=== PATIENT | female | born 1960 | race Caucasian/White ===

== ENCOUNTER 2016-06-09 12:02 | Inpatient (IN) | payer OTHER, MEDICARE ==
[~2016-06-09] VITALS: Ht 177.8 cm; Wt 97.1 kg
[2016-06-09] MEDS: IV NORMAL SALINE 1000ML BAG 1,000 ML IV SCH ×2 (00:21→13:30)
[~2016-06-09 12:02] MED LIST: ALBU1.25 IH; ALPR1TAB6 PO; DOCU-27 PO; Doxycycline Hyclate PO; ESOM40CA PO; ESTR1TAB15 PO; ESTR1TAB5 PO; ESZO1TAB6 PO; FENT1PAT21 TD; FENT1PAT91 TD; FLUT1DIS; FLUT1DIS5 IH; HYDR-963 PO; IPRA14.7; METF500T4 PO; METO5TAB55; MORP15TA; MORP30TA PO; NICO1PAT25 TP; NICO1PAT5; NYST1000 PO; OXYC10TA PO; POLY17PO5 PO; PRED-220 PO; PRED1TAB3 PO; SENN1TAB21 PO; TRAZ100T12 PO; breo; prednisone; progesterone
[2016-06-09] MEDS ORDERED: IPRATRPIUM/ALBUTEROL 0.5/2.5MG 3 ML NEBU. ONE (12:19)
--- NOTE | 2016-06-09 12:25 | PHYS DOC ---
Past Medical History Past Medical History: Anxiety, Asthma, Bronchitis, COPD, Pneumonia, Additional Disease Additional Past Medical Histor: xsmoker, chronic pain Past Surgical History: Other Additional Past Surgical Histo: pain pump x3 weeks ago, hernia rx, back sx x15 Alcohol Use: None Drug Use: None Adult General Chief Complaint Chief Complaint: SHORTNESS OF BREATH HPI HPI Patient is a 56 year old female who presents with complaint of shortness of breath for the past 4 days. Patient states that she has history of COPD and has had progressively worsening symptoms during that time. Patient has had productive cough of yellow sputum. Patient has been using DuoNeb treatments at home with minimal relief in symptoms. Patient denies any new pain associated with her symptoms at this time. Patient has history of chronic pain for which she receives fentanyl patches for treatment. Patient denies any known fevers. Patient has had worsening dyspnea on exertion. Patient states that she has had to use oxygen at all times over the last 2 days which is abnormal for her baseline. Patient denies any nausea, vomiting, or diarrhea. Review of Systems Review of Systems Constitutional: Lightheadedness, Denies fever or chills [] Eyes: Denies change in visual acuity, redness, or eye pain [] HENT: Denies nasal congestion or sore throat [] Respiratory: Productive cough, shortness of breath [] Cardiovascular: Denies chest pain or edema [] GI: Denies abdominal pain, nausea, vomiting, bloody stools or diarrhea [] : Denies dysuria or hematuria [] Musculoskeletal: Denies back pain or joint pain [] Integument: Denies rash or skin lesions [] Neurologic: Denies headache, focal weakness or sensory changes [] Current Medications Current Medications Current Medications Medications (Trade) Dose Ordered Sig/Jesus Start Time Stop Time Status Last Admin Dose Admin Albuterol/ Ipratropium (Duoneb) 3 ml STK-MED ONCE 06/09/16 12:19 06/09/16 12:20 DC Methylprednisolone Sodium Succinate (Solu-Medrol 125mg Vial) 125 mg 1X ONCE 06/09/16 12:30 06/09/16 12:31 DC 06/09/16 13:17 125 MG Ondansetron HCl 4 mg 4 mg PRN Q8HRS PRN 06/09/16 13:00 06/09/16 15:06 DC Sodium Chloride (Iv Sodium Chloride 0.9% 1000ml Bag) 1,000 ml @ 100 mls/hr Q10H 06/09/16 13:30 06/10/16 13:29 Allergies Allergies Allergies Coded Allergies Type Severity Reaction Last Updated Verified chlorhexidine Allergy Severe SEVERE BURNING TO SKIN 10/08/14 Yes Sulfa (Sulfonamide Antibiotics) Allergy Intermediate 10/08/14 Yes cephalexin Allergy Intermediate 10/08/14 Yes Physical Exam Physical Exam Constitutional: Alert, afebrile, appears in moderate respiratory distress. [] HENT: Normocephalic, atraumatic, bilateral external ears normal, oropharynx moist, no oral exudates, nose normal. [] Eyes: PERRLA, EOMI, conjunctiva normal, no discharge. [] Neck: Normal range of motion, no tenderness, supple, no stridor. [] Cardiovascular: Tachycardia, regular rhythm, no murmur [] Lungs & Thorax: Moderate to severe restriction of air movement bilaterally, expiratory wheezes bilaterally, prolonged expiratory phase, no rales [] Abdomen: Bowel sounds normal, soft, no tenderness, no masses, no pulsatile masses. [] Skin: Warm, dry, no erythema, no rash. [] Back: No tenderness, no CVA tenderness. [] Extremities: No tenderness, no cyanosis, no clubbing, ROM intact, no edema. [] Neurologic: Alert and oriented X 3, normal motor function, normal sensory function, no focal deficits noted. [] Current Patient Data Vital Signs Vital Signs Date Time Temp Pulse Resp B/P Pulse Ox O2 Delivery O2 Flow Rate FiO2 06/09/16 12:37 Nasal Cannula 6.0 06/09/16 12:12 96.7 111 26 146/78 94 96.7 Lab Values Laboratory Tests Test 06/09/16 12:20 06/09/16 12:44 06/09/16 12:45 O2 Saturation 92% (92-99) Arterial Blood pH 7.32 (7.35-7.45) L Arterial Blood pCO2 at Patient Temp 54mmHg (35-46) H Arterial Blood pO2 at Patient Temp 64mmHg (75-108) L Arterial Blood HCO3 27mmol/L (21-28) Arterial Blood Base Excess 0mmol/L (-3-3) FiO2 6 lpm nc Influenza Type A Antigen Negative (NEGATIVE) Influenza Type B Antigen Negative (NEGATIVE) White Blood Count 9.1x10^3/uL (4.0-11.0) Red Blood Count 5.33x10^6/uL (3.50-5.40) Hemoglobin 14.8g/dL (12.0-15.5) Hematocrit 46.3% (36.0-47.0) Mean Corpuscular Volume 87fL (79-100) Mean Corpuscular Hemoglobin 28pg (25-35) Mean Corpuscular Hemoglobin Concent 32g/dL (31-37) Red Cell Distribution Width 14.9% (11.5-14.5) H Platelet Count 165x10^3/uL (140-400) Neutrophils (%) (Auto) 88% (31-73) H Lymphocytes (%) (Auto) 8% (24-48) L Monocytes (%) (Auto) 4% (0-9) Eosinophils (%) (Auto) 0% (0-3) Basophils (%) (Auto) 0% (0-3) Neutrophils # (Auto) 8.0x10^3uL (1.8-7.7) H Lymphocytes # (Auto) 0.8x10^3/uL (1.0-4.8) L Monocytes # (Auto) 0.3x10^3/uL (0.0-1.1) Eosinophils # (Auto) 0.0x10^3/uL (0.0-0.7) Basophils # (Auto) 0.0x10^3/uL (0.0-0.2) Segmented Neutrophils % 72% (35-66) H Band Neutrophils % 12% (0-9) H Lymphocytes % 11% (24-48) L Monocytes % 5% (0-10) Toxic Granulation Slight Toxic Vacuolation Slight Platelet Estimate Adequate (ADEQUATE) Sodium Level 142mmol/L (136-145) Potassium Level 4.1mmol/L (3.5-5.1) Chloride Level 103mmol/L (98-107) Carbon Dioxide Level 29mmol/L (21-32) Anion Gap 10 (6-14) Blood Urea Nitrogen 14mg/dL (7-20) Creatinine 0.8mg/dL (0.6-1.0) Estimated GFR (Cockcroft-Gault) 74.2 BUN/Creatinine Ratio 18 (6-20) Glucose Level 279mg/dL (70-99) H Calcium Level 9.0mg/dL (8.5-10.1) Total Bilirubin 0.2mg/dL (0.2-1.0) Aspartate Amino Transferase (AST) 30U/L (15-37) Alanine Aminotransferase (ALT) 19U/L (14-59) Alkaline Phosphatase 113U/L (46-116) Creatine Kinase 204U/L (26-192) H Creatine Kinase MB (Mass) 2.9ng/mL (0.0-3.6) Creatine Kinase MB Relative Index 1.4% (0-4) Troponin I Quantitative < 0.017ng/mL (0.000-0.055) YT-Srl-C-Type Natriuretic Peptide 331pg/mL (0-124) H Total Protein 6.8g/dL (6.4-8.2) Albumin 3.4g/dL (3.4-5.0) Albumin/Globulin Ratio 1.0 (1.0-1.7) Laboratory Tests 06/09/16 12:45 Laboratory Tests 06/09/16 12:45 EKG EKG Interpreted by me: Heart rate 103, sinus tachycardia, normal intervals, normal axis, no acute ST/T-wave abnormalities present [] Radiology/Procedures Radiology/Procedures [facility] [address] [place], [place] [id number] IMAGING REPORT Signed PATIENT: MATEO SOUTH ACCOUNT: [id number] : 1960 LOCATION: ER AGE: 56 SEX: F EXAM STATUS: PRE ER ORD. PHYSICIAN: PABLO ESPOSITO MD REASON: shortness of breath PROCEDURE: PORTABLE CHEST 1V AP portable chest radiograph 06/09/2016 Clinical History: Shortness of breath. An AP portable erect digital radiograph of the chest was obtained. Comparison study is dated 01/03/2015. The right arm PICC has been removed. The cardiac silhouette is normal in size. The thoracic aorta is minimally tortuous. No acute pulmonary infiltrate is seen. No pleural effusion or pneumothorax is noted. Mild degenerative changes are seen involving the thoracic spine and both shoulders. Impression: No acute abnormality is seen. DICTATED and SIGNED BY: LEONARDO PERALES MD DATE: 06/09/16 1244 CC: JUANITA PARK MD; PABLO ESPOSITO MD ~ [] Course & Med Decision Making Course & Med Decision Making Pertinent Labs and Imaging studies reviewed. (See chart for details) The patient was treated with DuoNeb treatments in the emergency department. Patient's ABG showed an elevated PCO2 with decreased pH below 7.32 as well as a decreased PO2 consistent with a diagnosis of acute on chronic hypoxic and hypercapnic respiratory failure. Patient does not show evidence of pneumonia. The patient will require continued treatment in hospital for control of her current condition. I spoke with Dr. Watson who accepted care patient in hospital. A consult was placed to Dr. Ramirez of pulmonology to follow patient in hospital. Patient will continue on breathing treatments and IV Solu-Medrol. Dragon Disclaimer Dragon Disclaimer This electronic medical record was generated, in whole or in part, using a voice recognition dictation system. Departure Departure Impression: Primary Impression: Acute on chronic respiratory failure Additional Impression: Type 2 diabetes mellitus Disposition: 09 ADMITTED INPATIENT Admitting Physician: Regla Watson Condition: STABLE Referrals: JUANITA PARK MD (PCP) Problem Qualifiers Primary Impression: Acute on chronic respiratory failure Respiratory failure complication: hypoxia and hypercapnia Qualified Code: J96.21 - Acute and chronic respiratory failure with hypoxia Additional Impression: Type 2 diabetes mellitus Diabetes mellitus complication status: with hyperglycemia Diabetes mellitus fci insulin use: unspecified intermediate frame tender insulin use status Qualified Code : E11.65 - Type 2 diabetes mellitus with hyperglycemia PABLO ESPOSITO MD Jun 09, 2016 12:25
[2016-06-09] MEDS ORDERED: IV NORMAL SALINE 1000ML BAG 1,000 ML IV SCH (12:30)
[2016-06-09] MEDS ORDERED: methylPREDNISolone SOD SUCC PF 125 MG/2 ML VIAL. IV ONE (12:30)
[2016-06-09] MEDS ORDERED: IPRATRPIUM/ALBUTEROL 0.5/2.5MG 3 ML NEBU. NEB ONE (12:30)
[2016-06-09 12:31] LABS: HCO3 ABG 27 mmol/L (21-28); PCO2 ABG 54 mmHg (35-46); PH ABG 7.32 (7.35-7.45); PO2 ABG 64 mmHg (75-108); SAT O2 ABG 92 % (92-99)
--- NOTE | 2016-06-09 12:49 | RAD ---
AP portable chest radiograph 06/09/2016 Clinical History: Shortness of breath. An AP portable erect digital radiograph of the chest was obtained. Comparison study is dated 01/03/2015. The right arm PICC has been removed. The cardiac silhouette is normal in size. The thoracic aorta is minimally tortuous. No acute pulmonary infiltrate is seen. No pleural effusion or pneumothorax is noted. Mild degenerative changes are seen involving the thoracic spine and both shoulders. Impression: No acute abnormality is seen.
[2016-06-09] MEDS ORDERED: ONDANSETRON PF 4 MG/2 ML VIAL. IV PRN ×2 (13:00→15:03)
[2016-06-09 13:04] LABS: BASO % 0 % (0-3); EOS % 0 % (0-3); HEMATOCRIT 46.3 % (36.0-47.0); HEMOGLOBIN 14.8 g/dL (12.0-15.5); LYMPH # 0.8 x10^3/uL (1.0-4.8); LYMPH % 8 % (24-48); MEAN CORPUSCULAR HEMOGLOBIN 28 pg (25-35); MEAN CORPUSCULAR HGB CONC 32 g/dL (31-37); MEAN CORPUSCULAR VOLUME 87 fL (79-100); MONO % 4 % (0-9); NEUT % 88 % (31-73); PLATELET COUNT 165 x10^3/uL (140-400); RED BLOOD COUNT 5.33 x10^6/uL (3.50-5.40); RED CELL DISTRIBUTION WIDTH 14.9 % (11.5-14.5); WHITE BLOOD COUNT 9.1 x10^3/uL (4.0-11.0)
[2016-06-09 13:22] LABS: CREATININE 0.8 mg/dL (0.6-1.0); GFR 74.2; POTASSIUM 4.1 mmol/L (3.5-5.1)
[2016-06-09 13:23] LABS: OBC FLU VALID
[2016-06-09] MEDS ORDERED: BREO ELLIPTA 11 EACH IH (13:23)
[2016-06-09 13:28] LABS: ALBUMIN 3.4 g/dL (3.4-5.0); TOTAL BILIRUBIN 0.2 mg/dL (0.2-1.0); TOTAL PROTEIN 6.8 g/dL (6.4-8.2)
[2016-06-09 13:34] LABS: CKMB INDEX 1.4 % (0-4); CKMB MASS 2.9 ng/mL (0.0-3.6)
[2016-06-09 13:52] LABS: PLT ESTIMATE ADEQUATE (ADEQUATE); TOXIC GRANULATION SLIGHT; TOXIC VACUOLATION SLIGHT
--- NOTE | 2016-06-09 14:07 | EKG ---
[facility] [address] [place] [address] Test Date: 2016-06-09 Test Time: 12:14:19 Pat Name: MATEO SOUTH Department: Room: Gender: F Housing Case Manager: : 1960 Requested By: PABLO ESPOSITO Order Number: [id number] Reading MD: Measurements Intervals [place] Rate: 103 P: 62 NC: 112 QRS: 49 QRSD: 94 T: 62 QT: 338 QTc: 445 Interpretive Statements SINUS TACHYCARDIA OTHERWISE NORMAL ECG RI6.01 Unconfirmed report No previous ECG available for comparison
--- NOTE | 2016-06-09 14:38 | ACF ---
Admission Forms Criteria RESPIRATORY FAILURE [facility] Clinical Indications for Admission to Inpatient Care (Place 'X' for any and all applicable criteria): Hospital admission is needed for appropriate care of the patient because of acute respiratory failure or insufficiency as indicated by ANY ONE of the following(1)(2)(3)(4)(5)(6)(7)(8): [ ]I. Mechanical ventilation needed (acute invasive or noninvasive) [X]II. Severe ventilation deficit as indicated by ANY ONE of the following (9) [ ]a) Respiratory acidosis (pH less than 7.32 and partial pressure of carbon dioxide greater than 40 mm Hg (5.3 kPa)) [X]b) Partial pressure of carbon dioxide greater than 44 mm Hg (5.9 kPa ) (new) [ ]c) Airflow measurements less than 25% of predicted (eg, peak expiratory flow rate less than 100 L/minute) [ ]d) Forced vital capacity less than 15 mL/kg of ideal body weight, or 50% decrease in vital capacity from baseline [ ]III. Noncardiac pulmonary edema not resolving with rapid emergency treatment (8) [ ]IV. Severe respiratory distress as indicated by ANY ONE of the following: [ ]a) Severe tachypnea (respiratory rate greater than 30, greater than 45 for 6-month-old, greater than 60 for ) [ ]b) Severe hypoxemia (partial pressure of oxygen less than 50 mm Hg ( 6.7 kPa) on greater than 50% oxygen or partial pressure of oxygen to FIO2 ratio less than 200) [ ]c) Mental status deterioration from respiratory disease [ ]V. Airway obstruction or inadequate protection [A](10)(11) The original [employer] content created by [employer] has been revised. The portions of the content which have been revised are identified through the use of italic text or in bold, and [employer] has neither reviewed nor approved the modified material. All other unmodified content is copyright [employer]. Please see references footnoted in the original [employer] edition 2016 Admission Criteria Met?: Yes COSME WELLINGTON Jun 09, 2016 14:38
[2016-06-09] MEDS ORDERED: FENTANYL 100 MCG/HR TD SCH (15:00)
--- NOTE | 2016-06-09 15:10 | PDOC1 ---
History and Physical Date of Admission Date of Admission DATE: 06/09/16 TIME: 15:06 Identification/Chief Complaint Chief Complaint SOA Source Source: Caregiver, Chart review, Patient History of Present Illness History of Present Illness 56 y.o female, heavy smoker also unfortunately narcotic dependence, chronic pain (Has had 31 spine sxs total including spine stimulator), on Fentanyl patch 200 q48 hrs for many yrs amongst her PO pain meds, SOA today, CHronic cough,HEavy smoker, COPD on inhalers. ABG pH 7.32, Co3 50s, O250s, better with 2 LNC at 92-93%. Flu neg, CXR neg,. Admitted for Severe COPD exacerb. Past Medical History Cardiovascular: HTN Pulmonary: Asthma, Bronchitis GI: Other Heme/Onc: Cancer Psych: Depression Musculoskeletal: low back pain, Other Rheumatologic: Fibromyalgia Endocrine: Diabetes Past Surgical History Past Surgical History: Other Family History Family History: No Significant Social History Smoke: 1 pack per day ALCOHOL: occassional Drugs: None Current Medications Current Medications Current Medications Sodium Chloride (Iv Sodium Chloride 0.9% 1000ml Bag) 1,000 ml @ 100 mls/hr Q10H IV Last administered on 06/09/16 13:17; Start 06/09/16 at 12:30; Stop at 22:29 Albuterol/ Ipratropium (Duoneb) 6 ml 1X ONCE NEB Last administered on 12:33; Start 06/09/16 at 12:30; Stop 06/09/16 at 12:31; Status DC Methylprednisolone Sodium Succinate (Solu-Medrol 125mg Vial) 125 mg 1X ONCE IV Last administered on 06/09/16 13:17; Start 06/09/16 at 12:30; Stop 06/09/16 at 12:31; Status DC Albuterol/ Ipratropium (Duoneb) 3 ml STK-MED ONCE .ROUTE ; Start 06/09/16 at 12: 19; Stop 06/09/16 at 12:20; Status DC Ondansetron HCl 4 mg 4 mg PRN Q8HRS PRN IV NAUSEA/VOMITING; Start 06/09/16 at 13 :00; Stop 06/09/16 at 15:06; Status DC Sodium Chloride (Iv Sodium Chloride 0.9% 1000ml Bag) 1,000 ml @ 100 mls/hr Q10H IV ; Start 06/09/16 at 13:30; Stop 06/10/16 at 13:29 Albuterol/ Ipratropium (Duoneb) 3 ml RTQID NEB ; Start 06/09/16 at 16:00; Stop at 15:59 Methylprednisolone Sodium Succinate (Solu-Medrol 40mg Vial) 60 mg Q6HRS IV ; Start 06/09/16 at 18:00 Ondansetron HCl (Zofran) 4 mg PRN Q6HRS PRN IV NAUSEA/VOMITING; Start 06/09/16 at 15:03; Status UNV Acetaminophen (Tylenol) 500 mg PRN Q6HRS PRN PO MILD PAIN / TEMP; Start at 15:15; Status UNV Nicotine (Nicoderm Cq 21mg) 1 patch DAILY TD ; Start 06/09/16 at 15:15; Status UNV Nicotine Polacrilex (Nicorette Gum) 1 each PRN Q1HR PRN BC SMOKING CESSATION; Start 06/09/16 at 15:15; Status UNV Fentanyl (Duragesic 100mcg/Hr Patch) 2 patch Q3DAYS TD ; Start 06/12/16 at 09:00 ; Status UNV Active Scripts Active NICODERM CQ 14mg (Nicotine) 1 Each Patch.td24 1 Patch TP DAILY Reported Breo Ellipta 100-25 Mcg Inh (Fluticasone/Vilanterol) 1 Each Aer.pow.ba 1 Puff IH Oxycodone Hcl 10 Mg Tablet 2 Tab PO PRN Q4HRS PRN Oxycodone Hcl 10 Mg Tablet 1 Tab PO PRN Q4HRS PRN Nystatin 100,000 Unit/1 Ml Oral.susp 5 Ml PO QID PRN Morphine Sulfate 30 Mg Tablet 1 Tab PO Q12HR Jensen 10-325 Tablet (Acetaminophen/Hydrocodone Bitart) 1 Each Tablet 1-2 Tab PO Q4-6HRS PRN FENTANYL 100mcg/hr (Fentanyl) 1 Each Patch.td72 1 Patch TD QODAY Combivent Inhaler (Ipratropium/Albuterol Sulfate) 14.7 Gm Aer.w.adap 1-2 PRN DAILY PRN Nexium Capsule (Esomeprazole Magnesium) 40 Mg Capsule.dr 1 Tab PO DAILY Lunesta (Eszopiclone) 1 Mg Tablet 3 Mg PO HS Alprazolam 1 Mg Tablet 1 Mg PO PRN QID PRN Allergies Allergies: Coded Allergies: chlorhexidine (Verified Allergy, Severe, SEVERE BURNING TO SKIN, 10/08/14) CHLOROAPREP Sulfa (Sulfonamide Antibiotics) (Verified Allergy, Intermediate, 10/08/14) cephalexin (Verified Allergy, Intermediate, 10/08/14) ROS General: No: Appetite, Chills, Fatigue, Malaise, Night Sweats, Other PSYCHOLOGICAL ROS: No: Anxiety, Behavioral Disorder, Concentration difficultie , Decreased libido, Depression, Disorientation, Hallucinations, Hostility, Irritablity, Memory difficulties, Mood Swings, Obsessive thoughts, Other, Physical abuse, Sexual abuse, Sleep disturbances, Suicidal ideation HEENT: No: Epistaxis, Heacaches, Hearing change, Nasal congestion, Nasal discharge, Oral lesions, Other, Sinus pain, Sneezing, Snoring, Sore Throat, Tinnitus, Vertigo, Visual Changes, Vocal changes ALLERGY AND IMMUNOLOGY: No: Hives, Insect Bite Sensitivity, Itchy/Watery Eyes, Nasal Congestion, Other, Post Nasal Drip, Seasonal Allergies Hematological and Lymphatic: No: Bleeding Problems, Blood Clots, Blood Transfusions, Brusing, Night Sweats, Other, Pallor, Swollen Lymph Nodes ENDOCRINE: No: Breast Changes, Galactorrhea, Hair Pattern Changes, Hot Flashes , Malaise/lethargy, Mood Swings, Other, Palpitations, Polydipsia/polyuria, Skin Changes, Temperature Intolerance, Unexpected Weight Changes Breast: No New/Changing Breast Lumps, No Nipple changes, No Nipple discharge, No Other Respiratory: YES: Cough, SOB with excertion, Shortness of breath Cardiovascular: No Chest Pain, No Edema, No Lt Headedness, No Orthopnea, No Other, No Palpitations, No Paroxysmal Noc. Dyspnea Gastrointestinal: No Abdominal Pain, No Constipation, No Diarrhea, No Hematochezia, No Melena, No Nausea, No Other, No Vomiting Genitourinary: No , No , No , No , No , No , No , No Discharge, No Dysuria, No Flank Pain, No Frequency, No Hematuria, No Incontinence, No Other, No Pain, No Retention, No Urgency Musculoskeletal: No Gait Disturbance, No Joint Pain, No Joint Stiffness, No Joint Swelling, No Muscle Pain, No Muscular Weakness, No Other, No Pain In:, No Swelling In: Neurological: No Behavorial Changes, No Bowel/Bladder ControlChng, No Confusion , No Dizziness, No Gait Disturbance, No Headaches, No Impaired Coord/balance, No Memory Loss, No Numbness/Tingling, No Other, No Seizures, No Speech Problems , No Tremors, No Visual Changes, No Weakness Skin: No Acne, No Dry Skin, No Eczema, No Hair Changes, No Lumps, No Mole Changes, No Mottling, No Nail Changes, No Other, No Pruritus, No Rash, No Skin Lesion Changes Physical Exam General: Alert, Oriented X3, Cooperative, No acute distress HEENT: Atraumatic, PERRLA Lungs: Normal air movement, Other (wheezy, tight) Heart: S1S2, RRR, no thrills, no rubs Cardiovascular: S1, S2 Breasts: Normal Abdomen: Normal bowel sounds, Soft, No tenderness, No hepatosplenomegaly, No masses Rectal Exam: not examined, mass PELVIC: Nml ext genitalia Extremities: No clubbing, No cyanosis, No edema, Normal pulses, No tenderness/ swelling Skin: No rashes, No breakdown, No significant lesion Neuro: Normal gait, Normal speech, Strength at 5/5 X4 ext, Normal tone, Sensation intact, Cranial nerves 3-12 NL, Reflexes 2+ Psych/Mental Status: Mental status NL, Mood NL Vitals Vitals Vital Signs Date Time Temp Pulse Resp B/P Pulse Ox O2 Delivery O2 Flow Rate FiO2 06/09/16 12:37 Nasal Cannula 6.0 06/09/16 12:12 96.7 111 26 146/78 94 96.7 Labs Labs Laboratory Tests Test 06/09/16 12:20 06/09/16 12:44 06/09/16 12:45 O2 Saturation 92% (92-99) Arterial Blood pH 7.32 (7.35-7.45) Arterial Blood pCO2 at Patient Temp 54mmHg (35-46) Arterial Blood pO2 at Patient Temp 64mmHg (75-108) Arterial Blood HCO3 27mmol/L (21-28) Arterial Blood Base Excess 0mmol/L (-3-3) FiO2 6 lpm nc Influenza Type A Antigen Negative (NEGATIVE) Influenza Type B Antigen Negative (NEGATIVE) White Blood Count 9.1x10^3/uL (4.0-11.0) Red Blood Count 5.33x10^6/uL (3.50-5.40) Hemoglobin 14.8g/dL (12.0-15.5) Hematocrit 46.3% (36.0-47.0) Mean Corpuscular Volume 87fL (79-100) Mean Corpuscular Hemoglobin 28pg (25-35) Mean Corpuscular Hemoglobin Concent 32g/dL (31-37) Red Cell Distribution Width 14.9% (11.5-14.5) Platelet Count 165x10^3/uL (140-400) Neutrophils (%) (Auto) 88% (31-73) Lymphocytes (%) (Auto) 8% (24-48) Monocytes (%) (Auto) 4% (0-9) Eosinophils (%) (Auto) 0% (0-3) Basophils (%) (Auto) 0% (0-3) Neutrophils # (Auto) 8.0x10^3uL (1.8-7.7) Lymphocytes # (Auto) 0.8x10^3/uL (1.0-4.8) Monocytes # (Auto) 0.3x10^3/uL (0.0-1.1) Eosinophils # (Auto) 0.0x10^3/uL (0.0-0.7) Basophils # (Auto) 0.0x10^3/uL (0.0-0.2) Segmented Neutrophils % 72% (35-66) Band Neutrophils % 12% (0-9) Lymphocytes % 11% (24-48) Monocytes % 5% (0-10) Toxic Granulation Slight Toxic Vacuolation Slight Platelet Estimate Adequate (ADEQUATE) Sodium Level 142mmol/L (136-145) Potassium Level 4.1mmol/L (3.5-5.1) Chloride Level 103mmol/L (98-107) Carbon Dioxide Level 29mmol/L (21-32) Anion Gap 10 (6-14) Blood Urea Nitrogen 14mg/dL (7-20) Creatinine 0.8mg/dL (0.6-1.0) Estimated GFR (Cockcroft-Gault) 74.2 BUN/Creatinine Ratio 18 (6-20) Glucose Level 279mg/dL (70-99) Calcium Level 9.0mg/dL (8.5-10.1) Total Bilirubin 0.2mg/dL (0.2-1.0) Aspartate Amino Transf (AST/SGOT) 30U/L (15-37) Alanine Aminotransferase (ALT/SGPT) 19U/L (14-59) Alkaline Phosphatase 113U/L (46-116) Creatine Kinase 204U/L (26-192) Creatine Kinase MB (Mass) 2.9ng/mL (0.0-3.6) Creatine Kinase MB Relative Index 1.4% (0-4) Troponin I Quantitative < 0.017ng/mL (0.000-0.055) IH-Oef-U-Type Natriuretic Peptide 331pg/mL (0-124) Total Protein 6.8g/dL (6.4-8.2) Albumin 3.4g/dL (3.4-5.0) Albumin/Globulin Ratio 1.0 (1.0-1.7) Laboratory Tests Test 06/09/16 12:20 06/09/16 12:44 06/09/16 12:45 O2 Saturation 92% (92-99) Arterial Blood pH 7.32 (7.35-7.45) Arterial Blood pCO2 at Patient Temp 54mmHg (35-46) Arterial Blood pO2 at Patient Temp 64mmHg (75-108) Arterial Blood HCO3 27mmol/L (21-28) Arterial Blood Base Excess 0mmol/L (-3-3) FiO2 6 lpm nc Influenza Type A Antigen Negative (NEGATIVE) Influenza Type B Antigen Negative (NEGATIVE) White Blood Count 9.1x10^3/uL (4.0-11.0) Red Blood Count 5.33x10^6/uL (3.50-5.40) Hemoglobin 14.8g/dL (12.0-15.5) Hematocrit 46.3% (36.0-47.0) Mean Corpuscular Volume 87fL (79-100) Mean Corpuscular Hemoglobin 28pg (25-35) Mean Corpuscular Hemoglobin Concent 32g/dL (31-37) Red Cell Distribution Width 14.9% (11.5-14.5) Platelet Count 165x10^3/uL (140-400) Neutrophils (%) (Auto) 88% (31-73) Lymphocytes (%) (Auto) 8% (24-48) Monocytes (%) (Auto) 4% (0-9) Eosinophils (%) (Auto) 0% (0-3) Basophils (%) (Auto) 0% (0-3) Neutrophils # (Auto) 8.0x10^3uL (1.8-7.7) Lymphocytes # (Auto) 0.8x10^3/uL (1.0-4.8) Monocytes # (Auto) 0.3x10^3/uL (0.0-1.1) Eosinophils # (Auto) 0.0x10^3/uL (0.0-0.7) Basophils # (Auto) 0.0x10^3/uL (0.0-0.2) Segmented Neutrophils % 72% (35-66) Band Neutrophils % 12% (0-9) Lymphocytes % 11% (24-48) Monocytes % 5% (0-10) Toxic Granulation Slight Toxic Vacuolation Slight Platelet Estimate Adequate (ADEQUATE) Sodium Level 142mmol/L (136-145) Potassium Level 4.1mmol/L (3.5-5.1) Chloride Level 103mmol/L (98-107) Carbon Dioxide Level 29mmol/L (21-32) Anion Gap 10 (6-14) Blood Urea Nitrogen 14mg/dL (7-20) Creatinine 0.8mg/dL (0.6-1.0) Estimated GFR (Cockcroft-Gault) 74.2 BUN/Creatinine Ratio 18 (6-20) Glucose Level 279mg/dL (70-99) Calcium Level 9.0mg/dL (8.5-10.1) Total Bilirubin 0.2mg/dL (0.2-1.0) Aspartate Amino Transf (AST/SGOT) 30U/L (15-37) Alanine Aminotransferase (ALT/SGPT) 19U/L (14-59) Alkaline Phosphatase 113U/L (46-116) Creatine Kinase 204U/L (26-192) Creatine Kinase MB (Mass) 2.9ng/mL (0.0-3.6) Creatine Kinase MB Relative Index 1.4% (0-4) Troponin I Quantitative < 0.017ng/mL (0.000-0.055) SL-Fgs-L-Type Natriuretic Peptide 331pg/mL (0-124) Total Protein 6.8g/dL (6.4-8.2) Albumin 3.4g/dL (3.4-5.0) Albumin/Globulin Ratio 1.0 (1.0-1.7) VTE Prophylaxis Ordered VTE Prophylaxis Devices: Yes VTE Pharmacological Prophylaxi: Yes Assessment/Plan Assessment/Plan 1. Severe COPD exacerbation 2,. Acute hypoxic hypercapneic respi failure 3. Acute bronchitis 3. SMoker 4. CHronic pain 5. SIRS POA< no sepsis 6. MIld PCM PLAN: Jamalbs, cough med, solu Pulmo consult NIcotine patch COnt home meds including fentanyl patch seen at ER JONNATHAN MAHER MD Jun 09, 2016 15:10
[2016-06-09] MEDS ORDERED: NICOTINE POLACRILEX 2MG GUM PACKAGE of 12. BC PRN (15:15)
[2016-06-09] MEDS ORDERED: ACETAMINOPHEN 500 MG TABLET PO PRN (15:15)
[2016-06-09] MEDS ORDERED: ZOLPIDEM 5 MG TABLET. PO PRN (15:30)
[2016-06-09] MEDS ORDERED: OXYCODONE IR 5 MG TABLET. PO PRN (15:30)
[2016-06-09 15:40] VITALS: BP 140/68
[2016-06-09] MEDS: IPRATRPIUM/ALBUTEROL 0.5/2.5MG 3 ML NEBU. NEB SCH ×2 (16:43→20:06)
[2016-06-09] MEDS ORDERED: SENN8.6T99 PO (16:53)
[2016-06-09] MEDS ORDERED: DOCU-27 PO (16:54)
[2016-06-09] MEDS ORDERED: POLY255P PO (16:55)
[2016-06-09] MEDS ORDERED: ONDA4TAB7 PO (16:59)
[2016-06-09] MEDS ORDERED: OXYC5CAP3 PO (17:04)
[2016-06-09] MEDS ORDERED: TRAZ100T12 PO (17:04)
[2016-06-09] MEDS ORDERED: FURO-69 PO (17:06)
[2016-06-09] MEDS ORDERED: POTA10CA PO (17:07)
[2016-06-09] MEDS ORDERED: METF500T4 PO (17:07)
[2016-06-09] MEDS: HYDROCODONE/APAP 10/325 TABLET. PO PRN (18:02)
[2016-06-09] MEDS: methylPREDNISolone SOD SUCC PF 40 MG/ML VIAL. IV SCH (18:03)
[2016-06-09] MEDS: NICOTINE 21MG PATCH. TD SCH (18:03)
[2016-06-09] MEDS: PANTOPRAZOLE 40 MG TABLET. PO SCH (18:04)
[2016-06-09] MEDS: BENZONATATE 100 MG CAPSULE. PO SCH ×2 (18:04→20:58)
[2016-06-09 19:00] VITALS: BP 124/68
[2016-06-09] MEDS: MORPHINE ER 30 MG TABLET.ER PO SCH (20:58)
[2016-06-09 23:00] VITALS: BP 140/79
[2016-06-10] MEDS: methylPREDNISolone SOD SUCC PF 40 MG/ML VIAL. IV SCH ×5 (00:22→21:17)
[2016-06-10] MEDS: HYDROCODONE/APAP 10/325 TABLET. PO PRN ×2 (02:18→13:02)
[2016-06-10] MEDS ORDERED: ALBUTEROL SULFATE 2.5 MG/3 ML NEBU. NEB ONE (04:00)
[2016-06-10 06:37] LABS: BASO % 0 % (0-3); EOS % 0 % (0-3); HEMATOCRIT 45.4 % (36.0-47.0); HEMOGLOBIN 14.6 g/dL (12.0-15.5); LYMPH # 0.8 x10^3/uL (1.0-4.8); LYMPH % 10 % (24-48); MEAN CORPUSCULAR HEMOGLOBIN 28 pg (25-35); MEAN CORPUSCULAR HGB CONC 32 g/dL (31-37); MEAN CORPUSCULAR VOLUME 86 fL (79-100); MONO % 4 % (0-9); NEUT % 87 % (31-73); PLATELET COUNT 170 x10^3/uL (140-400); RED BLOOD COUNT 5.25 x10^6/uL (3.50-5.40); RED CELL DISTRIBUTION WIDTH 14.7 % (11.5-14.5); WHITE BLOOD COUNT 7.8 x10^3/uL (4.0-11.0)
[2016-06-10 06:44] LABS: CALCIUM 8.9 mg/dL (8.5-10.1); CREATININE 0.9 mg/dL (0.6-1.0); GFR 64.8; POTASSIUM 4.7 mmol/L (3.5-5.1)
[2016-06-10 07:00] VITALS: BP 175/79
[2016-06-10] MEDS: PANTOPRAZOLE 40 MG TABLET. PO SCH ×2 (07:30→08:40)
[2016-06-10] MEDS: IPRATRPIUM/ALBUTEROL 0.5/2.5MG 3 ML NEBU. NEB SCH ×5 (07:32→19:39)
[2016-06-10] MEDS: BENZONATATE 100 MG CAPSULE. PO SCH ×3 (08:40→21:16)
[2016-06-10] MEDS: MORPHINE ER 30 MG TABLET.ER PO SCH ×2 (08:40→21:17)
[2016-06-10] MEDS: NICOTINE 21MG PATCH. TD SCH (08:40)
[2016-06-10] MEDS ORDERED: DEXTROSE 50% 25 GM / 50ML DISP.SYRIN. IV PRN (10:45)
[2016-06-10] MEDS ORDERED: ALBUTEROL SULFATE 2.5 MG/3 ML NEBU. NEB PRN (10:45)
[2016-06-10 11:00] VITALS: BP 166/73
--- NOTE | 2016-06-10 11:48 | PDOC ---
Provider Note Provider Note DICTATED KELVIN HUNT MD Jun 10, 2016 11:48
[2016-06-10] MEDS: INSULIN ASPART 300 UNITS/3 ML INSULN.PEN SQ SCH ×2 (12:00→17:26)
[2016-06-10] MEDS ORDERED: ALBUTEROL SULFATE PRN (12:30)
[2016-06-10] MEDS ORDERED: IPRATROPIUM PRN (12:30)
--- NOTE | 2016-06-10 12:35 | CONS ---
DATE OF CONSULTATION: ATTENDING PHYSICIAN: Dr. Watson. REASON FOR CONSULTATION: Acute exacerbation of COPD, abnormal ABGs and respiratory failure. HISTORY OF PRESENT ILLNESS: The patient is a 56-year-old female who has a history of severe COPD, which has been oxygen dependent. She also has a history of heavy narcotic dependence. She had 31 spinal surgeries and has been on fentanyl patch 200 mics every 48 hours along with oral narcotics. She was brought into the hospital with complaint of shortness of breath and wheezing. She also has been coughing up thick green sputum. She said her had a viral infection and then she developed the symptoms after she was exposed to him. Her chest x-ray did not reveal definite consolidation. She had abnormal ABGs with a pH of 7.32, pCO2 of 54 and a pO2 of 64 while on 6 liters. She states she used to be on oxygen in the past, but insurance denied it and then she bought her own oxygen. She said she has not used it except in the last 5 days when she is using up to 5 liters. She also stated that she used 31 nebulizer treatments in the last 2 days. Consultation requested for further evaluation and management. PAST MEDICAL HISTORY: Significant for history of severe oxygen dependent COPD, history of chronic narcotic dependence, history of hypertension, history of depression, low back pain, history of multiple spinal surgeries and history of chronic narcotic dependence. PAST SURGICAL HISTORY: Multiple, at least 31 spinal surgeries. ALLERGIES: SULFA, CEPHALEXIN AND CHLORHEXIDINE. REVIEW OF SYSTEMS: Twelve-point systems were obtained, pertinent positives discussed in my history of present illness, otherwise noncontributory. All systems that were negative were reviewed as well. CURRENT MEDICATIONS: Reviewed including DuoNebs. She is also on albuterol p.r.n. q. 12 hours nebulizer and along with IV steroids. Oral narcotics and narcotic patches. SOCIAL HISTORY: She no longer smokes cigarettes. PHYSICAL EXAMINATION: VITAL SIGNS: Blood pressure is ____. She is fully awake, in no obvious respiratory distress. Pulse ox ____ on 4 liters. HEENT: Sclerae nonicteric. NECK: Supple. LUNGS: With faint bilateral expiratory wheezes. CARDIOVASCULAR: Regular rate. ABDOMEN: Soft, nontender. EXTREMITIES: With trace pitting edema. LABORATORY DATA: Reviewed. ABGs as discussed in my history of present illness. Influenza screen is negative. BUN 16, creatinine 0.9. White cell count 7.8, hemoglobin 14.6 and platelets are 170. IMPRESSION: 1. Acute on chronic hypercapnic and hypoxic respiratory failure secondary to acute exacerbation of chronic obstructive pulmonary disease. 2. Acute purulent bronchitis. 3. Abnormal arterial blood gases secondary to acute exacerbation of chronic obstructive pulmonary disease and hypoventilation from the effect of heavy doses of narcotics. 4. Chronic narcotic dependence secondary to 31 spinal surgeries. RECOMMENDATIONS: 1. Continue with present Duo Nebs and p.r.n. albuterol nebulizer. The patient states at home she takes Breo inhaler and p.r.n. rescue inhaler and she prefers to use them if available in the hospital.(not available) 2. Continue IV steroids. 3. Obtain sputum for C and S. 4. Cautious use of narcotics. 5. We will follow ABGs as clinically needed. she is fully awake 6. Add empiric antibiotic. 7. Discussed with RN. We will follow along with you. KELVIN HUNT MD DR: MILVIA/karly JOB#: [id number] / [id number] ELE
[2016-06-10] MEDS: DOXYCYCLINE HYCLATE 100 MG TABLET PO SCH ×2 (13:01→21:16)
[2016-06-10] MEDS: IV NORMAL SALINE 1000ML BAG 1,000 ML IV SCH (13:01)
[2016-06-10] MEDS: GUAIFENESIN ER 600 MG TABLET.ER PO SCH ×2 (13:01→21:16)
[2016-06-10] MEDS: GABAPENTIN 400 MG CAPSULE. PO SCH ×2 (13:02→21:16)
[2016-06-10] MEDS ORDERED: FENTANYL 100 MCG/HR TD SCH (14:00)
--- NOTE | 2016-06-10 14:14 | PDOC ---
PROGRESS NOTES Chief Complaint Chief Complaint Assessment/Plan 1. Severe COPD exacerbation 2,. Acute hypoxic hypercapneic AND HYPoxic respi failure 3. Acute bronchitis 3. SMoker 4. CHronic pain 5. SIRS POA< no sepsis 6. MIld PCM PLAN: Duonebs, cough med, solu Pulmo consulted NIcotine patch COnt home meds including fentanyl patch SSI History of Present Illness History of Present Illness still cough, sob, on NC 5L Vitals Vitals Vital Signs Date Time Temp Pulse Resp B/P Pulse Ox O2 Delivery O2 Flow Rate FiO2 06/10/16 13:02 Room Air 06/10/16 11:47 95 5.0 06/10/16 11:00 97.9 91 20 166/73 97.9 Physical Exam General: Alert, Oriented X3, Cooperative, No acute distress Heart: Regular rate Lungs: Other (BL SEVERE WHEEZING) Abdomen: Normal bowel sounds, Soft, No tenderness, No hepatosplenomegaly, No masses Extremities: No clubbing, No cyanosis, No edema, Normal pulses, No tenderness/ swelling Skin: No rashes, No breakdown, No significant lesion Labs LABS Laboratory Tests Test 06/09/16 16:27 06/09/16 16:29 06/10/16 06:20 Glucose (Fingerstick) 354mg/dL (70-99) 296mg/dL (70-99) White Blood Count 7.8x10^3/uL (4.0-11.0) Red Blood Count 5.25x10^6/uL (3.50-5.40) Hemoglobin 14.6g/dL (12.0-15.5) Hematocrit 45.4% (36.0-47.0) Mean Corpuscular Volume 86fL (79-100) Mean Corpuscular Hemoglobin 28pg (25-35) Mean Corpuscular Hemoglobin Concent 32g/dL (31-37) Red Cell Distribution Width 14.7% (11.5-14.5) Platelet Count 170x10^3/uL (140-400) Neutrophils (%) (Auto) 87% (31-73) Lymphocytes (%) (Auto) 10% (24-48) Monocytes (%) (Auto) 4% (0-9) Eosinophils (%) (Auto) 0% (0-3) Basophils (%) (Auto) 0% (0-3) Neutrophils # (Auto) 6.8x10^3uL (1.8-7.7) Lymphocytes # (Auto) 0.8x10^3/uL (1.0-4.8) Monocytes # (Auto) 0.3x10^3/uL (0.0-1.1) Eosinophils # (Auto) 0.0x10^3/uL (0.0-0.7) Basophils # (Auto) 0.0x10^3/uL (0.0-0.2) Sodium Level 140mmol/L (136-145) Potassium Level 4.7mmol/L (3.5-5.1) Chloride Level 104mmol/L (98-107) Carbon Dioxide Level 33mmol/L (21-32) Anion Gap 3 (6-14) Blood Urea Nitrogen 16mg/dL (7-20) Creatinine 0.9mg/dL (0.6-1.0) Estimated GFR (Cockcroft-Gault) 64.8 Glucose Level 190mg/dL (70-99) Calcium Level 8.9mg/dL (8.5-10.1) Review of Systems Review of Systems no fever, chills, sob or chest pain Assessment and Plan Assessmemt and Plan Problems Medical Problems: (1) Acute on chronic respiratory failure Status: Acute (2) Type 2 diabetes mellitus Status: Acute Problems: Comment Review of Relevant I have reviewed the following items nila (where applicable) has been applied. Labs Laboratory Tests Test 06/09/16 12:20 06/09/16 12:44 06/09/16 12:45 06/09/16 16:27 O2 Saturation 92% (92-99) Arterial Blood pH 7.32 (7.35-7.45) Arterial Blood pCO2 at Patient Temp 54mmHg (35-46) Arterial Blood pO2 at Patient Temp 64mmHg (75-108) Arterial Blood HCO3 27mmol/L (21-28) Arterial Blood Base Excess 0mmol/L (-3-3) FiO2 6 lpm nc Influenza Type A Antigen Negative (NEGATIVE) Influenza Type B Antigen Negative (NEGATIVE) White Blood Count 9.1x10^3/uL (4.0-11.0) Red Blood Count 5.33x10^6/uL (3.50-5.40) Hemoglobin 14.8g/dL (12.0-15.5) Hematocrit 46.3% (36.0-47.0) Mean Corpuscular Volume 87fL (79-100) Mean Corpuscular Hemoglobin 28pg (25-35) Mean Corpuscular Hemoglobin Concent 32g/dL (31-37) Red Cell Distribution Width 14.9% (11.5-14.5) Platelet Count 165x10^3/uL (140-400) Neutrophils (%) (Auto) 88% (31-73) Lymphocytes (%) (Auto) 8% (24-48) Monocytes (%) (Auto) 4% (0-9) Eosinophils (%) (Auto) 0% (0-3) Basophils (%) (Auto) 0% (0-3) Neutrophils # (Auto) 8.0x10^3uL (1.8-7.7) Lymphocytes # (Auto) 0.8x10^3/uL (1.0-4.8) Monocytes # (Auto) 0.3x10^3/uL (0.0-1.1) Eosinophils # (Auto) 0.0x10^3/uL (0.0-0.7) Basophils # (Auto) 0.0x10^3/uL (0.0-0.2) Segmented Neutrophils % 72% (35-66) Band Neutrophils % 12% (0-9) Lymphocytes % 11% (24-48) Monocytes % 5% (0-10) Toxic Granulation Slight Toxic Vacuolation Slight Platelet Estimate Adequate (ADEQUATE) Sodium Level 142mmol/L (136-145) Potassium Level 4.1mmol/L (3.5-5.1) Chloride Level 103mmol/L (98-107) Carbon Dioxide Level 29mmol/L (21-32) Anion Gap 10 (6-14) Blood Urea Nitrogen 14mg/dL (7-20) Creatinine 0.8mg/dL (0.6-1.0) Estimated GFR (Cockcroft-Gault) 74.2 BUN/Creatinine Ratio 18 (6-20) Glucose Level 279mg/dL (70-99) Calcium Level 9.0mg/dL (8.5-10.1) Total Bilirubin 0.2mg/dL (0.2-1.0) Aspartate Amino Transf (AST/SGOT) 30U/L (15-37) Alanine Aminotransferase (ALT/SGPT) 19U/L (14-59) Alkaline Phosphatase 113U/L (46-116) Creatine Kinase 204U/L (26-192) Creatine Kinase MB (Mass) 2.9ng/mL (0.0-3.6) Creatine Kinase MB Relative Index 1.4% (0-4) Troponin I Quantitative < 0.017ng/mL (0.000-0.055) JN-Nyq-P-Type Natriuretic Peptide 331pg/mL (0-124) Total Protein 6.8g/dL (6.4-8.2) Albumin 3.4g/dL (3.4-5.0) Albumin/Globulin Ratio 1.0 (1.0-1.7) Glucose (Fingerstick) 354mg/dL (70-99) Test 06/09/16 16:29 06/10/16 06:20 Glucose (Fingerstick) 296mg/dL (70-99) White Blood Count 7.8x10^3/uL (4.0-11.0) Red Blood Count 5.25x10^6/uL (3.50-5.40) Hemoglobin 14.6g/dL (12.0-15.5) Hematocrit 45.4% (36.0-47.0) Mean Corpuscular Volume 86fL (79-100) Mean Corpuscular Hemoglobin 28pg (25-35) Mean Corpuscular Hemoglobin Concent 32g/dL (31-37) Red Cell Distribution Width 14.7% (11.5-14.5) Platelet Count 170x10^3/uL (140-400) Neutrophils (%) (Auto) 87% (31-73) Lymphocytes (%) (Auto) 10% (24-48) Monocytes (%) (Auto) 4% (0-9) Eosinophils (%) (Auto) 0% (0-3) Basophils (%) (Auto) 0% (0-3) Neutrophils # (Auto) 6.8x10^3uL (1.8-7.7) Lymphocytes # (Auto) 0.8x10^3/uL (1.0-4.8) Monocytes # (Auto) 0.3x10^3/uL (0.0-1.1) Eosinophils # (Auto) 0.0x10^3/uL (0.0-0.7) Basophils # (Auto) 0.0x10^3/uL (0.0-0.2) Sodium Level 140mmol/L (136-145) Potassium Level 4.7mmol/L (3.5-5.1) Chloride Level 104mmol/L (98-107) Carbon Dioxide Level 33mmol/L (21-32) Anion Gap 3 (6-14) Blood Urea Nitrogen 16mg/dL (7-20) Creatinine 0.9mg/dL (0.6-1.0) Estimated GFR (Cockcroft-Gault) 64.8 Glucose Level 190mg/dL (70-99) Calcium Level 8.9mg/dL (8.5-10.1) Laboratory Tests Test 06/09/16 16:27 06/09/16 16:29 06/10/16 06:20 Glucose (Fingerstick) 354mg/dL (70-99) 296mg/dL (70-99) White Blood Count 7.8x10^3/uL (4.0-11.0) Red Blood Count 5.25x10^6/uL (3.50-5.40) Hemoglobin 14.6g/dL (12.0-15.5) Hematocrit 45.4% (36.0-47.0) Mean Corpuscular Volume 86fL (79-100) Mean Corpuscular Hemoglobin 28pg (25-35) Mean Corpuscular Hemoglobin Concent 32g/dL (31-37) Red Cell Distribution Width 14.7% (11.5-14.5) Platelet Count 170x10^3/uL (140-400) Neutrophils (%) (Auto) 87% (31-73) Lymphocytes (%) (Auto) 10% (24-48) Monocytes (%) (Auto) 4% (0-9) Eosinophils (%) (Auto) 0% (0-3) Basophils (%) (Auto) 0% (0-3) Neutrophils # (Auto) 6.8x10^3uL (1.8-7.7) Lymphocytes # (Auto) 0.8x10^3/uL (1.0-4.8) Monocytes # (Auto) 0.3x10^3/uL (0.0-1.1) Eosinophils # (Auto) 0.0x10^3/uL (0.0-0.7) Basophils # (Auto) 0.0x10^3/uL (0.0-0.2) Sodium Level 140mmol/L (136-145) Potassium Level 4.7mmol/L (3.5-5.1) Chloride Level 104mmol/L (98-107) Carbon Dioxide Level 33mmol/L (21-32) Anion Gap 3 (6-14) Blood Urea Nitrogen 16mg/dL (7-20) Creatinine 0.9mg/dL (0.6-1.0) Estimated GFR (Cockcroft-Gault) 64.8 Glucose Level 190mg/dL (70-99) Calcium Level 8.9mg/dL (8.5-10.1) Medications Current Medications Sodium Chloride (Iv Sodium Chloride 0.9% 1000ml Bag) 1,000 ml @ 100 mls/hr Q10H IV Last administered on 06/09/16 13:17; Start 06/09/16 at 12:30; Stop at 22:29; Status DC Albuterol/ Ipratropium (Duoneb) 6 ml 1X ONCE NEB Last administered on 12:33; Start 06/09/16 at 12:30; Stop 06/09/16 at 12:31; Status DC Methylprednisolone Sodium Succinate (Solu-Medrol 125mg Vial) 125 mg 1X ONCE IV Last administered on 06/09/16 13:17; Start 06/09/16 at 12:30; Stop 06/09/16 at 12:31; Status DC Albuterol/ Ipratropium (Duoneb) 3 ml STK-MED ONCE .ROUTE ; Start 06/09/16 at 12: 19; Stop 06/09/16 at 12:20; Status DC Ondansetron HCl 4 mg 4 mg PRN Q8HRS PRN IV NAUSEA/VOMITING; Start 06/09/16 at 13 :00; Stop 06/09/16 at 15:06; Status DC Sodium Chloride (Iv Sodium Chloride 0.9% 1000ml Bag) 1,000 ml @ 100 mls/hr Q10H IV Last administered on 06/10/16 13:01; Start 06/09/16 at 13:30; Stop at 13:29; Status DC Albuterol/ Ipratropium (Duoneb) 3 ml RTQID NEB Last administered on 06/10/16 11 :44; Start 06/09/16 at 16:00; Stop 06/10/16 at 15:59 Methylprednisolone Sodium Succinate (Solu-Medrol 40mg Vial) 60 mg Q6HRS IV Last administered on 06/10/16 13:01; Start 06/09/16 at 18:00 Ondansetron HCl (Zofran) 4 mg PRN Q6HRS PRN IV NAUSEA/VOMITING; Start 06/09/16 at 15:03 Acetaminophen (Tylenol) 500 mg PRN Q6HRS PRN PO MILD PAIN / TEMP; Start at 15:15 Nicotine (Nicoderm Cq 21mg) 1 patch DAILY TD Last administered on 06/10/16 08: 40; Start 06/09/16 at 15:15 Nicotine Polacrilex (Nicorette Gum) 1 each PRN Q1HR PRN BC SMOKING CESSATION; Start 06/09/16 at 15:15 Fentanyl (Duragesic 100mcg/Hr Patch) 2 patch Q3DAYS TD ; Start 06/09/16 at 15:00 ; Stop 06/10/16 at 13:33; Status DC Alprazolam (Xanax) 1 mg PRN QID PRN PO ANXIETY / AGITATION; Start 06/09/16 at 15 :15 Acetaminophen/ Hydrocodone Bitart (Lortab 10/325) 1 tab PRN QID PRN PO PAIN Last administered on 06/10/16 02:18; Start 06/09/16 at 15:15 Nystatin 5 ml PRN QID PRN PO SEE COMMENTS; Start 06/09/16 at 15:15 Pantoprazole Sodium (Protonix) 40 mg DAILYAC PO Last administered on 06/09/16 18:04; Start 06/09/16 at 16:00 Zolpidem Tartrate (Ambien) 5 mg PRN QHS PRN PO INSOMNIA; Start 06/09/16 at 15:30 Morphine Sulfate (Ms Contin) 30 mg BID PO Last administered on 06/10/16 08:40; Start 06/09/16 at 21:00 Oxycodone HCl (Roxicodone) 10 mg PRN Q4HRS PRN PO PAIN; Start 06/09/16 at 15:30 Oxycodone HCl (Roxicodone) 20 mg PRN Q4HRS PRN PO PAIN Last administered on 06/10 03:51; Start 06/09/16 at 15:30; Stop 06/10/16 at 10:48; Status DC Benzonatate (Tessalon Perle) 100 mg [id number] PO Last administered on 06/10/16 08: 40; Start 06/09/16 at 16:00 Albuterol Sulfate (Ventolin Neb Soln) 2.5 mg 1X ONCE NEB Last administered on 06/10/16 03:53; Start 06/10/16 at 04:00; Stop 06/10/16 at 04:01; Status DC Insulin Aspart (Novolog) 0-9 UNITS TIDWMEALS SQ ; Start 06/10/16 at 12:00 Dextrose 12.5 gm PRN Q15MIN PRN IV SEE COMMENTS; Start 06/10/16 at 10:45 Albuterol/ Ipratropium (Duoneb) 3 ml RTQID NEB ; Start 06/10/16 at 12:00 Albuterol Sulfate (Ventolin Neb Soln) 2.5 mg PRN Q2HR PRN NEB SHORTNESS OF BREATH; Start 06/10/16 at 10:45 Guaifenesin (Mucinex) 600 mg BID PO Last administered on 06/10/16 13:01; Start 06/10/16 at 11:30 Doxycycline Hyclate (Vibra-Tab) 100 mg BID PO Last administered on 06/10/16 13: 01; Start 06/10/16 at 12:30 Trazodone HCl (Desyrel) 100 mg QHS PO ; Start 06/10/16 at 21:00 Non-Formulary Medication 1-2 puffs PRN DAILY PRN .ROUTE SHORTNESS OF BREATH; Start 06/10/16 at 12:30; Status UNV Acetaminophen/ Hydrocodone Bitart (Lortab 10/325) 2 tab PRN Q6HRS PRN PO PAIN Last administered on 06/10/16 13:02; Start 06/10/16 at 12:30 Gabapentin (Neurontin) 400 mg TID PO Last administered on 06/10/16t 13:02; Start 06/10/16 at 14:00 Fentanyl (Duragesic 100mcg/Hr Patch) 2 patch Q3DAYS TD ; Start 06/10/16 at 14:00 Active Scripts Active NICODERM CQ 14mg (Nicotine) 1 Each Patch.td24 1 Patch TP DAILY Reported Metformin Hcl 500 Mg Tablet 1 Tab PO BID Potassium Chloride 10 Meq Capsule.er 20 Meq PO DAILY Lasix (Furosemide) 20 Mg Tablet 20 Mg PO DAILY Oxycodone Hcl 5 Mg Capsule 5 Mg PO PRN Trazodone Hcl 100 Mg Tablet 1 Tab PO QHS Zofran (Ondansetron Hcl) 4 Mg Tablet 4 Mg PO BID PRN Polyethylene Glycol 3350 255 Gm Powder 17 Gm PO DAILY Colace (Docusate Sodium) 100 Mg Capsule 1 Cap PO BID Senokot (Sennosides) 8.6 Mg Tablet 1 Tab PO BID Breo Ellipta 100-25 Mcg Inh (Fluticasone/Vilanterol) 1 Each Aer.pow.ba 1 Puff IH Oxycodone Hcl 10 Mg Tablet 2 Tab PO PRN Q4HRS PRN Oxycodone Hcl 10 Mg Tablet 1 Tab PO PRN Q4HRS PRN Nystatin 100,000 Unit/1 Ml Oral.susp 5 Ml PO QID PRN Morphine Sulfate 30 Mg Tablet 1 Tab PO Q12HR Carey 10-325 Tablet (Acetaminophen/Hydrocodone Bitart) 1 Each Tablet 1-2 Tab PO Q4-6HRS PRN FENTANYL 100mcg/hr (Fentanyl) 1 Each Patch.td72 1 Patch TD QODAY Combivent Inhaler (Ipratropium/Albuterol Sulfate) 14.7 Gm Aer.w.adap 1-2 PRN DAILY PRN Nexium Capsule (Esomeprazole Magnesium) 40 Mg Capsule.dr 1 Tab PO DAILY Lunesta (Eszopiclone) 1 Mg Tablet 3 Mg PO HS Alprazolam 1 Mg Tablet 1 Mg PO PRN QID PRN Vitals/I & O Vital Sign - Last 24 Hours 06/09/16 06/09/16 06/09/16 06/09/16 15:00 15:40 15:56 16:45 Temp 97.7 97.7 Pulse 98 Resp 20 B/P 140/68 Pulse Ox 94 95 93 O2 Delivery Nasal Cannula Nasal Cannula Non-Rebreather Nasal Cannula O2 Flow Rate 6.0 6.0 6.0 5.0 06/09/16 06/09/16 06/09/16 06/09/16 18:02 19:00 19:02 20:06 Temp 98.2 98.2 Pulse 81 Resp 20 B/P 124/68 Pulse Ox 93 94 93 O2 Delivery Nasal Cannula Nasal Cannula Non-Rebreather O2 Flow Rate 5.0 6.0 5.0 5.0 06/09/16 06/09/16 06/09/16 06/10/16 20:08 20:58 23:00 02:18 Temp 98.0 98.0 Pulse 77 Resp 18 20 18 B/P 140/79 Pulse Ox 95 95 94 94 O2 Delivery Nasal Cannula Nasal Cannula O2 Flow Rate 5.0 5.0 6.0 6.0 06/10/16 06/10/16 06/10/16 06/10/16 03:51 03:55 07:00 07:34 Temp 97.7 97.7 Pulse 83 Resp 20 21 B/P 175/79 Pulse Ox 94 95 92 93 O2 Delivery Nasal Cannula Nasal Cannula Nasal Cannula O2 Flow Rate 6.0 5.0 4.0 5.0 06/10/16 06/10/16 06/10/16 06/10/16 08:00 08:40 11:00 11:47 Temp 97.9 97.9 Pulse 91 Resp 20 B/P 166/73 Pulse Ox 93 95 O2 Delivery Nasal Cannula Nasal Cannula Nasal Cannula Nasal Cannula O2 Flow Rate 5.0 4.0 5.0 06/10/16 06/10/16 12:40 13:02 O2 Delivery Room Air Room Air Intake and Output 06/09/16 06/09/16 06/10/16 15:00 23:00 07:00 Intake Total 360 ml 600 ml Balance 360 ml 600 ml CLAY WATSON MD Jun 10, 2016 14:14
[2016-06-10 15:00] VITALS: BP_SYST 190; BP_SYST 193; BP_DIAS 88; BP_DIAS 99
[2016-06-10] MEDS: OXYCODONE IR 5 MG TABLET. PO PRN ×2 (15:04→23:05)
[2016-06-10] MEDS ORDERED: hydrALAZINE 20 MG/ML VIAL. IVP PRN (15:30)
[2016-06-10] MEDS: LISINOPRIL 20 MG TABLET PO SCH (15:48)
[2016-06-10] MEDS: ALPRAZOLAM 1 MG TABLET PO PRN (16:32)
[2016-06-10 19:44] VITALS: BP 142/74
[2016-06-10] MEDS: traZODone 100 MG TABLET. PO SCH (21:16)
[2016-06-10 23:06] VITALS: BP 170/72
[2016-06-11] MEDS: ALPRAZOLAM 1 MG TABLET PO PRN ×3 (02:37→13:40)
[2016-06-11] MEDS: HYDROCODONE/APAP 10/325 TABLET. PO PRN (02:38)
[2016-06-11 03:20] VITALS: BP 147/78
[2016-06-11 05:17] LABS: BASO % 0 % (0-3); EOS % 0 % (0-3); HEMATOCRIT 43.7 % (36.0-47.0); HEMOGLOBIN 14.1 g/dL (12.0-15.5); LYMPH # 0.9 x10^3/uL (1.0-4.8); LYMPH % 11 % (24-48); MEAN CORPUSCULAR HEMOGLOBIN 27 pg (25-35); MEAN CORPUSCULAR HGB CONC 32 g/dL (31-37); MEAN CORPUSCULAR VOLUME 85 fL (79-100); MONO % 3 % (0-9); NEUT % 87 % (31-73); PLATELET COUNT 185 x10^3/uL (140-400); RED BLOOD COUNT 5.16 x10^6/uL (3.50-5.40); RED CELL DISTRIBUTION WIDTH 14.7 % (11.5-14.5); WHITE BLOOD COUNT 8.8 x10^3/uL (4.0-11.0)
[2016-06-11 05:40] LABS: CALCIUM 8.8 mg/dL (8.5-10.1); CREATININE 0.6 mg/dL (0.6-1.0); GFR 103.4; POTASSIUM 4.9 mmol/L (3.5-5.1)
[2016-06-11] MEDS: methylPREDNISolone SOD SUCC PF 40 MG/ML VIAL. IV SCH ×3 (06:09→21:58)
[2016-06-11] MEDS: OXYCODONE IR 5 MG TABLET. PO PRN ×2 (06:26→11:40)
[2016-06-11 07:00] VITALS: BP 130/69
[2016-06-11] MEDS: IPRATRPIUM/ALBUTEROL 0.5/2.5MG 3 ML NEBU. NEB SCH ×4 (07:59→20:36)
[2016-06-11] MEDS: PANTOPRAZOLE 40 MG TABLET. PO SCH (08:01)
[2016-06-11] MEDS: INSULIN ASPART 300 UNITS/3 ML INSULN.PEN SQ SCH ×3 (08:08→17:08)
[2016-06-11] MEDS: NICOTINE 21MG PATCH. TD SCH (08:58)
[2016-06-11] MEDS: DOXYCYCLINE HYCLATE 100 MG TABLET PO SCH ×2 (08:58→20:55)
[2016-06-11] MEDS: NYSTATIN 100,000 UNITS/ML 5 ML ORAL.SUSP. PO PRN (08:59)
[2016-06-11] MEDS: GABAPENTIN 400 MG CAPSULE. PO SCH ×3 (08:59→20:55)
[2016-06-11] MEDS: GUAIFENESIN ER 600 MG TABLET.ER PO SCH ×2 (08:59→20:55)
[2016-06-11] MEDS: LISINOPRIL 20 MG TABLET PO SCH (08:59)
--- NOTE | 2016-06-11 09:01 | PDOC ---
PULMONARY PROGRESS NOTES Subjective feels better, less cough Vitals Vital Signs Date Time Temp Pulse Resp B/P Pulse Ox O2 Delivery O2 Flow Rate FiO2 06/11/16 08:01 100 Nasal Cannula 5.0 06/11/16 03:20 97.7 78 16 147/78 97.7 General: Alert, No acute distress Lungs: Wheezing (bilateral) Cardiovascular: S1 Abdomen: Soft Neuro Exam: Alert Extremities: Other (trace edema) Labs Laboratory Tests Test 06/09/16 12:20 06/09/16 12:44 06/09/16 12:45 06/09/16 16:27 O2 Saturation 92% (92-99) Arterial Blood pH 7.32 (7.35-7.45) Arterial Blood pCO2 at Patient Temp 54mmHg (35-46) Arterial Blood pO2 at Patient Temp 64mmHg (75-108) Arterial Blood HCO3 27mmol/L (21-28) Arterial Blood Base Excess 0mmol/L (-3-3) FiO2 6 lpm nc Influenza Type A Antigen Negative (NEGATIVE) Influenza Type B Antigen Negative (NEGATIVE) White Blood Count 9.1x10^3/uL (4.0-11.0) Red Blood Count 5.33x10^6/uL (3.50-5.40) Hemoglobin 14.8g/dL (12.0-15.5) Hematocrit 46.3% (36.0-47.0) Mean Corpuscular Volume 87fL (79-100) Mean Corpuscular Hemoglobin 28pg (25-35) Mean Corpuscular Hemoglobin Concent 32g/dL (31-37) Red Cell Distribution Width 14.9% (11.5-14.5) Platelet Count 165x10^3/uL (140-400) Neutrophils (%) (Auto) 88% (31-73) Lymphocytes (%) (Auto) 8% (24-48) Monocytes (%) (Auto) 4% (0-9) Eosinophils (%) (Auto) 0% (0-3) Basophils (%) (Auto) 0% (0-3) Neutrophils # (Auto) 8.0x10^3uL (1.8-7.7) Lymphocytes # (Auto) 0.8x10^3/uL (1.0-4.8) Monocytes # (Auto) 0.3x10^3/uL (0.0-1.1) Eosinophils # (Auto) 0.0x10^3/uL (0.0-0.7) Basophils # (Auto) 0.0x10^3/uL (0.0-0.2) Segmented Neutrophils % 72% (35-66) Band Neutrophils % 12% (0-9) Lymphocytes % 11% (24-48) Monocytes % 5% (0-10) Toxic Granulation Slight Toxic Vacuolation Slight Platelet Estimate Adequate (ADEQUATE) Sodium Level 142mmol/L (136-145) Potassium Level 4.1mmol/L (3.5-5.1) Chloride Level 103mmol/L (98-107) Carbon Dioxide Level 29mmol/L (21-32) Anion Gap 10 (6-14) Blood Urea Nitrogen 14mg/dL (7-20) Creatinine 0.8mg/dL (0.6-1.0) Estimated GFR (Cockcroft-Gault) 74.2 BUN/Creatinine Ratio 18 (6-20) Glucose Level 279mg/dL (70-99) Calcium Level 9.0mg/dL (8.5-10.1) Total Bilirubin 0.2mg/dL (0.2-1.0) Aspartate Amino Transf (AST/SGOT) 30U/L (15-37) Alanine Aminotransferase (ALT/SGPT) 19U/L (14-59) Alkaline Phosphatase 113U/L (46-116) Creatine Kinase 204U/L (26-192) Creatine Kinase MB (Mass) 2.9ng/mL (0.0-3.6) Creatine Kinase MB Relative Index 1.4% (0-4) Troponin I Quantitative < 0.017ng/mL (0.000-0.055) QM-Kji-J-Type Natriuretic Peptide 331pg/mL (0-124) Total Protein 6.8g/dL (6.4-8.2) Albumin 3.4g/dL (3.4-5.0) Albumin/Globulin Ratio 1.0 (1.0-1.7) Glucose (Fingerstick) 354mg/dL (70-99) Test 06/09/16 16:29 06/10/16 06:20 06/10/16 16:57 06/10/16 20:54 Glucose (Fingerstick) 296mg/dL (70-99) 193mg/dL (70-99) 194mg/dL (70-99) White Blood Count 7.8x10^3/uL (4.0-11.0) Red Blood Count 5.25x10^6/uL (3.50-5.40) Hemoglobin 14.6g/dL (12.0-15.5) Hematocrit 45.4% (36.0-47.0) Mean Corpuscular Volume 86fL (79-100) Mean Corpuscular Hemoglobin 28pg (25-35) Mean Corpuscular Hemoglobin Concent 32g/dL (31-37) Red Cell Distribution Width 14.7% (11.5-14.5) Platelet Count 170x10^3/uL (140-400) Neutrophils (%) (Auto) 87% (31-73) Lymphocytes (%) (Auto) 10% (24-48) Monocytes (%) (Auto) 4% (0-9) Eosinophils (%) (Auto) 0% (0-3) Basophils (%) (Auto) 0% (0-3) Neutrophils # (Auto) 6.8x10^3uL (1.8-7.7) Lymphocytes # (Auto) 0.8x10^3/uL (1.0-4.8) Monocytes # (Auto) 0.3x10^3/uL (0.0-1.1) Eosinophils # (Auto) 0.0x10^3/uL (0.0-0.7) Basophils # (Auto) 0.0x10^3/uL (0.0-0.2) Sodium Level 140mmol/L (136-145) Potassium Level 4.7mmol/L (3.5-5.1) Chloride Level 104mmol/L (98-107) Carbon Dioxide Level 33mmol/L (21-32) Anion Gap 3 (6-14) Blood Urea Nitrogen 16mg/dL (7-20) Creatinine 0.9mg/dL (0.6-1.0) Estimated GFR (Cockcroft-Gault) 64.8 Glucose Level 190mg/dL (70-99) Calcium Level 8.9mg/dL (8.5-10.1) Test 06/11/16 04:07 06/11/16 07:17 White Blood Count 8.8x10^3/uL (4.0-11.0) Red Blood Count 5.16x10^6/uL (3.50-5.40) Hemoglobin 14.1g/dL (12.0-15.5) Hematocrit 43.7% (36.0-47.0) Mean Corpuscular Volume 85fL (79-100) Mean Corpuscular Hemoglobin 27pg (25-35) Mean Corpuscular Hemoglobin Concent 32g/dL (31-37) Red Cell Distribution Width 14.7% (11.5-14.5) Platelet Count 185x10^3/uL (140-400) Neutrophils (%) (Auto) 87% (31-73) Lymphocytes (%) (Auto) 11% (24-48) Monocytes (%) (Auto) 3% (0-9) Eosinophils (%) (Auto) 0% (0-3) Basophils (%) (Auto) 0% (0-3) Neutrophils # (Auto) 7.7x10^3uL (1.8-7.7) Lymphocytes # (Auto) 0.9x10^3/uL (1.0-4.8) Monocytes # (Auto) 0.2x10^3/uL (0.0-1.1) Eosinophils # (Auto) 0.0x10^3/uL (0.0-0.7) Basophils # (Auto) 0.0x10^3/uL (0.0-0.2) Sodium Level 142mmol/L (136-145) Potassium Level 4.9mmol/L (3.5-5.1) Chloride Level 103mmol/L (98-107) Carbon Dioxide Level 36mmol/L (21-32) Anion Gap 3 (6-14) Blood Urea Nitrogen 19mg/dL (7-20) Creatinine 0.6mg/dL (0.6-1.0) Estimated GFR (Cockcroft-Gault) 103.4 Glucose Level 159mg/dL (70-99) Calcium Level 8.8mg/dL (8.5-10.1) Glucose (Fingerstick) 200mg/dL (70-99) Laboratory Tests Test 06/10/16 16:57 06/10/16 20:54 06/11/16 04:07 06/11/16 07:17 Glucose (Fingerstick) 193mg/dL (70-99) 194mg/dL (70-99) 200mg/dL (70-99) White Blood Count 8.8x10^3/uL (4.0-11.0) Red Blood Count 5.16x10^6/uL (3.50-5.40) Hemoglobin 14.1g/dL (12.0-15.5) Hematocrit 43.7% (36.0-47.0) Mean Corpuscular Volume 85fL (79-100) Mean Corpuscular Hemoglobin 27pg (25-35) Mean Corpuscular Hemoglobin Concent 32g/dL (31-37) Red Cell Distribution Width 14.7% (11.5-14.5) Platelet Count 185x10^3/uL (140-400) Neutrophils (%) (Auto) 87% (31-73) Lymphocytes (%) (Auto) 11% (24-48) Monocytes (%) (Auto) 3% (0-9) Eosinophils (%) (Auto) 0% (0-3) Basophils (%) (Auto) 0% (0-3) Neutrophils # (Auto) 7.7x10^3uL (1.8-7.7) Lymphocytes # (Auto) 0.9x10^3/uL (1.0-4.8) Monocytes # (Auto) 0.2x10^3/uL (0.0-1.1) Eosinophils # (Auto) 0.0x10^3/uL (0.0-0.7) Basophils # (Auto) 0.0x10^3/uL (0.0-0.2) Sodium Level 142mmol/L (136-145) Potassium Level 4.9mmol/L (3.5-5.1) Chloride Level 103mmol/L (98-107) Carbon Dioxide Level 36mmol/L (21-32) Anion Gap 3 (6-14) Blood Urea Nitrogen 19mg/dL (7-20) Creatinine 0.6mg/dL (0.6-1.0) Estimated GFR (Cockcroft-Gault) 103.4 Glucose Level 159mg/dL (70-99) Calcium Level 8.8mg/dL (8.5-10.1) Medications Active Scripts Medications Dose Route/Sig Days Date Category Metformin Hcl 500 Mg Tablet 1 Tab PO BID 06/09/16 Reported Potassium Chloride 10 Meq Capsule.er 20 Meq PO DAILY 06/09/16 Reported Lasix (Furosemide) 20 Mg Tablet 20 Mg PO DAILY 06/09/16 Reported Oxycodone Hcl 5 Mg Capsule 5 Mg PO PRN 06/09/16 Reported Trazodone Hcl 100 Mg Tablet 1 Tab PO QHS 06/09/16 Reported Zofran (Ondansetron Hcl) 4 Mg Tablet 4 Mg PO BID PRN 06/09/16 Reported Polyethylene Glycol 3350 255 Gm Powder 17 Gm PO DAILY 06/09/16 Reported Colace (Docusate Sodium) 100 Mg Capsule 1 Cap PO BID 06/09/16 Reported Senokot (Sennosides) 8.6 Mg Tablet 1 Tab PO BID 06/09/16 Reported Breo Ellipta 100-25 Mcg Inh (Fluticasone/Vilanterol) 1 Each Aer.pow.ba 1 Puff IH 06/09/16 Reported NICODERM CQ 14mg (Nicotine) 1 Each Patch.td24 1 Patch TP DAILY 02/24/15 Rx Oxycodone Hcl 10 Mg Tablet 2 Tab PO PRN Q4HRS PRN 01/03/15 Reported Oxycodone Hcl 10 Mg Tablet 1 Tab PO PRN Q4HRS PRN 01/03/15 Reported Nystatin 100,000 Unit/1 Ml Oral.susp 5 Ml PO QID PRN 10/08/14 Reported Morphine Sulfate 30 Mg Tablet 1 Tab PO Q12HR 10/08/14 Reported [place] 10-325 Tablet (Acetaminophen/Hydrocodone Bitart) 1 Each Tablet 1-2 Tab PO Q4-6HRS PRN 10/08/14 Reported FENTANYL 100mcg/hr (Fentanyl) 1 Each Patch.td72 1 Patch TD QODAY 07/20/14 Reported Combivent Inhaler (Ipratropium/Albuterol Sulfate) 14.7 Gm Aer.w.adap 1-2 PRN DAILY PRN 03/06/13 Reported Nexium Capsule (Esomeprazole Magnesium) 40 Mg Capsule.dr 1 Tab PO DAILY 03/06/13 Reported Lunesta (Eszopiclone) 1 Mg Tablet 3 Mg PO HS 03/06/13 Reported Alprazolam 1 Mg Tablet 1 Mg PO PRN QID PRN 03/05/13 Reported Impression . 1. Acute on chronic hypercapnic and hypoxic respiratory failure secondary to acute exacerbation of chronic obstructive pulmonary disease. 2. Acute purulent bronchitis. 3. Abnormal arterial blood gases secondary to acute exacerbation of chronic obstructive pulmonary disease and hypoventilation from the effect of heavy doses of narcotics. clinically compensated 4. Chronic narcotic dependence secondary to 31 spinal surgeries. Plan . 1. Continue with present Duo Nebs and p.r.n. albuterol nebulizer. The patient states at home she takes Breo inhaler and p.r.n. rescue inhaler and she prefers to use them if available in the hospital.(not available) 2. Continue IV steroids. 3. Obtain sputum for C and S. 4. Cautious use of narcotics. 5. We will follow ABGs as clinically needed. she is fully awake 6. empiric antibiotic. KELVIN HUNT MD Jun 11, 2016 09:01
[2016-06-11] MEDS: MORPHINE ER 30 MG TABLET.ER PO SCH ×2 (09:03→20:56)
[2016-06-11] MEDS: BENZONATATE 100 MG CAPSULE. PO SCH ×3 (09:07→20:55)
[2016-06-11 11:00] VITALS: BP 154/72
--- NOTE | 2016-06-11 12:06 | PDOC ---
PROGRESS NOTES Chief Complaint Chief Complaint Assessment/Plan 1. Severe COPD exacerbation 2,. Acute hypoxic hypercapneic AND HYPoxic respi failure 3. Acute bronchitis 3. SMoker 4. CHronic pain 5. SIRS POA< no sepsis 6. MIld PCM 7. HTN PLAN: Duonebs, cough med, soluMEDROL decrease to tid Pulmo consulted NIcotine patch COnt home meds including fentanyl patch SSI History of Present Illness History of Present Illness still cough, sob, on NC 5L Vitals Vitals Vital Signs Date Time Temp Pulse Resp B/P Pulse Ox O2 Delivery O2 Flow Rate FiO2 06/11/16 11:40 18 Nasal Cannula 5.0 06/11/16 09:03 89 06/11/16 08:59 76 136/69 06/11/16 07:00 96.1 96.1 Physical Exam General: Alert, Oriented X3, Cooperative, No acute distress Heart: Regular rate Lungs: Wheezing (bilateral) Abdomen: Normal bowel sounds, Soft, No tenderness, No hepatosplenomegaly, No masses Extremities: No clubbing, No cyanosis, No edema, Normal pulses, No tenderness/ swelling Skin: No rashes, No breakdown, No significant lesion Labs LABS Laboratory Tests Test 06/10/16 16:57 06/10/16 20:54 06/11/16 04:07 06/11/16 07:17 Glucose (Fingerstick) 193mg/dL (70-99) 194mg/dL (70-99) 200mg/dL (70-99) White Blood Count 8.8x10^3/uL (4.0-11.0) Red Blood Count 5.16x10^6/uL (3.50-5.40) Hemoglobin 14.1g/dL (12.0-15.5) Hematocrit 43.7% (36.0-47.0) Mean Corpuscular Volume 85fL (79-100) Mean Corpuscular Hemoglobin 27pg (25-35) Mean Corpuscular Hemoglobin Concent 32g/dL (31-37) Red Cell Distribution Width 14.7% (11.5-14.5) Platelet Count 185x10^3/uL (140-400) Neutrophils (%) (Auto) 87% (31-73) Lymphocytes (%) (Auto) 11% (24-48) Monocytes (%) (Auto) 3% (0-9) Eosinophils (%) (Auto) 0% (0-3) Basophils (%) (Auto) 0% (0-3) Neutrophils # (Auto) 7.7x10^3uL (1.8-7.7) Lymphocytes # (Auto) 0.9x10^3/uL (1.0-4.8) Monocytes # (Auto) 0.2x10^3/uL (0.0-1.1) Eosinophils # (Auto) 0.0x10^3/uL (0.0-0.7) Basophils # (Auto) 0.0x10^3/uL (0.0-0.2) Sodium Level 142mmol/L (136-145) Potassium Level 4.9mmol/L (3.5-5.1) Chloride Level 103mmol/L (98-107) Carbon Dioxide Level 36mmol/L (21-32) Anion Gap 3 (6-14) Blood Urea Nitrogen 19mg/dL (7-20) Creatinine 0.6mg/dL (0.6-1.0) Estimated GFR (Cockcroft-Gault) 103.4 Glucose Level 159mg/dL (70-99) Calcium Level 8.8mg/dL (8.5-10.1) Test 06/11/16 11:50 Glucose (Fingerstick) 246mg/dL (70-99) Review of Systems Review of Systems no fever, chills, chest pain Assessment and Plan Assessmemt and Plan Problems Medical Problems: (1) Acute on chronic respiratory failure Status: Acute (2) Type 2 diabetes mellitus Status: Acute Problems: Comment Review of Relevant I have reviewed the following items nila (where applicable) has been applied. Labs Laboratory Tests Test 06/09/16 12:20 06/09/16 12:44 06/09/16 12:45 06/09/16 16:27 O2 Saturation 92% (92-99) Arterial Blood pH 7.32 (7.35-7.45) Arterial Blood pCO2 at Patient Temp 54mmHg (35-46) Arterial Blood pO2 at Patient Temp 64mmHg (75-108) Arterial Blood HCO3 27mmol/L (21-28) Arterial Blood Base Excess 0mmol/L (-3-3) FiO2 6 lpm nc Influenza Type A Antigen Negative (NEGATIVE) Influenza Type B Antigen Negative (NEGATIVE) White Blood Count 9.1x10^3/uL (4.0-11.0) Red Blood Count 5.33x10^6/uL (3.50-5.40) Hemoglobin 14.8g/dL (12.0-15.5) Hematocrit 46.3% (36.0-47.0) Mean Corpuscular Volume 87fL (79-100) Mean Corpuscular Hemoglobin 28pg (25-35) Mean Corpuscular Hemoglobin Concent 32g/dL (31-37) Red Cell Distribution Width 14.9% (11.5-14.5) Platelet Count 165x10^3/uL (140-400) Neutrophils (%) (Auto) 88% (31-73) Lymphocytes (%) (Auto) 8% (24-48) Monocytes (%) (Auto) 4% (0-9) Eosinophils (%) (Auto) 0% (0-3) Basophils (%) (Auto) 0% (0-3) Neutrophils # (Auto) 8.0x10^3uL (1.8-7.7) Lymphocytes # (Auto) 0.8x10^3/uL (1.0-4.8) Monocytes # (Auto) 0.3x10^3/uL (0.0-1.1) Eosinophils # (Auto) 0.0x10^3/uL (0.0-0.7) Basophils # (Auto) 0.0x10^3/uL (0.0-0.2) Segmented Neutrophils % 72% (35-66) Band Neutrophils % 12% (0-9) Lymphocytes % 11% (24-48) Monocytes % 5% (0-10) Toxic Granulation Slight Toxic Vacuolation Slight Platelet Estimate Adequate (ADEQUATE) Sodium Level 142mmol/L (136-145) Potassium Level 4.1mmol/L (3.5-5.1) Chloride Level 103mmol/L (98-107) Carbon Dioxide Level 29mmol/L (21-32) Anion Gap 10 (6-14) Blood Urea Nitrogen 14mg/dL (7-20) Creatinine 0.8mg/dL (0.6-1.0) Estimated GFR (Cockcroft-Gault) 74.2 BUN/Creatinine Ratio 18 (6-20) Glucose Level 279mg/dL (70-99) Calcium Level 9.0mg/dL (8.5-10.1) Total Bilirubin 0.2mg/dL (0.2-1.0) Aspartate Amino Transf (AST/SGOT) 30U/L (15-37) Alanine Aminotransferase (ALT/SGPT) 19U/L (14-59) Alkaline Phosphatase 113U/L (46-116) Creatine Kinase 204U/L (26-192) Creatine Kinase MB (Mass) 2.9ng/mL (0.0-3.6) Creatine Kinase MB Relative Index 1.4% (0-4) Troponin I Quantitative < 0.017ng/mL (0.000-0.055) QL-Dku-E-Type Natriuretic Peptide 331pg/mL (0-124) Total Protein 6.8g/dL (6.4-8.2) Albumin 3.4g/dL (3.4-5.0) Albumin/Globulin Ratio 1.0 (1.0-1.7) Glucose (Fingerstick) 354mg/dL (70-99) Test 06/09/16 16:29 06/10/16 06:20 06/10/16 16:57 06/10/16 20:54 Glucose (Fingerstick) 296mg/dL (70-99) 193mg/dL (70-99) 194mg/dL (70-99) White Blood Count 7.8x10^3/uL (4.0-11.0) Red Blood Count 5.25x10^6/uL (3.50-5.40) Hemoglobin 14.6g/dL (12.0-15.5) Hematocrit 45.4% (36.0-47.0) Mean Corpuscular Volume 86fL (79-100) Mean Corpuscular Hemoglobin 28pg (25-35) Mean Corpuscular Hemoglobin Concent 32g/dL (31-37) Red Cell Distribution Width 14.7% (11.5-14.5) Platelet Count 170x10^3/uL (140-400) Neutrophils (%) (Auto) 87% (31-73) Lymphocytes (%) (Auto) 10% (24-48) Monocytes (%) (Auto) 4% (0-9) Eosinophils (%) (Auto) 0% (0-3) Basophils (%) (Auto) 0% (0-3) Neutrophils # (Auto) 6.8x10^3uL (1.8-7.7) Lymphocytes # (Auto) 0.8x10^3/uL (1.0-4.8) Monocytes # (Auto) 0.3x10^3/uL (0.0-1.1) Eosinophils # (Auto) 0.0x10^3/uL (0.0-0.7) Basophils # (Auto) 0.0x10^3/uL (0.0-0.2) Sodium Level 140mmol/L (136-145) Potassium Level 4.7mmol/L (3.5-5.1) Chloride Level 104mmol/L (98-107) Carbon Dioxide Level 33mmol/L (21-32) Anion Gap 3 (6-14) Blood Urea Nitrogen 16mg/dL (7-20) Creatinine 0.9mg/dL (0.6-1.0) Estimated GFR (Cockcroft-Gault) 64.8 Glucose Level 190mg/dL (70-99) Calcium Level 8.9mg/dL (8.5-10.1) Test 06/11/16 04:07 06/11/16 07:17 06/11/16 11:50 White Blood Count 8.8x10^3/uL (4.0-11.0) Red Blood Count 5.16x10^6/uL (3.50-5.40) Hemoglobin 14.1g/dL (12.0-15.5) Hematocrit 43.7% (36.0-47.0) Mean Corpuscular Volume 85fL (79-100) Mean Corpuscular Hemoglobin 27pg (25-35) Mean Corpuscular Hemoglobin Concent 32g/dL (31-37) Red Cell Distribution Width 14.7% (11.5-14.5) Platelet Count 185x10^3/uL (140-400) Neutrophils (%) (Auto) 87% (31-73) Lymphocytes (%) (Auto) 11% (24-48) Monocytes (%) (Auto) 3% (0-9) Eosinophils (%) (Auto) 0% (0-3) Basophils (%) (Auto) 0% (0-3) Neutrophils # (Auto) 7.7x10^3uL (1.8-7.7) Lymphocytes # (Auto) 0.9x10^3/uL (1.0-4.8) Monocytes # (Auto) 0.2x10^3/uL (0.0-1.1) Eosinophils # (Auto) 0.0x10^3/uL (0.0-0.7) Basophils # (Auto) 0.0x10^3/uL (0.0-0.2) Sodium Level 142mmol/L (136-145) Potassium Level 4.9mmol/L (3.5-5.1) Chloride Level 103mmol/L (98-107) Carbon Dioxide Level 36mmol/L (21-32) Anion Gap 3 (6-14) Blood Urea Nitrogen 19mg/dL (7-20) Creatinine 0.6mg/dL (0.6-1.0) Estimated GFR (Cockcroft-Gault) 103.4 Glucose Level 159mg/dL (70-99) Calcium Level 8.8mg/dL (8.5-10.1) Glucose (Fingerstick) 200mg/dL (70-99) 246mg/dL (70-99) Laboratory Tests Test 06/10/16 16:57 06/10/16 20:54 06/11/16 04:07 06/11/16 07:17 Glucose (Fingerstick) 193mg/dL (70-99) 194mg/dL (70-99) 200mg/dL (70-99) White Blood Count 8.8x10^3/uL (4.0-11.0) Red Blood Count 5.16x10^6/uL (3.50-5.40) Hemoglobin 14.1g/dL (12.0-15.5) Hematocrit 43.7% (36.0-47.0) Mean Corpuscular Volume 85fL (79-100) Mean Corpuscular Hemoglobin 27pg (25-35) Mean Corpuscular Hemoglobin Concent 32g/dL (31-37) Red Cell Distribution Width 14.7% (11.5-14.5) Platelet Count 185x10^3/uL (140-400) Neutrophils (%) (Auto) 87% (31-73) Lymphocytes (%) (Auto) 11% (24-48) Monocytes (%) (Auto) 3% (0-9) Eosinophils (%) (Auto) 0% (0-3) Basophils (%) (Auto) 0% (0-3) Neutrophils # (Auto) 7.7x10^3uL (1.8-7.7) Lymphocytes # (Auto) 0.9x10^3/uL (1.0-4.8) Monocytes # (Auto) 0.2x10^3/uL (0.0-1.1) Eosinophils # (Auto) 0.0x10^3/uL (0.0-0.7) Basophils # (Auto) 0.0x10^3/uL (0.0-0.2) Sodium Level 142mmol/L (136-145) Potassium Level 4.9mmol/L (3.5-5.1) Chloride Level 103mmol/L (98-107) Carbon Dioxide Level 36mmol/L (21-32) Anion Gap 3 (6-14) Blood Urea Nitrogen 19mg/dL (7-20) Creatinine 0.6mg/dL (0.6-1.0) Estimated GFR (Cockcroft-Gault) 103.4 Glucose Level 159mg/dL (70-99) Calcium Level 8.8mg/dL (8.5-10.1) Test 06/11/16 11:50 Glucose (Fingerstick) 246mg/dL (70-99) Medications Current Medications Sodium Chloride (Iv Sodium Chloride 0.9% 1000ml Bag) 1,000 ml @ 100 mls/hr Q10H IV Last administered on 06/09/16 13:17; Start 06/09/16 at 12:30; Stop at 22:29; Status DC Albuterol/ Ipratropium (Duoneb) 6 ml 1X ONCE NEB Last administered on 12:33; Start 06/09/16 at 12:30; Stop 06/09/16 at 12:31; Status DC Methylprednisolone Sodium Succinate (Solu-Medrol 125mg Vial) 125 mg 1X ONCE IV Last administered on 06/09/16 13:17; Start 06/09/16 at 12:30; Stop 06/09/16 at 12:31; Status DC Albuterol/ Ipratropium (Duoneb) 3 ml STK-MED ONCE .ROUTE ; Start 06/09/16 at 12: 19; Stop 06/09/16 at 12:20; Status DC Ondansetron HCl 4 mg 4 mg PRN Q8HRS PRN IV NAUSEA/VOMITING; Start 06/09/16 at 13 :00; Stop 06/09/16 at 15:06; Status DC Sodium Chloride (Iv Sodium Chloride 0.9% 1000ml Bag) 1,000 ml @ 100 mls/hr Q10H IV Last administered on 06/10/16 13:01; Start 06/09/16 at 13:30; Stop at 13:29; Status DC Albuterol/ Ipratropium (Duoneb) 3 ml RTQID NEB Last administered on 06/10/16 11 :44; Start 06/09/16 at 16:00; Stop 06/10/16 at 15:59; Status DC Methylprednisolone Sodium Succinate (Solu-Medrol 40mg Vial) 60 mg Q6HRS IV Last administered on 06/11/16 06:09; Start 06/09/16 at 18:00; Stop 06/11/16 at 10: 09; Status DC Ondansetron HCl (Zofran) 4 mg PRN Q6HRS PRN IV NAUSEA/VOMITING; Start 06/09/16 at 15:03 Acetaminophen (Tylenol) 500 mg PRN Q6HRS PRN PO MILD PAIN / TEMP; Start at 15:15 Nicotine (Nicoderm Cq 21mg) 1 patch DAILY TD Last administered on 06/11/16 08: 58; Start 06/09/16 at 15:15 Nicotine Polacrilex (Nicorette Gum) 1 each PRN Q1HR PRN BC SMOKING CESSATION; Start 06/09/16 at 15:15 Fentanyl (Duragesic 100mcg/Hr Patch) 2 patch Q3DAYS TD ; Start 06/09/16 at 15:00 ; Stop 06/10/16 at 13:33; Status DC Alprazolam (Xanax) 1 mg PRN QID PRN PO ANXIETY / AGITATION Last administered on 06/11/16 08:59; Start 06/09/16 at 15:15 Acetaminophen/ Hydrocodone Bitart (Lortab 10/325) 1 tab PRN QID PRN PO PAIN Last administered on 06/10/16 02:18; Start 06/09/16 at 15:15 Nystatin 5 ml PRN QID PRN PO SEE COMMENTS Last administered on 06/11/16 08:59; Start 06/09/16 at 15:15 Pantoprazole Sodium (Protonix) 40 mg DAILYAC PO Last administered on 06/11/16 08:01; Start 06/09/16 at 16:00 Zolpidem Tartrate (Ambien) 5 mg PRN QHS PRN PO INSOMNIA; Start 06/09/16 at 15:30 Morphine Sulfate (Ms Contin) 30 mg BID PO Last administered on 06/11/16 09:03; Start 06/09/16 at 21:00 Oxycodone HCl (Roxicodone) 10 mg PRN Q4HRS PRN PO BREAKTHROUGH PAIN Last administered on 06/11/16 11:40; Start 06/09/16 at 15:30 Oxycodone HCl (Roxicodone) 20 mg PRN Q4HRS PRN PO PAIN Last administered on 06/10 03:51; Start 06/09/16 at 15:30; Stop 06/10/16 at 10:48; Status DC Benzonatate (Tessalon Perle) 100 mg [id number] PO Last administered on 06/11/16 09: 07; Start 06/09/16 at 16:00 Albuterol Sulfate (Ventolin Neb Soln) 2.5 mg 1X ONCE NEB Last administered on 06/10/16 03:53; Start 06/10/16 at 04:00; Stop 06/10/16 at 04:01; Status DC Insulin Aspart (Novolog) 0-9 UNITS TIDWMEALS SQ Last administered on 06/11/16 08:08; Start 06/10/16 at 12:00 Dextrose 12.5 gm PRN Q15MIN PRN IV SEE COMMENTS; Start 06/10/16 at 10:45 Albuterol/ Ipratropium (Duoneb) 3 ml RTQID NEB Last administered on 06/11/16 07 :59; Start 06/10/16 at 12:00 Albuterol Sulfate (Ventolin Neb Soln) 2.5 mg PRN Q2HR PRN NEB SHORTNESS OF BREATH; Start 06/10/16 at 10:45 Guaifenesin (Mucinex) 600 mg BID PO Last administered on 06/11/16 08:59; Start 06/10/16 at 11:30 Doxycycline Hyclate (Vibra-Tab) 100 mg BID PO Last administered on 06/11/16 08: 58; Start 06/10/16 at 12:30 Trazodone HCl (Desyrel) 100 mg QHS PO Last administered on 06/10/16 21:16; Start 06/10/16 at 21:00 Non-Formulary Medication 1-2 puffs PRN DAILY PRN .ROUTE SHORTNESS OF BREATH; Start 06/10/16 at 12:30; Status UNV Acetaminophen/ Hydrocodone Bitart (Lortab 10/325) 2 tab PRN Q6HRS PRN PO PAIN Last administered on 06/11/16 02:38; Start 06/10/16 at 12:30 Gabapentin (Neurontin) 400 mg TID PO Last administered on 06/11/16 08:59; Start 06/10/16 at 14:00 Fentanyl (Duragesic 100mcg/Hr Patch) 2 patch Q3DAYS TD Last administered on 06/10 14:34; Start 06/10/16 at 14:00 Hydralazine HCl (Apresoline) 10 mg PRN Q4HRS PRN IVP ELEVATED BP, SEE COMMENTS Last administered on 06/10/16 15:47; Start 06/10/16 at 15:30 Lisinopril (Prinivil) 20 mg DAILY PO Last administered on 06/11/16 08:59; Start 06/10/16 at 15:30 Methylprednisolone Sodium Succinate (Solu-Medrol 40mg Vial) 60 mg Q8HRS IV ; Start 06/11/16 at 14:00 Active Scripts Active NICODERM CQ 14mg (Nicotine) 1 Each Patch.td24 1 Patch TP DAILY Reported Metformin Hcl 500 Mg Tablet 1 Tab PO BID Potassium Chloride 10 Meq Capsule.er 20 Meq PO DAILY Lasix (Furosemide) 20 Mg Tablet 20 Mg PO DAILY Oxycodone Hcl 5 Mg Capsule 5 Mg PO PRN Trazodone Hcl 100 Mg Tablet 1 Tab PO QHS Zofran (Ondansetron Hcl) 4 Mg Tablet 4 Mg PO BID PRN Polyethylene Glycol 3350 255 Gm Powder 17 Gm PO DAILY Colace (Docusate Sodium) 100 Mg Capsule 1 Cap PO BID Senokot (Sennosides) 8.6 Mg Tablet 1 Tab PO BID Breo Ellipta 100-25 Mcg Inh (Fluticasone/Vilanterol) 1 Each Aer.pow.ba 1 Puff IH Oxycodone Hcl 10 Mg Tablet 2 Tab PO PRN Q4HRS PRN Oxycodone Hcl 10 Mg Tablet 1 Tab PO PRN Q4HRS PRN Nystatin 100,000 Unit/1 Ml Oral.susp 5 Ml PO QID PRN Morphine Sulfate 30 Mg Tablet 1 Tab PO Q12HR [place] 10-325 Tablet (Acetaminophen/Hydrocodone Bitart) 1 Each Tablet 1-2 Tab PO Q4-6HRS PRN FENTANYL 100mcg/hr (Fentanyl) 1 Each Patch.td72 1 Patch TD QODAY Combivent Inhaler (Ipratropium/Albuterol Sulfate) 14.7 Gm Aer.w.adap 1-2 PRN DAILY PRN Nexium Capsule (Esomeprazole Magnesium) 40 Mg Capsule.dr 1 Tab PO DAILY Lunesta (Eszopiclone) 1 Mg Tablet 3 Mg PO HS Alprazolam 1 Mg Tablet 1 Mg PO PRN QID PRN Vitals/I & O Vital Sign - Last 24 Hours 06/10/16 06/10/16 06/10/16 06/10/16 12:40 13:02 14:02 14:34 O2 Delivery Room Air Room Air Nasal Cannula Room Air 06/10/16 06/10/16 06/10/16 06/10/16 15:00 15:00 15:04 15:47 Temp 98.8 98.8 Pulse 89 89 Resp 22 B/P 190/99 193/88 190/99 Pulse Ox 94 O2 Delivery Nasal Cannula Nasal Cannula O2 Flow Rate 4.0 06/10/16 06/10/16 06/10/16 06/10/16 15:48 16:04 19:40 19:44 Temp 97.9 97.9 Pulse 89 87 Resp 18 B/P 190/99 142/74 Pulse Ox 94 91 96 O2 Delivery Nasal Cannula Nasal Cannula Nasal Cannula O2 Flow Rate 5.0 5.0 2.0 3/11/1906/10/16 06/10/16 06/10/16 20:00 21:17 23:05 23:06 Temp 97.7 97.7 Pulse 88 Resp 22 20 B/P 170/72 Pulse Ox 92 O2 Delivery Nasal Cannula Nasal Cannula Nasal Cannula Nasal Cannula O2 Flow Rate 5.0 5.0 5.0 6.0 06/11/16 06/11/16 06/11/16 06/11/16 02:38 03:20 06:26 07:00 Temp 97.7 96.1 97.7 96.1 Pulse 78 76 Resp 20 16 20 B/P 147/78 130/69 Pulse Ox 93 95 O2 Delivery Nasal Cannula Nasal Cannula Nasal Cannula Nasal Cannula O2 Flow Rate 5.0 6.0 5.0 5.0 06/11/16 06/11/16 06/11/16 06/11/16 08:01 08:59 09:03 11:40 Pulse 76 Resp 20 18 B/P 136/69 Pulse Ox 100 89 O2 Delivery Nasal Cannula Nasal Cannula Nasal Cannula O2 Flow Rate 5.0 5.0 5.0 Intake and Output 06/10/16 06/10/16 06/11/16 15:00 23:00 07:00 Intake Total 650 ml 1150 ml 620 ml Output Total 1050 ml Balance 650 ml 1150 ml -430 ml CLAY WATSON MD Jun 11, 2016 12:06
[2016-06-11 15:00] VITALS: BP 148/70
[2016-06-11 19:50] VITALS: BP 121/64
[2016-06-11] MEDS: traZODone 100 MG TABLET. PO SCH (20:55)
[2016-06-11] MEDS ORDERED: POLYETHYLENE GLYCOL 3350 238 GM POWDER PO PRN (21:30)
[2016-06-11] MEDS ORDERED: POLYETHYLENE GLYCOL 3350 17 GM PACKET. PO PRN (21:33)
[2016-06-11] MEDS ORDERED: SENNOSIDES 8.6 MG TABLET PO ONE (21:45)
[2016-06-11] MEDS: DOCUSATE SODIUM 100 MG CAPSULE PO PRN (21:58)
[2016-06-11 23:54] VITALS: BP 145/70
[2016-06-12 03:37] VITALS: BP 138/78
[2016-06-12 05:22] LABS: BASO % 0 % (0-3); EOS % 0 % (0-3); HEMATOCRIT 44.2 % (36.0-47.0); HEMOGLOBIN 14.5 g/dL (12.0-15.5); LYMPH # 0.9 x10^3/uL (1.0-4.8); LYMPH % 10 % (24-48); MEAN CORPUSCULAR HEMOGLOBIN 28 pg (25-35); MEAN CORPUSCULAR HGB CONC 33 g/dL (31-37); MEAN CORPUSCULAR VOLUME 84 fL (79-100); MONO % 2 % (0-9); NEUT % 88 % (31-73); PLATELET COUNT 222 x10^3/uL (140-400); RED BLOOD COUNT 5.24 x10^6/uL (3.50-5.40); RED CELL DISTRIBUTION WIDTH 14.9 % (11.5-14.5); WHITE BLOOD COUNT 9.4 x10^3/uL (4.0-11.0)
[2016-06-12 05:30] LABS: CALCIUM 8.8 mg/dL (8.5-10.1); CREATININE 0.8 mg/dL (0.6-1.0); GFR 74.2
[2016-06-12 05:34] LABS: POTASSIUM 5.3 mmol/L (3.5-5.1)
[2016-06-12] MEDS: methylPREDNISolone SOD SUCC PF 40 MG/ML VIAL. IV SCH (06:05)
[2016-06-12] MEDS: PANTOPRAZOLE 40 MG TABLET. PO SCH (06:06)
[2016-06-12 07:15] VITALS: BP 128/95
[2016-06-12] MEDS: IPRATRPIUM/ALBUTEROL 0.5/2.5MG 3 ML NEBU. NEB SCH ×2 (07:15→11:20)
[2016-06-12] MEDS: INSULIN ASPART 300 UNITS/3 ML INSULN.PEN SQ SCH ×2 (08:12→11:47)
[2016-06-12] MEDS: GABAPENTIN 400 MG CAPSULE. PO SCH (08:13)
[2016-06-12] MEDS: DOCUSATE SODIUM 100 MG CAPSULE PO PRN (08:13)
[2016-06-12] MEDS: NYSTATIN 100,000 UNITS/ML 5 ML ORAL.SUSP. PO PRN (08:13)
[2016-06-12] MEDS: BENZONATATE 100 MG CAPSULE. PO SCH (08:13)
[2016-06-12] MEDS: GUAIFENESIN ER 600 MG TABLET.ER PO SCH (08:13)
[2016-06-12] MEDS: DOXYCYCLINE HYCLATE 100 MG TABLET PO SCH (08:13)
[2016-06-12] MEDS: ALPRAZOLAM 1 MG TABLET PO PRN (08:14)
[2016-06-12] MEDS: NICOTINE 21MG PATCH. TD SCH (08:14)
[2016-06-12] MEDS: MORPHINE ER 30 MG TABLET.ER PO SCH (08:14)
[2016-06-12] MEDS: HYDROCODONE/APAP 10/325 TABLET. PO PRN (08:15)
[2016-06-12] MEDS ORDERED: SENNOSIDES 8.6 MG TABLET PO SCH (09:00)
--- NOTE | 2016-06-12 10:06 | PDOC ---
PULMONARY PROGRESS NOTES Subjective feels better, less cough wants to go home Vitals Vital Signs Date Time Temp Pulse Resp B/P Pulse Ox O2 Delivery O2 Flow Rate FiO2 06/12/16 09:35 68 128/95 06/12/16 09:15 18 06/12/16 08:15 2.0 06/12/16 07:16 91 Room Air 06/12/16 07:15 97.5 97.5 General: Alert, No acute distress Lungs: Wheezing (resolved) Cardiovascular: S1 Abdomen: Soft Neuro Exam: Alert Extremities: Other (trace edema) Labs Laboratory Tests Test 06/10/16 16:57 06/10/16 20:54 06/11/16 04:07 06/11/16 07:17 Glucose (Fingerstick) 193mg/dL (70-99) 194mg/dL (70-99) 200mg/dL (70-99) White Blood Count 8.8x10^3/uL (4.0-11.0) Red Blood Count 5.16x10^6/uL (3.50-5.40) Hemoglobin 14.1g/dL (12.0-15.5) Hematocrit 43.7% (36.0-47.0) Mean Corpuscular Volume 85fL (79-100) Mean Corpuscular Hemoglobin 27pg (25-35) Mean Corpuscular Hemoglobin Concent 32g/dL (31-37) Red Cell Distribution Width 14.7% (11.5-14.5) Platelet Count 185x10^3/uL (140-400) Neutrophils (%) (Auto) 87% (31-73) Lymphocytes (%) (Auto) 11% (24-48) Monocytes (%) (Auto) 3% (0-9) Eosinophils (%) (Auto) 0% (0-3) Basophils (%) (Auto) 0% (0-3) Neutrophils # (Auto) 7.7x10^3uL (1.8-7.7) Lymphocytes # (Auto) 0.9x10^3/uL (1.0-4.8) Monocytes # (Auto) 0.2x10^3/uL (0.0-1.1) Eosinophils # (Auto) 0.0x10^3/uL (0.0-0.7) Basophils # (Auto) 0.0x10^3/uL (0.0-0.2) Sodium Level 142mmol/L (136-145) Potassium Level 4.9mmol/L (3.5-5.1) Chloride Level 103mmol/L (98-107) Carbon Dioxide Level 36mmol/L (21-32) Anion Gap 3 (6-14) Blood Urea Nitrogen 19mg/dL (7-20) Creatinine 0.6mg/dL (0.6-1.0) Estimated GFR (Cockcroft-Gault) 103.4 Glucose Level 159mg/dL (70-99) Calcium Level 8.8mg/dL (8.5-10.1) Test 06/11/16 11:50 06/11/16 16:49 06/11/16 20:53 06/12/16 04:20 Glucose (Fingerstick) 246mg/dL (70-99) 314mg/dL (70-99) 218mg/dL (70-99) White Blood Count 9.4x10^3/uL (4.0-11.0) Red Blood Count 5.24x10^6/uL (3.50-5.40) Hemoglobin 14.5g/dL (12.0-15.5) Hematocrit 44.2% (36.0-47.0) Mean Corpuscular Volume 84fL (79-100) Mean Corpuscular Hemoglobin 28pg (25-35) Mean Corpuscular Hemoglobin Concent 33g/dL (31-37) Red Cell Distribution Width 14.9% (11.5-14.5) Platelet Count 222x10^3/uL (140-400) Neutrophils (%) (Auto) 88% (31-73) Lymphocytes (%) (Auto) 10% (24-48) Monocytes (%) (Auto) 2% (0-9) Eosinophils (%) (Auto) 0% (0-3) Basophils (%) (Auto) 0% (0-3) Neutrophils # (Auto) 8.2x10^3uL (1.8-7.7) Lymphocytes # (Auto) 0.9x10^3/uL (1.0-4.8) Monocytes # (Auto) 0.2x10^3/uL (0.0-1.1) Eosinophils # (Auto) 0.0x10^3/uL (0.0-0.7) Basophils # (Auto) 0.0x10^3/uL (0.0-0.2) Sodium Level 141mmol/L (136-145) Potassium Level 5.3mmol/L (3.5-5.1) Chloride Level 100mmol/L (98-107) Carbon Dioxide Level 38mmol/L (21-32) Anion Gap 3 (6-14) Blood Urea Nitrogen 23mg/dL (7-20) Creatinine 0.8mg/dL (0.6-1.0) Estimated GFR (Cockcroft-Gault) 74.2 Glucose Level 167mg/dL (70-99) Calcium Level 8.8mg/dL (8.5-10.1) Test 06/12/16 07:27 Glucose (Fingerstick) 154mg/dL (70-99) Laboratory Tests Test 06/11/16 11:50 06/11/16 16:49 06/11/16 20:53 06/12/16 04:20 Glucose (Fingerstick) 246mg/dL (70-99) 314mg/dL (70-99) 218mg/dL (70-99) White Blood Count 9.4x10^3/uL (4.0-11.0) Red Blood Count 5.24x10^6/uL (3.50-5.40) Hemoglobin 14.5g/dL (12.0-15.5) Hematocrit 44.2% (36.0-47.0) Mean Corpuscular Volume 84fL (79-100) Mean Corpuscular Hemoglobin 28pg (25-35) Mean Corpuscular Hemoglobin Concent 33g/dL (31-37) Red Cell Distribution Width 14.9% (11.5-14.5) Platelet Count 222x10^3/uL (140-400) Neutrophils (%) (Auto) 88% (31-73) Lymphocytes (%) (Auto) 10% (24-48) Monocytes (%) (Auto) 2% (0-9) Eosinophils (%) (Auto) 0% (0-3) Basophils (%) (Auto) 0% (0-3) Neutrophils # (Auto) 8.2x10^3uL (1.8-7.7) Lymphocytes # (Auto) 0.9x10^3/uL (1.0-4.8) Monocytes # (Auto) 0.2x10^3/uL (0.0-1.1) Eosinophils # (Auto) 0.0x10^3/uL (0.0-0.7) Basophils # (Auto) 0.0x10^3/uL (0.0-0.2) Sodium Level 141mmol/L (136-145) Potassium Level 5.3mmol/L (3.5-5.1) Chloride Level 100mmol/L (98-107) Carbon Dioxide Level 38mmol/L (21-32) Anion Gap 3 (6-14) Blood Urea Nitrogen 23mg/dL (7-20) Creatinine 0.8mg/dL (0.6-1.0) Estimated GFR (Cockcroft-Gault) 74.2 Glucose Level 167mg/dL (70-99) Calcium Level 8.8mg/dL (8.5-10.1) Test 06/12/16 07:27 Glucose (Fingerstick) 154mg/dL (70-99) Medications Active Scripts Medications Dose Route/Sig Days Date Category Metformin Hcl 500 Mg Tablet 1 Tab PO BID 06/09/16 Reported Potassium Chloride 10 Meq Capsule.er 20 Meq PO DAILY 06/09/16 Reported Lasix (Furosemide) 20 Mg Tablet 20 Mg PO DAILY 06/09/16 Reported Oxycodone Hcl 5 Mg Capsule 5 Mg PO PRN 06/09/16 Reported Trazodone Hcl 100 Mg Tablet 1 Tab PO QHS 06/09/16 Reported Zofran (Ondansetron Hcl) 4 Mg Tablet 4 Mg PO BID PRN 06/09/16 Reported Polyethylene Glycol 3350 255 Gm Powder 17 Gm PO DAILY 06/09/16 Reported Colace (Docusate Sodium) 100 Mg Capsule 1 Cap PO BID 06/09/16 Reported Senokot (Sennosides) 8.6 Mg Tablet 1 Tab PO BID 06/09/16 Reported Breo Ellipta 100-25 Mcg Inh (Fluticasone/Vilanterol) 1 Each Aer.pow.ba 1 Puff IH 06/09/16 Reported NICODERM CQ 14mg (Nicotine) 1 Each Patch.td24 1 Patch TP DAILY 11/22/15 Rx Oxycodone Hcl 10 Mg Tablet 2 Tab PO PRN Q4HRS PRN 01/03/15 Reported Oxycodone Hcl 10 Mg Tablet 1 Tab PO PRN Q4HRS PRN 01/03/15 Reported Nystatin 100,000 Unit/1 Ml Oral.susp 5 Ml PO QID PRN 10/08/14 Reported Morphine Sulfate 30 Mg Tablet 1 Tab PO Q12HR 10/08/14 Reported Rio 10-325 Tablet (Acetaminophen/Hydrocodone Bitart) 1 Each Tablet 1-2 Tab PO Q4-6HRS PRN 10/08/14 Reported FENTANYL 100mcg/hr (Fentanyl) 1 Each Patch.td72 1 Patch TD QODAY 07/20/14 Reported Combivent Inhaler (Ipratropium/Albuterol Sulfate) 14.7 Gm Aer.w.adap 1-2 PRN DAILY PRN 03/06/13 Reported Nexium Capsule (Esomeprazole Magnesium) 40 Mg Capsule.dr 1 Tab PO DAILY 03/06/13 Reported Lunesta (Eszopiclone) 1 Mg Tablet 3 Mg PO HS 03/06/13 Reported Alprazolam 1 Mg Tablet 1 Mg PO PRN QID PRN 03/05/13 Reported Impression . 1. Acute on chronic hypercapnic and hypoxic respiratory failure secondary to acute exacerbation of chronic obstructive pulmonary disease. 2. Acute purulent bronchitis. 3. Abnormal arterial blood gases secondary to acute exacerbation of chronic obstructive pulmonary disease and hypoventilation from the effect of heavy doses of narcotics. clinically compensated 4. Chronic narcotic dependence secondary to 31 spinal surgeries. Plan . 1. Continue with present Duo Nebs and p.r.n. albuterol nebulizer. 2. Continue IV steroids. change to PO taper 3. Obtain sputum for C and S. 4. Cautious use of narcotics. 5. ok with dc home today 6. empiric antibiotic. KELVIN HUNT MD Jun 12, 2016 10:06
[2016-06-12 10:25] VITALS: BP 125/62
[2016-06-12] MEDS ORDERED: GUAI600T38 PO (10:47)
[2016-06-12] MEDS ORDERED: PRED20TA PO (10:47)
[2016-06-12] MEDS ORDERED: AMLO5TAB2 PO (10:47)
[2016-06-12] MEDS ORDERED: AMLODIPINE BESYLATE 5 MG TABLET PO SCH (11:00)
[2016-06-12] MEDS ORDERED: PREDNISONE 20 MG TABLET PO SCH (11:00)
--- NOTE | 2016-06-12 13:42 | PDOC3 ---
Discharge Summary [facility] Date of Admission: Jun 09, 2016 Discharge Date: Jun 12, 2016 Admitting Diagnosis 1. Severe COPD exacerbation 2,. Acute hypoxic hypercapneic AND HYPoxic respi failure 3. Acute bronchitis 3. SMoker 4. CHronic pain 5. SIRS POA< no sepsis 6. MIld PCM 7. HTN Problems: Final Diagnosis Problems Medical Problems: (1) Acute on chronic respiratory failure Status: Acute (2) Type 2 diabetes mellitus Status: Acute CONSULTS pulm Brief Hospital Course Ms. Sotelo is a 56 old F, copd, smoker, comes for cough ,sob. Better with duoneb, doxy, steroid. dc home with tapering steroid, add amlodipine for HTN dc time 35min General: Alert, Oriented X3, Cooperative, No acute distress Heart: Regular rate Lungs: Wheezing (bilateral), mild Abdomen: Normal bowel sounds, Soft, No tenderness, No hepatosplenomegaly, No masses Extremities: No clubbing, No cyanosis, No edema, Normal pulses, No tenderness/ swelling Skin: No rashes, No breakdown, No significant lesion Patient History: Problems: Disposition home CONDITION AT DISCHARGE: Improved Diet regular Scheduled Amlodipine Besylate (Amlodipine Besylate) 5 MG PO DAILY Docusate Sodium (Colace) 1 CAP PO BID (Reported) Esomeprazole Magnesium (Nexium Capsule) 1 TAB PO DAILY (Reported) Eszopiclone (Lunesta) 3 MG PO HS (Reported) Fentanyl (FENTANYL 100mcg/hr) 1 PATCH TD QODAY (Reported) Furosemide (Lasix) 20 MG PO DAILY (Reported) Guaifenesin (Mucinex) 600 MG PO BID Metformin Hcl (Metformin Hcl) 1 TAB PO BID (Reported) Morphine Sulfate (Morphine Sulfate) 1 TAB PO Q12HR (Reported) Nicotine (NICODERM CQ 14mg) 1 PATCH TP DAILY Potassium Chloride (Potassium Chloride) 20 MEQ PO DAILY (Reported) Prednisone (Prednisone) 40 MG PO DAILY Sennosides (Senokot) 1 TAB PO BID (Reported) Trazodone Hcl (Trazodone Hcl) 1 TAB PO QHS (Reported) Scheduled PRN Alprazolam (Alprazolam) 1 MG PO PRN QID PRN PRN ANXIETY / AGITATION (Reported) Hydrocodone/Apap 10-325 ([place] 10-325 Tablet) 1-2 TAB PO Q4-6HRS PRN PRN PAIN ( Reported) Ipratropium/Albuterol Sulfate (Combivent Inhaler) 1-2 PRN DAILY PRN PRN SHORTNESS OF BREATH (Reported) Nystatin (Nystatin) 5 ML PO QID PRN PRN SEE COMMENTS (Reported) Ondansetron Hcl (Zofran) 4 MG PO BID PRN PRN NAUSEA/VOMITING (Reported) Oxycodone Hcl (Oxycodone Hcl) 1 TAB PO PRN Q4HRS PRN PRN PAIN (Reported) Oxycodone Hcl (Oxycodone Hcl) 2 TAB PO PRN Q4HRS PRN PRN PAIN (Reported) Oxycodone Hcl (Oxycodone Hcl) 5 MG PO PRN PAIN (Reported) Polyethylene Glycol 3350 (Polyethylene Glycol 3350) 17 GM PO DAILY PRN PRN cons (Reported) Miscellaneous Medications Fluticasone/Vilanterol (Breo Ellipta 100-25 Mcg Inh) 1 PUFF IH (Reported) Follow Up pcp in 2 weeks CLAY WATSON MD Jun 12, 2016 13:42
== END 2016-06-12 13:11 | disposition home or self-care (01) | DRG 189 ==
LOC: ER 12:02 → 5 NORTH 13:35
PROVIDERS: ADMIT Internal Medicine; ATTEND Internal Medicine
DX: J96.21 Acute and chronic respiratory failure with hypoxia (principal); J44.1 Chronic obstructive pulmonary disease with (acute) exacerbation; R65.10 Systemic inflammatory response syndrome (SIRS) of non-infectious origin without acute organ dysfunction; E44.1 Mild protein-calorie malnutrition; F11.20 Opioid dependence, uncomplicated; J44.0 Chronic obstructive pulmonary disease with (acute) lower respiratory infection; J96.22 Acute and chronic respiratory failure with hypercapnia; J20.9 Acute bronchitis, unspecified; E11.9 Type 2 diabetes mellitus without complications; F17.200 Nicotine dependence, unspecified, uncomplicated; G89.29 Other chronic pain; I10 Essential (primary) hypertension; F32.9 Major depressive disorder, single episode, unspecified; F41.9 Anxiety disorder, unspecified; M54.5 Low back pain; M79.7 Fibromyalgia; Z99.81 Dependence on supplemental oxygen; Z87.01 Personal history of pneumonia (recurrent); Z88.2 Allergy status to sulfonamides; Z88.1 Allergy status to other antibiotic agents; Z88.8 Allergy status to other drugs, medicaments and biological substances; Z68.30 Body mass index [BMI] 30.0-30.9, adult
CPT/HCPCS: 36415; 36600; 71010; 80048; 80053; 82553; 82805; 82947; 83880; 84484; 85007; 85027; 87804; 93005; 94250; 94640; 94760; 96374; J0360; J1815; J2920; J2930; J7030; J7512; J7620; 99285-25

== ENCOUNTER → 2016-09-16 | Outpatient (CLI) | payer OTHER, MEDICARE ==
[~2016-09-16] MED LIST changes: +AMLO5TAB2 PO; +BREO ELLIPTA 11 EACH IH; +DOCU-109 PO; -DOCU-27 PO; -ESZO1TAB6 PO; +ESZO1TAB8 PO; +FURO-69 PO; +GUAI600T47 PO; -NYST1000 PO; +NYST100054 PO; +ONDA4TAB7 PO; +OXYC5CAP PO; +POLY17PO29 PO; -POLY17PO5 PO; +POLY255P PO; +POTASSIUM CHLO10 MEQ PO; +PRED20TA PO; +SENN8.6T99 PO
--- NOTE | 2016-09-16 14:57 | KCIC ---
THYROID ULTRASOUND History: Generalized hyperhidrosis, hoarseness of voice Comparison: None. Findings: Multiple sonographic images of the thyroid gland are submitted. Right lobe measured 5 x 2 x 2 cm. Left lobe measured 5 x 2 x 2.1 cm. No discrete nodularity is identified of the thyroid gland. There is no hypervascularity. The isthmus measured 0.5 cm in thickness. Impression: 1. There is borderline thyromegaly, no discrete thyroid nodularity demonstrated. Electronically signed by: Pierre Hoang MD (09/16/2016 2:54 PM)
== END | disposition home or self-care (01) ==
LOC: KCIC US 14:10
PROVIDERS: ATTEND Nurse Practitioner Family
DX: R61 Generalized hyperhidrosis (principal); R49.0 Dysphonia
CPT/HCPCS: 76536

== ENCOUNTER → 2017-01-20 | Outpatient (CLI) | payer OTHER, MEDICARE ==
[~2017-01-20] MED LIST changes: +GADOBUTROL 10 MMOL/10 ML VIAL IV ONE; +HYDROmorphone 2 MG/ML VIAL IV PRN; +IV RINGERS,LACTATED 1000ML 1,000 ML IV SCH; +LIDOCAINE 1% PF 2 ML VIAL. ID PRN; +LIDOCAINE 2% PF Vial for OR 5 ML VIAL. ONE; +MIDAZOLAM HCL/PF 2 MG/2 ML VIAL. ONE; +MORPHINE SULFATE 2 MG/ML DISP.SYRIN. IV PRN; +ONDANSETRON PF 4 MG/2 ML VIAL. IV PRN; +PROCHLORPERAZINE 10 MG/2 ML VIAL. IV PRN; +PROPOFOL 60 ML IV ONE; +fentaNYL PF VIAL 100 MCG/2 ML VIAL IV PRN; +fentaNYL PF VIAL 100 MCG/2 ML VIAL ONE; +oxyCODONE ER 10 MG TAB.ER.12H PO PRN; +oxyCODONE IR 5 MG TABLET PO ONE
[2017-01-20 15:42] LABS: GFR 57.4
[2017-01-20] MEDS: fentaNYL PF VIAL 100 MCG/2 ML VIAL IV PRN ×2 (17:17→17:22)
[2017-01-20 17:21] VITALS: BP 121/82
--- NOTE | 2017-01-21 08:39 | RAD ---
MRI of the thoracic spine without and with contrast 01/20/2017 CLINICAL HISTORY: Chronic mid back pain with bilateral leg weakness. TECHNIQUE: Unenhanced T1-weighted, T2-weighted and inversion recovery sagittal and T1 and T2-weighted axial images of the thoracic spine were obtained. After the intravenous administration of 10 cc of Gadavist, enhanced T1-weighted sagittal and axial images of the lumbar spine were obtained. FINDINGS: Mild S-shaped curvature of the thoracolumbar spine is seen. Degenerative signal changes are seen involving all of the disks of the thoracic spine. Degenerative signal changes are seen within the marrow surrounding these discs. Schmorl's node formation is seen involving the superior endplates of the the T3, T4, T6 and T9 vertebral bodies. The thoracic spinal cord is normal in morphology, position, and signal characteristics. No area of abnormal contrast enhancement is noted. Degenerative changes are seen involving the thoracic disc spaces consisting of minimal generalized disc bulges and degenerative changes involving the facet joints. These findings result in mild central spinal canal stenosis at T9-10 without evidence of cord impingement. No neural foraminal stenosis is seen. IMPRESSION: Degenerative changes are seen involving the thoracic spine as outlined above. These findings result in mild central spinal canal stenosis at T9-10 without evidence of cord impingement. No neural foraminal stenosis is seen. Electronically signed by: Robb Johnson MD (01/21/2017 8:35 AM) [id number]
--- NOTE | 2017-01-21 08:52 | RAD ---
MRI of the lumbar spine without and with contrast 01/20/2017 CLINICAL HISTORY: Chronic low back pain with bilateral leg weakness. TECHNIQUE: Unenhanced T1-weighted and T2-weighted sagittal and axial and inversion sagittal images of the lumbar spine were obtained. After the intravenous administration of 10 cc of Gadavist, enhanced T1-weighted sagittal and axial images of the lumbar spine were obtained. FINDINGS: Comparison is made to a CT lumbar myelogram dated 02/22/2015. Magnetic susceptibility artifact emanates from the posterior soft tissues of the lower lumbar/sacral spine. Minimal S-shaped curvature of the thoracolumbar spine is seen. Degenerative signal changes are seen involving the L4-5 and L5-S1 discs. Loss of height of the L5-S1 disc is noted. Degenerative signal changes are seen within the marrow surrounding these discs. The conus medullaris is normal morphology, position, and signal characteristics. No area of abnormal contrast enhancement is seen. At the L1-2 and L2-3 disc spaces there are minimal generalized disc bulges. Degenerative changes are seen involving the facet joints bilaterally. These findings do not result in significant central spinal canal or neural foraminal stenosis. At the L3-4 disc space there is a mild generalized disc bulge. Degenerative changes are seen involving the facet joints bilaterally. There is mild to moderate ligamentum flavum hypertrophy bilaterally. These findings when combined result in very mild central spinal canal stenosis. No neural foraminal stenosis is seen. At the L4-5 disc space there is a mild generalized disc bulge. Degenerative changes are seen involving the facet joints bilaterally. There is mild to moderate ligamentum flavum hypertrophy bilaterally. These findings when combined result in mild central spinal canal stenosis. No neural foraminal stenosis is seen. At the L5-S1 disc space there is a mild generalized disc bulge. Superimposed on this disc bulge is a right paracentral focal disc protrusion. This measures 2 mm in AP diameter Degenerative changes are seen involving the facet joints bilaterally. There is mild ligamentum flavum hypertrophy bilaterally. These findings when combined do not result in significant central spinal canal or neural foraminal stenosis. IMPRESSION: The changes of degenerative disc disease are seen involving the lumbar spine. These findings result in very mild central spinal canal stenosis at L3-4 and mild central spinal canal stenosis at L4-5. No neural foraminal stenosis is seen. Electronically signed by: Robb Johnson MD (01/21/2017 8:49 AM) [id number]
== END | disposition home or self-care (01) ==
LOC: SURG 14:30
PROVIDERS: ATTEND Family Medicine
DX: M48.04 Spinal stenosis, thoracic region (principal); M48.061 Spinal stenosis, lumbar region without neurogenic claudication; M51.36 Other intervertebral disc degeneration, lumbar region; R53.1 Weakness
CPT/HCPCS: 36415; 72157; 72158; 82565; 82962; J2250; J2704; J3010; J2001

== ENCOUNTER 2017-05-05 08:46 | Day surgery (SDC) | payer OTHER, MEDICARE ==
[~2017-05-05 08:46] MED LIST changes: -ALBU1.25 IH; -ALPR1TAB6 PO; -AMLO5TAB2 PO; -BREO ELLIPTA 11 EACH IH; -DOCU-109 PO; -Doxycycline Hyclate PO; -ESOM40CA PO; -ESTR1TAB15 PO; -ESTR1TAB5 PO; -ESZO1TAB8 PO; -FENT1PAT21 TD; -FENT1PAT91 TD; -FLUT1DIS; -FLUT1DIS5 IH; -FURO-69 PO; -GADOBUTROL 10 MMOL/10 ML VIAL IV ONE; -GUAI600T47 PO; -HYDR-963 PO; +HYDROmorphone 2 MG/ML VIAL IV; -HYDROmorphone 2 MG/ML VIAL IV PRN; -IPRA14.7; +IV RINGERS,LACTATED 1000ML 1,000 ML IV; -IV RINGERS,LACTATED 1000ML 1,000 ML IV SCH; +LIDOCAINE 1% PF 2 ML VIAL. ID; -LIDOCAINE 1% PF 2 ML VIAL. ID PRN; -LIDOCAINE 2% PF Vial for OR 5 ML VIAL. ONE; -METF500T4 PO; -METO5TAB55; -MIDAZOLAM HCL/PF 2 MG/2 ML VIAL. ONE; -MORP15TA; -MORP30TA PO; +MORPHINE SULFATE 2 MG/ML DISP.SYRIN. IV; -MORPHINE SULFATE 2 MG/ML DISP.SYRIN. IV PRN; -NICO1PAT25 TP; -NICO1PAT5; -NYST100054 PO; -ONDA4TAB7 PO; +ONDANSETRON PF 4 MG/2 ML VIAL. IV; -ONDANSETRON PF 4 MG/2 ML VIAL. IV PRN; -OXYC10TA PO; -OXYC5CAP PO; -POLY17PO29 PO; -POLY255P PO; -POTASSIUM CHLO10 MEQ PO; -PRED-220 PO; -PRED1TAB3 PO; -PRED20TA PO; +PROCHLORPERAZINE 10 MG/2 ML VIAL. IV; -PROCHLORPERAZINE 10 MG/2 ML VIAL. IV PRN; -PROPOFOL 60 ML IV ONE; -SENN1TAB21 PO; -SENN8.6T99 PO; -TRAZ100T12 PO; -breo; +fentaNYL PF VIAL 100 MCG/2 ML VIAL IV; -fentaNYL PF VIAL 100 MCG/2 ML VIAL IV PRN; -fentaNYL PF VIAL 100 MCG/2 ML VIAL ONE; -oxyCODONE ER 10 MG TAB.ER.12H PO PRN; -oxyCODONE IR 5 MG TABLET PO ONE; -prednisone; -progesterone
[2017-05-05 09:59] LABS: BLOOD UREA NITROGEN 20 mg/dL (7-20)
[2017-05-05 09:59] LABS: CREATININE 1.1 mg/dL (0.6-1.0); GFR 51.2
[2017-05-05] MEDS ORDERED: IOHEXOL 300 MG/ML 100ML VIAL. IV (11:00)
[2017-05-05] MEDS ORDERED: IOHEXOL 240 MG/ML 50ML VIAL. PO (11:00)
[2017-05-05] MEDS ORDERED: CONTRAST GIVEN MC (11:00)
[2017-05-05] MEDS ORDERED: MIDAZOLAM HCL/PF 2 MG/2 ML VIAL. (11:25)
[2017-05-05] MEDS ORDERED: fentaNYL PF VIAL 250 MCG/5 ML VIAL (12:05)
== END 2017-05-05 13:23 | disposition home or self-care (01) ==
LOC: SURG 08:46
DX: K76.0 Fatty (change of) liver, not elsewhere classified (principal); J98.11 Atelectasis; N28.1 Cyst of kidney, acquired; I70.0 Atherosclerosis of aorta; K44.9 Diaphragmatic hernia without obstruction or gangrene; M51.34 Other intervertebral disc degeneration, thoracic region; M51.44 Schmorl's nodes, thoracic region; M19.90 Unspecified osteoarthritis, unspecified site; K21.9 Gastro-esophageal reflux disease without esophagitis; Z88.1 Allergy status to other antibiotic agents; Z88.2 Allergy status to sulfonamides; Z79.899 Other long term (current) drug therapy; Z90.49 Acquired absence of other specified parts of digestive tract; Z98.890 Other specified postprocedural states
CPT/HCPCS: 36415; 74177; 82565; 84520; J2250; J3010; Q9966; Q9967

== ENCOUNTER → 2017-05-14 | Outpatient (CLI) | payer OTHER | END | disposition home or self-care (01) | LOC: KCIC 11:09 | DX: L03.116 Cellulitis of left lower limb (principal); M79.89 Other specified soft tissue disorders | CPT/HCPCS: 73630 ==

== ENCOUNTER 2017-12-23 07:58 | Outpatient (CLI) | payer OTHER, MEDICARE ==
[2017-12-23] VITALS (9 sets, daily range): BP systolic 126–196; BP diastolic 65–96
[~2017-12-23] VITALS: Ht 175.3 cm; Wt 113.9 kg
[~2017-12-23 07:58] MED LIST changes: +ALBU1.25 IH; +ALPR1TAB6 PO; +AMLO5TAB7 PO; +BREO ELLIPTA 11 EACH IH; +DOCU-109 PO; +Doxycycline Hyclate PO; +ESOM40CA PO; +ESTR1TAB15 PO; +ESTR1TAB5 PO; +ESZO1TAB8 PO; +FENT1PAT21 TD; +FENT1PAT91 TD; +FLUT1DIS; +FLUT1DIS5 IH; +FURO-69 PO; +GUAI600T47 PO; +HYDR-963 PO; -HYDROmorphone 2 MG/ML VIAL IV; +IPRA14.7; -IV RINGERS,LACTATED 1000ML 1,000 ML IV; -LIDOCAINE 1% PF 2 ML VIAL. ID; +METF500T16 PO; +METO5TAB55; +MORP15TA; +MORP30TA PO; -MORPHINE SULFATE 2 MG/ML DISP.SYRIN. IV; +NICO1PAT25 TP; +NICO1PAT5; +NYST100054 PO; +ONDA4TAB7 PO; -ONDANSETRON PF 4 MG/2 ML VIAL. IV; +OXYC10TA PO; +OXYC5CAP PO; +POLY17PO29 PO; +POLY255P PO; +POTA10TA12 PO; +PRED-220 PO; +PRED1TAB3 PO; +PRED20TA PO; -PROCHLORPERAZINE 10 MG/2 ML VIAL. IV; +SENN1TAB21 PO; +SENN8.6T99 PO; +TRAZ-86 PO; +breo; -fentaNYL PF VIAL 100 MCG/2 ML VIAL IV; +prednisone; +progesterone
[2017-12-23 08:52] LABS: HEMATOCRIT 44.8 % (36.0-47.0); RED BLOOD COUNT 4.99 x10^6/uL (3.50-5.40); RED CELL DISTRIBUTION WIDTH 15.8 % (11.5-14.5); WHITE BLOOD COUNT 9.5 x10^3/uL (4.0-11.0)
[2017-12-23 08:53] LABS: CALCIUM 8.4 mg/dL (8.5-10.1); CREATININE 0.8 mg/dL (0.6-1.0); GFR 73.9; POTASSIUM 3.6 mmol/L (3.5-5.1)
[2017-12-23] MEDS ORDERED: ESTR1TAB15 PO (08:56)
[2017-12-23] MEDS ORDERED: NITR0.4T22 SL (08:56)
[2017-12-23] MEDS ORDERED: MEDR2.5T28 PO (08:56)
[2017-12-23] MEDS ORDERED: ATOR40TA59 PO (08:56)
[2017-12-23] MEDS ORDERED: CANA100T PO (08:56)
[2017-12-23] MEDS ORDERED: GABA600T2 PO (08:56)
[2017-12-23 09:02] LABS: PROTHROMBIN TIME PATIENT 12.1 SEC (11.7-14.0)
[2017-12-23] MEDS ORDERED: ASPI81TA59 PO (09:04)
[2017-12-23] MEDS ORDERED: AZIT500T PO (09:04)
[2017-12-23] MEDS ORDERED: LIDOCAINE 1% PF 2 ML VIAL. ONE (10:30)
[2017-12-23] MEDS ORDERED: IOHEXOL 300 MG/ML 100ML VIAL. ONE (10:31)
[2017-12-23] MEDS ORDERED: HEPARIN for IV BOLUS 10,000 UNIT/10 ML VIAL. ONE (11:25)
[2017-12-23] MEDS ORDERED: NITROGLYCERIN 200 MCG/2 ML SYRINGE FOR CATH/VASC LAB. ONE (11:25)
[2017-12-23] MEDS ORDERED: MIDAZOLAM HCL/PF 2 MG/2 ML VIAL. ONE (11:25)
[2017-12-23] MEDS ORDERED: fentaNYL PF VIAL 100 MCG/2 ML VIAL ONE (11:25)
[2017-12-23] MEDS ORDERED: VERAPAMIL 5 MG/2 ML VIAL. ONE (11:25)
[2017-12-23] MEDS ORDERED: VERAPAMIL 5 MG/2 ML VIAL. IART ONE (11:45)
[2017-12-23] MEDS ORDERED: NITROGLYCERIN 200 MCG/2 ML SYRINGE FOR CATH/VASC LAB. IART ONE (11:45)
[2017-12-23] MEDS ORDERED: HEPARIN for IV BOLUS 10,000 UNIT/10 ML VIAL. IART ONE (11:45)
[2017-12-23] MEDS ORDERED: IOHEXOL 300 MG/ML 100ML VIAL. IART ONE (11:45)
[2017-12-23] MEDS ORDERED: fentaNYL PF VIAL 100 MCG/2 ML VIAL IV ONE (11:45)
[2017-12-23] MEDS ORDERED: MIDAZOLAM HCL/PF 2 MG/2 ML VIAL. IV ONE (11:45)
[2017-12-23] MEDS ORDERED: LIDOCAINE 1% PF 2 ML VIAL. INJ ONE (11:45)
[2017-12-23] MEDS ORDERED: 0.9 % SODIUM CHLORIDE 10 ML DISP.SYRIN. IV PRN (12:30)
[2017-12-23] MEDS ORDERED: NITROGLYCERIN SUBLINGUAL 0.4 MG BOTTLE OF 25. SL PRN (12:30)
--- NOTE | 2017-12-23 13:24 | CARD ---
MR#: [id number] Date of Study: 12/23/2017 Ordering Physician: CHRIS CAMPBELL, Referring Physician: CHRIS CAMPBELL, Tech: RT Gianni (R) APPROVED REPORT Technologist: RT Gianni (R) Nurse: Bisi Engle R.N. Procedure(s) performed: MODERATE SEDATION 30 MINS LHC, Coronary angiography, Left ventriculography HISTORY : The patient is a 57 year-old female with a history of . INDICATION The indication(s) include : unstable angina , dyspnea. PROCEDURE NARRATIVE INFORMED CONSENT: After explaining the risks and benefits of the procedure and alternatives, informed consent was obtained. The patient was brought electively to the cardiac catheterization lab. A timeout was performed confi rming the patient's name, date of , procedure, and site of procedure. All necessary personnel w ere wearing the appropriate protective equipment and radiation monitor devices. (See nursing notes for medications administered). ACCESS: The right wrist was sterilely prepped and draped in the usual fashion. The right wrist was infiltrat ed with 1 mL of 2% lidocaine for subcutaneous anesthesia. A 6 [place] Terumo glide sheath was inserte d into the right radial artery without difficulty. CORONARY ANGIOGRAPHY: Right and left coronary angiography was performed using a 6Fr TIG 4.0 catheter. Left ventricular en d diastolic pressure was obtained with a TIG catheter and pullback was performed after left ventricul ography. All catheter exchanges and advancements were performed over a guidewire. CLOSURE: At case completion the right radial sheath was removed and a Terumo radial band was applied with 13 m l of air. COMPLICATIONS: The patient tolerated the procedure well and there were no immediate complications. FINDINGS: HEMODYNAMICS: LVEDP 30 mm Hg No gradient on LV to aortic pullback. AO: 128/78 LEFT VENTRICULOGRAM: EF 55% Anterobasal: Normal. Anterolateral: Normal Apical: Normal Diaphragmatic: Normal Posterobasal: Normal CORONARY ANGIOGRAPHY: LM is a large caliber vessel with normal angiographic appearance. LAD is a moderate caliber vessel with normal angiographic appearance. D1 is a moderate caliber vessel with normal angiographic appearance. LCx is a moderate to large caliber non-dominant vessel with normal angiographic appearance. OM1 is a moderate caliber vessel with normal angiographic appearance. RCA is a large caliber dominant vessel with normal angiographic appearance. RPDA is a moderate caliber vessel with normal angiographic appearance. Conclusion 1. Elevated left sided filling pressures. 2. Normal LV function. 3. Normal angiographic appearance of the coronary arteries. Recommendations Aggressive Medical Therapy Signed by : Chris Campbell, Electronically Approved : 12/23/2017 13:23:24
[2017-12-23] MEDS ORDERED: FURO40TA4 PO (13:31)
== END 2017-12-23 14:18 | disposition home or self-care (01) ==
LOC: CCL 07:58
PROVIDERS: ATTEND Internal Medicine Cardiovascular Disease
DX: I20.0 Unstable angina (principal); Z88.2 Allergy status to sulfonamides; Z88.1 Allergy status to other antibiotic agents; Z88.8 Allergy status to other drugs, medicaments and biological substances
CPT/HCPCS: 36415; 80048; 85027; 85610; 93458; 99152; 99153; C1769; C1892; J1644; J2250; J3010; J3490; Q9967

== ENCOUNTER → 2018-01-07 | Outpatient (CLI) | payer OTHER, MEDICARE ==
[2017-12-23 14:12] VITALS: BP 144/65
[~2018-01-07] MED LIST changes: +ASPI81TA59 PO; +ATOR40TA59 PO; +AZIT500T PO; +CANA100T PO; +FURO40TA4 PO; +GABA600T2 PO; +MEDR2.5T28 PO; +NITR0.4T22 SL
--- NOTE | 2018-01-07 13:31 | RAD ---
EXAM: Chest, 2 views. HISTORY: Shortness of air. COMPARISON: 01/03/2015 FINDINGS: Frontal and lateral views of the chest are obtained. There is stable mild interstitial prominence. There is right basilar atelectasis. There is no consolidation, pleural effusion or pneumothorax. The heart is normal in size. IMPRESSION: Stable mild interstitial prominence and new right basilar atelectasis. Electronically signed by: Marlen Lea MD (01/07/2018 1:26 PM) [place] [id number]
== END | disposition home or self-care (01) ==
LOC: LAB 11:20
PROVIDERS: ATTEND Internal Medicine Pulmonary Disease
DX: J98.11 Atelectasis (principal)
CPT/HCPCS: 71046

== ENCOUNTER → 2018-01-13 | Day surgery (SDC) | payer OTHER, MEDICARE ==
[~2018-01-13] MED LIST changes: +IV RINGERS,LACTATED 1000ML 1,000 ML IV SCH; +LIDOCAINE 2% PF 2ML VIAL. ONE; +PROPOFOL 20 ML IV ONE
[2018-01-13 12:50] VITALS: BP 130/70
== END | disposition home or self-care (01) ==
LOC: ENDOS 11:10
PROVIDERS: ATTEND Internal Medicine Gastroenterology
DX: K22.2 Esophageal obstruction (principal); K29.70 Gastritis, unspecified, without bleeding; Z91.040 Latex allergy status; Z88.2 Allergy status to sulfonamides; Z88.1 Allergy status to other antibiotic agents; Z88.5 Allergy status to narcotic agent; K21.9 Gastro-esophageal reflux disease without esophagitis; F41.9 Anxiety disorder, unspecified; J45.909 Unspecified asthma, uncomplicated; M19.90 Unspecified osteoarthritis, unspecified site; Z83.3 Family history of diabetes mellitus; Z80.0 Family history of malignant neoplasm of digestive organs; Z82.49 Family history of ischemic heart disease and other diseases of the circulatory system; E78.00 Pure hypercholesterolemia, unspecified; G35 Multiple sclerosis; F17.210 Nicotine dependence, cigarettes, uncomplicated; Z79.899 Other long term (current) drug therapy; Z79.84 Long term (current) use of oral hypoglycemic drugs; Z90.49 Acquired absence of other specified parts of digestive tract; Z98.890 Other specified postprocedural states
CPT/HCPCS: 43235; 43450; J2001; J2704

== ENCOUNTER 2018-11-14 10:04 | Outpatient (CLI) | payer MEDICARE, OTHER ==
[~2018-11-14 10:04] MED LIST changes: +AMLO5TAB10 PO; -AMLO5TAB7 PO; -GABA600T2 PO; +GABA600T7 PO; +HYDR-3135 PO; -HYDR-963 PO; +HYDROmorphone 2 MG/ML VIAL IV PRN; +LIDOCAINE 1% PF 2 ML VIAL. ID PRN; -LIDOCAINE 2% PF 2ML VIAL. ONE; +MORPHINE SULFATE 2 MG/ML VIAL. IV PRN; +ONDANSETRON PF 4 MG/2 ML VIAL. IV PRN; -POLY255P PO; +POLY255P11 PO; +PROCHLORPERAZINE 10 MG/2 ML VIAL. IV PRN; -PROPOFOL 20 ML IV ONE; -SENN1TAB21 PO; +SENN1TAB62 PO; +fentaNYL PF VIAL 100 MCG/2 ML VIAL IV PRN
[2018-11-14] MEDS ORDERED: fentaNYL PF VIAL 100 MCG/2 ML VIAL ONE (10:23)
[2018-11-14] MEDS ORDERED: MIDAZOLAM HCL/PF 2 MG/2 ML VIAL. ONE ×2 (10:23)
[2018-11-14] MEDS ORDERED: PROPOFOL 50 ML IV ONE (10:23)
[2018-11-14 11:35] VITALS: BP 105/66
--- NOTE | 2018-11-14 13:57 | RAD ---
MRI of the thoracic spine without contrast 11/14/2018 CLINICAL HISTORY: Worsening chronic mid back pain which radiates down both legs. TECHNIQUE: Unenhanced T1-weighted, T2-weighted and inversion recovery sagittal and T1-weighted and T2-weighted axial images of the thoracic spine were obtained. FINDINGS: Comparison study is dated 01/20/2017. Mild S-shaped curvature of the thoracolumbar spine is seen. Degenerative signal changes are seen involving all of the disks of the thoracic spine. Degenerative signal changes are seen within the marrow surrounding these discs. Schmorl's node formation is seen involving the superior endplates scattered throughout the thoracic spine. The thoracic spinal cord is normal morphology, position, and signal characteristics. A 1.4 cm well-defined rounded high signal intensity rounded lesion is seen within the subcutaneous fat within the inferior neck near the midline on theT2-weighted images which likely represents a sebaceous cyst. Degenerative changes are seen involving the thoracic disc spaces consisting of minimal generalized disc bulges and degenerative changes involving the facet joints. These findings result in mild central spinal canal stenosis at T9-10 without evidence of cord impingement. No neural foraminal stenosis is seen. Since the previous examination there has been no significant interval change. IMPRESSION: Degenerative changes are seen involving the thoracic spine as discussed above. These findings result in mild central spinal canal stenosis at T9-10 without evidence of cord impingement. No neural foraminal stenosis is seen. Electronically signed by: Robb Johnson MD (11/14/2018 1:55 PM) [id number]
--- NOTE | 2018-11-14 14:10 | RAD ---
MRI of the lumbar spine without contrast 11/14/2018 CLINICAL HISTORY: Worsening chronic low back pain which radiates down both legs. TECHNIQUE: Unenhanced T1-weighted and T2-weighted sagittal and axial and inversion recovery sagittal images of the lumbar spine were obtained. FINDINGS: Comparison study is dated 11/20/2016. Very mild S-shaped curvature of the thoracolumbar spine is seen. Degenerative signal changes are seen involving the L4-5 and L5-S1 discs. Degenerative signal changes are seen within the marrow surrounding these discs. The conus medullaris is normal morphology, position, and signal characteristics. A 9 mm rounded high signal intensity lesion is seen involving the midpole of the left kidney on the T2-weighted images. This likely represents a cyst. At the L1-2 and L2-3 disc spaces there are minimal generalized disc bulges. Degenerative changes are seen involving the facet joints bilaterally. These findings do not result in significant central spinal canal or neural foraminal stenosis. At the L3-4 disc space there is a mild generalized disc bulge. Degenerative changes are seen involving the facet joints bilaterally. There is mild to moderate ligamentum flavum hypertrophy bilaterally. These findings when combined result in very mild central spinal canal stenosis. No neural foraminal stenosis is seen. At the L4-5 disc space there is a mild generalized disc bulge. Degenerative changes are seen involving the facet joints bilaterally. There is mild to moderate ligamentum flavum hypertrophy bilaterally. These findings when combined result in mild central spinal canal stenosis. No neural foraminal stenosis is seen. At the L5-S1 disc space there is a mild generalized disc bulge. Superimposed on this disc bulge is a right paracentral focal disc protrusion. This measures 3 mm in AP diameter. It has increased slightly in size since the previous examination where it measured 2 mm in AP diameter. Degenerative changes are seen involving the facet joints bilaterally. These findings when combined do not result in significant central spinal canal or neural foraminal stenosis. IMPRESSION: The changes of degenerative disc disease are seen involving the lumbar spine. These findings result in very mild central spinal canal stenosis at L3-4 and mild central spinal canal stenosis at L4-5. No neural foraminal stenosis is seen. Electronically signed by: Robb Johnson MD (11/14/2018 2:07 PM) [id number]
== END 2018-11-14 12:01 | disposition home or self-care (01) ==
LOC: MRI 10:04
PROVIDERS: ATTEND Psychiatry & Neurology Neurology with Special Qualifications in Child Neurology
DX: M51.16 Intervertebral disc disorders with radiculopathy, lumbar region (principal); M47.814 Spondylosis without myelopathy or radiculopathy, thoracic region; M48.05 Spinal stenosis, thoracolumbar region; M47.26 Other spondylosis with radiculopathy, lumbar region; M47.818 Spondylosis without myelopathy or radiculopathy, sacral and sacrococcygeal region; M53.3 Sacrococcygeal disorders, not elsewhere classified; M89.38 Hypertrophy of bone, other site; G89.29 Other chronic pain
CPT/HCPCS: 72146; 72148; J2250; J2704; J3010

== ENCOUNTER 2018-12-29 13:11 | Emergency (ER) | payer OTHER, MEDICARE ==
[~2018-12-29] VITALS: Ht 175.3 cm; Wt 99.8 kg
[~2018-12-29 13:11] MED LIST changes: -HYDROmorphone 2 MG/ML VIAL IV PRN; -IV RINGERS,LACTATED 1000ML 1,000 ML IV SCH; -LIDOCAINE 1% PF 2 ML VIAL. ID PRN; -MORPHINE SULFATE 2 MG/ML VIAL. IV PRN; -ONDANSETRON PF 4 MG/2 ML VIAL. IV PRN; -PROCHLORPERAZINE 10 MG/2 ML VIAL. IV PRN; -fentaNYL PF VIAL 100 MCG/2 ML VIAL IV PRN
--- NOTE | 2018-12-29 15:59 | RAD ---
PORTABLE CHEST 1V Clinical indications: Fluid retention. COMPARISON: January 07, 2018. Findings: New linear atelectasis of the right midlung zone is seen. No lung consolidation or pleural effusion or pulmonary edema or lung mass or pneumothorax is seen. The heart size, pulmonary vasculature, mediastinum and both cecilia are unremarkable. . Impression: Linear atelectasis of the right midlung zone. Electronically signed by: Obie Bliss MD (12/29/2018 3:56 PM) [id number]
[2018-12-29 16:02] LABS: BILIRUBIN,URINE NEGATIVE (NEG); CLARITY,URINE CLEAR; COLOR,URINE YELLOW; NITRITE,URINE NEGATIVE (NEG); PROTEIN,URINE NEGATIVE (NEG-TRACE); UROBILINOGEN,URINE 0.2 mg/dL (0.2 mg/dL)
--- NOTE | 2018-12-29 16:02 | EKG ---
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
[2018-12-29 16:22] LABS: BASO % 0 % (0-3); EOS # 0.2 x10^3/uL (0.0-0.7); EOS % 2 % (0-3); HEMATOCRIT 45.8 % (36.0-47.0); HEMOGLOBIN 15.6 g/dL (12.0-15.5); LYMPH # 2.2 x10^3/uL (1.0-4.8); LYMPH % 27 % (24-48); MEAN CORPUSCULAR HEMOGLOBIN 29 pg (25-35); MEAN CORPUSCULAR HGB CONC 34 g/dL (31-37); MEAN CORPUSCULAR VOLUME 85 fL (79-100); MONO # 0.6 x10^3/uL (0.0-1.1); MONO % 7 % (0-9); NEUT # 5.3 x10^3/uL (1.8-7.7); NEUT % 64 % (31-73); PLATELET COUNT 284 x10^3/uL (140-400); RED BLOOD COUNT 5.41 x10^6/uL (3.50-5.40); RED CELL DISTRIBUTION WIDTH 15.7 % (11.5-14.5); WHITE BLOOD COUNT 8.3 x10^3/uL (4.0-11.0)
[2018-12-29 16:23] LABS: BACTERIA,URINE FEW /HPF (0-FEW); RBC,URINE RARE /HPF (0-2)
[2018-12-29 16:24] LABS: SQUAMOUS EPITHELIAL CELL,UR MANY /LPF
[2018-12-29] MEDS: fentaNYL PF VIAL 100 MCG/2 ML VIAL IV PRN ×3 (17:13→19:10)
[2018-12-29] MEDS ORDERED: ONDANSETRON PF 4 MG/2 ML VIAL. IV ONE (17:15)
[2018-12-29 17:29] LABS: ALBUMIN 3.1 g/dL (3.4-5.0); ALBUMIN/GLOBULIN RATIO 0.8 (1.0-1.7); CALCIUM 8.8 mg/dL (8.5-10.1); GFR 56.9; POTASSIUM 3.4 mmol/L (3.5-5.1); TOTAL BILIRUBIN 0.4 mg/dL (0.2-1.0)
[2018-12-29 17:34] LABS: CREATINE KINASE 66 U/L (26-192)
[2018-12-29] MEDS ORDERED: MORPHINE SULFATE 10 MG/ML VIAL. IM ONE (18:45)
--- NOTE | 2018-12-29 18:58 | PHYS DOC ---
Past Medical History Past Medical History: Anxiety, Asthma, Bronchitis, COPD, High Cholesterol, Pneumonia, Additional Disease Additional Past Medical Histor: smoker, chronic pain (BRANDY RATLIFF APRN) Past Surgical History: Other Additional Past Surgical Histo: pain pump x3 weeks ago, hernia rx, back sx x15 (BRANDY RATLIFF APRN) Alcohol Use: None Drug Use: None (BRANDY RATLIFF APRN) Adult General Chief Complaint Chief Complaint: URINARY RETENTION HPI HPI Patient is a 58 year old female with history of COPD, hypertension, pneumonia, anxiety, who presents to the ED today from home, patient states she was recently discharged from [facility]. She states her lower extremities is still swollen, she states they put on Lasix. She states she typically is not able to void fully unless she takes the Lasix. She is complaining of urinary retention but she states she voided in the ED waiting room. She states she was discharged from [facility] on Augmentin to cover her for pneumonia and UTI. She states she's had multiple UTI infections isn't likely. Denies any fever. Denies any chest pain. She states she has chronic shortness of breath from COPD. She states she is also experiencing chronic low back pain and he supposed to be on fentanyl patches but her PCP retired and she has an appointment with the pain clinic tomorrow for new fentanyl patches. (BRANDY RATLIFF APRN) Review of Systems Review of Systems Constitutional: Denies fever or chills [] Eyes: Denies change in visual acuity, redness, or eye pain [] HENT: Denies nasal congestion or sore throat [] Respiratory: Denies cough or shortness of breath [] Cardiovascular: No additional information not addressed in HPI [] GI: Denies abdominal pain, nausea, vomiting, bloody stools or diarrhea [] : Reports urinary retention. Denies dysuria or hematuria [] Musculoskeletal: Reports chronic low back pain Integument: Denies rash or skin lesions [] Neurologic: Denies headache, focal weakness or sensory changes [] Endocrine: Denies polyuria or polydipsia [] All other systems were reviewed and found to be within normal limits, except as documented in this note. (BARNDY RATLIFF APRN) Current Medications Current Medications Current Medications Medications (Trade) Dose Ordered Sig/Jesus Start Time Stop Time Status Last Admin Dose Admin Fentanyl Citrate (Fentanyl 2ml Vial) 50 mcg PRN Q15MIN PRN 12/29/18 15:30 12/29/18 19:19 DC 12/29/18 19:10 50 MCG Morphine Sulfate (Morphine Sulfate) 5 mg 1X ONCE 12/29/18 18:45 12/29/18 18:46 Cancel Ondansetron HCl (Zofran) 4 mg 1X ONCE 12/29/18 17:15 12/29/18 17:16 DC 12/29/18 17:13 4 MG (MADYSON ALMONTE MD) Allergies Allergies Allergies Coded Allergies Type Severity Reaction Last Updated Verified chlorhexidine Allergy Severe SEVERE BURNING TO SKIN 01/20/17 Yes Sulfa (Sulfonamide Antibiotics) Allergy Intermediate 01/20/17 Yes cephalexin Allergy Intermediate 01/20/17 Yes (MADYSON ALMONTE MD) Physical Exam Physical Exam Constitutional: Well developed, well nourished, no acute distress, non-toxic appearance. [] HENT: Normocephalic, atraumatic, bilateral external ears normal, oropharynx moist, no oral exudates, nose normal. [] Eyes: PERRLA, EOMI, conjunctiva normal, no discharge. [] Neck: Normal range of motion, no tenderness, supple, no stridor. [] Cardiovascular:Heart rate regular rhythm, no murmur [] Lungs & Thorax: Oxygen on. Bilateral breath sounds clear to auscultation [] Abdomen: Bowel sounds normal, soft, no tenderness, no masses, no pulsatile masses. [] Skin: Warm, dry, no erythema, no rash. [] Back: No tenderness, no CVA tenderness. [] Extremities: No tenderness, no cyanosis, no clubbing, ROM intact, +1 bilateral lower extremity edema Neurologic: Alert and oriented X 3, normal motor function, normal sensory function, no focal deficits noted. [] Psychologic: Affect normal, judgement normal, mood normal. [] (BRANDY RATLIFF APRN) Current Patient Data Vital Signs Vital Signs Date Time Temp Pulse Resp B/P (MAP) Pulse Ox O2 Delivery O2 Flow Rate FiO2 12/29/18 19:10 100 20 98 12/29/18 19:10 Room Air 12/29/18 17:56 3.0 12/29/18 14:49 98.1 135/94 (108) 98.1 (MADYSON ALMONTE MD) Lab Values Laboratory Tests Test 12/29/18 15:40 12/29/18 16:05 12/29/18 16:48 Urine Collection Type Unknown Urine Color Yellow Urine Clarity Clear Urine pH 5.0 Urine Specific Norman 1.015 Urine Protein Negative mg/dL (NEG-TRACE) Urine Glucose (UA) Negative mg/dL (NEG) Urine Ketones (Stick) Negative mg/dL (NEG) Urine Blood Negative (NEG) Urine Nitrite Negative (NEG) Urine Bilirubin Negative (NEG) Urine Urobilinogen Dipstick 0.2 mg/dL (0.2 mg/dL) Urine Leukocyte Esterase Small (NEG) Urine RBC Rare /HPF (0-2) Urine WBC 1-4 /HPF (0-4) Urine Squamous Epithelial Cells Many /LPF Urine Bacteria Few /HPF (0-FEW) Urine Mucus Slight /LPF White Blood Count 8.3 x10^3/uL (4.0-11.0) Red Blood Count 5.41 x10^6/uL (3.50-5.40) H Hemoglobin 15.6 g/dL (12.0-15.5) H Hematocrit 45.8 % (36.0-47.0) Mean Corpuscular Volume 85 fL (79-100) Mean Corpuscular Hemoglobin 29 pg (25-35) Mean Corpuscular Hemoglobin Concent 34 g/dL (31-37) Red Cell Distribution Width 15.7 % (11.5-14.5) H Platelet Count 284 x10^3/uL (140-400) Neutrophils (%) (Auto) 64 % (31-73) Lymphocytes (%) (Auto) 27 % (24-48) Monocytes (%) (Auto) 7 % (0-9) Eosinophils (%) (Auto) 2 % (0-3) Basophils (%) (Auto) 0 % (0-3) Neutrophils # (Auto) 5.3 x10^3/uL (1.8-7.7) Lymphocytes # (Auto) 2.2 x10^3/uL (1.0-4.8) Monocytes # (Auto) 0.6 x10^3/uL (0.0-1.1) Eosinophils # (Auto) 0.2 x10^3/uL (0.0-0.7) Basophils # (Auto) 0.0 x10^3/uL (0.0-0.2) Sodium Level 141 mmol/L (136-145) Potassium Level 3.4 mmol/L (3.5-5.1) L Chloride Level 104 mmol/L (98-107) Carbon Dioxide Level 26 mmol/L (21-32) Anion Gap 11 (6-14) Blood Urea Nitrogen 11 mg/dL (7-20) Creatinine 1.0 mg/dL (0.6-1.0) Estimated GFR (Cockcroft-Gault) 56.9 BUN/Creatinine Ratio 11 (6-20) Glucose Level 97 mg/dL (70-99) Calcium Level 8.8 mg/dL (8.5-10.1) Total Bilirubin 0.4 mg/dL (0.2-1.0) Aspartate Amino Transferase (AST) 37 U/L (15-37) Alanine Aminotransferase (ALT) 43 U/L (14-59) Alkaline Phosphatase 89 U/L (46-116) Creatine Kinase 66 U/L (26-192) Creatine Kinase MB (Mass) 1.7 ng/mL (0.0-3.6) Creatine Kinase MB Relative Index % (0-4) Troponin I Quantitative < 0.017 ng/mL (0.000-0.055) [id number]-[id number]-Type Natriuretic Peptide 94 pg/mL (0-124) Total Protein 7.0 g/dL (6.4-8.2) Albumin 3.1 g/dL (3.4-5.0) L Albumin/Globulin Ratio 0.8 (1.0-1.7) L Laboratory Tests 12/29/18 16:05 Laboratory Tests 12/29/18 16:48 (MADYSON ALMONTE MD) EKG EKG [address] Lerma sinus tachycardia HR 105 no STEMI (BRANDY RATLIFF APRN) Radiology/Procedures Radiology/Procedures []PROCEDURE: PORTABLE CHEST 1V PORTABLE CHEST 1V Clinical indications: Fluid retention. COMPARISON: January 07, 2018. Findings: New linear atelectasis of the right midlung zone is seen. No lung consolidation or pleural effusion or pulmonary edema or lung mass or pneumothorax is seen. The heart size, pulmonary vasculature, mediastinum and both cecilia are unremarkable. . Impression: Linear atelectasis of the right midlung zone. Electronically signed by: Ewa Bliss MD (12/29/2018 3:56 PM) [id number] DICTATED and SIGNED BY: EWA BLISS MD DATE: 12/29/18 1556 (BRANDY RATLIFF APRN) Course & Med Decision Making Course & Med Decision Making Pertinent Labs and Imaging studies reviewed. (See chart for details) This is a 58-year-old female patient who presents to the ED today with multiple complaints. Patient is complaining of chronic low back pain and stating she ran out of her fentanyl patches. She was recently discharged from [facility] couple days ago. She has an appointment with the pain clinic tomorrow at 3 PM. Instructed patient to follow-up for the pain patches. She is also complaining of urinary retention interestingly patient reports she voided adequate amount of urine in the waiting room bathroom. BVI on arrival to the ED was 68. Her lab work including chest x-ray and EKG were negative for any acute findings. I requested patient follow-up with her own doctor tomorrow for her pain patches. She was discharged to home. (BRANDY RATLIFF APRN) Course & Med Decision Making Staff Physician Addendum: I was working in the ER during the course of this patient's visit. I was available for consultation as needed, but I was not directly involved in the care of this patient. (MADYSON ALMONTE MD) Dragon Disclaimer Dragon Disclaimer This electronic medical record was generated, in whole or in part, using a voice recognition dictation system. (BRANDY RATLIFF APRN) Departure Departure Impression: Primary Impression: Chronic back pain Disposition: 01 HOME, SELF-CARE Condition: STABLE Referrals: ARNIE FERNANDEZ ND (PCP) Follow up with your doctor Patient Instructions: Back Pain, Adult Additional Instructions: Please follow-up with your own doctor for pain patches as soon as you can Problem Qualifiers Primary Impression: Chronic back pain Back pain location: low back pain Back pain laterality: bilateral Sciatica presence: without sciatica Qualified Codes: M54.5 - Low back pain; G89.29 - Other chronic pain BRANDY RATLIFF APRN Dec 29, 2018 18:58 MADYSON ALMONTE MD Dec 30, 2018 21:50
[2018-12-29 19:10] VITALS: BP 126/81
[2019-01-15] MEDS ORDERED: HYDR-3135 PO (08:16)
[2019-01-15] MEDS ORDERED: FENT1PAT21 TD (08:16)
== END 2018-12-29 19:12 | disposition home or self-care (01) ==
LOC: ER 13:11
DX: G89.29 Other chronic pain (principal); M54.5 Low back pain; R33.9 Retention of urine, unspecified; R06.02 Shortness of breath; F41.9 Anxiety disorder, unspecified; J44.9 Chronic obstructive pulmonary disease, unspecified; F17.200 Nicotine dependence, unspecified, uncomplicated; E78.00 Pure hypercholesterolemia, unspecified; Z88.2 Allergy status to sulfonamides; Z88.1 Allergy status to other antibiotic agents; Z88.8 Allergy status to other drugs, medicaments and biological substances
CPT/HCPCS: 36415; 71045; 80053; 81001; 82553; 83880; 84484; 85025; 87086; 93005; 96374; 96375; 96376; 99285; J2405; J3010

== ENCOUNTER 2018-12-30 17:54 | Inpatient (IN) | payer OTHER, MEDICARE ==
[~2018-12-30] VITALS: Ht 175.3 cm; Wt 98.4 kg
[2018-12-30] MEDS ORDERED: IV NORMAL SALINE 1000ML BAG 1,000 ML IV SCH (18:03)
[2018-12-30] MEDS ORDERED: ONDANSETRON PF 4 MG/2 ML VIAL. IVP ONE (18:15)
[2018-12-30] MEDS ORDERED: ASPIRIN CHEWABLE 81 MG TABLET. PO ONE (18:15)
[2018-12-30] MEDS ORDERED: fentaNYL PF VIAL 100 MCG/2 ML VIAL IV ONE (18:15)
[2018-12-30 18:38] LABS: BASO % 0 % (0-3); EOS # 0.1 x10^3/uL (0.0-0.7); EOS % 1 % (0-3); HEMATOCRIT 44.2 % (36.0-47.0); HEMOGLOBIN 14.9 g/dL (12.0-15.5); LYMPH % 25 % (24-48); MEAN CORPUSCULAR HEMOGLOBIN 28 pg (25-35); MEAN CORPUSCULAR HGB CONC 34 g/dL (31-37); MEAN CORPUSCULAR VOLUME 84 fL (79-100); MONO # 0.6 x10^3/uL (0.0-1.1); MONO % 8 % (0-9); NEUT # 5.3 x10^3/uL (1.8-7.7); NEUT % 66 % (31-73); PLATELET COUNT 285 x10^3/uL (140-400); RED BLOOD COUNT 5.29 x10^6/uL (3.50-5.40); RED CELL DISTRIBUTION WIDTH 15.4 % (11.5-14.5); WHITE BLOOD COUNT 8.1 x10^3/uL (4.0-11.0)
[2018-12-30] MEDS ORDERED: POLYETHYLENE GLYCOL 3350 17 GM PACKET. PO PRN (18:45)
[2018-12-30] MEDS ORDERED: NITROGLYCERIN SUBLINGUAL 0.4 MG BOTTLE OF 25. SL PRN (18:45)
[2018-12-30] MEDS ORDERED: HYDROcodone/APAP 10/325 1 TAB TABLET PO PRN (18:45)
[2018-12-30] MEDS ORDERED: ALPRAZolam 1 MG TABLET PO PRN (18:45)
--- NOTE | 2018-12-30 18:47 | PHYS DOC ---
Past Medical History Past Medical History: Anxiety, Asthma, Bronchitis, COPD, Diabetes-Type II, High Cholesterol, Pneumonia, Additional Disease, Other Additional Past Medical Histor: smoker, chronic pain Past Surgical History: Other Additional Past Surgical Histo: pain pump x3 weeks ago, hernia rx, back sx x15 Smoking: Cigarettes, Quit Less Than 1 Year Alcohol Use: None Drug Use: None Adult General Chief Complaint Chief Complaint: CHEST PAIN [facility] HPI Patient is a 58 year old female who presents via EMS with obtaining of chest pain. Patient states she has had 4 episodes of nonbloody vomiting and 2 episodes of diarrhea and left lower quadrant cramping pain with radiation to her back since this morning and episodes of chills and weakness. Patient states she did not eat anything and only took her medication with some water. Patient complaining of non-exertional left side chest pain that started 1 hour prior to arrival to ER as a constant pain with radiation to her back and radiated her pain 8/10 and states the pain getting worse with pushing on her chest associated with increasing shortness of breath and complaining of dizziness and palpit ation. Patient didn't take any pain medication at home and did not have any medication given by EMS without change of her pain at arrival to ER. Patient states she had the same pain last week when she was admitted to the hospital with diagnosis of pneumonia. Patient her cough is better and denies fever, urinary symptoms, sick contact. Review of Systems Review of Systems Constitutional: Denies fever or chills [] Eyes: Denies change in visual acuity, redness, or eye pain [] HENT: Denies nasal congestion or sore throat [] Respiratory: Denies cough, reports shortness of breath [] Cardiovascular: No additional information not addressed in HPI [] GI: Reports abdominal pain, nausea, vomiting, diarrhea [] : Denies dysuria or hematuria [] Musculoskeletal: Denies back pain or joint pain [] Integument: Denies rash or skin lesions [] Neurologic: Denies headache, focal weakness or sensory changes [] Endocrine: Denies polyuria or polydipsia [] All other systems were reviewed and found to be within normal limits, except as documented in this note. Current Medications Current Medications Current Medications Medications (Trade) Dose Ordered Sig/Jesus Start Time Stop Time Status Last Admin Dose Admin Acetaminophen/ Hydrocodone Bitart (Lortab 10/325) 1 tab PRN QID PRN 12/30/18 18:45 Alprazolam (Xanax) 1 mg PRN QID PRN 12/30/18 18:45 Aspirin (Children'S Aspirin) 324 mg 1X ONCE 12/30/18 18:15 12/30/18 18:16 DC 12/30/18 18:27 324 MG Fentanyl Citrate (Fentanyl 2ml Vial) 50 mcg 1X ONCE 12/30/18 18:15 12/30/18 18:16 DC 12/30/18 18:27 50 MCG Nitroglycerin (Nitrostat) 0.4 mg PRN Q5MIN PRN 12/30/18 18:45 Ondansetron HCl (Zofran) 4 mg 1X ONCE 12/30/18 18:15 12/30/18 18:16 DC 12/30/18 18:26 4 MG Polyethylene Glycol (miraLAX PACKET) 17 gm PRN DAILY PRN 12/30/18 18:45 Sodium Chloride 1,000 ml @ 1,000 mls/hr Q1H 12/30/18 18:03 12/30/18 19:06 DC 12/30/18 18:27 1,000 MLS/HR Allergies Allergies Allergies Coded Allergies Type Severity Reaction Last Updated Verified chlorhexidine Allergy Severe SEVERE BURNING TO SKIN 01/20/17 Yes Sulfa (Sulfonamide Antibiotics) Allergy Intermediate 01/20/17 Yes cephalexin Allergy Intermediate 01/20/17 Yes Physical Exam Physical Exam Constitutional: Well developed, well nourished, mild distress, non-toxic appear ance. [] HENT: Normocephalic, atraumatic. Eyes: PERRLA, EOMI, conjunctiva normal, no discharge. [] Neck: Normal range of motion, no tenderness, supple, no stridor. [] Cardiovascular:Heart rate regular rhythm, no murmur [] Lungs & Thorax: Bilateral breath sounds clear to auscultation, left chest wall reproducible pain[] Abdomen: Bowel sounds normal, soft, no tenderness, no masses, no pulsatile m asses. [] Skin: Warm, dry, no erythema, no rash. [] Back: No tenderness, no CVA tenderness. [] Extremities: No tenderness, no cyanosis, no clubbing, ROM intact, bilateral lower extremity 1+ edema. [] Neurologic: Alert and oriented X 3, no focal deficits noted. [] Psychologic: Affect normal, judgement normal, mood normal. [] Current Patient Data Vital Signs Vital Signs Date Time Temp Pulse Resp B/P (MAP) Pulse Ox O2 Delivery O2 Flow Rate FiO2 12/30/18 18:52 93 22 101/66 (78) 98 Nasal Cannula 3.0 12/30/18 17:54 98.3 98.3 Lab Values Laboratory Tests Test 12/30/18 18:25 White Blood Count 8.1 x10^3/uL (4.0-11.0) Red Blood Count 5.29 x10^6/uL (3.50-5.40) Hemoglobin 14.9 g/dL (12.0-15.5) Hematocrit 44.2 % (36.0-47.0) Mean Corpuscular Volume 84 fL (79-100) Mean Corpuscular Hemoglobin 28 pg (25-35) Mean Corpuscular Hemoglobin Concent 34 g/dL (31-37) Red Cell Distribution Width 15.4 % (11.5-14.5) H Platelet Count 285 x10^3/uL (140-400) Neutrophils (%) (Auto) 66 % (31-73) Lymphocytes (%) (Auto) 25 % (24-48) Monocytes (%) (Auto) 8 % (0-9) Eosinophils (%) (Auto) 1 % (0-3) Basophils (%) (Auto) 0 % (0-3) Neutrophils # (Auto) 5.3 x10^3/uL (1.8-7.7) Lymphocytes # (Auto) 2.0 x10^3/uL (1.0-4.8) Monocytes # (Auto) 0.6 x10^3/uL (0.0-1.1) Eosinophils # (Auto) 0.1 x10^3/uL (0.0-0.7) Basophils # (Auto) 0.0 x10^3/uL (0.0-0.2) Prothrombin Time 13.0 SEC (11.7-14.0) Prothrombin Time INR 1.0 (0.8-1.1) D-Dimer (Yasmine) 1.17 ug/mlFEU (0.00-0.50) H Sodium Level 142 mmol/L (136-145) Potassium Level 3.4 mmol/L (3.5-5.1) L Chloride Level 104 mmol/L (98-107) Carbon Dioxide Level 29 mmol/L (21-32) Anion Gap 9 (6-14) Blood Urea Nitrogen 15 mg/dL (7-20) Creatinine 1.2 mg/dL (0.6-1.0) H Estimated GFR (Cockcroft-Gault) 46.1 BUN/Creatinine Ratio 13 (6-20) Glucose Level 84 mg/dL (70-99) Lactic Acid Level 1.2 mmol/L (0.4-2.0) Calcium Level 8.9 mg/dL (8.5-10.1) Magnesium Level 1.3 mg/dL (1.8-2.4) L Total Bilirubin 0.4 mg/dL (0.2-1.0) Aspartate Amino Transferase (AST) 29 U/L (15-37) Alanine Aminotransferase (ALT) 39 U/L (14-59) Alkaline Phosphatase 88 U/L (46-116) Creatine Kinase 58 U/L (26-192) Troponin I Quantitative < 0.017 ng/mL (0.000-0.055) [id number]-[id number]-Type Natriuretic Peptide 99 pg/mL (0-124) Total Protein 6.3 g/dL (6.4-8.2) L Albumin 3.3 g/dL (3.4-5.0) L Albumin/Globulin Ratio 1.1 (1.0-1.7) Lipase 63 U/L (73-393) L Laboratory Tests 12/30/18 18:25 Laboratory Tests 12/30/18 18:25 EKG EKG EKG interpreted by me. EKG at 1802 showed sinus tachycardia at rate of 104, well-appearing QT intervals, no acute distress and T-wave elevation. Radiology/Procedures Radiology/Procedures [][facility] [address] [place], [place] [id number] IMAGING REPORT Signed PATIENT: MATEO SOUTH LACCOUNT: [id number] : 1960 LOCATION: ER AGE: 58 SEX: F EXAM STATUS: REG ER ORD. PHYSICIAN: DELANEY IRWIN MD REASON: chest pain PROCEDURE: PORTABLE CHEST 1V PROCEDURE: PORTABLE CHEST 1V CLINICAL INDICATION: Chest pain. COMPARISON: 12/29/2018 FINDINGS: No pneumothorax identified. Cardiac and mediastinal contours unremarkable. No pulmonary consolidation or acute airspace disease. No acute osseous abnormalities identified. IMPRESSION: No pulmonary consolidation or acute airspace disease. Electronically signed by: Reginaldo Morales DO (12/30/2018 7:07 PM) [facility] DICTATED and SIGNED BY: REGINALDO MORALES DO DATE: 12/30/181906 Course & Med Decision Making Course & Med Decision Making Pertinent Labs and Imaging studies reviewed. (See chart for details) Evaluation of patient in ER showed 58-year-old female patient with history of recent hospitalization for pneumonia and currently on Augmentin presented to ER with complaining of nausea and vomiting and diarrhea and chest pain. Patient was anxious in ER with unremarkable EKG and labs except for mild elevation of d- dimer with pending CT chest.Patient requiring admission for further evaluation and treatment. Discussed with Dr. Watson who is in agreement with admission. Discussed findings and plan with patient and family, who acknowledge understanding and agreement. Dragon Disclaimer Dragon Disclaimer This electronic medical record was generated, in whole or in part, using a voice recognition dictation system. Departure Departure Impression: Primary Impression: Acute chest pain Additional Impressions: Hypomagnesemia Hypokalemia Anxiety Elevated d-dimer Disposition: ADMITTED INPATIENT (at 1846) Admitting Physician: RICKEY (Dr. Watson accepted admission at 1845) Condition: IMPROVED Referrals: ARNIE FERNANDEZ ND (PCP) The HEART Score for CP Pts HEART Score for Chest Pain: HEART Score for Chest Pain Response (Comments) Value History Moderately Suspicious 1 ECG Nonspecific Repolarizatio 1 Age >45 - < 65 1 Risk Factors >3 Risk Factors or Hx CAD 2 Troponin < Normal Limit 0 Total 5 Risk Factors: Risk Factors: DM, Current or recent (<one month) smoker, HTN, HLP, family history of CAD, obesity. Risk Scores: Score 0 - 3: 2.5% MACE over next 6 weeks - Discharge Home Score 4 - 6: 20.3% MACE over next 6 weeks - Admit for Clinical Observation Score 7 - 10: 72.7% MACE over next 6 weeks - Early Invasive Strategies Problem Qualifiers DELANEY IRWIN MD Dec 30, 2018 18:46
[2018-12-30 18:50] LABS: CALCIUM 8.9 mg/dL (8.5-10.1); CREATININE 1.2 mg/dL (0.6-1.0); GFR 46.1; POTASSIUM 3.4 mmol/L (3.5-5.1)
[2018-12-30 18:58] LABS: D-DIMER 1.17 ug/mlFEU (0.00-0.50)
[2018-12-30] MEDS ORDERED: DEXTROSE 50% 25 GM / 50ML DISP.SYRIN. IV PRN (19:00)
[2018-12-30 19:05] LABS: ALBUMIN 3.3 g/dL (3.4-5.0); ALBUMIN/GLOBULIN RATIO 1.1 (1.0-1.7); MAGNESIUM 1.3 mg/dL (1.8-2.4); TOTAL BILIRUBIN 0.4 mg/dL (0.2-1.0); TOTAL PROTEIN 6.3 g/dL (6.4-8.2)
--- NOTE | 2018-12-30 19:09 | RAD ---
PROCEDURE: PORTABLE CHEST 1V CLINICAL INDICATION: Chest pain. COMPARISON: 12/29/2018 FINDINGS: No pneumothorax identified. Cardiac and mediastinal contours unremarkable. No pulmonary consolidation or acute airspace disease. No acute osseous abnormalities identified. IMPRESSION: No pulmonary consolidation or acute airspace disease. Electronically signed by: Reginaldo Morales DO (12/30/2018 7:07 PM) [facility]
[2018-12-30] MEDS ORDERED: ALBUTEROL SULFATE 2.5 MG/3 ML NEBU. NEB PRN (19:15)
[2018-12-30] MEDS ORDERED: diphenhydrAMINE HCL 25 MG CAPSULE PO PRN (19:15)
--- NOTE | 2018-12-30 19:16 | PDOC1 ---
History and Physical Date of Admission Date of Admission DATE: 12/30/18 TIME: 19:08 Identification/Chief Complaint Chief Complaint gut pain, cp, coughing Source Source: Caregiver, Chart review, Patient History of Present Illness History of Present Illness she seems to be hospital hopping She was just at [facility] dx with PNA, stayed days and had "a ton of tests" dcd on POI augmentin, and claims compliance, still coughing,claims CP but not known cad but does have risk factors, DM, HTN, dyslipidemia. She visited us ER and sent home either yesterday or 2 days ago, then she revisits us for the same sx so now admitted, I educated her that PNA takes time to clear up, coughing takes time, but naturally was told to be admitted and dc is hard CXR is pending, CBC ok, afebrile, SBP 100s, HR 80s at bedside, she wants to be admitted, unsure if we can say failed OP tx abx - 1 week maybe into CAP tx, On o2, ex smoker Non toxic appearing she is concerned if het gut pain is from her gall bladder, but she cat tell me what kind of tests she had done at [facility]. This might just meet OBS status admission Past Medical History Cardiovascular: HTN Pulmonary: Asthma, Bronchitis GI: Other Heme/Onc: Cancer Psych: Depression Musculoskeletal: low back pain, Other Rheumatologic: Fibromyalgia Endocrine: Diabetes Past Surgical History Past Surgical History: Other Family History Family History: No Significant Social History ALCOHOL: occassional Drugs: None Current Problem List Problem List Problems Medical Problems: (1) Acute chest pain Status: Acute Current Medications Current Medications Current Medications Aspirin (Children'S Aspirin) 324 mg 1X ONCE PO Last administered on 12/30/18at 18:27; Start 12/30/18 at 18:15; Stop 12/30/18 at 18:16; Status DC Sodium Chloride 1,000 ml @ 1,000 mls/hr Q1H IV Last administered on 12/30/18at 18:27; Start 12/30/18 at 18:03; Stop 12/30/18 at 19:06; Status DC Ondansetron HCl (Zofran) 4 mg 1X ONCE IVP Last administered on 12/30/18at 18:26; Start 12/30/18 at 18:15; Stop 12/30/18 at 18:16; Status DC Fentanyl Citrate (Fentanyl 2ml Vial) 50 mcg 1X ONCE IV Last administered on 12/30/18at 18:27; Start 12/30/18 at 18:15; Stop 12/30/18 at 18:16; Status DC Alprazolam (Xanax) 1 mg PRN QID PRN PO ANXIETY / AGITATION; Start 12/30/18 at 18:45 Aspirin (Children'S Aspirin) 81 mg DAILY PO ; Start 12/31/18 at 09:00 Docusate Sodium (Colace) 100 mg BID PO ; Start 12/30/18 at 21:00 Estradiol (Estrace) 1 mg DAILY PO ; Start 12/31/18 at 09:00 Fentanyl (Duragesic 100mcg/Hr Patch) 1 patch QODAY TD ; Start 01/01/19 at 09:00; Status UNV Furosemide (Lasix) 40 mg DAILY PO ; Start 12/31/18 at 09:00 Guaifenesin (Mucinex) 600 mg BID PO ; Start 12/30/18 at 21:00 Acetaminophen/ Hydrocodone Bitart (Lortab 10/325) 1 tab PRN QID PRN PO BREAKTHRU PAIN; Start 12/30/18 at 18:45 Medroxyprogesterone Acetate (Provera) 5 mg DAILY PO ; Start 12/31/18 at 09:00; Status UNV Metformin HCl (Glucophage) 500 mg BIDWMEALS PO ; Start 12/31/18 at 08:00 Nitroglycerin (Nitrostat) 0.4 mg PRN Q5MIN PRN SL CHEST PAIN; Start 12/30/18 at 18:45 Polyethylene Glycol (miraLAX PACKET) 17 gm PRN DAILY PRN PO CONSTIPATION; Start 12/30/18 at 18:45 Potassium Chloride (Klor-Con) 20 meq DAILY PO ; Start 12/31/18 at 09:00 Sennosides (Senna) 8.6 mg BID PO ; Start 12/30/18 at 21:00 Trazodone HCl (Desyrel) 100 mg QHS PO ; Start 12/30/18 at 21:00 Pantoprazole Sodium (Protonix) 40 mg DAILYAC PO ; Start 12/31/18 at 07:30 Zolpidem Tartrate (Ambien) 5 mg QHS PO ; Start 12/30/18 at 21:00 Gabapentin (Neurontin) 600 mg TID PO ; Start 12/30/18 at 21:00 Non-Formulary Medication (Ipratropium/ Albuterol Sulfate (Combivent Inhaler)) 2.5 mgsd PRN DAILY PRN INH SHORTNESS OF BREATH; Start 12/30/18 at 18:45; Status UNV Non-Formulary Medication (Ondansetron Hcl (Zofran)) 4 mg BID PRN PO NAUSEA/VOMITING; Start 12/30/18 at 18:45; Status UNV Insulin Human Lispro (HumaLOG) 0-9 UNITS TIDWMEALS SQ ; Start 12/31/18 at 08:00; Status UNV Dextrose (Dextrose 50%-Water Syringe) 12.5 gm PRN Q15MIN PRN IV SEE COMMENTS; Start 12/30/18 at 19:00 Morphine Sulfate (Morphine Sulfate) 2 mg PRN Q2HR PRN IV SEVERE PAIN; Start 12/30/18 at 19:00 Active Scripts Active Mucinex (Guaifenesin) 600 Mg Tablet.er 600 Mg PO BID Reported Furosemide 40 Mg Tablet 1 Tab PO DAILY Children's Aspirin (Aspirin) 81 Mg Tab.chew 81 Mg PO DAILY NITROGLYCERIN SubLingual (Nitroglycerin) 0.4 Mg Tab.subl 0.4 Mg SL PRN Q5MIN PRN Medroxyprogesterone Acetate 2.5 Mg Tablet 5 Mg PO DAILY Gabapentin 600 Mg Tablet 600 Mg PO TID Estradiol 1 Mg Tablet 1 Tab PO DAILY Metformin Hcl 500 Mg Tablet 1 Tab PO BID Potassium Chloride 10 Meq Capsule.er 20 Meq PO DAILY Trazodone Hcl 100 Mg Tablet 1 Tab PO QHS Zofran (Ondansetron Hcl) 4 Mg Tablet 4 Mg PO BID PRN Polyethylene Glycol 3350 255 Gm Powder 17 Gm PO DAILY PRN Colace (Docusate Sodium) 100 Mg Capsule 1 Cap PO BID Senokot (Sennosides) 8.6 Mg Tablet 1 Tab PO BID Breo Ellipta 100-25 Mcg Inh (Fluticasone/Vilanterol) 1 Each Aer.pow.ba 1 Puff I[facility] [place] 10-325 Tablet (Acetaminophen/Hydrocodone Bitart) 1 Each Tablet 1-2 Tab PO Q4-6HRS PRN FENTANYL 100mcg/hr (Fentanyl) 1 Each Patch.td72 1 Patch TD QODAY Combivent Inhaler (Ipratropium/Albuterol Sulfate) 14.7 Gm Aer.w.adap 1-2 PRN DAILY PRN Nexium Capsule (Esomeprazole Magnesium) 40 Mg Capsule.dr 1 Tab PO DAILY Lunesta (Eszopiclone) 1 Mg Tablet 3 Mg PO HS Alprazolam 1 Mg Tablet 1 Mg PO PRN QID PRN Allergies Allergies: Coded Allergies: chlorhexidine (Verified Allergy, Severe, SEVERE BURNING TO SKIN, 01/20/17) CHLOROAPREP Sulfa (Sulfonamide Antibiotics) (Verified Allergy, Intermediate, 01/20/17) cephalexin (Verified Allergy, Intermediate, 01/20/17) ROS Review of System lots of positive, cough, cp, gut pain, abd pain, but no emesis, fever or change in BM, feels tired, fatigued Physical Exam General: No acute distress HEENT: Atraumatic, PERRLA Lungs: Normal air movement, Other (dec BS, equal air entry, no crackls or wheezing) Cardiovascular: S1, S2 Breasts: Normal, Rt breast nml w/o mass, Lt breast nml w/o mass, Nipples normal Abdomen: Normal bowel sounds, Soft, No tenderness, No hepatosplenomegaly, No masses Rectal Exam: not examined PELVIC: Nml ext genitalia Extremities: No clubbing, No cyanosis, No edema, Normal pulses, No tenderness/swelling Skin: No rashes, No breakdown, No significant lesion Neuro: Normal gait, Normal speech, Strength at 5/5 X4 ext, Normal tone, Sensation intact, Cranial nerves 3-12 NL, Reflexes 2+ Psych/Mental Status: Mental status NL, Mood NL Vitals Vitals Vital Signs Date Time Temp Pulse Resp B/P (MAP) Pulse Ox O2 Delivery O2 Flow Rate FiO2 12/30/18 18:27 20 Nasal Cannula 3.0 12/30/18 17:54 98.3 105 89/58 (68) 97 98.3 Labs Labs Laboratory Tests Test 12/30/18 18:25 White Blood Count 8.1 x10^3/uL (4.0-11.0) Red Blood Count 5.29 x10^6/uL (3.50-5.40) Hemoglobin 14.9 g/dL (12.0-15.5) Hematocrit 44.2 % (36.0-47.0) Mean Corpuscular Volume 84 fL (79-100) Mean Corpuscular Hemoglobin 28 pg (25-35) Mean Corpuscular Hemoglobin Concent 34 g/dL (31-37) Red Cell Distribution Width 15.4 % (11.5-14.5) Platelet Count 285 x10^3/uL (140-400) Neutrophils (%) (Auto) 66 % (31-73) Lymphocytes (%) (Auto) 25 % (24-48) Monocytes (%) (Auto) 8 % (0-9) Eosinophils (%) (Auto) 1 % (0-3) Basophils (%) (Auto) 0 % (0-3) Neutrophils # (Auto) 5.3 x10^3/uL (1.8-7.7) Lymphocytes # (Auto) 2.0 x10^3/uL (1.0-4.8) Monocytes # (Auto) 0.6 x10^3/uL (0.0-1.1) Eosinophils # (Auto) 0.1 x10^3/uL (0.0-0.7) Basophils # (Auto) 0.0 x10^3/uL (0.0-0.2) Prothrombin Time 13.0 SEC (11.7-14.0) Prothromb Time International Ratio 1.0 (0.8-1.1) D-Dimer (Yasmine) 1.17 ug/mlFEU (0.00-0.50) Sodium Level 142 mmol/L (136-145) Potassium Level 3.4 mmol/L (3.5-5.1) Chloride Level 104 mmol/L (98-107) Carbon Dioxide Level 29 mmol/L (21-32) Anion Gap 9 (6-14) Blood Urea Nitrogen 15 mg/dL (7-20) Creatinine 1.2 mg/dL (0.6-1.0) Estimated GFR (Cockcroft-Gault) 46.1 BUN/Creatinine Ratio 13 (6-20) Glucose Level 84 mg/dL (70-99) Calcium Level 8.9 mg/dL (8.5-10.1) Laboratory Tests Test 12/30/18 18:25 White Blood Count 8.1 x10^3/uL (4.0-11.0) Red Blood Count 5.29 x10^6/uL (3.50-5.40) Hemoglobin 14.9 g/dL (12.0-15.5) Hematocrit 44.2 % (36.0-47.0) Mean Corpuscular Volume 84 fL (79-100) Mean Corpuscular Hemoglobin 28 pg (25-35) Mean Corpuscular Hemoglobin Concent 34 g/dL (31-37) Red Cell Distribution Width 15.4 % (11.5-14.5) Platelet Count 285 x10^3/uL (140-400) Neutrophils (%) (Auto) 66 % (31-73) Lymphocytes (%) (Auto) 25 % (24-48) Monocytes (%) (Auto) 8 % (0-9) Eosinophils (%) (Auto) 1 % (0-3) Basophils (%) (Auto) 0 % (0-3) Neutrophils # (Auto) 5.3 x10^3/uL (1.8-7.7) Lymphocytes # (Auto) 2.0 x10^3/uL (1.0-4.8) Monocytes # (Auto) 0.6 x10^3/uL (0.0-1.1) Eosinophils # (Auto) 0.1 x10^3/uL (0.0-0.7) Basophils # (Auto) 0.0 x10^3/uL (0.0-0.2) Prothrombin Time 13.0 SEC (11.7-14.0) Prothromb Time International Ratio 1.0 (0.8-1.1) D-Dimer (Yasmine) 1.17 ug/mlFEU (0.00-0.50) Sodium Level 142 mmol/L (136-145) Potassium Level 3.4 mmol/L (3.5-5.1) Chloride Level 104 mmol/L (98-107) Carbon Dioxide Level 29 mmol/L (21-32) Anion Gap 9 (6-14) Blood Urea Nitrogen 15 mg/dL (7-20) Creatinine 1.2 mg/dL (0.6-1.0) Estimated GFR (Cockcroft-Gault) 46.1 BUN/Creatinine Ratio 13 (6-20) Glucose Level 84 mg/dL (70-99) Calcium Level 8.9 mg/dL (8.5-10.1) VTE Prophylaxis Ordered VTE Prophylaxis Devices: Yes VTE Pharmacological Prophylaxi: Yes Assessment/Plan Assessment/Plan Cough, recent PNA, ex smoker - treated with augmentin - recently dcd [facility] 7 days ago [facility] revist to [facility] hopping Abd pain - get records from [facility] Obesity BMI 32.5 CP, pleuritic? DM 2 PLAn: CArds consulted OBS COugh med I reconciled home med\\med tele ordered ff up CXR, no read yet gET record from [facility] SSI Other supprotive meds FUll code SOFT ADMIT JONNATHAN MAHER MD Dec 30, 2018 19:16
[2018-12-30 19:29] LABS: BILIRUBIN,URINE SMALL (NEG); CLARITY,URINE CLOUDY; COLOR,URINE YELLOW; NITRITE,URINE NEGATIVE (NEG); PROTEIN,URINE NEGATIVE (NEG-TRACE); UROBILINOGEN,URINE 0.2 mg/dL (0.2 mg/dL)
[2018-12-30] MEDS ORDERED: POTASSIUM CHLORIDE 20 MEQ TABLET.ER. PO ONE (19:30)
[2018-12-30] MEDS ORDERED: fentaNYL PF VIAL 100 MCG/2 ML VIAL IV PRN (19:30)
[2018-12-30 19:35] LABS: BACTERIA,URINE FEW /HPF (0-FEW); RBC,URINE 0 /HPF (0-2); SQUAMOUS EPITHELIAL CELL,UR OCC /LPF
[2018-12-30 19:36] LABS: HYALINE CASTS, URINE OCCASIONAL /HPF
--- NOTE | 2018-12-30 20:00 | NUR ---
Admit from ED via gurney. [place]. A/O x 4. VSS. O2 3L NC in place. Patient uses home O2. at bedside. Orientated to POC and Unit. Patient verbalized understanding. Resting in bed with call light at hand.
[2018-12-30] MEDS: GABAPENTIN 300 MG CAPSULE. PO SCH (20:56)
[2018-12-30] MEDS: guaiFENesin/CODEINE 100mg/10mg 5 ML LIQUID PO SCH (20:56)
[2018-12-30] MEDS: traZODone 100 MG TABLET. PO SCH (20:56)
[2018-12-30] MEDS: ZOLPIDEM 5 MG TABLET. PO SCH (20:56)
[2018-12-30] MEDS: MORPHINE SULFATE 2 MG/ML VIAL. IV PRN ×2 (20:57→23:06)
[2018-12-30] MEDS: DOCUSATE SODIUM 100 MG CAPSULE. PO SCH (20:59)
[2018-12-30] MEDS: SENNOSIDES 8.6 MG TABLET PO SCH (20:59)
[2018-12-30 21:00] VITALS: BP 130/76
[2018-12-30] MEDS ORDERED: fentaNYL 100MCG/HR PATCH 1 PATCH PATCH TD SCH (21:00)
[2018-12-30] MEDS: ONDANSETRON ODT 4 MG TAB.RAPDIS. PO PRN (21:09)
[2018-12-30 23:00] VITALS: BP 112/53
[2018-12-31] MEDS: MORPHINE SULFATE 2 MG/ML VIAL. IV PRN ×9 (02:32→23:06)
[2018-12-31 02:37] VITALS: BP 120/61
[2018-12-31] MEDS ORDERED: MAGNESIUM SULFATE 2GM 50 ML IV ONE (03:00)
[2018-12-31 07:00] VITALS: BP 140/71
[2018-12-31] MEDS: INSULIN LISPRO 300 UNITS/3 ML VIAL. SQ SCH ×3 (08:00→17:00)
[2018-12-31] MEDS ORDERED: FLU VAX QS 2019-20 (36MOS+)/PF 0.5 ML SYRINGE. VAX IM ONE (09:00)
[2018-12-31] MEDS: DOCUSATE SODIUM 100 MG CAPSULE. PO SCH ×2 (09:00→20:57)
[2018-12-31] MEDS: SENNOSIDES 8.6 MG TABLET PO SCH ×2 (09:00→20:57)
[2018-12-31] MEDS: metFORMIN 500 MG TABLET PO SCH ×2 (09:09→17:34)
[2018-12-31] MEDS: GABAPENTIN 300 MG CAPSULE. PO SCH ×3 (09:10→20:57)
[2018-12-31] MEDS: PANTOPRAZOLE 40 MG TABLET.DR. PO SCH (09:11)
[2018-12-31] MEDS: ESTRADIOL 1 MG TABLET. PO SCH (09:11)
[2018-12-31] MEDS: ASPIRIN CHEWABLE 81 MG TABLET. PO SCH (09:12)
[2018-12-31] MEDS: FUROSEMIDE 40 MG TABLET. PO SCH (09:12)
[2018-12-31] MEDS: POTASSIUM CHLORIDE 20 MEQ TABLET.ER. PO SCH (09:13)
[2018-12-31] MEDS: guaiFENesin/CODEINE 100mg/10mg 5 ML LIQUID PO SCH ×4 (09:13→20:57)
--- NOTE | 2018-12-31 10:11 | EKG ---
[facility] [address] [place] [address] Test Date: 2018-12-30 Test Time: 18:02:04 Pat Name: MATEO SOUTH Department: Room: 207 1 Gender: F Life Skills Coordinator: : 1960 Requested By: DELANEY IRWIN Order Number: [id number] Reading MD: Weston Campbell MD Measurements Intervals [place] Rate: 104 P: 62 [place]: 124 QRS: 56 QRSD: 82 T: 64 QT: 336 QTc: 442 Interpretive Statements SINUS TACHYCARDIA NON-SPECIFIC ST/T CHANGES Electronically Signed On 01-10-2019 10:14:13 CDT by Weston Campbell MD
[2018-12-31 10:57] VITALS: BP 137/71
[2018-12-31] MEDS: ONDANSETRON ODT 4 MG TAB.RAPDIS. PO PRN ×2 (12:15→20:56)
--- NOTE | 2018-12-31 12:32 | PDOC ---
[employer]GR[employer] NOTE Chief Complaint Chief Complaint Acute chest pain History of Present Illness History of Present Illness Pt was seen and examined at bedside Pt reports chest pain Pt reports that she is unable to urinate Bladder scan was performed. 500 in AM, Post void residual Pt requested fentanyl patches for pain from prior back surgeries. The amount she requested seemed to change when asked how much she needed for relief Chart and labs reviewed Potassium is 3.4 Magnesium is 1.3 D/w RN Vitals/I&O Vitals/I&O: Vital Signs Date Time Temp Pulse Resp B/P (MAP) Pulse Ox O2 Delivery O2 Flow Rate FiO2 12/31/18 10:57 97.9 90 16 137/71 (93) 96 Nasal Cannula 2.0 97.9 I & O 12/30/18 12/30/18 12/31/18 15:00 23:00 07:00 Intake Total 240 ml Output Total 0 ml 0 ml Balance 0 ml 240 ml Physical Exam General: No acute distress Lungs: Wheezing Abdomen: Normal bowel sounds, Soft, No tenderness, No hepatosplenomegaly, No masses Extremities: No clubbing, No cyanosis, No edema, Normal pulses, No tend erness/swelling Skin: No rashes, No breakdown, No significant lesion Labs Labs: Laboratory Tests Test 12/30/18 18:25 12/30/18 19:20 12/30/18 20:50 12/30/18 22:35 White Blood Count 8.1 x10^3/uL (4.0-11.0) Red Blood Count 5.29 x10^6/uL (3.50-5.40) Hemoglobin 14.9 g/dL (12.0-15.5) Hematocrit 44.2 % (36.0-47.0) Mean Corpuscular Volume 84 fL (79-100) Mean Corpuscular Hemoglobin 28 pg (25-35) Mean Corpuscular Hemoglobin Concent 34 g/dL (31-37) Red Cell Distribution Width 15.4 % (11.5-14.5) Platelet Count 285 x10^3/uL (140-400) Neutrophils (%) (Auto) 66 % (31-73) Lymphocytes (%) (Auto) 25 % (24-48) Monocytes (%) (Auto) 8 % (0-9) Eosinophils (%) (Auto) 1 % (0-3) Basophils (%) (Auto) 0 % (0-3) Neutrophils # (Auto) 5.3 x10^3/uL (1.8-7.7) Lymphocytes # (Auto) 2.0 x10^3/uL (1.0-4.8) Monocytes # (Auto) 0.6 x10^3/uL (0.0-1.1) Eosinophils # (Auto) 0.1 x10^3/uL (0.0-0.7) Basophils # (Auto) 0.0 x10^3/uL (0.0-0.2) Prothrombin Time 13.0 SEC (11.7-14.0) Prothromb Time International Ratio 1.0 (0.8-1.1) D-Dimer (Yasmine) 1.17 ug/mlFEU (0.00-0.50) Sodium Level 142 mmol/L (136-145) Potassium Level 3.4 mmol/L (3.5-5.1) Chloride Level 104 mmol/L (98-107) Carbon Dioxide Level 29 mmol/L (21-32) Anion Gap 9 (6-14) Blood Urea Nitrogen 15 mg/dL (7-20) Creatinine 1.2 mg/dL (0.6-1.0) Estimated GFR (Cockcroft-Gault) 46.1 BUN/Creatinine Ratio 13 (6-20) Glucose Level 84 mg/dL (70-99) Lactic Acid Level 1.2 mmol/L (0.4-2.0) Calcium Level 8.9 mg/dL (8.5-10.1) Magnesium Level 1.3 mg/dL (1.8-2.4) Total Bilirubin 0.4 mg/dL (0.2-1.0) Aspartate Amino Transf (AST/SGOT) 29 U/L (15-37) Alanine Aminotransferase (ALT/SGPT) 39 U/L (14-59) Alkaline Phosphatase 88 U/L (46-116) Creatine Kinase 58 U/L (26-192) Troponin I Quantitative < 0.017 ng/mL (0.000-0.055) < 0.017 ng/mL (0.000-0.055) NN-Omm-B-Type Natriuretic Peptide 99 pg/mL (0-124) Total Protein 6.3 g/dL (6.4-8.2) Albumin 3.3 g/dL (3.4-5.0) Albumin/Globulin Ratio 1.1 (1.0-1.7) Lipase 63 U/L (73-393) Urine Color Yellow Urine Clarity Cloudy Urine pH 5.0 Urine Specific [place] 1.020 Urine Protein Negative mg/dL (NEG-TRACE) Urine Glucose (UA) Negative mg/dL (NEG) Urine Ketones (Stick) Trace mg/dL (NEG) Urine Blood Negative (NEG) Urine Nitrite Negative (NEG) Urine Bilirubin Small (NEG) Urine Urobilinogen Dipstick 0.2 mg/dL (0.2 mg/dL) Urine Leukocyte Esterase Small (NEG) Urine RBC 0 /HPF (0-2) Urine WBC 1-4 /HPF (0-4) Urine Squamous Epithelial Cells Occ /LPF Urine Bacteria Few /HPF (0-FEW) Urine Hyaline Casts Occasional /HPF Urine Mucus Mod /LPF Glucose (Fingerstick) 84 mg/dL (70-99) Test 12/31/18 03:30 12/31/18 08:11 12/31/18 11:28 Troponin I Quantitative < 0.017 ng/mL (0.000-0.055) Glucose (Fingerstick) 74 mg/dL (70-99) 105 mg/dL (70-99) Review of Systems Review of Systems: Pt denies fever Pt denies numbness and tingling Assessment and Plan Assessmemt and Plan Problems Medical Problems: (1) Acute chest pain Status: Acute (2) Anxiety Status: Acute (3) Elevated d-dimer Status: Acute (4) Hypokalemia Status: Acute (5) Hypomagnesemia Status: Acute Assessment Chest pain Back pain Urinary retention Hypokalemia Hypomagnesmia Plan Cardiac monitoring Consult cardiology and urology Labs Home meds DVT prophylaxis Full code Comment Review of Relevant I have reviewed the following items nila (where applicable) has been applied. Medications: Current Medications Medications (Trade) Dose Ordered Sig/Jesus Route PRN Reason Start Time Stop Time Status Last Admin Dose Admin Aspirin (Children'S Aspirin) 324 mg 1X ONCE PO 12/30/18 18:15 12/30/18 18:16 DC 12/30/18 18:27 Sodium Chloride 1,000 ml @ 1,000 mls/hr Q1H IV 12/30/18 18:03 12/30/18 19:06 DC 12/30/18 18:27 Ondansetron HCl (Zofran) 4 mg 1X ONCE IVP 12/30/18 18:15 12/30/18 18:16 DC 12/30/18 18:26 Fentanyl Citrate (Fentanyl 2ml Vial) 50 mcg 1X ONCE IV 12/30/18 18:15 12/30/18 18:16 DC 12/30/18 18:27 Aspirin (Children'S Aspirin) 81 mg DAILY PO 12/31/18 09:00 12/31/18 09:12 Estradiol (Estrace) 1 mg DAILY PO 12/31/18 09:00 12/31/18 09:11 Furosemide (Lasix) 40 mg DAILY PO 12/31/18 09:00 12/31/18 09:12 Guaifenesin (Mucinex) 600 mg BID PO 12/30/18 21:00 12/31/18 09:12 Medroxyprogesterone Acetate (Provera) 5 mg DAILY PO 12/31/18 09:00 12/31/18 09:11 Metformin HCl (Glucophage) 500 mg BIDWMEALS PO 12/31/18 08:00 12/31/18 09:09 Potassium Chloride (Klor-Con) 20 meq DAILY PO 12/31/18 09:00 12/31/18 09:13 Trazodone HCl (Desyrel) 100 mg QHS PO 12/30/18 21:00 12/30/18 20:56 Pantoprazole Sodium (Protonix) 40 mg DAILYAC PO 12/31/18 07:30 12/31/18 09:11 Zolpidem Tartrate (Ambien) 5 mg QHS PO 12/30/18 21:00 12/30/18 20:56 Gabapentin (Neurontin) 600 mg TID PO 12/30/18 21:00 12/31/18 09:10 Ondansetron HCl (Zofran Odt) 4 mg PRN BID PRN PO NAUSEA/VOMITING 12/30/18 19:15 12/31/18 12:15 Morphine Sulfate (Morphine Sulfate) 2 mg PRN Q2HR PRN IV SEVERE PAIN 12/30/18 19:00 12/31/18 12:15 Guaifenesin/ Codeine Phosphate (Robitussin Ac) 5 ml QID PO 12/30/18 21:00 12/31/18 12:15 Potassium Chloride (Klor-Con) 40 meq 1X ONCE PO 12/30/18 19:30 12/30/18 19:31 DC 12/30/18 19:24 Fentanyl (Duragesic 100mcg/Hr Patch) 1 patch Q3DAYS TD 12/30/18 21:00 12/30/18 20:58 Magnesium Sulfate 50 ml @ 25 mls/hr 1X ONCE IV 12/31/18 03:00 12/31/18 04:59 DC 12/31/18 04:36 ALBER PHIPPS III DO Dec 31, 2018 12:32
--- NOTE | 2018-12-31 12:58 | PDOC2 ---
CONSULT Date of Consult Date of Consult DATE: 12/31/18 TIME: 12:52 Reason for Consult Reason for Consult: chest pain Referring Physician Referring Physician: Dr. Watson Identification/Chief Complaint Chief Complaint chest pain Source Source: Chart review, Patient History of Present Illness Reason for Visit: The patient is a 58-year-old female who was admitted yesterday through the emergency room for episodes of chest discomfort. Patient reported increasing chest discomfort and was admitted for rule out. Her troponins have been normal 2. Her EKG shows no acute ischemic changes. She had a recent admission at [facility] for treatment for pneumonia. She also had a return visit to the ER at [facility] 2 days ago and was discharged after treatment for shortness of breath and discomfort. During her initial admission she patient had a cardiac workup including an echocardiogram on 12/26/18 that showed an ejection fraction of 60-65% with trace tricuspid regurgitation and no pericardial effusion. A Lexiscan also on 12/26/18 was normal. This morning the patient is resting recently, 3 in bed. She states her chest pain has resolved. Past Medical History Cardiovascular: HTN Pulmonary: Asthma, Bronchitis GI: Other Heme/Onc: Cancer Psych: Depression Musculoskeletal: low back pain, Other Rheumatologic: Fibromyalgia Endocrine: Diabetes Past Surgical History Past Surgical History: Hernia Repair, Other (back surgery) Family History Family History: No Significant Social History No ALCOHOL: occassional Drugs: None Current Problem List Problem List Problems Medical Problems: (1) Acute chest pain Status: Acute (2) Anxiety Status: Acute (3) Elevated d-dimer Status: Acute (4) Hypokalemia Status: Acute (5) Hypomagnesemia Status: Acute Current Medications Current Medications Current Medications Aspirin (Children'S Aspirin) 324 mg 1X ONCE PO Last administered on 12/30/18at 18:27; Start 12/30/18 at 18:15; Stop 12/30/18 at 18:16; Status DC Sodium Chloride 1,000 ml @ 1,000 mls/hr Q1H IV Last administered on 12/30/18at 18:27; Start 12/30/18 at 18:03; Stop 12/30/18 at 19:06; Status DC Ondansetron HCl (Zofran) 4 mg 1X ONCE IVP Last administered on 12/30/18at 18:26; Start 12/30/18 at 18:15; Stop 12/30/18 at 18:16; Status DC Fentanyl Citrate (Fentanyl 2ml Vial) 50 mcg 1X ONCE IV Last administered on 12/30/18at 18:27; Start 12/30/18 at 18:15; Stop 12/30/18 at 18:16; Status DC Alprazolam (Xanax) 1 mg PRN QID PRN PO ANXIETY / AGITATION; Start 12/30/18 at 18:45 Aspirin (Children'S Aspirin) 81 mg DAILY PO Last administered on 12/31/18at 09:12; Start 12/31/18 at 09:00 Docusate Sodium (Colace) 100 mg BID PO ; Start 12/30/18 at 21:00 Estradiol (Estrace) 1 mg DAILY PO Last administered on 12/31/18at 09:11; Start 12/31/18 at 09:00 Fentanyl (Duragesic 100mcg/Hr Patch) 1 patch Q3DAYS TD ; Start 01/01/19 at 09:0 0; Stop 12/30/18 at 20:30; Status DC Furosemide (Lasix) 40 mg DAILY PO Last administered on 12/31/18at 09:12; Start 12/31/18 at 09:00 Guaifenesin (Mucinex) 600 mg BID PO Last administered on 12/31/18at 09:12; Start 12/30/18 at 21:00 Acetaminophen/ Hydrocodone Bitart (Lortab 10/325) 1 tab PRN QID PRN PO BREAKTHRU PAIN; Start 12/30/18 at 18:45 Medroxyprogesterone Acetate (Provera) 5 mg DAILY PO Last administered on 12/31/18at 09:11; Start 12/31/18 at 09:00 Metformin HCl (Glucophage) 500 mg BIDWMEALS PO Last administered on 12/31/18at 09:09; Start 12/31/18 at 08:00 Nitroglycerin (Nitrostat) 0.4 mg PRN Q5MIN PRN SL CHEST PAIN; Start 12/30/18 at 18:45 Polyethylene Glycol (miraLAX PACKET) 17 gm PRN DAILY PRN PO CONSTIPATION; Start 12/30/18 at 18:45 Potassium Chloride (Klor-Con) 20 meq DAILY PO Last administered on 12/31/18at 09:13; Start 12/31/18 at 09:00 Sennosides (Senna) 8.6 mg BID PO ; Start 12/30/18 at 21:00 Trazodone HCl (Desyrel) 100 mg QHS PO Last administered on 12/30/18 20:56; Start 12/30/18 at 21:00 Pantoprazole Sodium (Protonix) 40 mg DAILYAC PO Last administered on 12/31/18 09:11; Start 12/31/18 at 07:30 Zolpidem Tartrate (Ambien) 5 mg QHS PO Last administered on 12/30/18 20:56; Start 12/30/18 at 21:00 Gabapentin (Neurontin) 600 mg TID PO Last administered on 12/31/18 09:10; Start 12/30/18 at 21:00 Albuterol Sulfate (Ventolin Neb Soln) 2.5 mg PRN Q6HRS PRN NEB SHORTNESS OF BREATH; Start 12/30/18 at 19:15 Ondansetron HCl (Zofran Odt) 4 mg PRN BID PRN PO NAUSEA/VOMITING Last administered on 12/31/18 12:15; Start 12/30/18 at 19:15 Insulin Human Lispro (HumaLOG) 0-9 UNITS TIDWMEALS SQ ; Start 12/31/18 at 08:00 Dextrose (Dextrose 50%-Water Syringe) 12.5 gm PRN Q15MIN PRN IV SEE COMMENTS; Start 12/30/18 at 19:00 Morphine Sulfate (Morphine Sulfate) 2 mg PRN Q2HR PRN IV SEVERE PAIN Last administered on 12/31/18at 12:15; Start 12/30/18 at 19:00 Guaifenesin/ Codeine Phosphate (Robitussin Ac) 5 ml QID PO Last administered on 12/31/18 12:15; Start 12/30/18 at 21:00 Diphenhydramine HCl (Benadryl) 25 mg PRN QHS PRN PO INSOMNIA; Start 12/30/18 at 19:15 Potassium Chloride (Klor-Con) 40 meq 1X ONCE PO Last administered on 12/30/18at 19:24; Start 12/30/18 at 19:30; Stop 12/30/18 at 19:31; Status DC Fentanyl Citrate (Fentanyl 2ml Vial) 25 mcg PRN Q2HR PRN IV PAIN; Start 12/30/18 at 19:30 Fentanyl (Duragesic 100mcg/Hr Patch) 1 patch Q3DAYS TD Last administered on 12/30/18at 20:58; Start 12/30/18 at 21:00 Influenza Virus Vaccine Quadrival (Afluria Quad 2019-20 (3yr Up) Syringe) 0.5 ml ONCE ONCE VAX IM ; Start 12/31/18 at 09:00; Stop 12/31/18 at 09:01; Status DC Magnesium Sulfate 50 ml @ 25 mls/hr 1X ONCE IV Last administered on 12/31/18at 04:36; Start 12/31/18 at 03:00; Stop 12/31/18 at 04:59; Status DC Active Scripts Active Mucinex (Guaifenesin) 600 Mg Tablet.er 600 Mg PO BID Reported Furosemide 40 Mg Tablet 1 Tab PO DAILY Children's Aspirin (Aspirin) 81 Mg Tab.chew 81 Mg PO DAILY NITROGLYCERIN SubLingual (Nitroglycerin) 0.4 Mg Tab.subl 0.4 Mg SL PRN Q5MIN PRN Medroxyprogesterone Acetate 2.5 Mg Tablet 5 Mg PO DAILY Gabapentin 600 Mg Tablet 600 Mg PO TID Estradiol 1 Mg Tablet 1 Tab PO DAILY Metformin Hcl 500 Mg Tablet 1 Tab PO BID Potassium Chloride 10 Meq Capsule.er 20 Meq PO DAILY Trazodone Hcl 100 Mg Tablet 1 Tab PO QHS Zofran (Ondansetron Hcl) 4 Mg Tablet 4 Mg PO BID PRN Polyethylene Glycol 3350 255 Gm Powder 17 Gm PO DAILY PRN Colace (Docusate Sodium) 100 Mg Capsule 1 Cap PO BID Senokot (Sennosides) 8.6 Mg Tablet 1 Tab PO BID Breo Ellipta 100-25 Mcg Inh (Fluticasone/Vilanterol) 1 Each Aer.pow.ba 1 Puff IH [place] 10-325 Tablet (Acetaminophen/Hydrocodone Bitart) 1 Each Tablet 1-2 Tab PO Q4-6HRS PRN FENTANYL 100mcg/hr (Fentanyl) 1 Each Patch.td72 1 Patch TD Q3DAYS Combivent Inhaler (Ipratropium/Albuterol Sulfate) 14.7 Gm Aer.w.adap 1-2 PRN DAILY PRN Nexium Capsule (Esomeprazole Magnesium) 40 Mg Capsule.dr 1 Tab PO DAILY Lunesta (Eszopiclone) 1 Mg Tablet 3 Mg PO HS Alprazolam 1 Mg Tablet 1 Mg PO PRN QID PRN Allergies Allergies: Coded Allergies: chlorhexidine (Verified Allergy, Severe, SEVERE BURNING TO SKIN, 01/20/17) CHLOROAPREP Sulfa (Sulfonamide Antibiotics) (Verified Allergy, Intermediate, 01/20/17) cephalexin (Verified Allergy, Intermediate, 01/20/17) ROS General: YES: Fatigue Cardiovascular: yes Chest Pain Physical Exam General: No acute distress HEENT: Atraumatic Lungs: Clear to auscultation Heart: Regular rate Abdomen: Normal bowel sounds Vitals VITALS Vital Signs Date Time Temp Pulse Resp B/P (MAP) Pulse Ox O2 Delivery O2 Flow Rate FiO2 12/31/18 10:57 97.9 90 16 137/71 (93) 96 Nasal Cannula 2.0 97.9 Labs Labs Laboratory Tests Test 12/30/18 18:25 12/30/18 19:20 12/30/18 20:50 12/30/18 22:35 White Blood Count 8.1 x10^3/uL (4.0-11.0) Red Blood Count 5.29 x10^6/uL (3.50-5.40) Hemoglobin 14.9 g/dL (12.0-15.5) Hematocrit 44.2 % (36.0-47.0) Mean Corpuscular Volume 84 fL (79-100) Mean Corpuscular Hemoglobin 28 pg (25-35) Mean Corpuscular Hemoglobin Concent 34 g/dL (31-37) Red Cell Distribution Width 15.4 % (11.5-14.5) Platelet Count 285 x10^3/uL (140-400) Neutrophils (%) (Auto) 66 % (31-73) Lymphocytes (%) (Auto) 25 % (24-48) Monocytes (%) (Auto) 8 % (0-9) Eosinophils (%) (Auto) 1 % (0-3) Basophils (%) (Auto) 0 % (0-3) Neutrophils # (Auto) 5.3 x10^3/uL (1.8-7.7) Lymphocytes # (Auto) 2.0 x10^3/uL (1.0-4.8) Monocytes # (Auto) 0.6 x10^3/uL (0.0-1.1) Eosinophils # (Auto) 0.1 x10^3/uL (0.0-0.7) Basophils # (Auto) 0.0 x10^3/uL (0.0-0.2) Prothrombin Time 13.0 SEC (11.7-14.0) Prothromb Time International Ratio 1.0 (0.8-1.1) D-Dimer (Yasmine) 1.17 ug/mlFEU (0.00-0.50) Sodium Level 142 mmol/L (136-145) Potassium Level 3.4 mmol/L (3.5-5.1) Chloride Level 104 mmol/L (98-107) Carbon Dioxide Level 29 mmol/L (21-32) Anion Gap 9 (6-14) Blood Urea Nitrogen 15 mg/dL (7-20) Creatinine 1.2 mg/dL (0.6-1.0) Estimated GFR (Cockcroft-Gault) 46.1 BUN/Creatinine Ratio 13 (6-20) Glucose Level 84 mg/dL (70-99) Lactic Acid Level 1.2 mmol/L (0.4-2.0) Calcium Level 8.9 mg/dL (8.5-10.1) Magnesium Level 1.3 mg/dL (1.8-2.4) Total Bilirubin 0.4 mg/dL (0.2-1.0) Aspartate Amino Transf (AST/SGOT) 29 U/L (15-37) Alanine Aminotransferase (ALT/SGPT) 39 U/L (14-59) Alkaline Phosphatase 88 U/L (46-116) Creatine Kinase 58 U/L (26-192) Troponin I Quantitative < 0.017 ng/mL (0.000-0.055) < 0.017 ng/mL (0.000-0.055) KZ-Qmw-Q-Type Natriuretic Peptide 99 pg/mL (0-124) Total Protein 6.3 g/dL (6.4-8.2) Albumin 3.3 g/dL (3.4-5.0) Albumin/Globulin Ratio 1.1 (1.0-1.7) Lipase 63 U/L (73-393) Urine Color Yellow Urine Clarity Cloudy Urine pH 5.0 Urine Specific [place] 1.020 Urine Protein Negative mg/dL (NEG-TRACE) Urine Glucose (UA) Negative mg/dL (NEG) Urine Ketones (Stick) Trace mg/dL (NEG) Urine Blood Negative (NEG) Urine Nitrite Negative (NEG) Urine Bilirubin Small (NEG) Urine Urobilinogen Dipstick 0.2 mg/dL (0.2 mg/dL) Urine Leukocyte Esterase Small (NEG) Urine RBC 0 /HPF (0-2) Urine WBC 1-4 /HPF (0-4) Urine Squamous Epithelial Cells Occ /LPF Urine Bacteria Few /HPF (0-FEW) Urine Hyaline Casts Occasional /HPF Urine Mucus Mod /LPF Glucose (Fingerstick) 84 mg/dL (70-99) Test 12/31/18 03:30 12/31/18 08:11 12/31/18 11:28 Troponin I Quantitative < 0.017 ng/mL (0.000-0.055) Glucose (Fingerstick) 74 mg/dL (70-99) 105 mg/dL (70-99) Laboratory Tests Test 12/30/18 18:25 12/30/18 19:20 12/30/18 20:50 12/30/18 22:35 White Blood Count 8.1 x10^3/uL (4.0-11.0) Red Blood Count 5.29 x10^6/uL (3.50-5.40) Hemoglobin 14.9 g/dL (12.0-15.5) Hematocrit 44.2 % (36.0-47.0) Mean Corpuscular Volume 84 fL (79-100) Mean Corpuscular Hemoglobin 28 pg (25-35) Mean Corpuscular Hemoglobin Concent 34 g/dL (31-37) Red Cell Distribution Width 15.4 % (11.5-14.5) Platelet Count 285 x10^3/uL (140-400) Neutrophils (%) (Auto) 66 % (31-73) Lymphocytes (%) (Auto) 25 % (24-48) Monocytes (%) (Auto) 8 % (0-9) Eosinophils (%) (Auto) 1 % (0-3) Basophils (%) (Auto) 0 % (0-3) Neutrophils # (Auto) 5.3 x10^3/uL (1.8-7.7) Lymphocytes # (Auto) 2.0 x10^3/uL (1.0-4.8) Monocytes # (Auto) 0.6 x10^3/uL (0.0-1.1) Eosinophils # (Auto) 0.1 x10^3/uL (0.0-0.7) Basophils # (Auto) 0.0 x10^3/uL (0.0-0.2) Prothrombin Time 13.0 SEC (11.7-14.0) Prothromb Time International Ratio 1.0 (0.8-1.1) D-Dimer (Yasmine) 1.17 ug/mlFEU (0.00-0.50) Sodium Level 142 mmol/L (136-145) Potassium Level 3.4 mmol/L (3.5-5.1) Chloride Level 104 mmol/L (98-107) Carbon Dioxide Level 29 mmol/L (21-32) Anion Gap 9 (6-14) Blood Urea Nitrogen 15 mg/dL (7-20) Creatinine 1.2 mg/dL (0.6-1.0) Estimated GFR (Cockcroft-Gault) 46.1 BUN/Creatinine Ratio 13 (6-20) Glucose Level 84 mg/dL (70-99) Lactic Acid Level 1.2 mmol/L (0.4-2.0) Calcium Level 8.9 mg/dL (8.5-10.1) Magnesium Level 1.3 mg/dL (1.8-2.4) Total Bilirubin 0.4 mg/dL (0.2-1.0) Aspartate Amino Transf (AST/SGOT) 29 U/L (15-37) Alanine Aminotransferase (ALT/SGPT) 39 U/L (14-59) Alkaline Phosphatase 88 U/L (46-116) Creatine Kinase 58 U/L (26-192) Troponin I Quantitative < 0.017 ng/mL (0.000-0.055) < 0.017 ng/mL (0.000-0.055) RM-Idd-G-Type Natriuretic Peptide 99 pg/mL (0-124) Total Protein 6.3 g/dL (6.4-8.2) Albumin 3.3 g/dL (3.4-5.0) Albumin/Globulin Ratio 1.1 (1.0-1.7) Lipase 63 U/L (73-393) Urine Color Yellow Urine Clarity Cloudy Urine pH 5.0 Urine Specific [place] 1.020 Urine Protein Negative mg/dL (NEG-TRACE) Urine Glucose (UA) Negative mg/dL (NEG) Urine Ketones (Stick) Trace mg/dL (NEG) Urine Blood Negative (NEG) Urine Nitrite Negative (NEG) Urine Bilirubin Small (NEG) Urine Urobilinogen Dipstick 0.2 mg/dL (0.2 mg/dL) Urine Leukocyte Esterase Small (NEG) Urine RBC 0 /HPF (0-2) Urine WBC 1-4 /HPF (0-4) Urine Squamous Epithelial Cells Occ /LPF Urine Bacteria Few /HPF (0-FEW) Urine Hyaline Casts Occasional /HPF Urine Mucus Mod /LPF Glucose (Fingerstick) 84 mg/dL (70-99) Test 12/31/18 03:30 12/31/18 08:11 12/31/18 11:28 Troponin I Quantitative < 0.017 ng/mL (0.000-0.055) Glucose (Fingerstick) 74 mg/dL (70-99) 105 mg/dL (70-99) Images Images Chest x-ray. No acute changes. Assessment/Plan Assessment/Plan 1. Chest pain. Pain has largely resolved. Troponins have been normal. EKG shows no acute ischemia. Previous with recent workup at [facility] including an echo on 12/26/18 that showed normal ejection fraction with no pericardial effusion. Lexiscan testing on 12/26/18 was normal. We will continue medical treat ment. Chest pain appears to be noncardiac related. No further inpatient cardiac workup is required. Patient may follow-up with her outpatient physician. 2. COPD. Continuing present medications. 3. Chronic pain syndrome. Thank you for allowing us to participate in the care of your patient. BILL BURRELL MD Dec 31, 2018 12:58
[2018-12-31 15:00] VITALS: BP 126/82
[2018-12-31 19:30] VITALS: BP 125/60
[2018-12-31] MEDS: ZOLPIDEM 5 MG TABLET. PO SCH (20:56)
[2018-12-31] MEDS: traZODone 100 MG TABLET. PO SCH (20:56)
[2018-12-31 23:04] VITALS: BP 126/56
[2019-01-01] MEDS: MORPHINE SULFATE 2 MG/ML VIAL. IV PRN ×3 (01:07→04:50)
[2019-01-01 03:04] VITALS: BP 112/66
[2019-01-01 04:24] LABS: BASO % 1 % (0-3); EOS # 0.1 x10^3/uL (0.0-0.7); EOS % 2 % (0-3); HEMATOCRIT 42.7 % (36.0-47.0); LYMPH # 1.1 x10^3/uL (1.0-4.8); LYMPH % 20 % (24-48); MEAN CORPUSCULAR HEMOGLOBIN 28 pg (25-35); MEAN CORPUSCULAR HGB CONC 33 g/dL (31-37); MEAN CORPUSCULAR VOLUME 85 fL (79-100); MONO # 0.5 x10^3/uL (0.0-1.1); MONO % 9 % (0-9); NEUT # 3.8 x10^3/uL (1.8-7.7); NEUT % 68 % (31-73); PLATELET COUNT 224 x10^3/uL (140-400); RED BLOOD COUNT 5.02 x10^6/uL (3.50-5.40); RED CELL DISTRIBUTION WIDTH 15.4 % (11.5-14.5); WHITE BLOOD COUNT 5.5 x10^3/uL (4.0-11.0)
--- NOTE | 2019-01-01 04:39 | NUR ---
Patient insist on paging doctor for increase in pain meds. Patient has Fentanyl 100mcg patch in place. Patient is getting Morphine 2mg IVP every 2 hours. Patient has Hydrocodone po ordered but refuses this stating she can not take po pain meds. Patient has Fentanyl 25mcg IVP also ordered but refuses this stating IV Fentanyl 'does nothing for her". Patient is requesting an additional 100mcg Fentanyl patch and/or an increase in dose of Morphine IVP. Paged Dr Dawson at [phone]. Waiting for call back.
[2019-01-01 04:50] LABS: ALBUMIN 2.7 g/dL (3.4-5.0); ALBUMIN/GLOBULIN RATIO 0.8 (1.0-1.7); CALCIUM 8.5 mg/dL (8.5-10.1); CREATININE 0.9 mg/dL (0.6-1.0); GFR 64.3; POTASSIUM 4.2 mmol/L (3.5-5.1); TOTAL BILIRUBIN 0.4 mg/dL (0.2-1.0); TOTAL PROTEIN 6.1 g/dL (6.4-8.2)
--- NOTE | 2019-01-01 05:15 | NUR ---
Dr Dawson returned call. Orders to change Morphine 2mg IVP q2hrs prn to Morphine 4mg IVP q4hrs prn pain.
[2019-01-01] MEDS: MORPHINE SULFATE 4 MG/ML VIAL. IV PRN ×2 (06:34→11:01)
[2019-01-01 07:00] VITALS: BP 126/66
[2019-01-01] MEDS: INSULIN LISPRO 300 UNITS/3 ML VIAL. SQ SCH ×2 (08:00→11:40)
[2019-01-01] MEDS: PANTOPRAZOLE 40 MG TABLET.DR. PO SCH (08:29)
[2019-01-01] MEDS: ASPIRIN CHEWABLE 81 MG TABLET. PO SCH (08:29)
[2019-01-01] MEDS: ONDANSETRON ODT 4 MG TAB.RAPDIS. PO PRN (08:29)
[2019-01-01] MEDS: ESTRADIOL 1 MG TABLET. PO SCH (08:29)
[2019-01-01] MEDS: GABAPENTIN 300 MG CAPSULE. PO SCH ×2 (08:30→13:32)
[2019-01-01] MEDS: POTASSIUM CHLORIDE 20 MEQ TABLET.ER. PO SCH (08:30)
[2019-01-01] MEDS: FUROSEMIDE 40 MG TABLET. PO SCH (08:30)
[2019-01-01] MEDS: metFORMIN 500 MG TABLET PO SCH (08:30)
[2019-01-01] MEDS: guaiFENesin/CODEINE 100mg/10mg 5 ML LIQUID PO SCH ×2 (08:30→13:31)
[2019-01-01] MEDS: DOCUSATE SODIUM 100 MG CAPSULE. PO SCH (08:31)
[2019-01-01] MEDS: SENNOSIDES 8.6 MG TABLET PO SCH (08:31)
[2019-01-01] MEDS ORDERED: fentaNYL 100MCG/HR PATCH 1 PATCH PATCH TD SCH (09:00)
--- NOTE | 2019-01-01 09:29 | PDOC2 ---
UROLOGY CONSULT Date of Consult Date of Consult DATE: 01/01/19 TIME: 09:23 Reason for Consult Reason for Consult: incomplete bladder emptying Identification/Chief Complaint Chief Complaint chest pain Source Source: Chart review, Patient History of Present Illness Reason for Visit: 58 yo female admitted for chest pain. Cardiac workup unremarkable. She reports frequent urination, dysuria. UA unremarkable but PVR approx 500 ml. She reports that this urinary bother has been ongoing for about a month. She reports PVR approx 400 ml during recent hospitalization at [facility]. No hematuria or vaginal bulge. Has had 20+ back surgeries. She is diabetic. Past Medical History Cardiovascular: HTN Pulmonary: Asthma, Bronchitis GI: Other Heme/Onc: Cancer Psych: Depression Musculoskeletal: low back pain, Other Rheumatologic: Fibromyalgia Endocrine: Diabetes Past Surgical History Past Surgical History: Hernia Repair, Other (back surgery) Family History Family History: No Significant Social History No ALCOHOL: occassional Drugs: None Current Medications Current Medications Current Medications Fentanyl (Duragesic 100mcg/Hr Patch) 1 patch Q3DAYS TD ; Start 01/01/19 at 09:00; Stop 12/30/18 at 20:30; Status DC Morphine Sulfate (Morphine Sulfate) 4 mg PRN Q4HRS PRN IV SEVERE PAIN 7-10 Last administered on 01/01/19at 06:34; Start 01/01/19 at 05:30 Allergies Allergies: Coded Allergies: chlorhexidine (Verified Allergy, Severe, SEVERE BURNING TO SKIN, 01/20/17) CHLOROAPREP Sulfa (Sulfonamide Antibiotics) (Verified Allergy, Intermediate, 01/20/17) cephalexin (Verified Allergy, Intermediate, 01/20/17) ROS Review Of Systems: Except as noted in HPI: CONSTITUTIONAL: No fever or chills EYES: No recent changes SKIN: No rash or itching CARDIOVASCULAR: No chest pain, syncope, palpitations, or edema RESPIRATORY: No SOB or cough GASTROINTESTINAL: No nausea, vomiting or abdominal pain NEUROLOGICAL: No headaches or weakness ENDOCRINE: No cold or heat intolerance GENITOURINARY: No urgency or frequency of urination MUSCULOSKELETAL: No back pain or joint pain LYMPHATICS: No enlarged lymph nodes PSYCHIATRIC: No anxiety or depression Physical Exam Physical Exam: General: Pleasant, no acute distress, well groomed Eyes: conjunctiva anicteric, eyes full range of motion ENT: moist oral mucosa, normal dentition Neck: Trachea midline, no masses Respiratory: unlabored breathing, not using accessory muscles, no crackles or wheezes Cardiovascular: Regular rate and rhythm, no peripheral edema Abdomen: nontender, nondistended, no hepatosplenomegaly, no masses Skin: no rashes or skin lesions on visualized skin Psych: normal mood, affect. Alert and oriented x 3. : no prolapse. normal urethra. No discharge or vaginal tenderness. No incontinence with cough. Vitals VITALS Vital Signs Date Time Temp Pulse Resp B/P (MAP) Pulse Ox O2 Delivery O2 Flow Rate FiO2 01/01/19 07:00 98.3 84 18 126/66 (86) Room Air 98.3 01/01/19 06:34 97 2.0 Labs Labs Laboratory Tests Test 12/30/18 18:25 12/30/18 19:20 12/30/18 20:50 12/30/18 22:35 White Blood Count 8.1 x10^3/uL (4.0-11.0) Red Blood Count 5.29 x10^6/uL (3.50-5.40) Hemoglobin 14.9 g/dL (12.0-15.5) Hematocrit 44.2 % (36.0-47.0) Mean Corpuscular Volume 84 fL (79-100) Mean Corpuscular Hemoglobin 28 pg (25-35) Mean Corpuscular Hemoglobin Concent 34 g/dL (31-37) Red Cell Distribution Width 15.4 % (11.5-14.5) Platelet Count 285 x10^3/uL (140-400) Neutrophils (%) (Auto) 66 % (31-73) Lymphocytes (%) (Auto) 25 % (24-48) Monocytes (%) (Auto) 8 % (0-9) Eosinophils (%) (Auto) 1 % (0-3) Basophils (%) (Auto) 0 % (0-3) Neutrophils # (Auto) 5.3 x10^3/uL (1.8-7.7) Lymphocytes # (Auto) 2.0 x10^3/uL (1.0-4.8) Monocytes # (Auto) 0.6 x10^3/uL (0.0-1.1) Eosinophils # (Auto) 0.1 x10^3/uL (0.0-0.7) Basophils # (Auto) 0.0 x10^3/uL (0.0-0.2) Prothrombin Time 13.0 SEC (11.7-14.0) Prothromb Time International Ratio 1.0 (0.8-1.1) D-Dimer (Yasmine) 1.17 ug/mlFEU (0.00-0.50) Sodium Level 142 mmol/L (136-145) Potassium Level 3.4 mmol/L (3.5-5.1) Chloride Level 104 mmol/L (98-107) Carbon Dioxide Level 29 mmol/L (21-32) Anion Gap 9 (6-14) Blood Urea Nitrogen 15 mg/dL (7-20) Creatinine 1.2 mg/dL (0.6-1.0) Estimated GFR (Cockcroft-Gault) 46.1 BUN/Creatinine Ratio 13 (6-20) Glucose Level 84 mg/dL (70-99) Lactic Acid Level 1.2 mmol/L (0.4-2.0) Calcium Level 8.9 mg/dL (8.5-10.1) Magnesium Level 1.3 mg/dL (1.8-2.4) Total Bilirubin 0.4 mg/dL (0.2-1.0) Aspartate Amino Transf (AST/SGOT) 29 U/L (15-37) Alanine Aminotransferase (ALT/SGPT) 39 U/L (14-59) Alkaline Phosphatase 88 U/L (46-116) Creatine Kinase 58 U/L (26-192) Troponin I Quantitative < 0.017 ng/mL (0.000-0.055) < 0.017 ng/mL (0.000-0.055) QP-Mwr-H-Type Natriuretic Peptide 99 pg/mL (0-124) Total Protein 6.3 g/dL (6.4-8.2) Albumin 3.3 g/dL (3.4-5.0) Albumin/Globulin Ratio 1.1 (1.0-1.7) Lipase 63 U/L (73-393) Urine Color Yellow Urine Clarity Cloudy Urine pH 5.0 Urine Specific [place] 1.020 Urine Protein Negative mg/dL (NEG-TRACE) Urine Glucose (UA) Negative mg/dL (NEG) Urine Ketones (Stick) Trace mg/dL (NEG) Urine Blood Negative (NEG) Urine Nitrite Negative (NEG) Urine Bilirubin Small (NEG) Urine Urobilinogen Dipstick 0.2 mg/dL (0.2 mg/dL) Urine Leukocyte Esterase Small (NEG) Urine RBC 0 /HPF (0-2) Urine WBC 1-4 /HPF (0-4) Urine Squamous Epithelial Cells Occ /LPF Urine Bacteria Few /HPF (0-FEW) Urine Hyaline Casts Occasional /HPF Urine Mucus Mod /LPF Glucose (Fingerstick) 84 mg/dL (70-99) Test 12/31/18 03:30 12/31/18 08:11 12/31/18 11:28 12/31/18 16:58 Troponin I Quantitative < 0.017 ng/mL (0.000-0.055) Glucose (Fingerstick) 74 mg/dL (70-99) 105 mg/dL (70-99) 132 mg/dL (70-99) Test 01/01/19 03:00 01/01/19 07:41 White Blood Count 5.5 x10^3/uL (4.0-11.0) Red Blood Count 5.02 x10^6/uL (3.50-5.40) Hemoglobin 14.0 g/dL (12.0-15.5) Hematocrit 42.7 % (36.0-47.0) Mean Corpuscular Volume 85 fL (79-100) Mean Corpuscular Hemoglobin 28 pg (25-35) Mean Corpuscular Hemoglobin Concent 33 g/dL (31-37) Red Cell Distribution Width 15.4 % (11.5-14.5) Platelet Count 224 x10^3/uL (140-400) Neutrophils (%) (Auto) 68 % (31-73) Lymphocytes (%) (Auto) 20 % (24-48) Monocytes (%) (Auto) 9 % (0-9) Eosinophils (%) (Auto) 2 % (0-3) Basophils (%) (Auto) 1 % (0-3) Neutrophils # (Auto) 3.8 x10^3/uL (1.8-7.7) Lymphocytes # (Auto) 1.1 x10^3/uL (1.0-4.8) Monocytes # (Auto) 0.5 x10^3/uL (0.0-1.1) Eosinophils # (Auto) 0.1 x10^3/uL (0.0-0.7) Basophils # (Auto) 0.0 x10^3/uL (0.0-0.2) Sodium Level 142 mmol/L (136-145) Potassium Level 4.2 mmol/L (3.5-5.1) Chloride Level 107 mmol/L (98-107) Carbon Dioxide Level 27 mmol/L (21-32) Anion Gap 8 (6-14) Blood Urea Nitrogen 14 mg/dL (7-20) Creatinine 0.9 mg/dL (0.6-1.0) Estimated GFR (Cockcroft-Gault) 64.3 BUN/Creatinine Ratio 16 (6-20) Glucose Level 121 mg/dL (70-99) Calcium Level 8.5 mg/dL (8.5-10.1) Total Bilirubin 0.4 mg/dL (0.2-1.0) Aspartate Amino Transf (AST/SGOT) 32 U/L (15-37) Alanine Aminotransferase (ALT/SGPT) 29 U/L (14-59) Alkaline Phosphatase 74 U/L (46-116) Total Protein 6.1 g/dL (6.4-8.2) Albumin 2.7 g/dL (3.4-5.0) Albumin/Globulin Ratio 0.8 (1.0-1.7) Glucose (Fingerstick) 100 mg/dL (70-99) Laboratory Tests Test 12/31/18 11:28 12/31/18 16:58 01/01/19 03:00 01/01/19 07:41 Glucose (Fingerstick) 105 mg/dL (70-99) 132 mg/dL (70-99) 100 mg/dL (70-99) White Blood Count 5.5 x10^3/uL (4.0-11.0) Red Blood Count 5.02 x10^6/uL (3.50-5.40) Hemoglobin 14.0 g/dL (12.0-15.5) Hematocrit 42.7 % (36.0-47.0) Mean Corpuscular Volume 85 fL (79-100) Mean Corpuscular Hemoglobin 28 pg (25-35) Mean Corpuscular Hemoglobin Concent 33 g/dL (31-37) Red Cell Distribution Width 15.4 % (11.5-14.5) Platelet Count 224 x10^3/uL (140-400) Neutrophils (%) (Auto) 68 % (31-73) Lymphocytes (%) (Auto) 20 % (24-48) Monocytes (%) (Auto) 9 % (0-9) Eosinophils (%) (Auto) 2 % (0-3) Basophils (%) (Auto) 1 % (0-3) Neutrophils # (Auto) 3.8 x10^3/uL (1.8-7.7) Lymphocytes # (Auto) 1.1 x10^3/uL (1.0-4.8) Monocytes # (Auto) 0.5 x10^3/uL (0.0-1.1) Eosinophils # (Auto) 0.1 x10^3/uL (0.0-0.7) Basophils # (Auto) 0.0 x10^3/uL (0.0-0.2) Sodium Level 142 mmol/L (136-145) Potassium Level 4.2 mmol/L (3.5-5.1) Chloride Level 107 mmol/L (98-107) Carbon Dioxide Level 27 mmol/L (21-32) Anion Gap 8 (6-14) Blood Urea Nitrogen 14 mg/dL (7-20) Creatinine 0.9 mg/dL (0.6-1.0) Estimated GFR (Cockcroft-Gault) 64.3 BUN/Creatinine Ratio 16 (6-20) Glucose Level 121 mg/dL (70-99) Calcium Level 8.5 mg/dL (8.5-10.1) Total Bilirubin 0.4 mg/dL (0.2-1.0) Aspartate Amino Transf (AST/SGOT) 32 U/L (15-37) Alanine Aminotransferase (ALT/SGPT) 29 U/L (14-59) Alkaline Phosphatase 74 U/L (46-116) Total Protein 6.1 g/dL (6.4-8.2) Albumin 2.7 g/dL (3.4-5.0) Albumin/Globulin Ratio 0.8 (1.0-1.7) Assessment/Plan Assessment/Plan Incomplete bladder emptying: functional vs. neurogenic (diabetes, spinal nerve injury?) Try tamsulosin. Also consider outpatient pelvic floor PT. If problem persists then consider outpatient urodynamics. ISIDRO ARCOS MD Jan 01, 2019 09:29
[2019-01-01] MEDS ORDERED: TAMSULOSIN 0.4 MG CAP.ER.24H. PO SCH (10:00)
[2019-01-01 11:05] VITALS: BP 140/77
--- NOTE | 2019-01-01 12:02 | PDOC ---
[employer] PROGRESS NOTE Chief Complaint Chief Complaint Acute chest pain History of Present Illness History of Present Illness 01/01/19 Pt seen and examined at bedside Not in acute distress Pt appears better Charts and labs reviewed Potassium was 4.2, up from 3.7 EF was 60-65% D/w RN 12/31/18 Pt was seen and examined at bedside Pt reports chest pain Pt reports that she is unable to urinate Bladder scan was performed. Post void residual was 500mL Pt requested fentanyl patches for pain from prior back surgeries. The amount she requested seemed to change when asked how much she needed for relief Chart and labs reviewed Potassium is 3.4 Magnesium is 1.3 D/w RN Vitals/I&O Vitals/I&O: Vital Signs Date Time Temp Pulse Resp B/P (MAP) Pulse Ox O2 Delivery O2 Flow Rate FiO2 01/01/19 11:05 98.1 94 18 140/77 (98) 97 Nasal Cannula 2.0 98.1 I & O 12/31/18 12/31/18 01/01/19 15:00 23:00 07:00 Intake Total 370 ml 730 ml 240 ml Output Total 675 ml 400 ml Balance -305 ml 330 ml 240 ml Physical Exam General: No acute distress Heart: Regular rate Lungs: Wheezing Abdomen: Normal bowel sounds Extremities: No clubbing, No cyanosis, No edema, Normal pulses, No tenderness/swelling Skin: No rashes, No breakdown, No significant lesion Labs Labs: Laboratory Tests Test 12/31/18 16:58 01/01/19 03:00 01/01/19 07:41 Glucose (Fingerstick) 132 mg/dL (70-99) 100 mg/dL (70-99) White Blood Count 5.5 x10^3/uL (4.0-11.0) Red Blood Count 5.02 x10^6/uL (3.50-5.40) Hemoglobin 14.0 g/dL (12.0-15.5) Hematocrit 42.7 % (36.0-47.0) Mean Corpuscular Volume 85 fL (79-100) Mean Corpuscular Hemoglobin 28 pg (25-35) Mean Corpuscular Hemoglobin Concent 33 g/dL (31-37) Red Cell Distribution Width 15.4 % (11.5-14.5) Platelet Count 224 x10^3/uL (140-400) Neutrophils (%) (Auto) 68 % (31-73) Lymphocytes (%) (Auto) 20 % (24-48) Monocytes (%) (Auto) 9 % (0-9) Eosinophils (%) (Auto) 2 % (0-3) Basophils (%) (Auto) 1 % (0-3) Neutrophils # (Auto) 3.8 x10^3/uL (1.8-7.7) Lymphocytes # (Auto) 1.1 x10^3/uL (1.0-4.8) Monocytes # (Auto) 0.5 x10^3/uL (0.0-1.1) Eosinophils # (Auto) 0.1 x10^3/uL (0.0-0.7) Basophils # (Auto) 0.0 x10^3/uL (0.0-0.2) Sodium Level 142 mmol/L (136-145) Potassium Level 4.2 mmol/L (3.5-5.1) Chloride Level 107 mmol/L (98-107) Carbon Dioxide Level 27 mmol/L (21-32) Anion Gap 8 (6-14) Blood Urea Nitrogen 14 mg/dL (7-20) Creatinine 0.9 mg/dL (0.6-1.0) Estimated GFR (Cockcroft-Gault) 64.3 BUN/Creatinine Ratio 16 (6-20) Glucose Level 121 mg/dL (70-99) Calcium Level 8.5 mg/dL (8.5-10.1) Total Bilirubin 0.4 mg/dL (0.2-1.0) Aspartate Amino Transf (AST/SGOT) 32 U/L (15-37) Alanine Aminotransferase (ALT/SGPT) 29 U/L (14-59) Alkaline Phosphatase 74 U/L (46-116) Total Protein 6.1 g/dL (6.4-8.2) Albumin 2.7 g/dL (3.4-5.0) Albumin/Globulin Ratio 0.8 (1.0-1.7) Review of Systems Review of Systems: Pt denies fever Pt denies headache Assessment and Plan Assessmemt and Plan Problems Medical Problems: (1) Acute chest pain Status: Acute (2) Anxiety Status: Acute (3) Elevated d-dimer Status: Acute (4) Hypokalemia Status: Acute (5) Hypomagnesemia Status: Acute Assessment Chest pain Back pain Urinary retention Hypokalemia Hypomagnesmia Plan Discharge in progress Prescribed Flomax Cardiac monitoring Appreciate input from cardiology and urology Home meds DVT prophylaxis Full code Comment Review of Relevant I have reviewed the following items nila (where applicable) has been applied. Medications: Current Medications Medications (Trade) Dose Ordered Sig/Jesus Route PRN Reason Start Time Stop Time Status Last Admin Dose Admin Morphine Sulfate (Morphine Sulfate) 4 mg PRN Q4HRS PRN IV SEVERE PAIN 7-10 01/01/19 05:30 01/01/19 11:01 Tamsulosin HCl (Flomax) 0.4 mg DAILY PO 01/01/19 10:00 01/01/19 09:53 ALBER PHIPPS III DO Jan 01, 2019 12:02
[2019-01-01] MEDS ORDERED: TAMS0.4C97 PO (14:17)
--- NOTE | 2019-01-01 15:50 | NUR ---
Discharge Note: MATEO SOUTH [address] [place] [address] Discharge instructions and discharge home medications reviewed with Patient and a copy given. All questions have been answered and understanding verbalized. The following instructions and handouts were given: Tamsulosin Discontinued IV line Patient discharged to home with self care via family member
--- NOTE | 2019-01-01 22:39 | DS ---
DATE OF DISCHARGE: 01/01/2019 ADMISSION DIAGNOSIS: Chest pain. DISCHARGE DIAGNOSIS: Atypical chest pain. HOSPITAL COURSE: The patient is a pleasant middle-aged female who seems to be dependent on narcotics. She presented with chest pain. She states she takes to 100 mcg fentanyl patches and changes every few days and she has been doing that for 15 years. She just was discharged from [facility] with a cardiac workup. Nevertheless, we went ahead and gave her the benefit of doubt and admit her due to full cardiac workup. Her ejection fraction is 60% and within normal limits. She also complained of some urinary retention, so we consulted Urology. They recommended Flomax. Today, I saw her and examined her, she was at her baseline. We discharged and gave her a prescription for Flomax and some fentanyl patches. DISPOSITION: Home. ACTIVITY: As tolerated. DIET: Low sodium. MEDICATIONS: Please see the MRAD. TOTAL TIME: 33 minutes. ALBER PHIPPS DO DR: RON/karly JOB#: [id number] / [id number]
== END 2019-01-01 15:55 | disposition home or self-care (01) | DRG 313 ==
LOC: ER 17:54 → 2 NORTH 18:53
PROVIDERS: ADMIT Internal Medicine; ATTEND Internal Medicine
DX: R07.89 Other chest pain (principal); F41.9 Anxiety disorder, unspecified; E78.00 Pure hypercholesterolemia, unspecified; E11.9 Type 2 diabetes mellitus without complications; E78.5 Hyperlipidemia, unspecified; I10 Essential (primary) hypertension; F32.9 Major depressive disorder, single episode, unspecified; M79.7 Fibromyalgia; G89.4 Chronic pain syndrome; E83.42 Hypomagnesemia; E87.6 Hypokalemia; R33.9 Retention of urine, unspecified; J44.9 Chronic obstructive pulmonary disease, unspecified; E66.9 Obesity, unspecified; Z68.32 Body mass index [BMI] 32.0-32.9, adult; Z87.891 Personal history of nicotine dependence; Z87.01 Personal history of pneumonia (recurrent); Z88.2 Allergy status to sulfonamides; Z88.8 Allergy status to other drugs, medicaments and biological substances
CPT/HCPCS: 36415; 71045; 80053; 81001; 82550; 82962; 83605; 83690; 83735; 83880; 84484; 85025; 85379; 85610; 87040; 87086; 90471; 90686; 93005; 96374; 96375; J2270; J2405; J3010; J3475; J7030; Q0162; Q0163; 97116; 99285-25; G0378

== ENCOUNTER 2019-01-12 15:53 | Inpatient (IN) | payer OTHER, MEDICARE ==
[~2019-01-12] VITALS: Ht 175.3 cm; Wt 95.7 kg
[~2019-01-12 15:53] MED LIST changes: +TAMS0.4C97 PO
[2019-01-12] MEDS ORDERED: IV NORMAL SALINE 1000ML BAG 1,000 ML IV SCH (18:18)
[2019-01-12] MEDS ORDERED: ONDANSETRON PF 4 MG/2 ML VIAL. IV ONE (18:30)
--- NOTE | 2019-01-12 18:30 | PHYS DOC ---
Past Medical History Past Medical History: Anxiety, Asthma, Bronchitis, COPD, Diabetes-Type II, High Cholesterol, Pneumonia, Additional Disease, Other Additional Past Medical Histor: smoker, chronic pain Past Surgical History: Other Additional Past Surgical Histo: pain pump x3 weeks ago, hernia rx, back sx x15 Alcohol Use: None Drug Use: None Adult General Chief Complaint Chief Complaint: ABDOMINAL PAIN [facility] HPI Patient is a 58-year-old female who presents with complaint of upper abdominal pain with nausea and vomiting. Patient is on a fentanyl patch for chronic pain and states that she is just about out of her fentanyl and so instead of having to patch as she only has one patch at this time. Patient is not sure whether or not her symptoms are partially due to the decreased dose of her fentanyl. Patient does indicate that she had a hiatal hernia in the past and had mesh placed for treatment of the hiatal hernia and is afraid that she may have disrupted the mesh due to a lot of pain in her left upper abdomen. She states that this happened after fairly forceful vomiting. She also indicates that she has had diarrhea. She states that symptoms have been present for the last 2-1/2 days which coincides when she decreased her dosage of fentanyl.[] Review of Systems Review of Systems Constitutional: Denies fever or chills [] Respiratory: Denies cough or shortness of breath [] Cardiovascular: No additional information not addressed in HPI [] GI: Complains of abdominal pain with nausea, vomiting and diarrhea [] Integument: Denies rash or skin lesions [] Neurologic: Denies headache, focal weakness or sensory changes [] All other systems were reviewed and found to be within normal limits, except as documented in this note. Current Medications Current Medications Current Medications Medications (Trade) Dose Ordered Sig/[facility] Start Time Stop Time Status Last Admin Dose Admin Fentanyl Citrate (Fentanyl 2ml Vial) 50 mcg 1X ONCE 01/12/19 19:45 01/12/19 19:46 DC 01/12/19 19:35 50 MCG Morphine Sulfate (Morphine Sulfate) 4 mg 1X ONCE 01/12/19 21:00 01/12/19 21:01 DC 01/12/19 20:47 4 MG Ondansetron HCl (Zofran) 4 mg 1X ONCE 01/12/19 18:30 01/12/19 18:31 DC 01/12/19 18:47 4 MG Sodium Chloride 1,000 ml @ 1,000 mls/hr Q1H 01/12/19 18:18 01/12/19 19:17 DC 01/12/19 18:48 1,000 MLS/HR Allergies Allergies Allergies Coded Allergies Type Severity Reaction Last Updated Verified chlorhexidine Allergy Severe SEVERE BURNING TO SKIN 01/20/17 Yes Sulfa (Sulfonamide Antibiotics) Allergy Intermediate 01/20/17 Yes cephalexin Allergy Intermediate 01/20/17 Yes Physical Exam Physical Exam Constitutional: Well developed, well nourished, no acute distress, non-toxic appearance. [] HENT: Normocephalic, atraumatic, bilateral external ears normal, oropharynx moist, no oral exudates, nose normal. [] Eyes: PERRLA, EOMI, conjunctiva normal, no discharge. [] Neck: Normal range of motion, no tenderness, supple, no stridor. [] Cardiovascular: Regular rate and rhythm[] Lungs & Thorax: Bilateral breath sounds clear to auscultation [] Abdomen: Bowel sounds normal, soft, with moderate left upper abdominal tenderness. [] Skin: Warm, dry, no erythema, no rash. [] Extremities: No tenderness, no cyanosis, no clubbing, ROM intact. [] Neurologic: Alert and oriented X 3, no focal deficits noted. [] Current Patient Data Vital Signs Vital Signs Date Time Temp Pulse Resp B/P (MAP) Pulse Ox O2 Delivery O2 Flow Rate FiO2 01/12/19 19:35 18 98 Room Air 01/12/19 19:30 98 110/73 (85) 01/12/19 17:03 97.9 3.0 97.9 Lab Values Laboratory Tests Test 01/12/19 18:30 01/12/19 19:40 White Blood Count 7.4 x10^3/uL (4.0-11.0) Red Blood Count 5.31 x10^6/uL (3.50-5.40) Hemoglobin 14.7 g/dL (12.0-15.5) Hematocrit 44.1 % (36.0-47.0) Mean Corpuscular Volume 83 fL (79-100) Mean Corpuscular Hemoglobin 28 pg (25-35) Mean Corpuscular Hemoglobin Concent 34 g/dL (31-37) Red Cell Distribution Width 15.6 % (11.5-14.5) H Platelet Count 294 x10^3/uL (140-400) Neutrophils (%) (Auto) 58 % (31-73) Lymphocytes (%) (Auto) 29 % (24-48) Monocytes (%) (Auto) 9 % (0-9) Eosinophils (%) (Auto) 2 % (0-3) Basophils (%) (Auto) 1 % (0-3) Neutrophils # (Auto) 4.3 x10^3/uL (1.8-7.7) Lymphocytes # (Auto) 2.2 x10^3/uL (1.0-4.8) Monocytes # (Auto) 0.7 x10^3/uL (0.0-1.1) Eosinophils # (Auto) 0.2 x10^3/uL (0.0-0.7) Basophils # (Auto) 0.1 x10^3/uL (0.0-0.2) Sodium Level 144 mmol/L (136-145) Potassium Level 4.0 mmol/L (3.5-5.1) Chloride Level 102 mmol/L (98-107) Carbon Dioxide Level 28 mmol/L (21-32) Anion Gap 14 (6-14) Blood Urea Nitrogen 26 mg/dL (7-20) H Creatinine 1.6 mg/dL (0.6-1.0) H Estimated GFR (Cockcroft-Gault) 33.1 BUN/Creatinine Ratio 16 (6-20) Glucose Level 124 mg/dL (70-99) H Calcium Level 9.1 mg/dL (8.5-10.1) Total Bilirubin 0.1 mg/dL (0.2-1.0) L Aspartate Amino Transferase (AST) 17 U/L (15-37) Alanine Aminotransferase (ALT) 13 U/L (14-59) L Alkaline Phosphatase 100 U/L (46-116) Total Protein 6.5 g/dL (6.4-8.2) Albumin 3.3 g/dL (3.4-5.0) L Albumin/Globulin Ratio 1.0 (1.0-1.7) Lipase 66 U/L (73-393) L Urine Collection Type Unknown Urine Color Yellow Urine Clarity Clear Urine pH 5.0 Urine Specific [place] >=1.030 Urine Protein Negative mg/dL (NEG-TRACE) Urine Glucose (UA) Negative mg/dL (NEG) Urine Ketones (Stick) Negative mg/dL (NEG) Urine Blood Negative (NEG) Urine Nitrite Negative (NEG) Urine Bilirubin Negative (NEG) Urine Urobilinogen Dipstick 0.2 mg/dL (0.2 mg/dL) Urine Leukocyte Esterase Small (NEG) Urine RBC 0 /HPF (0-2) Urine WBC 5-10 /HPF (0-4) Urine Squamous Epithelial Cells Many /LPF Urine Transitional Epithelial Cells Few /LPF Urine Bacteria Moderate /HPF (0-FEW) Urine Hyaline Casts Few /HPF Urine Mucus Mod /LPF Laboratory Tests 01/12/19 18:30 Laboratory Tests 01/12/19 18:30 EKG EKG [] Radiology/Procedures Radiology/Procedures [] Impressions: PROCEDURE: CT ABDOMEN PELVIS WO CONTRAST Exam: CT abdomen and pelvis without contrast INDICATION: Abdominal pain TECHNIQUE: Sequential axial images through the abdomen and pelvis obtained without IV contrast. Sagittal and coronal reformatted images were reconstructed from the axial data and reviewed. Comparisons: None FINDINGS: Heart size is normal. No pericardial effusion. Visualized lung bases are clear. No pleural effusion. Evaluation of the solid abdominal organs is limited secondary to noncontrast technique. There is diffuse hepatic steatosis. Spleen, pancreas, and adrenals are unremarkable. Gallbladder surgically absent. No perinephric inflammation or hydronephrosis. No renal or ureteral calculi are identified. Bladder is partially distended and not well evaluated. Uterus is not enlarged. No abnormal adnexal mass. Large and small bowel are unremarkable. Appendix is normal. No free intra-abdominal air or fluid. No obstruction. Abdominal aorta has a normal course and caliber. No enlarged abdominal lymph nodes are identified. No suspicious osseous lesions or acute fractures. IMPRESSION: 1. No acute process identified in the abdomen or pelvis. 2. Hepatic steatosis. Exposure: One or more of the following in the visualized dose reduction techniques were utilized for this examination: 1. Automated exposure control 2. Adjustment of the MA and/or KV according to patient size 3. Use of iterative of reconstructive technique Electronically signed by: Estrella Johnson MD (01/12/2019 7:39 PM) [facility] DICTATED and SIGNED BY: ESTRELLA JOHNSON MD DATE: 01/12/191938 Course & Med Decision Making Course & Med Decision Making Pertinent Labs and Imaging studies reviewed. (See chart for details) [] Dragon Disclaimer Dragon Disclaimer This electronic medical record was generated, in whole or in part, using a voice recognition dictation system. Departure Departure Impression: Primary Impression: Acute kidney injury Additional Impressions: Vomiting and diarrhea Dehydration Disposition: 09 ADMITTED INPATIENT Admitting Physician: RICKEY Condition: IMPROVED Referrals: ARNIE FERNANDEZ ND (PCP) Problem Qualifiers MANUEL DE LUNA Jr. DO Jan 12, 2019 18:30
[2019-01-12 18:43] LABS: BASO # 0.1 x10^3/uL (0.0-0.2); BASO % 1 % (0-3); EOS # 0.2 x10^3/uL (0.0-0.7); EOS % 2 % (0-3); HEMATOCRIT 44.1 % (36.0-47.0); HEMOGLOBIN 14.7 g/dL (12.0-15.5); LYMPH # 2.2 x10^3/uL (1.0-4.8); LYMPH % 29 % (24-48); MEAN CORPUSCULAR HEMOGLOBIN 28 pg (25-35); MEAN CORPUSCULAR HGB CONC 34 g/dL (31-37); MEAN CORPUSCULAR VOLUME 83 fL (79-100); MONO # 0.7 x10^3/uL (0.0-1.1); MONO % 9 % (0-9); NEUT # 4.3 x10^3/uL (1.8-7.7); NEUT % 58 % (31-73); PLATELET COUNT 294 x10^3/uL (140-400); RED BLOOD COUNT 5.31 x10^6/uL (3.50-5.40); RED CELL DISTRIBUTION WIDTH 15.6 % (11.5-14.5); WHITE BLOOD COUNT 7.4 x10^3/uL (4.0-11.0)
[2019-01-12 18:54] LABS: CALCIUM 9.1 mg/dL (8.5-10.1); CREATININE 1.6 mg/dL (0.6-1.0); GFR 33.1
[2019-01-12 18:59] LABS: ALBUMIN 3.3 g/dL (3.4-5.0); TOTAL BILIRUBIN 0.1 mg/dL (0.2-1.0); TOTAL PROTEIN 6.5 g/dL (6.4-8.2)
--- NOTE | 2019-01-12 19:41 | RAD ---
Exam: CT abdomen and pelvis without contrast INDICATION: Abdominal pain TECHNIQUE: Sequential axial images through the abdomen and pelvis obtained without IV contrast. Sagittal and coronal reformatted images were reconstructed from the axial data and reviewed. Comparisons: None FINDINGS: Heart size is normal. No pericardial effusion. Visualized lung bases are clear. No pleural effusion. Evaluation of the solid abdominal organs is limited secondary to noncontrast technique. There is diffuse hepatic steatosis. Spleen, pancreas, and adrenals are unremarkable. Gallbladder surgically absent. No perinephric inflammation or hydronephrosis. No renal or ureteral calculi are identified. Bladder is partially distended and not well evaluated. Uterus is not enlarged. No abnormal adnexal mass. Large and small bowel are unremarkable. Appendix is normal. No free intra-abdominal air or fluid. No obstruction. Abdominal aorta has a normal course and caliber. No enlarged abdominal lymph nodes are identified. No suspicious osseous lesions or acute fractures. IMPRESSION: 1. No acute process identified in the abdomen or pelvis. 2. Hepatic steatosis. Exposure: One or more of the following in the visualized dose reduction techniques were utilized for this examination: 1. Automated exposure control 2. Adjustment of the MA and/or KV according to patient size 3. Use of iterative of reconstructive technique Electronically signed by: Estrella Hopson MD (01/12/2019 7:39 PM) [facility]
[2019-01-12] MEDS ORDERED: fentaNYL PF VIAL 100 MCG/2 ML VIAL IVP ONE (19:45)
[2019-01-12 19:53] LABS: BILIRUBIN,URINE NEGATIVE (NEG); CLARITY,URINE CLEAR; COLOR,URINE YELLOW; NITRITE,URINE NEGATIVE (NEG); PROTEIN,URINE NEGATIVE (NEG-TRACE); UROBILINOGEN,URINE 0.2 mg/dL (0.2 mg/dL)
[2019-01-12 20:01] LABS: BACTERIA,URINE MODERATE /HPF (0-FEW); HYALINE CASTS, URINE FEW /HPF; RBC,URINE 0 /HPF (0-2); SQUAMOUS EPITHELIAL CELL,UR MANY /LPF
[2019-01-12] MEDS ORDERED: MORPHINE SULFATE 4 MG/ML VIAL. IV ONE (21:00)
[2019-01-12] MEDS ORDERED: ONDANSETRON PF 4 MG/2 ML VIAL. IV PRN (21:15)
--- NOTE | 2019-01-12 22:10 | NUR ---
The patient, MATEO SOUTH, 58 y/o, F admitted by JONNATHAN MAHER MD, was given written information regarding hospital policies, unit procedures and contact persons. Valuables were checked and in the room.
[2019-01-12 23:19] VITALS: BP 123/53
[2019-01-13] MEDS: MORPHINE SULFATE 4 MG/ML VIAL. IV PRN ×5 (00:06→20:35)
[2019-01-13] MEDS: IV NORMAL SALINE 1000ML BAG 1,000 ML IV SCH ×4 (02:20→20:36)
[2019-01-13 03:00] VITALS: BP 124/71
[2019-01-13 04:32] LABS: CALCIUM 8.2 mg/dL (8.5-10.1); CREATININE 1.2 mg/dL (0.6-1.0); GFR 46.1; POTASSIUM 3.6 mmol/L (3.5-5.1)
[2019-01-13 04:35] LABS: BASO # 0.1 x10^3/uL (0.0-0.2); BASO % 1 % (0-3); EOS # 0.1 x10^3/uL (0.0-0.7); EOS % 2 % (0-3); HEMOGLOBIN 13.3 g/dL (12.0-15.5); LYMPH # 2.1 x10^3/uL (1.0-4.8); LYMPH % 33 % (24-48); MEAN CORPUSCULAR HEMOGLOBIN 28 pg (25-35); MEAN CORPUSCULAR HGB CONC 33 g/dL (31-37); MEAN CORPUSCULAR VOLUME 84 fL (79-100); MONO # 0.6 x10^3/uL (0.0-1.1); MONO % 10 % (0-9); NEUT # 3.4 x10^3/uL (1.8-7.7); NEUT % 54 % (31-73); PLATELET COUNT 239 x10^3/uL (140-400); RED BLOOD COUNT 4.79 x10^6/uL (3.50-5.40); RED CELL DISTRIBUTION WIDTH 15.5 % (11.5-14.5); WHITE BLOOD COUNT 6.2 x10^3/uL (4.0-11.0)
[2019-01-13 07:00] VITALS: BP 127/47
[2019-01-13] MEDS ORDERED: ALPRAZolam 1 MG TABLET PO PRN (08:45)
[2019-01-13] MEDS ORDERED: NITROGLYCERIN SUBLINGUAL 0.4 MG BOTTLE OF 25. SL PRN (08:45)
[2019-01-13] MEDS ORDERED: oxyCODONE/APAP 5/325 1 TAB TABLET PO PRN (08:45)
[2019-01-13] MEDS ORDERED: IPRATROPIUM PRN (08:45)
[2019-01-13] MEDS ORDERED: ALBUTEROL SULFATE PRN (08:45)
[2019-01-13] MEDS ORDERED: HYDROcodone/APAP 10/325 1 TAB TABLET PO PRN (08:45)
[2019-01-13] MEDS ORDERED: POLYETHYLENE GLYCOL 3350 BTL 238 GM POWDER PO PRN (08:45)
[2019-01-13] MEDS ORDERED: TAMSULOSIN 0.4 MG CAP.ER.24H. PO SCH ×2 (09:00→09:28)
--- NOTE | 2019-01-13 09:12 | PDOC1 ---
History and Physical Date of Admission Date of Admission DATE: 01/13/19 TIME: 09:05 Identification/Chief Complaint Chief Complaint nausea, vomiting,diarrhea -perhaps fentanyl withdrawal Source Source: Caregiver, Chart review, Patient History of Present Illness History of Present Illness 58 yo obese white female, narc tolerant, uses 200 mcg fentanyl patch, used to see a pain doc but court has yet to appoint another one for her (last pain MD she claims, broke her back)- she has had 26 back sxs, some of which done here at [facility]< She ran out fentanyl patch, she does not take any PO pain meds bec opf GASTROPAresis NOT from DM she claims, BS 100s at home, Hgba1c she claims is low, HEr labs show creat 1,4 , after overnight IVF 1,2. BUt she lost her iV site and is a hard stick, agreeable to midline. Will need IVF, HOLD metformin bec of creat 1.4/1.2 DO imodium, resume home fentanyl patch dose and consult pain mx as known to his service and she requests him. Past Medical History Cardiovascular: HTN Pulmonary: Asthma, Bronchitis GI: Other Heme/Onc: Cancer Psych: Depression Musculoskeletal: low back pain, Other Rheumatologic: Fibromyalgia Endocrine: Diabetes Past Surgical History Past Surgical History: Hernia Repair, Other Family History Family History: No Significant Social History Smoke: No ALCOHOL: none Drugs: None Current Problem List Problem List Problems Medical Problems: (1) Acute kidney injury Status: Acute (2) Dehydration Status: Acute (3) Vomiting and diarrhea Status: Acute Current Medications Current Medications Current Medications Sodium Chloride 1,000 ml @ 1,000 mls/hr Q1H IV Last administered on 01/12/19at 18:48; Start 01/12/19 at 18:18; Stop 01/12/19 at 19:17; Status DC Ondansetron HCl (Zofran) 4 mg 1X ONCE IV Last administered on 01/12/19at 18:47; Start 01/12/19 at 18:30; Stop 01/12/19 at 18:31; Status DC Fentanyl Citrate (Fentanyl 2ml Vial) 50 mcg 1X ONCE IVP Last administered on 01/12/19at 19:35; Start 01/12/19 at 19:45; Stop 01/12/19 at 19:46; Status DC Morphine Sulfate (Morphine Sulfate) 4 mg 1X ONCE IV Last administered on 01/12/19at 20:47; Start 01/12/19 at 21:00; Stop 01/12/19 at 21:01; Status DC Ondansetron HCl (Zofran) 4 mg PRN Q8HRS PRN IV NAUSEA/VOMITING 1ST CHOICE Last administered on 01/13/19at 02:27; Start 01/12/19 at 21:15; Stop 01/13/19 at 08:34; Status DC Morphine Sulfate (Morphine Sulfate) 4 mg PRN Q2HR PRN IV SEVERE PAIN 7-10 Last administered on 01/13/19at 02:20; Start 01/12/19 at 21:15; Stop 01/13/19 at 21:14 Sodium Chloride 1,000 ml @ 100 mls/hr Q10H IV Last administered on 01/13/19at 02:20; Start 01/12/19 at 21:30; Stop 01/13/19 at 21:29 Fentanyl (Duragesic 100mcg/Hr Patch) 1 patch Q3DAYS TD Last administered on 01/12/19at 23:55; Start 01/13/19 at 00:00 Ondansetron HCl (Zofran) 4 mg PRN Q6HRS PRN IV NAUSEA/VOMITING 1ST CHOICE; Start 01/13/19 at 08:45 Oxycodone/ Acetaminophen (Percocet 5/325) 1 tab PRN Q4HRS PRN PO MODERATE TO SEVERE PAIN; Start 01/13/19 at 08:45 Alprazolam (Xanax) 1 mg PRN QID PRN PO ANXIETY / AGITATION; Start 01/13/19 at 08:45 Aspirin (Children'S Aspirin) 81 mg DAILY PO ; Start 01/13/19 at 09:00 Docusate Sodium (Colace) 100 mg BID PO ; Start 01/13/19 at 09:00 Estradiol (Estrace) 1 mg DAILY PO ; Start 01/13/19 at 09:00 Furosemide (Lasix) 40 mg DAILY PO ; Start 01/13/19 at 09:00 Guaifenesin (Mucinex) 600 mg BID PO ; Start 01/13/19 at 09:00 Acetaminophen/ Hydrocodone Bitart (Lortab 10/325) 1 tab PRN QID PRN PO MODERATE PAIN; Start 01/13/19 at 08:45 Medroxyprogesterone Acetate (Provera) 5 mg DAILY PO ; Start 01/13/19 at 09:00 Nitroglycerin (Nitrostat) 0.4 mg PRN Q5MIN PRN SL CHEST PAIN; Start 01/13/19 at 08:45 Polyethylene Glycol (miraLAX Powder BULK BOTTLE) 17 gm PRN DAILY PRN PO CONSTIPATION; Start 01/13/19 at 08:45 Potassium Chloride (Klor-Con) 20 meq DAILY PO ; Start 01/13/19 at 09:00 Sennosides (Senna) 8.6 mg BID PO ; Start 01/13/19 at 09:00 Tamsulosin HCl (Flomax) 0.16 mg DAILY PO ; Start 01/13/19 at 09:00 Trazodone HCl (Desyrel) 100 mg QHS PO ; Start 01/13/19 at 21:00 Pantoprazole Sodium (Protonix) 40 mg DAILYAC PO ; Start 01/13/19 at 11:30 Non-Formulary Medication (Eszopiclone (Lunesta)) 3 mg HS PO ; Start 01/13/19 at 21:00; Status UNV Gabapentin (Neurontin) 600 mg TID PO ; Start 01/13/19 at 09:00 Non-Formulary Medication (Ipratropium/ Albuterol Sulfate (Combivent Inhaler)) prn QID PRN .ROUTE SHORTNESS OF BREATH; Start 01/13/19 at 08:45; Status UNV Ondansetron HCl (Zofran Odt) 4 mg PRN BID PRN PO NAUSEA/VOMITING; Start 01/13/19 at 08:45 Active Scripts Active Mucinex (Guaifenesin) 600 Mg Tablet.er 600 Mg PO BID Reported Flomax (Tamsulosin Hcl) 0.4 Mg Cap.er.24h 0.4 Cap PO DAILY Furosemide 40 Mg Tablet 1 Tab PO DAILY Children's Aspirin (Aspirin) 81 Mg Tab.chew 81 Mg PO DAILY NITROGLYCERIN SubLingual (Nitroglycerin) 0.4 Mg Tab.subl 0.4 Mg SL PRN Q5MIN PRN Medroxyprogesterone Acetate 2.5 Mg Tablet 5 Mg PO DAILY Gabapentin 600 Mg Tablet 600 Mg PO TID Estradiol 1 Mg Tablet 1 Tab PO DAILY Metformin Hcl 500 Mg Tablet 1 Tab PO BID Potassium Chloride 10 Meq Capsule.er 20 Meq PO DAILY Trazodone Hcl 100 Mg Tablet 1 Tab PO QHS Zofran (Ondansetron Hcl) 4 Mg Tablet 4 Mg PO BID PRN Polyethylene Glycol 3350 255 Gm Powder 17 Gm PO DAILY PRN Colace (Docusate Sodium) 100 Mg Capsule 1 Cap PO BID Senokot (Sennosides) 8.6 Mg Tablet 1 Tab PO BID Breo Ellipta 100-25 Mcg Inh (Fluticasone/Vilanterol) 1 Each Aer.pow.ba 1 Puff [facility] [place] 10-325 Tablet (Acetaminophen/Hydrocodone Bitart) 1 Each Tablet 1-2 Tab PO Q4-6HRS PRN FENTANYL 100mcg/hr (Fentanyl) 1 Each Patch.td72 1 Patch TD Q3DAYS Combivent Inhaler (Ipratropium/Albuterol Sulfate) 14.7 Gm Aer.w.adap 1-2 PRN DAILY PRN Nexium Capsule (Esomeprazole Magnesium) 40 Mg Capsule.dr 1 Tab PO DAILY Lunesta (Eszopiclone) 1 Mg Tablet 3 Mg PO HS Alprazolam 1 Mg Tablet 1 Mg PO PRN QID PRN Allergies Allergies: Coded Allergies: chlorhexidine (Verified Allergy, Severe, SEVERE BURNING TO SKIN, 01/20/17) CHLOROAPREP Sulfa (Sulfonamide Antibiotics) (Verified Allergy, Intermediate, 01/20/17) cephalexin (Verified Allergy, Intermediate, 01/20/17) ROS Review of System n.v. diarrhea, abd pain but CT neg (likely for the n,.v.d) The rest 14 pt neg, no fevers Physical Exam General: Alert, Oriented X3, Cooperative, No acute distress HEENT: Atraumatic, PERRLA, EOMI Lungs: Clear to auscultation, Normal air movement Heart: S1S2, RRR, no thrills, no rubs, no gallops, no murmurs Cardiovascular: S1 Breasts: Normal, Rt breast nml w/o mass, Lt breast nml w/o mass, Nipples normal Abdomen: Normal bowel sounds, Soft, No tenderness, No hepatosplenomegaly, No masses, Other (hyperactive BS< n o guarding) Rectal Exam: not examined PELVIC: Nml ext genitalia Extremities: No clubbing, No cyanosis, No edema, Normal pulses, No tenderness/swelling Skin: No rashes, No breakdown, No significant lesion Neuro: Normal gait, Normal speech, Strength at 5/5 X4 ext, Normal tone, Sensation intact, Cranial nerves 3-12 NL, Reflexes 2+ Psych/Mental Status: Mental status NL Vitals Vitals Vital Signs Date Time Temp Pulse Resp B/P (MAP) Pulse Ox O2 Delivery O2 Flow Rate FiO2 01/13/19 07:00 97.6 86 20 127/47 (73) 98 Nasal Cannula 3.0 97.6 Labs Labs Laboratory Tests Test 01/12/19 18:30 01/12/19 19:40 01/13/19 03:50 White Blood Count 7.4 x10^3/uL (4.0-11.0) 6.2 x10^3/uL (4.0-11.0) Red Blood Count 5.31 x10^6/uL (3.50-5.40) 4.79 x10^6/uL (3.50-5.40) Hemoglobin 14.7 g/dL (12.0-15.5) 13.3 g/dL (12.0-15.5) Hematocrit 44.1 % (36.0-47.0) 40.0 % (36.0-47.0) Mean Corpuscular Volume 83 fL (79-100) 84 fL (79-100) Mean Corpuscular Hemoglobin 28 pg (25-35) 28 pg (25-35) Mean Corpuscular Hemoglobin Concent 34 g/dL (31-37) 33 g/dL (31-37) Red Cell Distribution Width 15.6 % (11.5-14.5) 15.5 % (11.5-14.5) Platelet Count 294 x10^3/uL (140-400) 239 x10^3/uL (140-400) Neutrophils (%) (Auto) 58 % (31-73) 54 % (31-73) Lymphocytes (%) (Auto) 29 % (24-48) 33 % (24-48) Monocytes (%) (Auto) 9 % (0-9) 10 % (0-9) Eosinophils (%) (Auto) 2 % (0-3) 2 % (0-3) Basophils (%) (Auto) 1 % (0-3) 1 % (0-3) Neutrophils # (Auto) 4.3 x10^3/uL (1.8-7.7) 3.4 x10^3/uL (1.8-7.7) Lymphocytes # (Auto) 2.2 x10^3/uL (1.0-4.8) 2.1 x10^3/uL (1.0-4.8) Monocytes # (Auto) 0.7 x10^3/uL (0.0-1.1) 0.6 x10^3/uL (0.0-1.1) Eosinophils # (Auto) 0.2 x10^3/uL (0.0-0.7) 0.1 x10^3/uL (0.0-0.7) Basophils # (Auto) 0.1 x10^3/uL (0.0-0.2) 0.1 x10^3/uL (0.0-0.2) Sodium Level 144 mmol/L (136-145) 141 mmol/L (136-145) Potassium Level 4.0 mmol/L (3.5-5.1) 3.6 mmol/L (3.5-5.1) Chloride Level 102 mmol/L (98-107) 105 mmol/L (98-107) Carbon Dioxide Level 28 mmol/L (21-32) 26 mmol/L (21-32) Anion Gap 14 (6-14) 10 (6-14) Blood Urea Nitrogen 26 mg/dL (7-20) 21 mg/dL (7-20) Creatinine 1.6 mg/dL (0.6-1.0) 1.2 mg/dL (0.6-1.0) Estimated GFR (Cockcroft-Gault) 33.1 46.1 BUN/Creatinine Ratio 16 (6-20) Glucose Level 124 mg/dL (70-99) 92 mg/dL (70-99) Calcium Level 9.1 mg/dL (8.5-10.1) 8.2 mg/dL (8.5-10.1) Total Bilirubin 0.1 mg/dL (0.2-1.0) Aspartate Amino Transf (AST/SGOT) 17 U/L (15-37) Alanine Aminotransferase (ALT/SGPT) 13 U/L (14-59) Alkaline Phosphatase 100 U/L (46-116) Total Protein 6.5 g/dL (6.4-8.2) Albumin 3.3 g/dL (3.4-5.0) Albumin/Globulin Ratio 1.0 (1.0-1.7) Lipase 66 U/L (73-393) Urine Collection Type Unknown Urine Color Yellow Urine Clarity Clear Urine pH 5.0 Urine Specific [place] >=1.030 Urine Protein Negative mg/dL (NEG-TRACE) Urine Glucose (UA) Negative mg/dL (NEG) Urine Ketones (Stick) Negative mg/dL (NEG) Urine Blood Negative (NEG) Urine Nitrite Negative (NEG) Urine Bilirubin Negative (NEG) Urine Urobilinogen Dipstick 0.2 mg/dL (0.2 mg/dL) Urine Leukocyte Esterase Small (NEG) Urine RBC 0 /HPF (0-2) Urine WBC 5-10 /HPF (0-4) Urine Squamous Epithelial Cells Many /LPF Urine Transitional Epithelial Cells Few /LPF Urine Bacteria Moderate /HPF (0-FEW) Urine Hyaline Casts Few /HPF Urine Mucus Mod /LPF Laboratory Tests Test 01/12/19 18:30 01/12/19 19:40 01/13/19 03:50 White Blood Count 7.4 x10^3/uL (4.0-11.0) 6.2 x10^3/uL (4.0-11.0) Red Blood Count 5.31 x10^6/uL (3.50-5.40) 4.79 x10^6/uL (3.50-5.40) Hemoglobin 14.7 g/dL (12.0-15.5) 13.3 g/dL (12.0-15.5) Hematocrit 44.1 % (36.0-47.0) 40.0 % (36.0-47.0) Mean Corpuscular Volume 83 fL (79-100) 84 fL (79-100) Mean Corpuscular Hemoglobin 28 pg (25-35) 28 pg (25-35) Mean Corpuscular Hemoglobin Concent 34 g/dL (31-37) 33 g/dL (31-37) Red Cell Distribution Width 15.6 % (11.5-14.5) 15.5 % (11.5-14.5) Platelet Count 294 x10^3/uL (140-400) 239 x10^3/uL (140-400) Neutrophils (%) (Auto) 58 % (31-73) 54 % (31-73) Lymphocytes (%) (Auto) 29 % (24-48) 33 % (24-48) Monocytes (%) (Auto) 9 % (0-9) 10 % (0-9) Eosinophils (%) (Auto) 2 % (0-3) 2 % (0-3) Basophils (%) (Auto) 1 % (0-3) 1 % (0-3) Neutrophils # (Auto) 4.3 x10^3/uL (1.8-7.7) 3.4 x10^3/uL (1.8-7.7) Lymphocytes # (Auto) 2.2 x10^3/uL (1.0-4.8) 2.1 x10^3/uL (1.0-4.8) Monocytes # (Auto) 0.7 x10^3/uL (0.0-1.1) 0.6 x10^3/uL (0.0-1.1) Eosinophils # (Auto) 0.2 x10^3/uL (0.0-0.7) 0.1 x10^3/uL (0.0-0.7) Basophils # (Auto) 0.1 x10^3/uL (0.0-0.2) 0.1 x10^3/uL (0.0-0.2) Sodium Level 144 mmol/L (136-145) 141 mmol/L (136-145) Potassium Level 4.0 mmol/L (3.5-5.1) 3.6 mmol/L (3.5-5.1) Chloride Level 102 mmol/L (98-107) 105 mmol/L (98-107) Carbon Dioxide Level 28 mmol/L (21-32) 26 mmol/L (21-32) Anion Gap 14 (6-14) 10 (6-14) Blood Urea Nitrogen 26 mg/dL (7-20) 21 mg/dL (7-20) Creatinine 1.6 mg/dL (0.6-1.0) 1.2 mg/dL (0.6-1.0) Estimated GFR (Cockcroft-Gault) 33.1 46.1 BUN/Creatinine Ratio 16 (6-20) Glucose Level 124 mg/dL (70-99) 92 mg/dL (70-99) Calcium Level 9.1 mg/dL (8.5-10.1) 8.2 mg/dL (8.5-10.1) Total Bilirubin 0.1 mg/dL (0.2-1.0) Aspartate Amino Transf (AST/SGOT) 17 U/L (15-37) Alanine Aminotransferase (ALT/SGPT) 13 U/L (14-59) Alkaline Phosphatase 100 U/L (46-116) Total Protein 6.5 g/dL (6.4-8.2) Albumin 3.3 g/dL (3.4-5.0) Albumin/Globulin Ratio 1.0 (1.0-1.7) Lipase 66 U/L (73-393) Urine Collection Type Unknown Urine Color Yellow Urine Clarity Clear Urine pH 5.0 Urine Specific [place] >=1.030 Urine Protein Negative mg/dL (NEG-TRACE) Urine Glucose (UA) Negative mg/dL (NEG) Urine Ketones (Stick) Negative mg/dL (NEG) Urine Blood Negative (NEG) Urine Nitrite Negative (NEG) Urine Bilirubin Negative (NEG) Urine Urobilinogen Dipstick 0.2 mg/dL (0.2 mg/dL) Urine Leukocyte Esterase Small (NEG) Urine RBC 0 /HPF (0-2) Urine WBC 5-10 /HPF (0-4) Urine Squamous Epithelial Cells Many /LPF Urine Transitional Epithelial Cells Few /LPF Urine Bacteria Moderate /HPF (0-FEW) Urine Hyaline Casts Few /HPF Urine Mucus Mod /LPF VTE Prophylaxis Ordered VTE Prophylaxis Devices: Yes VTE Pharmacological Prophylaxi: Yes Assessment/Plan Assessment/Plan 1. FEntanyl withdrawal manifested as n.v. diarrhea- ran out of her patch from taking home dose 200mcg 2. Obesity BMI 31.2 3,. CHronic lumbago with hx 26 back sxs 4. HTn, etc - chronci stable 5. ANDREAS sec to [facility], GI losses- needs mid line for IVF and recheck BMP tmr 6. GAstroparesis - claims cant take PO pain meds 7. DM 2 seems to be controlled as per her acct- check hgba1c PLAN: Resume home dose fentanyl patch MAy resume all home meds EXCEPt metformin bec of ANDREAS Dr Reilly Sanchez pain mx consult Midline if needed for IVF Dw RN Inez FULL CODE Recheck BMP tmr and hgba1c' Trial of imodium for the diarrhea JONNATHAN GEORGE MD Jan 13, 2019 09:12
[2019-01-13] MEDS ORDERED: fentaNYL 100MCG/HR PATCH 1 PATCH PATCH TD SCH ×2 (09:15)
[2019-01-13] MEDS ORDERED: LOPERAMIDE 2 MG CAPSULE PO PRN (09:15)
[2019-01-13] MEDS ORDERED: ALBUTEROL SULFATE 2.5 MG/3 ML NEBU. NEB PRN (09:15)
[2019-01-13] MEDS: ONDANSETRON ODT 4 MG TAB.RAPDIS. PO PRN (09:18)
--- NOTE | 2019-01-13 10:28 | NUR ---
Midline Pre-Insertion Note Allergies and reactions Sulfa, cephalexin, chlorhexadine INR n/a BUN 21 Cr 1.2 Platelets 239 Blood culture done no blood culture results n/a Order Verified yes Consent signed yes Previous PICC placement no Past Medical/Surgical history and current diagnosis reviewed yes Patient Medical /Surgical History Related to Midline placement Problems breathing lying flat Special considerations for Midline placement None Midline placement indication Poor peripheral intravenous access name of PICC Nurse Deysi Tolentino RN Addendum: 01/13/19 at 1057 by OMAR TOLENTINO RN Amended: Links added.
--- NOTE | 2019-01-13 10:45 | NUR ---
Corrected Midline Insertion Note- Procedure: Following complete explanation of the Midline procedure including the indications, risks, and potential complications, informed consent was obtained. The possibility for infection was discussed along with signs, symptoms, and prevention. All the questions were answered. Written and verbal patient education was provided. Hand hygiene performed. Standardized central line checklist was utilized. The patient was placed in the supine position, the arm was prepped with chlorhexidine and patient draped with maximum sterile barrier. 2 mL 1% lidocaine was infiltrated into the skin to provide local anesthesia. A thorough assessment of Right upper extremity completed. Using real-time ultrasound guidance and standardized micro puncture set, the Basilic vein was punctured and a peel away sheath was placed using the modified Seldinger technique. A tip location device was used to ensure adequate catheter placement. The catheter was secured using a securement device and an antimicrobial patch was applied directly on the insertion site followed by a transparent dressing. All ports withdraw blood and flush without resistance. Patient tolerated the procedure without apparent complication(s). Single Lumen Power Midline placement successful and uncomplicated. Tip located in the Right Axilla. Complications: none Catheter trimmed at 17cm with 0cm visible at insertion site.
--- NOTE | 2019-01-13 10:57 | NUR ---
Midline Insertion Note- Procedure: Following complete explanation of the PICC procedure including the indications, risks, and potential complications, informed consent was obtained. The possibility for infection was discussed along with signs, symptoms, and prevention. All the[] questions were answered. Written and verbal patient education was provided. Hand hygiene performed. Standardized central line checklist was utilized. The patient was placed in the supine position, the arm was prepped with chlorhexidine and patient draped with maximum sterile barrier. 2 mL 1% lidocaine was infiltrated into the skin to provide local anesthesia. A thorough assessment of Right upper extremity completed. Using real-time ultrasound guidance and standardized micro puncture set, the [] vein was punctured and a peel away sheath was placed using the modified Seldinger technique. A tip location device was used to ensure adequate catheter placement. The catheter was secured using a securement device and an antimicrobial patch was applied directly on the insertion site followed by a transparent dressing. All ports withdraw blood and flush without resistance. Patient tolerated the procedure without apparent complication(s). [] Lumen Power PICC placement successful and uncomplicated. Placement verified by EKG tip confirmation system and/or chest x-ray. Tip located in the [] Complications: [] Addendum: 01/13/19 at 1101 by OMAR SPRAGUE RN Disregard this note- not completed
[2019-01-13 11:00] VITALS: BP 127/64
[2019-01-13] MEDS: PANTOPRAZOLE 40 MG TABLET.DR. PO SCH (11:03)
[2019-01-13] MEDS: ONDANSETRON PF 4 MG/2 ML VIAL. IV PRN ×2 (11:04→21:20)
--- NOTE | 2019-01-13 12:48 | PDOC ---
SUBJECTIVE Subjective nausea and vomiting OBJECTIVE Objective 58 yo female admitted for nausea/vomiting/diarrhea, apparent fentanyl withdrawl Vital Signs Vital Signs Date Time Temp Pulse Resp B/P (MAP) Pulse Ox O2 Delivery O2 Flow Rate FiO2 01/13/19 11:19 Nasal Cannula 3.0 01/13/19 11:04 Nasal Cannula 3.0 01/13/19 11:00 97.8 80 19 127/64 (85) 97 Room Air 97.8 01/13/19 08:00 Nasal Cannula 3.0 01/13/19 07:00 97.6 86 20 127/47 (73) 98 Nasal Cannula 3.0 97.6 01/13/19 03:55 97 Nasal Cannula 3.0 01/13/19 03:00 98.0 84 18 124/71 (88) 97 Nasal Cannula 3.0 98.0 01/13/19 02:50 97 Nasal Cannula 3.0 01/13/19 02:20 96 Nasal Cannula 3.0 01/13/19 00:36 96 3.0 01/13/19 00:06 96 3.0 01/12/19 23:55 96 Room Air 3.0 01/12/19 23:19 97.8 88 18 123/53 (76) 96 Nasal Cannula 97.8 01/12/19 22:10 Nasal Cannula 3.0 01/12/19 21:30 80 120/61 (80) 93 Nasal Cannula 3.0 01/12/19 20:45 93 147/78 (101) 93 Nasal Cannula 3.0 01/12/19 20:15 96 109/78 (88) 97 Nasal Cannula 3.0 01/12/19 19:35 18 98 Room Air 01/12/19 19:30 98 110/73 (85) 97 Room Air 01/12/19 18:51 98 113/61 (78) 97 Room Air 01/12/19 17:57 98 120/85 (97) 97 Room Air 01/12/19 17:03 97.9 94 16 140/83 (102) 98 Nasal Cannula 3.0 97.9 01/12/19 16:57 104 190/97 (128) 96 Room Air I & O Intake and Output 01/13/19 06:59 # Voids 2 ASSESSMENT/PLAN Assessment/Plan Pt. with apparent fentanyl withdrawl -was discharged from my clinic 2014 for narcotic contract violations. 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 physician REC: Duragesic patch to duplicate daily home dose. COMMENT Lab Laboratory Tests Test 01/12/19 18:30 01/12/19 19:40 01/13/19 03:50 White Blood Count 7.4 x10^3/uL (4.0-11.0) 6.2 x10^3/uL (4.0-11.0) Red Blood Count 5.31 x10^6/uL (3.50-5.40) 4.79 x10^6/uL (3.50-5.40) Hemoglobin 14.7 g/dL (12.0-15.5) 13.3 g/dL (12.0-15.5) Hematocrit 44.1 % (36.0-47.0) 40.0 % (36.0-47.0) Mean Corpuscular Volume 83 fL (79-100) 84 fL (79-100) Mean Corpuscular Hemoglobin 28 pg (25-35) 28 pg (25-35) Mean Corpuscular Hemoglobin Concent 34 g/dL (31-37) 33 g/dL (31-37) Red Cell Distribution Width 15.6 % (11.5-14.5) 15.5 % (11.5-14.5) Platelet Count 294 x10^3/uL (140-400) 239 x10^3/uL (140-400) Neutrophils (%) (Auto) 58 % (31-73) 54 % (31-73) Lymphocytes (%) (Auto) 29 % (24-48) 33 % (24-48) Monocytes (%) (Auto) 9 % (0-9) 10 % (0-9) Eosinophils (%) (Auto) 2 % (0-3) 2 % (0-3) Basophils (%) (Auto) 1 % (0-3) 1 % (0-3) Neutrophils # (Auto) 4.3 x10^3/uL (1.8-7.7) 3.4 x10^3/uL (1.8-7.7) Lymphocytes # (Auto) 2.2 x10^3/uL (1.0-4.8) 2.1 x10^3/uL (1.0-4.8) Monocytes # (Auto) 0.7 x10^3/uL (0.0-1.1) 0.6 x10^3/uL (0.0-1.1) Eosinophils # (Auto) 0.2 x10^3/uL (0.0-0.7) 0.1 x10^3/uL (0.0-0.7) Basophils # (Auto) 0.1 x10^3/uL (0.0-0.2) 0.1 x10^3/uL (0.0-0.2) Sodium Level 144 mmol/L (136-145) 141 mmol/L (136-145) Potassium Level 4.0 mmol/L (3.5-5.1) 3.6 mmol/L (3.5-5.1) Chloride Level 102 mmol/L (98-107) 105 mmol/L (98-107) Carbon Dioxide Level 28 mmol/L (21-32) 26 mmol/L (21-32) Anion Gap 14 (6-14) 10 (6-14) Blood Urea Nitrogen 26 mg/dL (7-20) 21 mg/dL (7-20) Creatinine 1.6 mg/dL (0.6-1.0) 1.2 mg/dL (0.6-1.0) Estimated GFR (Cockcroft-Gault) 33.1 46.1 BUN/Creatinine Ratio 16 (6-20) Glucose Level 124 mg/dL (70-99) 92 mg/dL (70-99) Calcium Level 9.1 mg/dL (8.5-10.1) 8.2 mg/dL (8.5-10.1) Total Bilirubin 0.1 mg/dL (0.2-1.0) Aspartate Amino Transf (AST/SGOT) 17 U/L (15-37) Alanine Aminotransferase (ALT/SGPT) 13 U/L (14-59) Alkaline Phosphatase 100 U/L (46-116) Total Protein 6.5 g/dL (6.4-8.2) Albumin 3.3 g/dL (3.4-5.0) Albumin/Globulin Ratio 1.0 (1.0-1.7) Lipase 66 U/L (73-393) Urine Collection Type Unknown Urine Color Yellow Urine Clarity Clear Urine pH 5.0 Urine Specific [place] >=1.030 Urine Protein Negative mg/dL (NEG-TRACE) Urine Glucose (UA) Negative mg/dL (NEG) Urine Ketones (Stick) Negative mg/dL (NEG) Urine Blood Negative (NEG) Urine Nitrite Negative (NEG) Urine Bilirubin Negative (NEG) Urine Urobilinogen Dipstick 0.2 mg/dL (0.2 mg/dL) Urine Leukocyte Esterase Small (NEG) Urine RBC 0 /HPF (0-2) Urine WBC 5-10 /HPF (0-4) Urine Squamous Epithelial Cells Many /LPF Urine Transitional Epithelial Cells Few /LPF Urine Bacteria Moderate /HPF (0-FEW) Urine Hyaline Casts Few /HPF Urine Mucus Mod /LPF ROSALINDA PARNELL MD Jan 13, 2019 12:48
[2019-01-13] MEDS: POTASSIUM CHLORIDE 10 MEQ TABLET.ER. PO SCH (12:52)
[2019-01-13] MEDS: FUROSEMIDE 40 MG TABLET. PO SCH (12:52)
[2019-01-13] MEDS: ASPIRIN CHEWABLE 81 MG TABLET. PO SCH (12:52)
[2019-01-13] MEDS: GABAPENTIN 300 MG CAPSULE. PO SCH ×3 (12:53→21:20)
[2019-01-13] MEDS: SENNOSIDES 8.6 MG TABLET PO SCH ×2 (12:54→20:37)
[2019-01-13] MEDS: ESTRADIOL 1 MG TABLET. PO SCH (12:54)
[2019-01-13] MEDS: DOCUSATE SODIUM 100 MG CAPSULE. PO SCH ×2 (12:54→20:09)
[2019-01-13 15:00] VITALS: BP 154/67
[2019-01-13 19:00] VITALS: BP 109/65
[2019-01-13] MEDS: BREO ELLIPTA INH SCH (20:19)
[2019-01-13] MEDS ORDERED: traZODone 100 MG TABLET. PO SCH (21:00)
[2019-01-13] MEDS ORDERED: ESZOPICLONE 3 MG PO SCH (21:00)
[2019-01-13] MEDS: ZOLPIDEM 5 MG TABLET. PO PRN (21:20)
[2019-01-13 23:00] VITALS: BP 115/64
[2019-01-14] MEDS: MORPHINE SULFATE 2 MG/ML VIAL. IV PRN ×4 (00:33→21:43)
[2019-01-14] MEDS ORDERED: INSU100I32 SQ (00:44)
[2019-01-14] MEDS ORDERED: DEXTROSE 50% 25 GM / 50ML DISP.SYRIN. IV PRN (00:45)
[2019-01-14 03:00] VITALS: BP 131/78
[2019-01-14 04:57] LABS: CALCIUM 8.3 mg/dL (8.5-10.1); CREATININE 1.1 mg/dL (0.6-1.0); POTASSIUM 3.6 mmol/L (3.5-5.1)
[2019-01-14] MEDS: IV NORMAL SALINE 1000ML BAG 1,000 ML IV SCH ×2 (06:26→16:45)
[2019-01-14 07:28] VITALS: BP 125/73
[2019-01-14] MEDS: ESTRADIOL 1 MG TABLET. PO SCH (08:31)
[2019-01-14] MEDS: PANTOPRAZOLE 40 MG TABLET.DR. PO SCH (08:32)
[2019-01-14] MEDS: ASPIRIN CHEWABLE 81 MG TABLET. PO SCH (08:32)
[2019-01-14] MEDS: FUROSEMIDE 40 MG TABLET. PO SCH (08:32)
[2019-01-14] MEDS: GABAPENTIN 300 MG CAPSULE. PO SCH ×3 (08:32→21:42)
[2019-01-14] MEDS: POTASSIUM CHLORIDE 10 MEQ TABLET.ER. PO SCH (08:33)
[2019-01-14] MEDS: SENNOSIDES 8.6 MG TABLET PO SCH (09:00)
[2019-01-14] MEDS: DOCUSATE SODIUM 100 MG CAPSULE. PO SCH (09:00)
--- NOTE | 2019-01-14 10:33 | PDOC ---
PROGRESS NOTES History of Present Illness History of Present Illness VTE Prophylaxis Ordered VTE Prophylaxis Devices: Yes VTE Pharmacological Prophylaxi: Yes Assessment/Plan Assessment/Plan 1. FEntanyl withdrawal manifested as n.v. diarrhea- 2. Obesity BMI 31.2 3,.CHronic lumbago with hx 26 back sxs 4. Hypertension 5. ANDREAS sec to VMN, GI losses- 6. GAstroparesis - claims cant take PO pain meds 7. DM 2 8. No acute process identified in the abdomen or pelvis. 9. Hepatic steatosis. 10. dehydration 11. possible uti PLAN: Resume fentanyl patch MAy resume all home meds hold metformin // ANDREAS Dr Reilly Sanchez pain management consult discharged from his clinic in 2014 for narcotic contract violations. Midline Dw RN FULL CODE Recheck BMP tmr and hgba1c' Trial of imodium ADAT iv hydrate 38 min pt exam, chart review, > 50% of time spent with exam, chart review, pt care coordination Vitals Vitals Vital Signs Date Time Temp Pulse Resp B/P (MAP) Pulse Ox O2 Delivery O2 Flow Rate FiO2 01/14/19 07:28 99.0 80 20 125/73 (90) 97 Nasal Cannula 3.0 99.0 Physical Exam General: Alert, Oriented X3, Cooperative, No acute distress Heart: Regular rate Lungs: Clear, Wheezing Abdomen: Normal bowel sounds, Soft, No tenderness, No hepatosplenomegaly, No masses, Other (hyperactive BS< n o guarding) Extremities: No clubbing, No cyanosis, No edema, Normal pulses, No tenderness/swelling Skin: No rashes, No breakdown, No significant lesion Labs LABS Exam: CT abdomen and pelvis without contrast INDICATION: Abdominal pain TECHNIQUE: Sequential axial images through the abdomen and pelvis obtained without IV contrast. Sagittal and coronal reformatted images were reconstructed from the axial data and reviewed. Comparisons: None FINDINGS: Heart size is normal. No pericardial effusion. Visualized lung bases are clear. No pleural effusion. Evaluation of the solid abdominal organs is limited secondary to noncontrast technique. There is diffuse hepatic steatosis. Spleen, pancreas, and adrenals are unremarkable. Gallbladder surgically absent. No perinephric inflammation or hydronephrosis. No renal or ureteral calculi are identified. Bladder is partially distended and not well evaluated. Uterus is not enlarged. No abnormal adnexal mass. Large and small bowel are unremarkable. Appendix is normal. No free intra-abdominal air or fluid. No obstruction. Abdominal aorta has a normal course and caliber. No enlarged abdominal lymph nodes are identified. No suspicious osseous lesions or acute fractures. IMPRESSION: 1. No acute process identified in the abdomen or pelvis. 2. Hepatic steatosis. Exposure: One or more of the following in the visualized dose reduction techniques were utilized for this examination: 1. Automated exposure control 2. Adjustment of the MA and/or KV according to patient size 3. Use of iterative of reconstructive technique Electronically signed by: Estrella Johnson MD (01/12/2019 7:39 PM) [facility] DICTATED and SIGNED BY: ESTRELLA JOHNSON MD DATE: 01/12/191938 Laboratory Tests Test 01/14/19 04:20 01/14/19 07:32 Sodium Level 141 mmol/L (136-145) Potassium Level 3.6 mmol/L (3.5-5.1) Chloride Level 104 mmol/L (98-107) Carbon Dioxide Level 28 mmol/L (21-32) Anion Gap 9 (6-14) Blood Urea Nitrogen 15 mg/dL (7-20) Creatinine 1.1 mg/dL (0.6-1.0) Estimated GFR (Cockcroft-Gault) 51.0 Glucose Level 105 mg/dL (70-99) Calcium Level 8.3 mg/dL (8.5-10.1) Glucose (Fingerstick) 88 mg/dL (70-99) Assessment and Plan Assessmemt and Plan Problems Medical Problems: (1) Acute kidney injury Status: Acute (2) Dehydration Status: Acute (3) Vomiting and diarrhea Status: Acute Comment Review of Relevant I have reviewed the following items nila (where applicable) has been applied. Labs Laboratory Tests Test 01/12/19 18:30 01/12/19 19:40 01/13/19 03:50 01/14/19 04:20 White Blood Count 7.4 x10^3/uL (4.0-11.0) 6.2 x10^3/uL (4.0-11.0) Red Blood Count 5.31 x10^6/uL (3.50-5.40) 4.79 x10^6/uL (3.50-5.40) Hemoglobin 14.7 g/dL (12.0-15.5) 13.3 g/dL (12.0-15.5) Hematocrit 44.1 % (36.0-47.0) 40.0 % (36.0-47.0) Mean Corpuscular Volume 83 fL (79-100) 84 fL (79-100) Mean Corpuscular Hemoglobin 28 pg (25-35) 28 pg (25-35) Mean Corpuscular Hemoglobin Concent 34 g/dL (31-37) 33 g/dL (31-37) Red Cell Distribution Width 15.6 % (11.5-14.5) 15.5 % (11.5-14.5) Platelet Count 294 x10^3/uL (140-400) 239 x10^3/uL (140-400) Neutrophils (%) (Auto) 58 % (31-73) 54 % (31-73) Lymphocytes (%) (Auto) 29 % (24-48) 33 % (24-48) Monocytes (%) (Auto) 9 % (0-9) 10 % (0-9) Eosinophils (%) (Auto) 2 % (0-3) 2 % (0-3) Basophils (%) (Auto) 1 % (0-3) 1 % (0-3) Neutrophils # (Auto) 4.3 x10^3/uL (1.8-7.7) 3.4 x10^3/uL (1.8-7.7) Lymphocytes # (Auto) 2.2 x10^3/uL (1.0-4.8) 2.1 x10^3/uL (1.0-4.8) Monocytes # (Auto) 0.7 x10^3/uL (0.0-1.1) 0.6 x10^3/uL (0.0-1.1) Eosinophils # (Auto) 0.2 x10^3/uL (0.0-0.7) 0.1 x10^3/uL (0.0-0.7) Basophils # (Auto) 0.1 x10^3/uL (0.0-0.2) 0.1 x10^3/uL (0.0-0.2) Sodium Level 144 mmol/L (136-145) 141 mmol/L (136-145) 141 mmol/L (136-145) Potassium Level 4.0 mmol/L (3.5-5.1) 3.6 mmol/L (3.5-5.1) 3.6 mmol/L (3.5-5.1) Chloride Level 102 mmol/L (98-107) 105 mmol/L (98-107) 104 mmol/L (98-107) Carbon Dioxide Level 28 mmol/L (21-32) 26 mmol/L (21-32) 28 mmol/L (21-32) Anion Gap 14 (6-14) 10 (6-14) 9 (6-14) Blood Urea Nitrogen 26 mg/dL (7-20) 21 mg/dL (7-20) 15 mg/dL (7-20) Creatinine 1.6 mg/dL (0.6-1.0) 1.2 mg/dL (0.6-1.0) 1.1 mg/dL (0.6-1.0) Estimated GFR (Cockcroft-Gault) 33.1 46.1 51.0 BUN/Creatinine Ratio 16 (6-20) Glucose Level 124 mg/dL (70-99) 92 mg/dL (70-99) 105 mg/dL (70-99) Calcium Level 9.1 mg/dL (8.5-10.1) 8.2 mg/dL (8.5-10.1) 8.3 mg/dL (8.5-10.1) Total Bilirubin 0.1 mg/dL (0.2-1.0) Aspartate Amino Transf (AST/SGOT) 17 U/L (15-37) Alanine Aminotransferase (ALT/SGPT) 13 U/L (14-59) Alkaline Phosphatase 100 U/L (46-116) Total Protein 6.5 g/dL (6.4-8.2) Albumin 3.3 g/dL (3.4-5.0) Albumin/Globulin Ratio 1.0 (1.0-1.7) Lipase 66 U/L (73-393) Urine Collection Type Unknown Urine Color Yellow Urine Clarity Clear Urine pH 5.0 Urine Specific [place] >=1.030 Urine Protein Negative mg/dL (NEG-TRACE) Urine Glucose (UA) Negative mg/dL (NEG) Urine Ketones (Stick) Negative mg/dL (NEG) Urine Blood Negative (NEG) Urine Nitrite Negative (NEG) Urine Bilirubin Negative (NEG) Urine Urobilinogen Dipstick 0.2 mg/dL (0.2 mg/dL) Urine Leukocyte Esterase Small (NEG) Urine RBC 0 /HPF (0-2) Urine WBC 5-10 /HPF (0-4) Urine Squamous Epithelial Cells Many /LPF Urine Transitional Epithelial Cells Few /LPF Urine Bacteria Moderate /HPF (0-FEW) Urine Hyaline Casts Few /HPF Urine Mucus Mod /LPF Test 01/14/19 07:32 Glucose (Fingerstick) 88 mg/dL (70-99) Laboratory Tests Test 01/14/19 04:20 01/14/19 07:32 Sodium Level 141 mmol/L (136-145) Potassium Level 3.6 mmol/L (3.5-5.1) Chloride Level 104 mmol/L (98-107) Carbon Dioxide Level 28 mmol/L (21-32) Anion Gap 9 (6-14) Blood Urea Nitrogen 15 mg/dL (7-20) Creatinine 1.1 mg/dL (0.6-1.0) Estimated GFR (Cockcroft-Gault) 51.0 Glucose Level 105 mg/dL (70-99) Calcium Level 8.3 mg/dL (8.5-10.1) Glucose (Fingerstick) 88 mg/dL (70-99) Medications Current Medications Sodium Chloride 1,000 ml @ 1,000 mls/hr Q1H IV Last administered on 01/12/19at 18:48; Start 01/12/19 at 18:18; Stop 01/12/19 at 19:17; Status DC Ondansetron HCl (Zofran) 4 mg 1X ONCE IV Last administered on 01/12/19at 18:47; Start 01/12/19 at 18:30; Stop 01/12/19 at 18:31; Status DC Fentanyl Citrate (Fentanyl 2ml Vial) 50 mcg 1X ONCE IVP Last administered on 01/12/19at 19:35; Start 01/12/19 at 19:45; Stop 01/12/19 at 19:46; Status DC Morphine Sulfate (Morphine Sulfate) 4 mg 1X ONCE IV Last administered on 01/12/19at 20:47; Start 01/12/19 at 21:00; Stop 01/12/19 at 21:01; Status DC Ondansetron HCl (Zofran) 4 mg PRN Q8HRS PRN IV NAUSEA/VOMITING 1ST CHOICE Last administered on 01/13/19 02:27; Start 01/12/19 at 21:15; Stop 01/13/19 at 08:34; Status DC Morphine Sulfate (Morphine Sulfate) 4 mg PRN Q2HR PRN IV SEVERE PAIN 7-10 Last administered on 01/13/19 20:35; Start 01/12/19 at 21:15; Stop 01/13/19 at 21:14; Status DC Sodium Chloride 1,000 ml @ 100 mls/hr Q10H IV Last administered on 01/13/19 11:29; Start 01/12/19 at 21:30; Stop 01/13/19 at 21:29; Status DC Fentanyl (Duragesic 100mcg/Hr Patch) 1 patch Q3DAYS TD Last administered on 01/12/19 23:55; Start 01/13/19 at 00:00; Stop 01/13/19 at 09:05; Status DC Ondansetron HCl (Zofran) 4 mg PRN Q6HRS PRN IV NAUSEA/VOMITING 1ST CHOICE Last administered on 01/13/19 21:20; Start 01/13/19 at 08:45 Oxycodone/ Acetaminophen (Percocet 5/325) 1 tab PRN Q4HRS PRN PO MODERATE TO SEVERE PAIN; Start 01/13/19 at 08:45 Alprazolam (Xanax) 1 mg PRN QID PRN PO ANXIETY / AGITATION; Start 01/13/19 at 08:45 Aspirin (Children'S Aspirin) 81 mg DAILY PO Last administered on 01/14/19at 08:32; Start 01/13/19 at 09:00 Docusate Sodium (Colace) 100 mg BID PO ; Start 01/13/19 at 09:00 Estradiol (Estrace) 1 mg DAILY PO Last administered on 01/14/19 08:31; Start 01/13/19 at 09:00 Furosemide (Lasix) 40 mg DAILY PO Last administered on 01/14/19 08:32; Start 01/13/19 at 09:00 Guaifenesin (Mucinex) 600 mg BID PO Last administered on 01/14/19 08:31; Start 01/13/19 at 09:00 Acetaminophen/ Hydrocodone Bitart (Lortab 10/325) 1 tab PRN QID PRN PO MODERATE PAIN; Start 01/13/19 at 08:45 Medroxyprogesterone Acetate (Provera) 5 mg DAILY PO Last administered on 01/14/19at 08:43; Start 01/13/19 at 09:00 Nitroglycerin (Nitrostat) 0.4 mg PRN Q5MIN PRN SL CHEST PAIN; Start 01/13/19 at 08:45 Polyethylene Glycol (miraLAX Powder BULK BOTTLE) 17 gm PRN DAILY PRN PO CONSTIPATION; Start 01/13/19 at 08:45 Potassium Chloride (Klor-Con) 20 meq DAILY PO Last administered on 01/14/19at 08:33; Start 01/13/19 at 09:00 Sennosides (Senna) 8.6 mg BID PO ; Start 01/13/19 at 09:00 Tamsulosin HCl (Flomax) 0.16 mg DAILY PO ; Start 01/13/19 at 09:00; Stop 1 at 09:28; Status DC Trazodone HCl (Desyrel) 100 mg QHS PO ; Start 01/13/19 at 21:00; Stop 01/13/19 at 20:56; Status DC Pantoprazole Sodium (Protonix) 40 mg DAILYAC PO Last administered on 01/14/19at 08:32; Start 01/13/19 at 11:30 Non-Formulary Medication (Eszopiclone (Lunesta)) 3 mg HS PO ; Start 01/13/19 at 21:00; Status UNV Gabapentin (Neurontin) 600 mg TID PO Last administered on 01/14/19at 08:32; Start 01/13/19 at 09:00 Non-Formulary Medication (Ipratropium/ Albuterol Sulfate (Combivent Inhaler)) prn QID PRN .ROUTE SHORTNESS OF BREATH; Start 01/13/19 at 08:45; Status UNV Ondansetron HCl (Zofran Odt) 4 mg PRN BID PRN PO NAUSEA/VOMITING Last administered on 01/13/19 09:18; Start 01/13/19 at 08:45 Fentanyl (Duragesic 100mcg/Hr Patch) 2 patch Q3DAYS TD Last administered on 01/13/19at 11:19; Start 01/13/19 at 09:15 Loperamide HCl (Imodium) 2 mg PRN Q15MIN PRN PO DIARRHEA Last administered on 01/13/19at 09:18; Start 01/13/19 at 09:15 Albuterol Sulfate (Ventolin Neb Soln) 2.5 mg PRN QID PRN NEB SHORTNESS OF BREATH; Start 01/13/19 at 09:15 Tamsulosin HCl (Flomax) 0.4 mg DAILY PO ; Start 01/13/19 at 09:28; Status Cancel Non-Formulary Medication 1 ea DAILY@1900 INH Last administered on 01/13/19at 20:19; Start 01/13/19 at 19:00 Sodium Chloride 1,000 ml @ 100 mls/hr Q10H IV Last administered on 01/14/19at 06:26; Start 01/13/19 at 20:45 Zolpidem Tartrate (Ambien) 5 mg PRN QHS PRN PO INSOMNIA Last administered on 01/13/19at 21:20; Start 01/13/19 at 21:00 Morphine Sulfate (Morphine Sulfate) 4 mg PRN Q3HRS PRN IV SEVERE PAIN 7-10 Last administered on 01/14/19at 08:36; Start 01/14/19 at 00:15 Dextrose (Dextrose 50%-Water Syringe) 12.5 gm PRN Q15MIN PRN IV SEE COMMENTS; Start 01/14/19 at 00:45 Active Scripts Active Mucinex (Guaifenesin) 600 Mg Tablet.er 600 Mg PO BID Reported Basaglar Kwikpen U-100 (Insulin Glargine,Hum.rec.anlog) 100 Unit/1 Ml Insuln.pen 21 Unit SQ HS Flomax (Tamsulosin Hcl) 0.4 Mg Cap.er.24h 0.4 Cap PO DAILY Furosemide 40 Mg Tablet 1 Tab PO DAILY Children's Aspirin (Aspirin) 81 Mg Tab.chew 81 Mg PO DAILY NITROGLYCERIN SubLingual (Nitroglycerin) 0.4 Mg Tab.subl 0.4 Mg SL PRN Q5MIN PRN Medroxyprogesterone Acetate 2.5 Mg Tablet 5 Mg PO DAILY Gabapentin 600 Mg Tablet 600 Mg PO TID Estradiol 1 Mg Tablet 1 Tab PO DAILY Metformin Hcl 500 Mg Tablet 1 Tab PO BID Potassium Chloride 10 Meq Capsule.er 20 Meq PO DAILY Trazodone Hcl 100 Mg Tablet 1 Tab PO QHS Zofran (Ondansetron Hcl) 4 Mg Tablet 4 Mg PO BID PRN Polyethylene Glycol 3350 255 Gm Powder 17 Gm PO DAILY PRN Colace (Docusate Sodium) 100 Mg Capsule 1 Cap PO BID Senokot (Sennosides) 8.6 Mg Tablet 1 Tab PO BID Breo Ellipta 100-25 Mcg Inh (Fluticasone/Vilanterol) 1 Each Aer.pow.ba 1 Puff IH [place] 10-325 Tablet (Acetaminophen/Hydrocodone Bitart) 1 Each Tablet 1-2 Tab PO Q4-6HRS PRN FENTANYL 100mcg/hr (Fentanyl) 1 Each Patch.td72 1 Patch TD Q3DAYS Combivent Inhaler (Ipratropium/Albuterol Sulfate) 14.7 Gm Aer.w.adap 1-2 PRN DAILY PRN Nexium Capsule (Esomeprazole Magnesium) 40 Mg Capsule.dr 1 Tab PO DAILY Lunesta (Eszopiclone) 1 Mg Tablet 3 Mg PO HS Alprazolam 1 Mg Tablet 1 Mg PO PRN QID PRN Vitals/I & O Vital Sign - Last 24 Hours 01/13/19 01/13/19 01/13/19 01/13/19 11:00 11:04 11:19 12:54 Temp 97.8 97.8 Pulse 80 Resp 19 B/P (MAP) 127/64 (85) Pulse Ox 97 O2 Delivery Room Air Nasal Cannula Nasal Cannula Nasal Cannula O2 Flow Rate 3.0 3.0 3.0 01/13/19 01/13/19 01/13/19 01/13/19 14:52 15:00 16:06 16:06 Temp 97.7 97.7 Pulse 78 Resp 19 B/P (MAP) 154/67 (96) Pulse Ox 98 O2 Delivery Nasal Cannula Room Air Nasal Cannula Nasal Cannula O2 Flow Rate 3.0 3.0 3.0 01/13/19 01/13/19 01/13/19 01/13/19 19:00 20:15 20:35 23:00 Temp 98.2 98.4 98.2 98.4 Pulse 66 73 Resp 18 20 18 B/P (MAP) 109/65 (80) 115/64 (81) Pulse Ox 98 94 O2 Delivery Room Air Nasal Cannula Nasal Cannula Room Air O2 Flow Rate 3.0 3.0 01/14/19 01/14/19 01/14/19 01/14/19 00:33 01:03 03:00 07:28 Temp 98.7 99.0 98.7 99.0 Pulse 80 80 Resp 20 20 18 20 B/P (MAP) 131/78 (95) 125/73 (90) Pulse Ox 95 97 O2 Delivery Nasal Cannula Nasal Cannula Nasal Cannula Nasal Cannula O2 Flow Rate 3.0 3.0 2.0 3.0 Intake and Output 01/13/19 01/13/19 01/14/19 15:00 23:00 07:00 Intake Total 500 ml 1000 ml Output Total 0 ml Balance 0 ml 500 ml 1000 ml MAKENZIE WANG MD Jan 14, 2019 10:33
[2019-01-14 11:00] VITALS: BP 107/56
[2019-01-14] MEDS ORDERED: POLYETHYLENE GLYCOL 3350 17 GM PACKET. PO PRN (13:15)
[2019-01-14] MEDS: diphenhydrAMINE HCL 25 MG CAPSULE PO PRN (14:36)
[2019-01-14 14:55] VITALS: BP 106/66
[2019-01-14] MEDS ORDERED: SENNOSIDES 8.6 MG TABLET PO PRN (15:00)
[2019-01-14] MEDS ORDERED: DOCUSATE SODIUM 100 MG CAPSULE. PO PRN (15:00)
[2019-01-14 19:00] VITALS: BP 145/71
[2019-01-14] MEDS: BREO ELLIPTA INH SCH (21:42)
[2019-01-14] MEDS: ZOLPIDEM 5 MG TABLET. PO PRN (21:50)
[2019-01-14 23:00] VITALS: BP 124/56
[2019-01-15] MEDS: MORPHINE SULFATE 2 MG/ML VIAL. IV PRN ×2 (01:11→05:57)
[2019-01-15] MEDS: diphenhydrAMINE HCL 25 MG CAPSULE PO PRN (01:16)
[2019-01-15] MEDS: IV NORMAL SALINE 1000ML BAG 1,000 ML IV SCH ×2 (02:45→08:21)
[2019-01-15 03:00] VITALS: BP 106/61
[2019-01-15 03:07] LABS: HEMOGLOBIN A1C 6.2 % (4.8-5.6)
[2019-01-15 06:22] LABS: BASO # 0.1 x10^3/uL (0.0-0.2); BASO % 1 % (0-3); EOS # 0.1 x10^3/uL (0.0-0.7); EOS % 2 % (0-3); HEMATOCRIT 36.6 % (36.0-47.0); HEMOGLOBIN 12.2 g/dL (12.0-15.5); LYMPH # 1.7 x10^3/uL (1.0-4.8); LYMPH % 28 % (24-48); MEAN CORPUSCULAR HEMOGLOBIN 28 pg (25-35); MEAN CORPUSCULAR HGB CONC 33 g/dL (31-37); MEAN CORPUSCULAR VOLUME 84 fL (79-100); MONO # 0.5 x10^3/uL (0.0-1.1); MONO % 8 % (0-9); NEUT # 3.6 x10^3/uL (1.8-7.7); NEUT % 60 % (31-73); PLATELET COUNT 221 x10^3/uL (140-400); RED BLOOD COUNT 4.36 x10^6/uL (3.50-5.40); RED CELL DISTRIBUTION WIDTH 15.6 % (11.5-14.5)
[2019-01-15 06:32] LABS: ALBUMIN 2.6 g/dL (3.4-5.0); ALBUMIN/GLOBULIN RATIO 0.8 (1.0-1.7); CALCIUM 8.2 mg/dL (8.5-10.1); CREATININE 1.2 mg/dL (0.6-1.0); GFR 46.1; POTASSIUM 4.1 mmol/L (3.5-5.1); TOTAL BILIRUBIN 0.2 mg/dL (0.2-1.0); TOTAL PROTEIN 5.8 g/dL (6.4-8.2)
[2019-01-15 07:46] VITALS: BP 118/64
[2019-01-15] MEDS ORDERED: HYDR-3135 PO (08:16)
[2019-01-15] MEDS ORDERED: FENT1PAT21 TD (08:16)
[2019-01-15] MEDS: ESTRADIOL 1 MG TABLET. PO SCH (08:19)
[2019-01-15] MEDS: FUROSEMIDE 40 MG TABLET. PO SCH (08:20)
[2019-01-15] MEDS: GABAPENTIN 300 MG CAPSULE. PO SCH (08:20)
[2019-01-15] MEDS: ASPIRIN CHEWABLE 81 MG TABLET. PO SCH (08:20)
[2019-01-15] MEDS: POTASSIUM CHLORIDE 10 MEQ TABLET.ER. PO SCH (08:20)
[2019-01-15] MEDS: PANTOPRAZOLE 40 MG TABLET.DR. PO SCH (08:21)
--- NOTE | 2019-01-15 09:50 | PDOC3 ---
Discharge Summary Visit Information Date of Admission: Jan 12, 2019 Date of Discharge: Jan 15, 2019 Admitting Diagnosis Comment: 1. FEntanyl withdrawal manifested as n.v. diarrhea- ran out of her patch from taking home dose 200mcg 2. Obesity BMI 31.2 3,. CHronic lumbago with hx 26 back sxs 4. HTn, etc - chronci stable 5. ANDREAS sec to [facility], GI losses- resolved 6. GAstroparesis - claims cant take PO pain meds 7. DM 2 seems to be controlled as per her acct- Final Diagnosis Problems Medical Problems: (1) Acute kidney injury Status: Acute (2) Dehydration Status: Acute (3) Vomiting and diarrhea Status: Acute Brief Hospital Course Allergies Allergies Coded Allergies Type Severity Reaction Last Updated Verified chlorhexidine Allergy Severe SEVERE BURNING TO SKIN 01/20/17 Yes Sulfa (Sulfonamide Antibiotics) Allergy Intermediate 01/20/17 Yes cephalexin Allergy Intermediate 01/20/17 Yes Vital Signs Vital Signs Date Time Temp Pulse Resp B/P (MAP) Pulse Ox O2 Delivery O2 Flow Rate FiO2 01/15/19 08:00 Nasal Cannula 3.0 01/15/19 07:46 97.4 77 18 118/64 (82) 96 97.4 Lab Results Laboratory Tests Test 01/14/19 04:20 01/14/19 07:32 01/14/19 11:48 01/14/19 17:07 Sodium Level 141 mmol/L (136-145) Potassium Level 3.6 mmol/L (3.5-5.1) Chloride Level 104 mmol/L (98-107) Carbon Dioxide Level 28 mmol/L (21-32) Anion Gap 9 (6-14) Blood Urea Nitrogen 15 mg/dL (7-20) Creatinine 1.1 mg/dL (0.6-1.0) Estimated GFR (Cockcroft-Gault) 51.0 Glucose Level 105 mg/dL (70-99) Hemoglobin A1c 6.2 % (4.8-5.6) Calcium Level 8.3 mg/dL (8.5-10.1) Glucose (Fingerstick) 88 mg/dL (70-99) 123 mg/dL (70-99) 127 mg/dL (70-99) Test 01/14/19 20:34 01/15/19 05:00 01/15/19 06:00 01/15/19 08:06 Glucose (Fingerstick) 125 mg/dL (70-99) 100 mg/dL (70-99) Sodium Level 141 mmol/L (136-145) Potassium Level 4.1 mmol/L (3.5-5.1) Chloride Level 106 mmol/L (98-107) Carbon Dioxide Level 28 mmol/L (21-32) Anion Gap 7 (6-14) Blood Urea Nitrogen 16 mg/dL (7-20) Creatinine 1.2 mg/dL (0.6-1.0) Estimated GFR (Cockcroft-Gault) 46.1 BUN/Creatinine Ratio 13 (6-20) Glucose Level 119 mg/dL (70-99) Calcium Level 8.2 mg/dL (8.5-10.1) Total Bilirubin 0.2 mg/dL (0.2-1.0) Aspartate Amino Transf (AST/SGOT) 20 U/L (15-37) Alanine Aminotransferase (ALT/SGPT) 13 U/L (14-59) Alkaline Phosphatase 85 U/L (46-116) Total Protein 5.8 g/dL (6.4-8.2) Albumin 2.6 g/dL (3.4-5.0) Albumin/Globulin Ratio 0.8 (1.0-1.7) White Blood Count 6.0 x10^3/uL (4.0-11.0) Red Blood Count 4.36 x10^6/uL (3.50-5.40) Hemoglobin 12.2 g/dL (12.0-15.5) Hematocrit 36.6 % (36.0-47.0) Mean Corpuscular Volume 84 fL (79-100) Mean Corpuscular Hemoglobin 28 pg (25-35) Mean Corpuscular Hemoglobin Concent 33 g/dL (31-37) Red Cell Distribution Width 15.6 % (11.5-14.5) Platelet Count 221 x10^3/uL (140-400) Neutrophils (%) (Auto) 60 % (31-73) Lymphocytes (%) (Auto) 28 % (24-48) Monocytes (%) (Auto) 8 % (0-9) Eosinophils (%) (Auto) 2 % (0-3) Basophils (%) (Auto) 1 % (0-3) Neutrophils # (Auto) 3.6 x10^3/uL (1.8-7.7) Lymphocytes # (Auto) 1.7 x10^3/uL (1.0-4.8) Monocytes # (Auto) 0.5 x10^3/uL (0.0-1.1) Eosinophils # (Auto) 0.1 x10^3/uL (0.0-0.7) Basophils # (Auto) 0.1 x10^3/uL (0.0-0.2) Laboratory Tests Test 01/14/19 11:48 01/14/19 17:07 01/14/19 20:34 01/15/19 05:00 Glucose (Fingerstick) 123 mg/dL (70-99) 127 mg/dL (70-99) 125 mg/dL (70-99) Sodium Level 141 mmol/L (136-145) Potassium Level 4.1 mmol/L (3.5-5.1) Chloride Level 106 mmol/L (98-107) Carbon Dioxide Level 28 mmol/L (21-32) Anion Gap 7 (6-14) Blood Urea Nitrogen 16 mg/dL (7-20) Creatinine 1.2 mg/dL (0.6-1.0) Estimated GFR (Cockcroft-Gault) 46.1 BUN/Creatinine Ratio 13 (6-20) Glucose Level 119 mg/dL (70-99) Calcium Level 8.2 mg/dL (8.5-10.1) Total Bilirubin 0.2 mg/dL (0.2-1.0) Aspartate Amino Transf (AST/SGOT) 20 U/L (15-37) Alanine Aminotransferase (ALT/SGPT) 13 U/L (14-59) Alkaline Phosphatase 85 U/L (46-116) Total Protein 5.8 g/dL (6.4-8.2) Albumin 2.6 g/dL (3.4-5.0) Albumin/Globulin Ratio 0.8 (1.0-1.7) Test 01/15/19 06:00 01/15/19 08:06 White Blood Count 6.0 x10^3/uL (4.0-11.0) Red Blood Count 4.36 x10^6/uL (3.50-5.40) Hemoglobin 12.2 g/dL (12.0-15.5) Hematocrit 36.6 % (36.0-47.0) Mean Corpuscular Volume 84 fL (79-100) Mean Corpuscular Hemoglobin 28 pg (25-35) Mean Corpuscular Hemoglobin Concent 33 g/dL (31-37) Red Cell Distribution Width 15.6 % (11.5-14.5) Platelet Count 221 x10^3/uL (140-400) Neutrophils (%) (Auto) 60 % (31-73) Lymphocytes (%) (Auto) 28 % (24-48) Monocytes (%) (Auto) 8 % (0-9) Eosinophils (%) (Auto) 2 % (0-3) Basophils (%) (Auto) 1 % (0-3) Neutrophils # (Auto) 3.6 x10^3/uL (1.8-7.7) Lymphocytes # (Auto) 1.7 x10^3/uL (1.0-4.8) Monocytes # (Auto) 0.5 x10^3/uL (0.0-1.1) Eosinophils # (Auto) 0.1 x10^3/uL (0.0-0.7) Basophils # (Auto) 0.1 x10^3/uL (0.0-0.2) Glucose (Fingerstick) 100 mg/dL (70-99) Brief Hospital Course Ms. Sotelo is a 58 old white female who ran out of her 200mcg fentanyl patch for days (she has been taking a while) she has chronic back pain, prev on pain pump and known to pain clinic but had some violation of narcotic contract agreement, anyways comes in bec of fentanyl patch withdarwal manifested as nausea, emesis. We re started patch, SHE IS WIDE AWAKE and sxs gone and no mroe GI losses. ( she also needed IVF for ANDREAS from GI losses),. Creat better, felling better, home today with NO PT needs fentanyl patch rx onc silva CLaims she cant take PO pain meds bec of gastroparesis COnsults: DR Reilly Calero Proc: none dc < 30 Discharge Information Condition at Discharge: Improved, Stable Disposition/Orders: D/C to Home Scheduled Aspirin (Children's Aspirin) 81 Mg Tab.chew, 81 MG PO DAILY, (Reported) Entered as Reported by: BRITT MARROQUIN on 12/23/17 0904 Last Action: Continued on 01/13/19832 by JONNATHAN MAHER Docusate Sodium (Colace) 100 Mg Capsule, 1 CAP PO BID, #30 (Reported) Entered as Reported by: NAT GUARDADO on 06/09/16 1654 Last Action: Continued on 01/13/19832 by JONNATHAN MAHER Esomeprazole Magnesium (Nexium Capsule) 40 Mg Capsule.dr, 1 TAB PO DAILY, (Reported) Entered as Reported by: MOISE ZAVALA on 03/06/13848 Last Action: Converted on 01/13/19832 by JONNATHAN MAHER Estradiol (Estradiol) 1 Mg Tablet, 1 TAB PO DAILY, #30 Ref 11 (Reported) Entered as Reported by: BRITT MARROQUIN on 12/23/17855 Last Action: Continued on 01/13/19832 by JONNATHAN MAHER Eszopiclone (Lunesta) 1 Mg Tablet, 3 MG PO HS, (Reported) Entered as Reported by: MOISE ZAVALA on 03/06/13848 Last Action: Converted on 01/13/19832 by JONNATHAN MAHER Fentanyl (FENTANYL 100mcg/hr) 1 Each Patch.td72, 1 PATCH TD Q3DAYS, #1 (Reported ) Entered as Reported by: ZEKE CLARKE on 07/20/14 1241 Last Action: Reviewed on 01/13/19832 by JONNATHAN MAHER Fentanyl (FENTANYL 100mcg/hr) 1 Each Patch.td72, 2 PATCH TD Q3DAYS for chronci back pain - 26 past sx, #14 Prescribed by: JONNATHAN MAHER on 01/15/19 08 Furosemide (Furosemide) 40 Mg Tablet, 1 TAB PO DAILY, #30 Ref 5 (Reported) Entered as Reported by: JOYCE CREWS on 12/23/17 1331 Last Action: Continued on 01/13/19832 by JONNATHAN MAHER Gabapentin (Gabapentin) 600 Mg Tablet, 600 MG PO TID, (Reported) Entered as Reported by: BRITT MARROQUIN on 12/23/17855 Last Action: Converted on 01/13/19832 by JONNATHAN MAHER Guaifenesin (Mucinex) 600 Mg Tablet.er, 600 MG PO BID, #20 Prescribed by: CLAY WATSON MD on 06/12/16 1047 Last Action: Continued on 01/13/19832 by JONNATHAN MAHER Insulin Glargine,Hum.rec.anlog (Basaglar Kwikpen U-100) 100 Unit/1 Ml Insuln.pen, 21 UNIT SQ HS for dm, (Reported) Entered as Reported by: CAITLYN HINOJOSA on 01/14/1943 Last Action: New Order on 01/14/1943 by CAITLYN HINOJOSA Medroxyprogesterone Acetate (Medroxyprogesterone Acetate) 2.5 Mg Tablet, 5 MG PO DAILY, (Reported) Entered as Reported by: BRITT MARROQUIN on 12/23/17 0856 Last Action: Continued on 01/13/19832 by JONNATHAN MAHER Metformin Hcl (Metformin Hcl) 500 Mg Tablet, 1 TAB PO BID, #60 Ref 3 (Reported) Entered as Reported by: NAT GUARDADO on 06/09/161706 Last Action: HELD on 01/13/19832 by JONNATHAN MAHER Potassium Chloride (Potassium Chloride) 10 Meq Capsule.er, 20 MEQ PO DAILY, (Reported) Entered as Reported by: NAT GUARDADO on 06/09/161706 Last Action: Continued on 01/13/19832 by JONNATHAN MAHER Sennosides (Senokot) 8.6 Mg Tablet, 1 TAB PO BID, #40 (Reported) Entered as Reported by: NAT GUARDADO on 06/09/16 1653 Last Action: Continued on 01/13/19832 by JONNATHAN MAHER Tamsulosin Hcl (Flomax) 0.4 Mg Cap.er.24h, 0.4 CAP PO DAILY for retention, #30 Ref 11 (Reported) Entered as Reported by: DEON FELDMAN on 01/01/19 1417 Last Action: Continued on 01/13/19832 by JONNATHAN MAHER Trazodone Hcl (Trazodone Hcl) 100 Mg Tablet, 1 TAB PO QHS, #30 Ref 1 (Reported) Entered as Reported by: NTA GUARDADO on 06/09/161703 Last Action: Continued on 01/13/19832 by JONNATHAN MAHER Scheduled PRN Alprazolam (Alprazolam) 1 Mg Tablet, 1 MG PO PRN QID PRN for ANXIETY / AGITATION, (Reported) Entered as Reported by: FITO MARCOS on 03/05/13 0411 Last Action: Continued on 01/13/19832 by JONNATHAN MAHER Hydrocodone/Apap 10-325 ([place] 10-325 Tablet) 1 Each Tablet, 1-2 TAB PO Q4-6HRS PRN for PAIN, #30 Prescribed by: JONNATHAN MAHER on 01/15/19 08 Ipratropium/Albuterol Sulfate (Combivent Inhaler) 14.7 Gm Aer.w.adap, 1-2 PRN DAILY PRN for SHORTNESS OF BREATH, #1 (Reported) Entered as Reported by: MOISE ZAVALA on 03/06/13 0849 Last Action: Converted on 01/13/19832 by JONNATHAN MAHER Nitroglycerin (NITROGLYCERIN SubLingual) 0.4 Mg Tab.subl, 0.4 MG SL PRN Q5MIN PRN for CHEST PAIN, (Reported) Entered as Reported by: BRITT MARROQUIN on 12/23/17 0856 Last Action: Continued on 01/13/19832 by JONNATHAN MAHER Ondansetron Hcl (Zofran) 4 Mg Tablet, 4 MG PO BID PRN for NAUSEA/VOMITING, (Reported) Entered as Reported by: NAT GUARDADO on 06/09/16 1659 Last Action: Converted on 01/13/19832 by JONNATHAN MAHER Polyethylene Glycol 3350 (Polyethylene Glycol 3350) 255 Gm Powder, 17 GM PO DAILY PRN for cons, #527 (Reported) Entered as Reported by: NAT GUARDDAO on 06/09/16 1655 Last Action: Continued on 01/13/19832 by JONNATHAN MAHER Miscellaneous Medications Fluticasone/Vilanterol (Breo Ellipta 100-25 Mcg Inh) 1 Each Aer.pow.ba, 1 PUFF IH, (Reported) Entered as Reported by: SHAMA MCDOWELL on 06/09/16 1323 Last Action: Reviewed on 01/13/19832 by JONNATHAN VILLEGAS MD Jan 15, 2019 09:50
[2019-01-15] MEDS: ONDANSETRON ODT 4 MG TAB.RAPDIS. PO PRN (10:26)
[2019-01-15 10:36] VITALS: BP 119/65
--- NOTE | 2019-01-15 11:20 | NUR ---
Discharge Note: MATEO SOUTH Discharge instructions and discharge home medications reviewed with Patient and a copy given. All questions have been answered and understanding verbalized. The following instructions and handouts were given: narcotic withdraw Discontinued lines and drains: Midline D/C . Patient discharged to Home or Self Care with Family Membervia Wheelchair
== END 2019-01-15 11:21 | disposition home or self-care (01) | DRG 73 ==
LOC: ER 15:53 → 5 SOUTH 19:12
PROVIDERS: ADMIT Internal Medicine; ATTEND Internal Medicine
DX: E11.43 Type 2 diabetes mellitus with diabetic autonomic (poly)neuropathy (principal); N17.0 Acute kidney failure with tubular necrosis; F19.939 Other psychoactive substance use, unspecified with withdrawal, unspecified; E66.9 Obesity, unspecified; E78.00 Pure hypercholesterolemia, unspecified; E86.0 Dehydration; G89.29 Other chronic pain; I10 Essential (primary) hypertension; J44.9 Chronic obstructive pulmonary disease, unspecified; K31.84 Gastroparesis; K44.9 Diaphragmatic hernia without obstruction or gangrene; M79.7 Fibromyalgia; Z68.31 Body mass index [BMI] 31.0-31.9, adult; Z87.891 Personal history of nicotine dependence; F32.9 Major depressive disorder, single episode, unspecified; F41.9 Anxiety disorder, unspecified; Z88.2 Allergy status to sulfonamides; Z88.8 Allergy status to other drugs, medicaments and biological substances
CPT/HCPCS: 36415; 36569; 74176; 80048; 80053; 81001; 82962; 83036; 83690; 85025; 87086; 96374; 96375; J2270; J2405; J3010; J7030; Q0162; Q0163; 99285-25; G0378

== ENCOUNTER 2019-02-12 18:44 | Inpatient (IN) | payer OTHER, MEDICARE ==
[~2019-02-12] VITALS: Ht 162.6 cm; Wt 98.0 kg
[~2019-02-12 18:44] MED LIST changes: +INSU100I32 SQ
[2019-02-12] MEDS ORDERED: MORPHINE SULFATE 4 MG/ML VIAL. IV/SQ PRN (19:00)
[2019-02-12] MEDS ORDERED: ALBUTEROL SULFATE 2.5 MG/3 ML NEBU. CONT NEB ONE (19:00)
[2019-02-12] MEDS ORDERED: IPRATROPIUM BROMIDE 0.5 MG/2.5 ML NEBU. NEB ONE (19:00)
[2019-02-12] MEDS ORDERED: methylPREDNISolone SOD SUCC PF 125 MG/2 ML VIAL. IV ONE (19:00)
--- NOTE | 2019-02-12 19:08 | PHYS DOC ---
Past Medical History Past Medical History: Anxiety, Asthma, Bronchitis, COPD, Diabetes-Type II, High Cholesterol, Pneumonia, Additional Disease, Other Additional Past Medical Histor: smoker, chronic pain Past Surgical History: Other Additional Past Surgical Histo: pain pump x3 weeks ago, hernia rx, back sx x15 Alcohol Use: None Drug Use: None Adult General Chief Complaint Chief Complaint: SHORTNESS OF BREATH HPI HPI Patient is a 58-year-old female who presents with complaint of cough, chest discomfort and shortness of breath for the last 3-4 days. Patient states that kingsley cortes feels like she has pneumonia again. She states that she had been admitted to this facility a few weeks back with pneumonia. She states that her cough is been productive of yellow to green sputum. She does indicate that she has a lot of pain in her back, primarily in her lower back around L5 where she had a fracture. Patient states that her shortness of breath is worsened with exertion. She does indicate that she is normally on 2 L of oxygen but has been turning her oxygen up to 3 L because of the shortness of breath. She denies any fever.[] Review of Systems Review of Systems Constitutional: Denies fever or chills [] Respiratory: Complains of cough and shortness of breath [] Cardiovascular: No additional information not addressed in HPI [] GI: Denies abdominal pain, nausea, vomiting or diarrhea [] Integument: Denies rash or skin lesions [] Neurologic: Denies headache, focal weakness or sensory changes [] All other systems were reviewed and found to be within normal limits, except as documented in this note. Current Medications Current Medications Current Medications Medications (Trade) Dose Ordered Sig/Jesus Start Time Stop Time Status Last Admin Dose Admin Albuterol Sulfate (Ventolin Neb Soln) 10 mg 1X ONCE 02/12/19 19:00 02/12/19 19:14 DC 02/12/19 19:36 10 MG Ipratropium [place] (Atrovent) 0.5 mg 1X ONCE 02/12/19 19:00 02/12/19 19:14 DC 02/12/19 19:36 0.5 MG Methylprednisolone Sodium Succinate (SOLU-Medrol 125MG VIAL) 125 mg 1X ONCE 02/12/19 19:00 02/12/19 19:14 DC 02/12/19 19:52 125 MG Morphine Sulfate (Morphine Sulfate) 4 mg PRN Q15MIN PRN 11/10/19 19:00 02/13/19 18:59 02/12/19 19:53 4 MG Allergies Allergies Allergies Coded Allergies Type Severity Reaction Last Updated Verified chlorhexidine Allergy Severe SEVERE BURNING TO SKIN 01/20/17 Yes Sulfa (Sulfonamide Antibiotics) Allergy Intermediate 01/20/17 Yes cephalexin Allergy Intermediate 01/20/17 Yes Physical Exam Physical Exam Constitutional: Well developed, well nourished, no acute distress, non-toxic ap pearance. [] HENT: Normocephalic, atraumatic, bilateral external ears normal, oropharynx moist, no oral exudates, nose normal. [] Eyes: PERRLA, EOMI, conjunctiva normal, no discharge. [] Neck: Normal range of motion, no tenderness, supple, no stridor. [] Cardiovascular: Regular rate and rhythm[] Lungs & Thorax: Slightly diminished breath sounds are noted bilaterally with coarse inspiratory and expiratory wheezes and rhonchi to auscultation [] Abdomen: Bowel sounds normal, soft, no tenderness. [] Skin: Warm, dry, no erythema, no rash. [] Extremities: No tenderness, no cyanosis, no clubbing, ROM intact, no edema. [] Neurologic: Alert and oriented X 3, no focal deficits noted. [] Current Patient Data Vital Signs Vital Signs Date Time Temp Pulse Resp B/P (MAP) Pulse Ox O2 Delivery O2 Flow Rate FiO2 02/12/19 19:53 20 96 Nasal Cannula 3.0 02/12/19 18:55 97.5 80 140/69 (92) 97.5 Lab Values Laboratory Tests Test 02/12/19 19:08 02/12/19 19:37 Influenza Type A Antigen Negative (NEGATIVE) Influenza Type B Antigen Negative (NEGATIVE) White Blood Count 7.9 x10^3/uL (4.0-11.0) Red Blood Count 5.41 x10^6/uL (3.50-5.40) H Hemoglobin 14.5 g/dL (12.0-15.5) Hematocrit 44.3 % (36.0-47.0) Mean Corpuscular Volume 82 fL (79-100) Mean Corpuscular Hemoglobin 27 pg (25-35) Mean Corpuscular Hemoglobin Concent 33 g/dL (31-37) Red Cell Distribution Width 16.5 % (11.5-14.5) H Platelet Count 257 x10^3/uL (140-400) Neutrophils (%) (Auto) 61 % (31-73) Lymphocytes (%) (Auto) 29 % (24-48) Monocytes (%) (Auto) 7 % (0-9) Eosinophils (%) (Auto) 2 % (0-3) Basophils (%) (Auto) 1 % (0-3) Neutrophils # (Auto) 4.8 x10^3/uL (1.8-7.7) Lymphocytes # (Auto) 2.3 x10^3/uL (1.0-4.8) Monocytes # (Auto) 0.5 x10^3/uL (0.0-1.1) Eosinophils # (Auto) 0.2 x10^3/uL (0.0-0.7) Basophils # (Auto) 0.1 x10^3/uL (0.0-0.2) Sodium Level 141 mmol/L (136-145) Potassium Level 3.6 mmol/L (3.5-5.1) Chloride Level 101 mmol/L (98-107) Carbon Dioxide Level 30 mmol/L (21-32) Anion Gap 10 (6-14) Blood Urea Nitrogen 14 mg/dL (7-20) Creatinine 1.5 mg/dL (0.6-1.0) H Estimated GFR (Cockcroft-Gault) 35.7 BUN/Creatinine Ratio 9 (6-20) Glucose Level 97 mg/dL (70-99) Calcium Level 9.5 mg/dL (8.5-10.1) Total Bilirubin 0.4 mg/dL (0.2-1.0) Aspartate Amino Transferase (AST) 23 U/L (15-37) Alanine Aminotransferase (ALT) 16 U/L (14-59) Alkaline Phosphatase 104 U/L (46-116) Troponin I Quantitative < 0.017 ng/mL (0.000-0.055) YR-Zoh-P-Type Natriuretic Peptide 378 pg/mL (0-124) H Total Protein 8.1 g/dL (6.4-8.2) Albumin 3.7 g/dL (3.4-5.0) Albumin/Globulin Ratio 0.8 (1.0-1.7) L Laboratory Tests 02/12/19 19:37 Laboratory Tests 02/12/19 19:37 EKG EKG EKG demonstrates normal sinus rhythm with rate of 78.[] Radiology/Procedures Radiology/Procedures [] Impressions: PROCEDURE: PORTABLE CHEST 1V EXAM: AP View of the chest DATE: 02/12/2019 6:47 PM INDICATION: dyspnea COMPARISON: 12/30/2018, 12/29/2018 FINDINGS: The heart is not enlarged. Mediastinal and hilar contours are normal. No focal parenchymal airspace opacity. No pleural effusion or pneumothorax. IMPRESSION: 1. No radiographic evidence for acute cardiopulmonary process. Electronically signed by: Mook Wilkinson MD (02/12/2019 8:48 PM) [facility] [place] Course & Med Decision Making Course & Med Decision Making Pertinent Labs and Imaging studies reviewed. (See chart for details) [] Dragon Disclaimer Dragon Disclaimer This electronic medical record was generated, in whole or in part, using a voice recognition dictation system. Departure Departure Impression: Primary Impression: COPD with acute exacerbation Additional Impression: Acute bronchitis Disposition: ADMITTED INPATIENT Admitting Physician: HIMArmani Condition: IMPROVED Referrals: ARNIE FERNANDEZ ND (PCP) Problem Qualifiers Additional Impression: Acute bronchitis Bronchitis organism: unspecified organism Qualified Codes: J20.9 - Acute bronchitis, unspecified MANUEL DE LUNA Jr. DO Feb 12, 2019 19:08
[2019-02-12 19:43] LABS: INFLUENZA A PATIENT NEGATIVE (NEGATIVE); INFLUENZA B PATIENT NEGATIVE (NEGATIVE)
[2019-02-12 19:55] LABS: BASO # 0.1 x10^3/uL (0.0-0.2); BASO % 1 % (0-3); EOS # 0.2 x10^3/uL (0.0-0.7); EOS % 2 % (0-3); HEMATOCRIT 44.3 % (36.0-47.0); HEMOGLOBIN 14.5 g/dL (12.0-15.5); LYMPH # 2.3 x10^3/uL (1.0-4.8); LYMPH % 29 % (24-48); MEAN CORPUSCULAR HEMOGLOBIN 27 pg (25-35); MEAN CORPUSCULAR HGB CONC 33 g/dL (31-37); MEAN CORPUSCULAR VOLUME 82 fL (79-100); MONO # 0.5 x10^3/uL (0.0-1.1); MONO % 7 % (0-9); NEUT # 4.8 x10^3/uL (1.8-7.7); NEUT % 61 % (31-73); PLATELET COUNT 257 x10^3/uL (140-400); RED BLOOD COUNT 5.41 x10^6/uL (3.50-5.40); RED CELL DISTRIBUTION WIDTH 16.5 % (11.5-14.5); WHITE BLOOD COUNT 7.9 x10^3/uL (4.0-11.0)
[2019-02-12 20:05] LABS: CALCIUM 9.5 mg/dL (8.5-10.1); CREATININE 1.5 mg/dL (0.6-1.0); GFR 35.7; POTASSIUM 3.6 mmol/L (3.5-5.1)
[2019-02-12 20:14] LABS: ALBUMIN 3.7 g/dL (3.4-5.0); ALBUMIN/GLOBULIN RATIO 0.8 (1.0-1.7); TOTAL BILIRUBIN 0.4 mg/dL (0.2-1.0); TOTAL PROTEIN 8.1 g/dL (6.4-8.2)
--- NOTE | 2019-02-12 20:51 | RAD ---
EXAM: AP View of the chest DATE: 02/12/2019 6:47 PM INDICATION: dyspnea COMPARISON: 12/30/2018, 12/29/2018 FINDINGS: The heart is not enlarged. Mediastinal and hilar contours are normal. No focal parenchymal airspace opacity. No pleural effusion or pneumothorax. IMPRESSION: 1. No radiographic evidence for acute cardiopulmonary process. Electronically signed by: Mook Wilkinson MD (02/12/2019 8:48 PM) [facility]
[2019-02-12] MEDS ORDERED: ONDANSETRON PF 4 MG/2 ML VIAL. IV PRN (21:15)
[2019-02-12] MEDS ORDERED: ACETAMINOPHEN 325 MG TABLET. PO PRN (21:15)
[2019-02-12] MEDS ORDERED: MORPHINE SULFATE 2 MG/ML VIAL. IV PRN (21:15)
[2019-02-12] MEDS ORDERED: AZITHROMYCIN 250 MG TABLET. PO ONE (22:00)
[2019-02-12 22:15] VITALS: BP 113/65
[2019-02-12] MEDS ORDERED: METF500T16 PO (22:45)
[2019-02-12] MEDS: MORPHINE SULFATE 2 MG/ML VIAL. IV PRN (23:24)
[2019-02-12] MEDS ORDERED: traZODone 100 MG TABLET. PO ONE (23:30)
[2019-02-12] MEDS ORDERED: GABAPENTIN 300 MG CAPSULE. PO ONE (23:30)
[2019-02-12] MEDS ORDERED: fentaNYL 100MCG/HR PATCH 1 PATCH PATCH TD ONE (23:45)
[2019-02-13] VITALS (7 sets, daily range): BP systolic 106–143; BP diastolic 56–85
[2019-02-13] MEDS: MORPHINE SULFATE 2 MG/ML VIAL. IV PRN ×6 (01:46→20:09)
--- NOTE | 2019-02-13 06:16 | EKG ---
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
[2019-02-13] MEDS: IPRATRPIUM/ALBUTEROL 0.5/2.5MG 3 ML NEBU. NEB SCH ×4 (07:22→20:35)
[2019-02-13 07:43] LABS: BASO # 0.1 x10^3/uL (0.0-0.2); BASO % 2 % (0-3); EOS % 0 % (0-3); HEMATOCRIT 42.8 % (36.0-47.0); HEMOGLOBIN 14.1 g/dL (12.0-15.5); LYMPH # 0.7 x10^3/uL (1.0-4.8); LYMPH % 15 % (24-48); MEAN CORPUSCULAR HEMOGLOBIN 27 pg (25-35); MEAN CORPUSCULAR HGB CONC 33 g/dL (31-37); MEAN CORPUSCULAR VOLUME 82 fL (79-100); MONO % 1 % (0-9); NEUT # 4.2 x10^3/uL (1.8-7.7); NEUT % 83 % (31-73); PLATELET COUNT 247 x10^3/uL (140-400); RED BLOOD COUNT 5.19 x10^6/uL (3.50-5.40); RED CELL DISTRIBUTION WIDTH 16.1 % (11.5-14.5)
[2019-02-13 08:16] LABS: CALCIUM 9.2 mg/dL (8.5-10.1); CREATININE 1.3 mg/dL (0.6-1.0); GFR 42.1; POTASSIUM 4.1 mmol/L (3.5-5.1)
--- NOTE | 2019-02-13 08:35 | PDOC1 ---
History and Physical Date of Admission Date of Admission DATE: 02/13/19 TIME: 08:32 Identification/Chief Complaint Chief Complaint Shortness of breath Source Source: Patient History of Present Illness History of Present Illness Ms Sotelo is a 58-year-old female w/ PMHx Anxiety, Asthma, Bronchitis, COPD, Diabetes-Type II, High Cholesterol, chronic pain 2/2 trauma in s/p 20+ spine surgeries and pain pump, smoker who presents with complaint of cough, chest discomfort and shortness of breath for the last 3-4 days. Patient states that she feels like she has pneumonia again. She states that she had been admitted to this facility a few weeks back with pneumonia. She states that her cough is been productive of yellow to green sputum. She does indicate that she has a lot of pain in her back, primarily in her lower back around L5 where she had a fracture previously. Patient states that her shortness of breath is worsened with exertion. She does indicate that she is normally on 2 L of oxygen but has been turning her oxygen up to 3 L because of the shortness of breath. She denies any fever. No recent sick contacts. She reports PVR approx 400 ml during recent hospitalization at [facility] and was seen in December for chest pain, ruled out then. No chest pain currently. CXR negative. She had been having diarrhea and has recently dropped her 200mcg fentanyl patches to 100mcg patches 5 days ago. Has been treated for chronic pain through workman's compensation for years, recently tried belbuca with intolerance and does not tolerate oral opioids well. Past Medical History Cardiovascular: HTN Pulmonary: Asthma, Bronchitis GI: Other Heme/Onc: Cancer Psych: Depression Musculoskeletal: low back pain, Other Rheumatologic: Fibromyalgia Endocrine: Diabetes Past Surgical History Past Surgical History: Hernia Repair, Other Family History Family History: No Significant Social History Smoke: <1 pack per day ALCOHOL: none Drugs: None Current Problem List Problem List Problems Medical Problems: (1) Acute bronchitis Status: Acute (2) COPD with acute exacerbation Status: Acute Current Medications Current Medications Current Medications Ipratropium [place] (Atrovent) 0.5 mg 1X ONCE NEB Last administered on 02/12/19at 19:36; Start 02/12/19 at 19:00; Stop 02/12/19 at 19:14; Status DC Methylprednisolone Sodium Succinate (SOLU-Medrol 125MG VIAL) 125 mg 1X ONCE IV Last administered on 02/12/19at 19:52; Start 02/12/19 at 19:00; Stop 02/12/19 at 19:14; Status DC Albuterol Sulfate (Ventolin Neb Soln) 10 mg 1X ONCE CONT NEB Last administered on 02/12/19at 19:36; Start 02/12/19 at 19:00; Stop 02/12/19 at 19:14; Status DC Morphine Sulfate (Morphine Sulfate) 4 mg PRN Q15MIN PRN IV/SQ PAIN GREATER THAN 3/10 Last administered on 02/12/19at 19:53; Start 02/12/19 at 19:00; Stop 02/12/19 at 23:05; Status DC Ondansetron HCl (Zofran) 4 mg PRN Q8HRS PRN IV NAUSEA/VOMITING 1ST CHOICE; Start 02/12/19 at 21:15; Stop 02/13/19 at 21:14 Morphine Sulfate (Morphine Sulfate) 2 mg PRN Q2HR PRN IV SEVERE PAIN 7-10 Last administered on 02/12/19at 21:43; Start 02/12/19 at 21:15; Stop 02/12/19 at 23:05; Status DC Acetaminophen (Tylenol) 650 mg PRN Q4HRS PRN PO FEVER; Start 02/12/19 at 21:15; Stop 02/13/19 at 21:14 Albuterol/ Ipratropium (Duoneb) 3 ml RTQID NEB Last administered on 02/13/19at 07:22; Start 02/13/19 at 08:00; Stop 02/14/19 at 07:59 Azithromycin (Zithromax) 500 mg 1X ONCE PO Last administered on 02/12/19at 21:43; Start 02/12/19 at 22:00; Stop 02/12/19 at 22:01; Status DC Fentanyl (Duragesic 100mcg/Hr Patch) 2 patch 1X ONCE TD Last administered on 02/12/19at 23:23; Start 02/12/19 at 23:45; Stop 02/12/19 at 23:46; Status DC Gabapentin (Neurontin) 600 mg 1X ONCE PO Last administered on 02/12/19at 23:22; Start 02/12/19 at 23:30; Stop 02/12/19 at 23:31; Status DC Trazodone HCl (Desyrel) 100 mg 1X ONCE PO Last administered on 02/12/19at 23: 22; Start 02/12/19 at 23:30; Stop 02/12/19 at 23:31; Status DC Morphine Sulfate (Morphine Sulfate) 4 mg PRN Q2HR PRN IV SEVERE PAIN 7-10 Last administered on 02/13/19at 07:42; Start 02/12/19 at 23:15 Active Scripts Active FENTANYL 100mcg/hr (Fentanyl) 1 Each Patch.td72 2 Patch TD Q3DAYS Mucinex (Guaifenesin) 600 Mg Tablet.er 600 Mg PO BID Reported Metformin Hcl 500 Mg Tablet 250 Mg PO BIDWMEALS Flomax (Tamsulosin Hcl) 0.4 Mg Cap.er.24h 0.4 Cap PO DAILY Furosemide 40 Mg Tablet 1 Tab PO DAILY Children's Aspirin (Aspirin) 81 Mg Tab.chew 81 Mg PO DAILY NITROGLYCERIN SubLingual (Nitroglycerin) 0.4 Mg Tab.subl 0.4 Mg SL PRN Q5MIN PRN Medroxyprogesterone Acetate 2.5 Mg Tablet 5 Mg PO DAILY Gabapentin 600 Mg Tablet 600 Mg PO TID Estradiol 1 Mg Tablet 1 Tab PO DAILY Potassium Chloride 10 Meq Capsule.er 20 Meq PO DAILY Trazodone Hcl 100 Mg Tablet 1 Tab PO QHS Zofran (Ondansetron Hcl) 4 Mg Tablet 4 Mg PO BID PRN Breo Ellipta 100-25 Mcg Inh (Fluticasone/Vilanterol) 1 Each Aer.pow.ba 1 Puff IH Combivent Inhaler (Ipratropium/Albuterol Sulfate) 14.7 Gm Aer.w.adap 1-2 PRN DAILY PRN Nexium Capsule (Esomeprazole Magnesium) 40 Mg Capsule.dr 1 Tab PO DAILY Lunesta (Eszopiclone) 1 Mg Tablet 3 Mg PO HS Allergies Allergies: Coded Allergies: chlorhexidine (Verified Allergy, Severe, SEVERE BURNING TO SKIN, 01/20/17) CHLOROAPREP Sulfa (Sulfonamide Antibiotics) (Verified Allergy, Intermediate, 01/20/17) cephalexin (Verified Allergy, Intermediate, 01/20/17) ROS General: YES: Fatigue, Malaise; No: Chills, Night Sweats, Appetite, Other PSYCHOLOGICAL ROS: YES: Anxiety; No: Behavioral Disorder, Concentration difficultie, Decreased libido, Depression, Disorientation, Hallucinations, Hostility, Irritablity, Memory difficulties, Mood Swings, Obsessive thoughts, Physical abuse, Sexual abuse, Sleep disturbances, Suicidal ideation, Other Eyes: No Blurry vision, No Decreased vision, No Double vision, No Dry eyes, No Excessive tearing, No Eye Pain, No Itchy Eyes, No Loss of vision, No Photophobia, No Scotomata, No Uses contacts, No Uses glasses, No Other HEENT: No: Heacaches, Visual Changes, Hearing change, Nasal congestion, Nasal discharge, Oral lesions, Sinus pain, Sore Throat, Epistaxis, Sneezing, Snoring, Tinnitus, Vertigo, Vocal changes, Other ALLERGY AND IMMUNOLOGY: No: Hives, Insect Bite Sensitivity, Itchy/Watery Eyes, Nasal Congestion, Post Nasal Drip, Seasonal Allergies, Other Hematological and Lymphatic: No: Bleeding Problems, Blood Clots, Blood Transfusions, Brusing, Night Sweats, Pallor, Swollen Lymph Nodes, Other ENDOCRINE: No: Breast Changes, Galactorrhea, Hair Pattern Changes, Hot Flashes, Malaise/lethargy, Mood Swings, Palpitations, Polydipsia/polyuria, Skin Changes, Temperature Intolerance, Unexpected Weight Changes, Other Breast: No New/Changing Breast Lumps, No Nipple changes, No Nipple discharge, No Other Respiratory: YES: Cough, Shortness of breath, SOB with excertion, Tachypnea, Wheezing; No: Hemoptysis, Orthopnea, Pleuritic Pain, Sputum Changes, Stridor, Other Cardiovascular: No Chest Pain, No Palpitations, No Orthopnea, No Paroxysmal Noc. Dyspnea, No Edema, No Lt Headedness, No Other Gastrointestinal: Yes Nausea, Yes Diarrhea; No Vomiting, No Abdominal Pain, No Constipation, No Melena, No Hematochezia, No Other Genitourinary: No Dysuria, No Frequency, No Incontinence, No Hematuria, No Retention, No Discharge, No Urgency, No Pain, No Flank Pain, No Other, No , No , No , No , No , No , No Musculoskeletal: No Gait Disturbance, No Joint Pain, No Joint Stiffness, No Joint Swelling, No Muscle Pain, No Muscular Weakness, No Pain In:, No Swelling In:, No Other Neurological: No Behavorial Changes, No Bowel/Bladder ControlChng, No Confusion, No Dizziness, No Gait Disturbance, No Headaches, No Impaired Coord/balance, No Memory Loss, No Numbness/Tingling, No Seizures, No Speech Problems, No Tremors, No Visual Changes, No Weakness, No Other Skin: No Dry Skin, No Eczema, No Hair Changes, No Lumps, No Mole Changes, No Mottling, No Nail Changes, No Pruritus, No Rash, No Skin Lesion Changes, No Other, No Acne Physical Exam General: Alert, Oriented X3, Cooperative, No acute distress HEENT: Atraumatic, PERRLA, EOMI, Mucous membr. moist/pink Lungs: Other (Diffuse wheezes) Heart: S1S2, RRR, no thrills, no rubs Abdomen: Normal bowel sounds, Soft, No tenderness, No hepatosplenomegaly, No masses Rectal Exam: not examined Extremities: No clubbing, No cyanosis, No edema, Normal pulses, No tenderness/swelling Skin: No rashes, No breakdown, No significant lesion Neuro: Normal gait, Normal speech, Strength at 5/5 X4 ext, Normal tone, Sensation intact, Cranial nerves 3-12 NL, Reflexes 2+ Psych/Mental Status: Mental status NL, Mood NL Vitals Vitals Vital Signs Date Time Temp Pulse Resp B/P (MAP) Pulse Ox O2 Delivery O2 Flow Rate FiO2 02/13/19 07:42 20 92 Nasal Cannula 3.0 02/13/19 07:40 88 131/85 (100) 02/13/19 03:00 98.5 98.5 Labs Labs Laboratory Tests Test 02/12/19 19:08 02/12/19 19:37 02/13/19 07:10 Influenza Type A Antigen Negative (NEGATIVE) Influenza Type B Antigen Negative (NEGATIVE) White Blood Count 7.9 x10^3/uL (4.0-11.0) 5.0 x10^3/uL (4.0-11.0) Red Blood Count 5.41 x10^6/uL (3.50-5.40) 5.19 x10^6/uL (3.50-5.40) Hemoglobin 14.5 g/dL (12.0-15.5) 14.1 g/dL (12.0-15.5) Hematocrit 44.3 % (36.0-47.0) 42.8 % (36.0-47.0) Mean Corpuscular Volume 82 fL (79-100) 82 fL (79-100) Mean Corpuscular Hemoglobin 27 pg (25-35) 27 pg (25-35) Mean Corpuscular Hemoglobin Concent 33 g/dL (31-37) 33 g/dL (31-37) Red Cell Distribution Width 16.5 % (11.5-14.5) 16.1 % (11.5-14.5) Platelet Count 257 x10^3/uL (140-400) 247 x10^3/uL (140-400) Neutrophils (%) (Auto) 61 % (31-73) 83 % (31-73) Lymphocytes (%) (Auto) 29 % (24-48) 15 % (24-48) Monocytes (%) (Auto) 7 % (0-9) 1 % (0-9) Eosinophils (%) (Auto) 2 % (0-3) 0 % (0-3) Basophils (%) (Auto) 1 % (0-3) 2 % (0-3) Neutrophils # (Auto) 4.8 x10^3/uL (1.8-7.7) 4.2 x10^3/uL (1.8-7.7) Lymphocytes # (Auto) 2.3 x10^3/uL (1.0-4.8) 0.7 x10^3/uL (1.0-4.8) Monocytes # (Auto) 0.5 x10^3/uL (0.0-1.1) 0.0 x10^3/uL (0.0-1.1) Eosinophils # (Auto) 0.2 x10^3/uL (0.0-0.7) 0.0 x10^3/uL (0.0-0.7) Basophils # (Auto) 0.1 x10^3/uL (0.0-0.2) 0.1 x10^3/uL (0.0-0.2) Sodium Level 141 mmol/L (136-145) 139 mmol/L (136-145) Potassium Level 3.6 mmol/L (3.5-5.1) 4.1 mmol/L (3.5-5.1) Chloride Level 101 mmol/L (98-107) 102 mmol/L (98-107) Carbon Dioxide Level 30 mmol/L (21-32) 26 mmol/L (21-32) Anion Gap 10 (6-14) 11 (6-14) Blood Urea Nitrogen 14 mg/dL (7-20) 15 mg/dL (7-20) Creatinine 1.5 mg/dL (0.6-1.0) 1.3 mg/dL (0.6-1.0) Estimated GFR (Cockcroft-Gault) 35.7 42.1 BUN/Creatinine Ratio 9 (6-20) Glucose Level 97 mg/dL (70-99) 211 mg/dL (70-99) Calcium Level 9.5 mg/dL (8.5-10.1) 9.2 mg/dL (8.5-10.1) Total Bilirubin 0.4 mg/dL (0.2-1.0) Aspartate Amino Transf (AST/SGOT) 23 U/L (15-37) Alanine Aminotransferase (ALT/SGPT) 16 U/L (14-59) Alkaline Phosphatase 104 U/L (46-116) Troponin I Quantitative < 0.017 ng/mL (0.000-0.055) DT-Yxb-X-Type Natriuretic Peptide 378 pg/mL (0-124) Total Protein 8.1 g/dL (6.4-8.2) Albumin 3.7 g/dL (3.4-5.0) Albumin/Globulin Ratio 0.8 (1.0-1.7) Laboratory Tests Test 02/12/19 19:08 02/12/19 19:37 02/13/19 07:10 Influenza Type A Antigen Negative (NEGATIVE) Influenza Type B Antigen Negative (NEGATIVE) White Blood Count 7.9 x10^3/uL (4.0-11.0) 5.0 x10^3/uL (4.0-11.0) Red Blood Count 5.41 x10^6/uL (3.50-5.40) 5.19 x10^6/uL (3.50-5.40) Hemoglobin 14.5 g/dL (12.0-15.5) 14.1 g/dL (12.0-15.5) Hematocrit 44.3 % (36.0-47.0) 42.8 % (36.0-47.0) Mean Corpuscular Volume 82 fL (79-100) 82 fL (79-100) Mean Corpuscular Hemoglobin 27 pg (25-35) 27 pg (25-35) Mean Corpuscular Hemoglobin Concent 33 g/dL (31-37) 33 g/dL (31-37) Red Cell Distribution Width 16.5 % (11.5-14.5) 16.1 % (11.5-14.5) Platelet Count 257 x10^3/uL (140-400) 247 x10^3/uL (140-400) Neutrophils (%) (Auto) 61 % (31-73) 83 % (31-73) Lymphocytes (%) (Auto) 29 % (24-48) 15 % (24-48) Monocytes (%) (Auto) 7 % (0-9) 1 % (0-9) Eosinophils (%) (Auto) 2 % (0-3) 0 % (0-3) Basophils (%) (Auto) 1 % (0-3) 2 % (0-3) Neutrophils # (Auto) 4.8 x10^3/uL (1.8-7.7) 4.2 x10^3/uL (1.8-7.7) Lymphocytes # (Auto) 2.3 x10^3/uL (1.0-4.8) 0.7 x10^3/uL (1.0-4.8) Monocytes # (Auto) 0.5 x10^3/uL (0.0-1.1) 0.0 x10^3/uL (0.0-1.1) Eosinophils # (Auto) 0.2 x10^3/uL (0.0-0.7) 0.0 x10^3/uL (0.0-0.7) Basophils # (Auto) 0.1 x10^3/uL (0.0-0.2) 0.1 x10^3/uL (0.0-0.2) Sodium Level 141 mmol/L (136-145) 139 mmol/L (136-145) Potassium Level 3.6 mmol/L (3.5-5.1) 4.1 mmol/L (3.5-5.1) Chloride Level 101 mmol/L (98-107) 102 mmol/L (98-107) Carbon Dioxide Level 30 mmol/L (21-32) 26 mmol/L (21-32) Anion Gap 10 (6-14) 11 (6-14) Blood Urea Nitrogen 14 mg/dL (7-20) 15 mg/dL (7-20) Creatinine 1.5 mg/dL (0.6-1.0) 1.3 mg/dL (0.6-1.0) Estimated GFR (Cockcroft-Gault) 35.7 42.1 BUN/Creatinine Ratio 9 (6-20) Glucose Level 97 mg/dL (70-99) 211 mg/dL (70-99) Calcium Level 9.5 mg/dL (8.5-10.1) 9.2 mg/dL (8.5-10.1) Total Bilirubin 0.4 mg/dL (0.2-1.0) Aspartate Amino Transf (AST/SGOT) 23 U/L (15-37) Alanine Aminotransferase (ALT/SGPT) 16 U/L (14-59) Alkaline Phosphatase 104 U/L (46-116) Troponin I Quantitative < 0.017 ng/mL (0.000-0.055) AQ-Ztg-P-Type Natriuretic Peptide 378 pg/mL (0-124) Total Protein 8.1 g/dL (6.4-8.2) Albumin 3.7 g/dL (3.4-5.0) Albumin/Globulin Ratio 0.8 (1.0-1.7) Images Images CXR - The heart is not enlarged. Mediastinal and hilar contours are normal. No focal parenchymal airspace opacity. No pleural effusion or pneumothorax. IMPRESSION: 1. No radiographic evidence for acute cardiopulmonary process. VTE Prophylaxis Ordered VTE Prophylaxis Devices: Yes VTE Pharmacological Prophylaxi: Yes Assessment/Plan Assessment/Plan A/P: Acute hypoxic respiratory failure - likely 2/2 COPD exacerbation. Will treat aggressively, has previously required BIPAP. Consult pulm. Nebs, steroids Acute COPD exacerbation - chronically O2 dependent, on combivent, is a smoker. Counseled Acute on chronic pain - complicated pain patient with multiple prior back surgeries, spinal stimulator, pain pump, L5 fracture. She is back on her 200mcg fentanyl patches currently. Will consult Dr. Calero per patient request Smoker - counseled on cessation DM2 - sliding scale + meformin HLD - cont statin HTN - cont meds Urinary retention - on flomax per urology. Likely 2/2 benadryl use, she utilizes this to mitigate opioid side effects FEN - ADA diet PPX - lovenox FULL CODE Dispo - inpatient for acute COPD exacerbation with hypoxia VIANNEY CHANDLER MD Feb 13, 2019 08:35
[2019-02-13] MEDS ORDERED: predniSONE 20 MG TABLET PO SCH (10:00)
[2019-02-13] MEDS ORDERED: NITROGLYCERIN SUBLINGUAL 0.4 MG BOTTLE OF 25. SL PRN (10:00)
[2019-02-13] MEDS ORDERED: DOXYCYCLINE HYCLATE 100 MG in IV DEXTROSE 5% 100ML 100 ML IV ONE (10:15)
[2019-02-13] MEDS ORDERED: ONDANSETRON ODT 4 MG TAB.RAPDIS. PO PRN (10:15)
[2019-02-13] MEDS: ENOXAPARIN 40 MG/0.4 ML SYRINGE. SQ SCH (10:50)
[2019-02-13] MEDS: PANTOPRAZOLE 40 MG TABLET.DR. PO SCH (10:50)
[2019-02-13] MEDS: TAMSULOSIN 0.4 MG CAP.ER.24H. PO SCH (10:51)
[2019-02-13] MEDS: FUROSEMIDE 40 MG TABLET. PO SCH (10:51)
[2019-02-13] MEDS: ASPIRIN CHEWABLE 81 MG TABLET. PO SCH (10:51)
[2019-02-13] MEDS: POTASSIUM CHLORIDE 10 MEQ TABLET.ER. PO SCH (10:52)
[2019-02-13] MEDS: metFORMIN 500 MG TABLET PO SCH ×2 (10:53→17:48)
[2019-02-13] MEDS: GABAPENTIN 300 MG CAPSULE. PO SCH ×3 (10:54→20:10)
--- NOTE | 2019-02-13 11:14 | NUR ---
SS following for discharge planning. SS reviewed pt chart. Pt is from home with spouse and is currently requiring oxygen. Pt reported that she has home oxygen at home through [facility] in [place], [place]. SS will continue to follow for discharge planning.
[2019-02-13] MEDS: BUDESONIDE 0.5 MG/2 ML NEBU. NEB SCH ×2 (11:38→20:34)
--- NOTE | 2019-02-13 12:45 | NUR ---
Assumed Care for this patient at this time. Patient was recently administered medication for pain and nausea. Patient has no complaints at this time. Call light within reach.
--- NOTE | 2019-02-13 17:33 | PDOC ---
PULMONARY PROGRESS NOTES Vitals Vital Signs Date Time Temp Pulse Resp B/P (MAP) Pulse Ox O2 Delivery O2 Flow Rate FiO2 02/13/19 16:16 16 94 Nasal Cannula 3.0 02/13/19 15:00 98.2 88 116/57 (76) 98.2 General: Alert, No acute distress Lungs: Clear, Wheezing Cardiovascular: S1 Abdomen: Soft Extremities: Other Labs Laboratory Tests Test 02/12/19 19:08 02/12/19 19:37 02/13/19 07:10 02/13/19 10:53 Influenza Type A Antigen Negative (NEGATIVE) Influenza Type B Antigen Negative (NEGATIVE) White Blood Count 7.9 x10^3/uL (4.0-11.0) 5.0 x10^3/uL (4.0-11.0) Red Blood Count 5.41 x10^6/uL (3.50-5.40) 5.19 x10^6/uL (3.50-5.40) Hemoglobin 14.5 g/dL (12.0-15.5) 14.1 g/dL (12.0-15.5) Hematocrit 44.3 % (36.0-47.0) 42.8 % (36.0-47.0) Mean Corpuscular Volume 82 fL (79-100) 82 fL (79-100) Mean Corpuscular Hemoglobin 27 pg (25-35) 27 pg (25-35) Mean Corpuscular Hemoglobin Concent 33 g/dL (31-37) 33 g/dL (31-37) Red Cell Distribution Width 16.5 % (11.5-14.5) 16.1 % (11.5-14.5) Platelet Count 257 x10^3/uL (140-400) 247 x10^3/uL (140-400) Neutrophils (%) (Auto) 61 % (31-73) 83 % (31-73) Lymphocytes (%) (Auto) 29 % (24-48) 15 % (24-48) Monocytes (%) (Auto) 7 % (0-9) 1 % (0-9) Eosinophils (%) (Auto) 2 % (0-3) 0 % (0-3) Basophils (%) (Auto) 1 % (0-3) 2 % (0-3) Neutrophils # (Auto) 4.8 x10^3/uL (1.8-7.7) 4.2 x10^3/uL (1.8-7.7) Lymphocytes # (Auto) 2.3 x10^3/uL (1.0-4.8) 0.7 x10^3/uL (1.0-4.8) Monocytes # (Auto) 0.5 x10^3/uL (0.0-1.1) 0.0 x10^3/uL (0.0-1.1) Eosinophils # (Auto) 0.2 x10^3/uL (0.0-0.7) 0.0 x10^3/uL (0.0-0.7) Basophils # (Auto) 0.1 x10^3/uL (0.0-0.2) 0.1 x10^3/uL (0.0-0.2) Sodium Level 141 mmol/L (136-145) 139 mmol/L (136-145) Potassium Level 3.6 mmol/L (3.5-5.1) 4.1 mmol/L (3.5-5.1) Chloride Level 101 mmol/L (98-107) 102 mmol/L (98-107) Carbon Dioxide Level 30 mmol/L (21-32) 26 mmol/L (21-32) Anion Gap 10 (6-14) 11 (6-14) Blood Urea Nitrogen 14 mg/dL (7-20) 15 mg/dL (7-20) Creatinine 1.5 mg/dL (0.6-1.0) 1.3 mg/dL (0.6-1.0) Estimated GFR (Cockcroft-Gault) 35.7 42.1 BUN/Creatinine Ratio 9 (6-20) Glucose Level 97 mg/dL (70-99) 211 mg/dL (70-99) Calcium Level 9.5 mg/dL (8.5-10.1) 9.2 mg/dL (8.5-10.1) Total Bilirubin 0.4 mg/dL (0.2-1.0) Aspartate Amino Transf (AST/SGOT) 23 U/L (15-37) Alanine Aminotransferase (ALT/SGPT) 16 U/L (14-59) Alkaline Phosphatase 104 U/L (46-116) Troponin I Quantitative < 0.017 ng/mL (0.000-0.055) GF-Omx-D-Type Natriuretic Peptide 378 pg/mL (0-124) Total Protein 8.1 g/dL (6.4-8.2) Albumin 3.7 g/dL (3.4-5.0) Albumin/Globulin Ratio 0.8 (1.0-1.7) Glucose (Fingerstick) 282 mg/dL (70-99) Test 02/13/19 17:19 Glucose (Fingerstick) 168 mg/dL (70-99) Laboratory Tests Test 02/12/19 19:08 02/12/19 19:37 02/13/19 07:10 02/13/19 10:53 Influenza Type A Antigen Negative (NEGATIVE) Influenza Type B Antigen Negative (NEGATIVE) White Blood Count 7.9 x10^3/uL (4.0-11.0) 5.0 x10^3/uL (4.0-11.0) Red Blood Count 5.41 x10^6/uL (3.50-5.40) 5.19 x10^6/uL (3.50-5.40) Hemoglobin 14.5 g/dL (12.0-15.5) 14.1 g/dL (12.0-15.5) Hematocrit 44.3 % (36.0-47.0) 42.8 % (36.0-47.0) Mean Corpuscular Volume 82 fL (79-100) 82 fL (79-100) Mean Corpuscular Hemoglobin 27 pg (25-35) 27 pg (25-35) Mean Corpuscular Hemoglobin Concent 33 g/dL (31-37) 33 g/dL (31-37) Red Cell Distribution Width 16.5 % (11.5-14.5) 16.1 % (11.5-14.5) Platelet Count 257 x10^3/uL (140-400) 247 x10^3/uL (140-400) Neutrophils (%) (Auto) 61 % (31-73) 83 % (31-73) Lymphocytes (%) (Auto) 29 % (24-48) 15 % (24-48) Monocytes (%) (Auto) 7 % (0-9) 1 % (0-9) Eosinophils (%) (Auto) 2 % (0-3) 0 % (0-3) Basophils (%) (Auto) 1 % (0-3) 2 % (0-3) Neutrophils # (Auto) 4.8 x10^3/uL (1.8-7.7) 4.2 x10^3/uL (1.8-7.7) Lymphocytes # (Auto) 2.3 x10^3/uL (1.0-4.8) 0.7 x10^3/uL (1.0-4.8) Monocytes # (Auto) 0.5 x10^3/uL (0.0-1.1) 0.0 x10^3/uL (0.0-1.1) Eosinophils # (Auto) 0.2 x10^3/uL (0.0-0.7) 0.0 x10^3/uL (0.0-0.7) Basophils # (Auto) 0.1 x10^3/uL (0.0-0.2) 0.1 x10^3/uL (0.0-0.2) Sodium Level 141 mmol/L (136-145) 139 mmol/L (136-145) Potassium Level 3.6 mmol/L (3.5-5.1) 4.1 mmol/L (3.5-5.1) Chloride Level 101 mmol/L (98-107) 102 mmol/L (98-107) Carbon Dioxide Level 30 mmol/L (21-32) 26 mmol/L (21-32) Anion Gap 10 (6-14) 11 (6-14) Blood Urea Nitrogen 14 mg/dL (7-20) 15 mg/dL (7-20) Creatinine 1.5 mg/dL (0.6-1.0) 1.3 mg/dL (0.6-1.0) Estimated GFR (Cockcroft-Gault) 35.7 42.1 BUN/Creatinine Ratio 9 (6-20) Glucose Level 97 mg/dL (70-99) 211 mg/dL (70-99) Calcium Level 9.5 mg/dL (8.5-10.1) 9.2 mg/dL (8.5-10.1) Total Bilirubin 0.4 mg/dL (0.2-1.0) Aspartate Amino Transf (AST/SGOT) 23 U/L (15-37) Alanine Aminotransferase (ALT/SGPT) 16 U/L (14-59) Alkaline Phosphatase 104 U/L (46-116) Troponin I Quantitative < 0.017 ng/mL (0.000-0.055) VD-Mkf-Q-Type Natriuretic Peptide 378 pg/mL (0-124) Total Protein 8.1 g/dL (6.4-8.2) Albumin 3.7 g/dL (3.4-5.0) Albumin/Globulin Ratio 0.8 (1.0-1.7) Glucose (Fingerstick) 282 mg/dL (70-99) Test 02/13/19 17:19 Glucose (Fingerstick) 168 mg/dL (70-99) Medications Active Scripts Medications Dose Route/Sig Max Daily Dose Days Date Category Metformin Hcl 500 Mg Tablet 250 Mg PO BIDWMEALS 02/12/19 Reported FENTANYL 100mcg/hr (Fentanyl) 1 Each Patch.td72 2 Patch TD Q3DAYS 01/15/19 Rx Flomax (Tamsulosin Hcl) 0.4 Mg Cap.er.24h 0.4 Cap PO DAILY 01/01/19 Reported Furosemide 40 Mg Tablet 1 Tab PO DAILY 12/23/17 Reported Children's Aspirin (Aspirin) 81 Mg Tab.chew 81 Mg PO DAILY 12/23/17 Reported NITROGLYCERIN SubLingual (Nitroglycerin) 0.4 Mg Tab.subl 0.4 Mg SL PRN Q5MIN PRN 12/23/17 Reported Medroxyprogesterone Acetate 2.5 Mg Tablet 5 Mg PO DAILY 12/23/17 Reported Gabapentin 600 Mg Tablet 600 Mg PO TID 12/23/17 Reported Estradiol 1 Mg Tablet 1 Tab PO DAILY 12/23/17 Reported Mucinex (Guaifenesin) 600 Mg Tablet.er 600 Mg PO BID 06/12/16 Rx Potassium Chloride 10 Meq Capsule.er 20 Meq PO DAILY 06/09/16 Reported Trazodone Hcl 100 Mg Tablet 1 Tab PO QHS 06/09/16 Reported Zofran (Ondansetron Hcl) 4 Mg Tablet 4 Mg PO BID PRN 06/09/16 Reported Breo Ellipta 100-25 Mcg Inh (Fluticasone/Vilanterol) 1 Each Aer.pow.ba 1 Puff IH 06/09/16 Reported Combivent Inhaler (Ipratropium/Albuterol Sulfate) 14.7 Gm Aer.w.adap 1-2 PRN DAILY PRN 03/06/13 Reported Nexium Capsule (Esomeprazole Magnesium) 40 Mg Capsule.dr 1 Tab PO DAILY 03/06/13 Reported Lunesta (Eszopiclone) 1 Mg Tablet 3 Mg PO HS 03/06/13 Reported Impression . FULL NOTE DICTATED THANKS AGREE WITH CURRENT RX FOR AECOPD TAD PETERSON MD Feb 13, 2019 17:33
[2019-02-13] MEDS: DOXYCYCLINE HYCLATE 100 MG TABLET PO SCH (20:10)
[2019-02-13] MEDS: methylPREDNISolone SOD SUCC PF 40 MG/ML VIAL. IV SCH (20:11)
[2019-02-13] MEDS ORDERED: traZODone 100 MG TABLET. PO SCH (21:00)
[2019-02-14] MEDS: MORPHINE SULFATE 2 MG/ML VIAL. IV PRN (01:40)
[2019-02-14 02:27] VITALS: BP 106/58
--- NOTE | 2019-02-14 02:52 | CONS ---
DATE OF CONSULTATION: 02/13/2019 ATTENDING PHYSICIAN: Dr. Yip REASON FOR CONSULTATION: The patient is seen in pulmonary consultation at the request of Dr. Yip for increasing shortness of air. HISTORY OF PRESENT ILLNESS: The patient is a 58-year-old female with a history of COPD, previously oxygen dependent, continues to smoke on and off, came in because "her lungs were full." She has a cough, mostly nonproductive, at times productive of yellow sputum. No fever, chills or night sweats. No hemoptysis. She is currently on 2 liters of oxygen at home on a p.r.n. basis. She has been followed in the past by my partner, Dr. Ramirez. In the past, she has had some issue with pCO2 being elevated secondary to narcotic use. She does have some chronic pain syndrome. She has had multiple back surgeries. PAST MEDICAL HISTORY: COPD, history of narcotic dependence, hypertension, depression, lower back pain. She has had multiple spine surgeries. PAST SURGICAL HISTORY: Previous spine surgery. ALLERGIES: SULFA, CEPHALEXIN AND CHLORHEXIDINE. CURRENT MEDICATIONS: List was reviewed. SOCIAL HISTORY: She smokes on and off. FAMILY HISTORY: No family history of lung disorders. REVIEW OF SYSTEMS: CONSTITUTIONAL: No fever or chills. EYES: No change in visual acuity. HENT: No nasal congestion or sore throat. PULMONARY: As indicated above. CARDIOVASCULAR: No chest pain. No pressure. GASTROINTESTINAL: No nausea, vomiting, or diarrhea. GENITOURINARY: No dysuria or frequency. MUSCULOSKELETAL: No localized muscle aches or joint pains. SKIN: No new skin rashes. NEUROLOGIC: No headaches, diplopia or blurred vision. PHYSICAL EXAMINATION: VITAL SIGNS: The patient was on 2 liters of oxygen supplementation, currently saturations above 92%. HEENT: Eyes, the sclerae were nonicteric. NECK: Jugular venous distention was not elevated. No lymphadenopathy. CHEST: Full expansion. LUNGS: Poor airway flow with expiratory wheezes. CARDIOVASCULAR: Regular rate and rhythm with S1, S2. No S3. ABDOMEN: Soft, nontender, nondistended. EXTREMITIES: No clubbing, cyanosis or edema. NEUROLOGICAL: The patient was awake, alert, following commands. A detailed neurologic exam was not performed. LABORATORY DATA: Reviewed. Influenza screen was negative. The creatinine was slightly elevated. White count was normal. IMPRESSION: 1. Acute exacerbation of chronic obstructive pulmonary disease. 2. Progressive dyspnea secondary to above. 3. Tobacco dependence. 4. Obesity. 5. Multiple other comorbidities including chronic back pain, narcotic dependence, hypertension. PLAN: 1. Continue current support with steroids, antibiotics, oxygen supplementation. 2. Reevaluate oxygen need prior to discharge. 3. Bronchodilators. 4. DVT prophylaxis. I do appreciate the privilege in sharing in the patient's care. TAD PETERSON MD DR: MOHIT/karly JOB#: [id number] / [id number]
[2019-02-14] MEDS ORDERED: MORPHINE SULFATE 4 MG/ML VIAL. IV PRN (05:53)
[2019-02-14] MEDS: PANTOPRAZOLE 40 MG TABLET.DR. PO SCH (06:36)
[2019-02-14 07:00] VITALS: BP 107/51
[2019-02-14] MEDS: IPRATRPIUM/ALBUTEROL 0.5/2.5MG 3 ML NEBU. NEB SCH ×2 (07:44→11:39)
[2019-02-14] MEDS: BUDESONIDE 0.5 MG/2 ML NEBU. NEB SCH (07:44)
[2019-02-14] MEDS: FUROSEMIDE 40 MG TABLET. PO SCH (08:07)
[2019-02-14] MEDS: DOXYCYCLINE HYCLATE 100 MG TABLET PO SCH (08:07)
[2019-02-14] MEDS: TAMSULOSIN 0.4 MG CAP.ER.24H. PO SCH (08:09)
[2019-02-14] MEDS: ENOXAPARIN 40 MG/0.4 ML SYRINGE. SQ SCH (08:13)
[2019-02-14] MEDS: ASPIRIN CHEWABLE 81 MG TABLET. PO SCH (08:13)
[2019-02-14] MEDS: GABAPENTIN 300 MG CAPSULE. PO SCH (08:13)
[2019-02-14] MEDS: POTASSIUM CHLORIDE 10 MEQ TABLET.ER. PO SCH (08:14)
[2019-02-14] MEDS: metFORMIN 500 MG TABLET PO SCH (08:14)
[2019-02-14] MEDS: methylPREDNISolone SOD SUCC PF 40 MG/ML VIAL. IV SCH (08:14)
[2019-02-14 11:00] VITALS: BP 113/55
--- NOTE | 2019-02-14 11:28 | PDOC ---
[facility] PROGRESS NOTE Chief Complaint Chief Complaint Shortness of breath History of Present Illness History of Present Illness 02/14/19 Pt seen and examined while laying in bed. Pt care discussed with RN. Vitals/I&O Vitals/I&O: Vital Signs Date Time Temp Pulse Resp B/P (MAP) Pulse Ox O2 Delivery O2 Flow Rate FiO2 02/14/19 09:02 96 Nasal Cannula 3.0 02/14/19 07:00 97.9 72 18 107/51 (69) 97.9 I & O 02/13/19 02/13/19 02/14/19 15:00 23:00 07:00 Intake Total 300 ml 1040 ml Output Total 300 ml 1300 ml Balance -300 ml 300 ml -260 ml Physical Exam General: Alert, Cooperative, No acute distress Lungs: Clear, Other (No respiratory distress) Extremities: No cyanosis Skin: No breakdown, No significant lesion Labs Labs: Laboratory Tests Test 02/13/19 17:19 02/14/19 08:00 Glucose (Fingerstick) 168 mg/dL (70-99) 210 mg/dL (70-99) Assessment and Plan Assessmemt and Plan Problems Medical Problems: (1) Acute bronchitis Status: Acute (2) COPD with acute exacerbation Status: Acute Plan 1. Cardiac monitoring 2. IV antibiotics 3. Duonebs 4. DVT prophylaxis 5. Pain medication 6. PTOT Full code Comment Review of Relevant I have reviewed the following items nila (where applicable) has been applied. Medications: Current Medications Medications (Trade) Dose Ordered Sig/Jesus Route PRN Reason Start Time Stop Time Status Last Admin Dose Admin Trazodone HCl (Desyrel) 100 mg QHS PO 02/13/19 21:00 02/13/19 20:10 Pantoprazole Sodium (Protonix) 40 mg DAILYAC PO 02/13/19 11:30 02/14/19 06:36 Methylprednisolone Sodium Succinate (SOLU-Medrol 40MG VIAL) 40 mg Q12HR IV 02/13/19 21:00 02/14/19 08:14 Doxycycline Hyclate (Vibra-Tab) 100 mg BID PO 02/13/19 21:00 02/14/19 08:07 Morphine Sulfate (Morphine Sulfate) 4 mg PRN Q2HR PRN IV SEVERE PAIN 7-10 02/14/19 05:53 02/14/19 08:13 ALBER PHIPPS III DO Feb 14, 2019 11:28
--- NOTE | 2019-02-14 13:11 | NUR ---
Discharge Note: [facility] Discharge instructions and discharge home medications reviewed with Patient and a copy given. All questions have been answered and understanding verbalized. The following instructions and handouts were given: doxycycline, Combivent Patient discharged to home or self care with spouse via wheelchair
--- NOTE | 2019-02-14 13:20 | DS ---
DATE OF DISCHARGE: 02/14/2019 ADMISSION DIAGNOSIS: Chronic obstructive pulmonary disease. DISCHARGE DIAGNOSES: 1. Resolving respiratory failure secondary to chronic obstructive pulmonary disease. 2. Chronic pain. HOSPITAL COURSE: The patient is a pleasant middle-aged white female who is on high-dose fentanyl 2 patches 100 mcg daily every 3 days. She also has COPD and multiple medical issues. Basically, she presented with COPD exacerbation with respiratory failure. We admitted her, gave her IV steroids, breathing treatments, oxygen, and antibiotics. We consulted Pulmonary. We gave her aggressive pain management. Over the past couple of days she has returned to her baseline. I saw her and examined her this morning. Her heart tones were normal. Lungs were clear, although she still has a cough. I discussed the case with lobby attendant and Dr. Pennington. The plan is to get her home with close outpatient followup. DISPOSITION: Home. ACTIVITY: As tolerated. DIET: Low sodium. MEDICATIONS: I left her prescriptions for Combivent metered dose inhaler, Medrol Dosepak, doxycycline and she already has O2 at home. TOTAL TIME: 32 minutes. ALBER PHIPPS DO DR: RON/karly JOB#: [id number] / [id number]
[2019-02-14] MEDS ORDERED: LACTOBACILLUS RHAMNOSUS GG 1 CAPSULE. PO SCH (21:00)
== END 2019-02-14 13:14 | disposition home or self-care (01) | DRG 189 ==
LOC: ER 18:44 → 2 SOUTH 21:35
PROVIDERS: ADMIT Internal Medicine; ATTEND Internal Medicine
DX: J96.01 Acute respiratory failure with hypoxia (principal); F11.20 Opioid dependence, uncomplicated; J44.0 Chronic obstructive pulmonary disease with (acute) lower respiratory infection; J44.1 Chronic obstructive pulmonary disease with (acute) exacerbation; E66.9 Obesity, unspecified; E78.00 Pure hypercholesterolemia, unspecified; E78.5 Hyperlipidemia, unspecified; F17.210 Nicotine dependence, cigarettes, uncomplicated; G89.4 Chronic pain syndrome; I10 Essential (primary) hypertension; J20.9 Acute bronchitis, unspecified; Z99.81 Dependence on supplemental oxygen; F32.9 Major depressive disorder, single episode, unspecified; F41.9 Anxiety disorder, unspecified; Z88.2 Allergy status to sulfonamides; Z88.8 Allergy status to other drugs, medicaments and biological substances; Z68.37 Body mass index [BMI] 37.0-37.9, adult
CPT/HCPCS: 36415; 71045; 80048; 80053; 82962; 83880; 84484; 85025; 87804; 93005; 94640; 94644; 96374; 96375; 96376; J1650; J2270; J2405; J2920; J2930; J3490; J7613; J7620; J7626; J7644; Q0144; Q0162; 99285-25; G0378

== ENCOUNTER 2019-03-24 12:51 | Emergency (ER) | payer OTHER, MEDICARE ==
[~2019-03-24] VITALS: Ht 175.3 cm; Wt 90.7 kg
[2019-03-24 14:10] VITALS: BP 162/76
[2019-03-24] MEDS ORDERED: MORPHINE SULFATE 4 MG/ML VIAL. IM ONE (14:45)
--- NOTE | 2019-03-24 14:52 | PHYS DOC ---
Past Medical History Past Medical History: Anxiety, Asthma, Bronchitis, COPD, Diabetes-Type II, High Cholesterol, Hypertension, Pneumonia, Additional Disease, Other Additional Past Medical Histor: smoker, chronic pain Past Surgical History: Other Additional Past Surgical Histo: pain pump x3 weeks ago, hernia rx, back sx x 26 Additional Information: LESS THAN 1/2 PACK/DAY Alcohol Use: None Drug Use: None Adult General Chief Complaint Chief Complaint: PAIN CONTROL HPI HPI Patient is a 59 year old female patient with history of hypertension, dyslipidemia, COPD on home oxygen, diabetes mellitus, chronic pain, anxiety, asthma, bronchitis who presents with requesting for refill of fentanyl patch. Patient had the patient just esther she felt fentanyl patch for her chronic pain in her primary care physician referral to pain clinic and neurologist and did not get the prescription of antibiotic her primary care physician and was advised to come to ER to give prescription of fentanyl patch because she cannot take oral pain medication related to her gastroparesis. Patient state she has chest congestion and wants evaluation for pneumonia. She denies fever, chest pain, productive cough. Review of Systems Review of Systems Constitutional: Denies fever or chills [] Eyes: Denies change in visual acuity, redness, or eye pain [] HENT: Denies nasal congestion or sore throat [] Respiratory: Reports chest congestion and chronic shortness of breath Cardiovascular: No additional information not addressed in HPI [] GI: Denies abdominal pain, nausea, vomiting, bloody stools or diarrhea [] : Denies dysuria or hematuria [] Musculoskeletal: Denies back pain or joint pain [] Integument: Denies rash or skin lesions [] Neurologic: Denies headache, focal weakness or sensory changes [] Endocrine: Denies polyuria or polydipsia [] All other systems were reviewed and found to be within normal limits, except as documented in this note. Current Medications Current Medications Current Medications Medications (Trade) Dose Ordered Sig/Jesus Start Time Stop Time Status Last Admin Dose Admin Morphine Sulfate (Morphine Sulfate) 4 mg 1X ONCE 03/24/19 14:45 03/24/19 14:46 DC 03/24/19 15:25 4 MG Allergies Allergies Allergies Coded Allergies Type Severity Reaction Last Updated Verified chlorhexidine Allergy Severe SEVERE BURNING TO SKIN 01/20/17 Yes doxycycline Allergy Severe Anaphylaxis 03/24/19 Yes Sulfa (Sulfonamide Antibiotics) Allergy Intermediate 01/20/17 Yes cephalexin Allergy Intermediate 01/20/17 Yes Physical Exam Physical Exam Constitutional: Well developed, well nourished, no acute distress, non-toxic appearance. [] HENT: Normocephalic, atraumatic, bilateral external ears normal, oropharynx moist, no oral exudates, nose normal. [] Eyes: PERRLA, EOMI, conjunctiva normal, no discharge. [] Neck: Normal range of motion, no tenderness, supple, no stridor. [] Cardiovascular:Heart rate regular rhythm, no murmur [] Lungs & Thorax: Bilateral breath sounds clear to auscultation, fentanyl patch on left side of chest wall.[] Back: No tenderness, no CVA tenderness. [] Extremities: No tenderness, no cyanosis, no clubbing, ROM intact, no edema. [] Neurologic: Alert and oriented X 3, normal motor function, normal sensory function, no focal deficits noted. [] Psychologic: Affect anxious, judgement normal, mood normal. [] Current Patient Data Vital Signs Vital Signs Date Time Temp Pulse Resp B/P (MAP) Pulse Ox O2 Delivery O2 Flow Rate FiO2 03/24/19 15:25 18 97 Nasal Cannula 2.0 03/24/19 14:10 98.2 81 162/76 (104) 98.2 EKG EKG [] Radiology/Procedures Radiology/Procedures [][facility] [address] [place] [address] IMAGING REPORT Signed PATIENT: MATEO [facility] LACCOUNT: [id number] : 1960 LOCATION: ER AGE: 59 SEX: F EXAM STATUS: REG ER ORD. PHYSICIAN: DELANEY IRWIN MD REASON: SOA PROCEDURE: CHEST PA & LATERAL AP and Lateral Views of the Chest 03/24/2019 2:38 PM Indication: Shortness of breath Comparison: Chest radiograph February 12, 2019 Findings: Mild right basilar atelectasis versus infiltrate is seen. No pneumothorax or pleural effusion is identified. Heart size is normal. No acute osseous changes are identified. IMPRESSION: Minimal right basilar atelectasis or infiltrate. Electronically signed by: Josué Benton MD (03/24/2019 3:29 PM) [facility] DICTATED and SIGNED BY: JOSUÉ BENTON MD DATE: 03/24/19 1529 Course & Med Decision Making Course & Med Decision Making Pertinent Labs and Imaging studies reviewed. (See chart for details) Evaluation of patient in ER showed 59-year-old female patient presented to ER for refill of fentanyl patch. Patient had unremarkable physical exam and vital signs without any distress and ultimately leading to a fentanyl patch. Patient w as advised to follow up with her primary care physician regarding prescription of fentanyl patch. Patient did not want of her medication because of history of gastroparesis. I've spoken with the patient and/or caregivers. I've explained the patient's condition, diagnosis and treatment plan based on information available to me at this time. I've answered the patient's and/or caregivers questions and addressed any concerns. The patient and/or caregivers have a good understanding the patient's diagnosis, condition and treatment plan as can be expected at this point. Vital signs have been stabilized. The patient's condition is stable for discharge from the emergency department. The patient will pursue further outpatient evaluation with her primary care provider or other designated consulting physician as outlined in the discharge instructions. Patient and/or caregivers are agreeable to this plan of care and follow-up instructions have been explained in detail. The patient and/or caregivers have received these instructions in written format and expressed understanding of these discharge instructions. The patient and her caregivers are aware that if any significant change in condition or worsening of symptoms should prompt him to immediately return to this of the closest emergency department. If an emergent department is not readily available I would encourage him to call 911. Aide Disclaimer Dragon Disclaimer This electronic medical record was generated, in whole or in part, using a voice recognition dictation system. Departure Departure Impression: Primary Impression: Encounter for medication refill Additional Impressions: Chest congestion Chronic back pain Disposition: HOME, SELF-CARE (at 1518) Condition: STABLE Referrals: ELIZABETH HOGAN MD (PCP) Patient Instructions: Medication Refill, Emergency Department Additional Instructions: Follow-up with your primary care physician in 1-2 days for refill of fentanyl patch Return to ER if not getting better Thank you for visiting [facility]. We appreciate you trusting us with your care. If any additional problems come up don't hesitate to return to visit us. Please follow up with your primary care provider so they can plan additional care if needed and know about the problem that you had. If symptoms worsen come back to the Emergency Department. Any concerning symptoms that start such as chest pain, shortness of air, weakness or numbness on one side of the body, running high fevers or any other concerning symptoms return to the ER. Problem Qualifiers Additional Impressions: Chronic back pain Back pain location: back pain in unspecified location Back pain laterality: unspecified Qualified Codes: M54.9 - Dorsalgia, unspecified; G89.29 - Other chronic pain DELANEY IRWIN MD Mar 24, 2019 14:52
--- NOTE | 2019-03-24 15:33 | RAD ---
AP and Lateral Views of the Chest 03/24/2019 2:38 PM Indication: Shortness of breath Comparison: Chest radiograph February 12, 2019 Findings: Mild right basilar atelectasis versus infiltrate is seen. No pneumothorax or pleural effusion is identified. Heart size is normal. No acute osseous changes are identified. IMPRESSION: Minimal right basilar atelectasis or infiltrate. Electronically signed by: Josué Kelsey MD (03/24/2019 3:29 PM) [facility]
== END 2019-03-24 15:49 | disposition home or self-care (01) ==
LOC: ER 12:51
DX: R09.89 Other specified symptoms and signs involving the circulatory and respiratory systems (principal); G89.29 Other chronic pain; M54.9 Dorsalgia, unspecified; Z76.0 Encounter for issue of repeat prescription; J44.9 Chronic obstructive pulmonary disease, unspecified; E11.9 Type 2 diabetes mellitus without complications; E78.00 Pure hypercholesterolemia, unspecified; I10 Essential (primary) hypertension; F17.200 Nicotine dependence, unspecified, uncomplicated; Z98.890 Other specified postprocedural states; Z88.1 Allergy status to other antibiotic agents; Z88.2 Allergy status to sulfonamides; Z88.8 Allergy status to other drugs, medicaments and biological substances
CPT/HCPCS: 71046; 96372; 99284; J2270

== ENCOUNTER 2019-04-14 17:21 | Emergency (ER) | payer OTHER, MEDICARE ==
[~2019-04-14] VITALS: Ht 175.3 cm; Wt 81.2 kg
[~2019-04-14 17:21] MED LIST changes: +TRAZ-123 PO; -TRAZ-86 PO
[2019-04-14] MEDS ORDERED: IV NORMAL SALINE 1000ML BAG 1,000 ML IV SCH (18:52)
--- NOTE | 2019-04-14 18:52 | PHYS DOC ---
Past Medical History Past Medical History: Anxiety, Asthma, Bronchitis, COPD, Diabetes-Type II, High Cholesterol, Pneumonia, Additional Disease, Other Additional Past Medical Histor: smoker, chronic pain Past Surgical History: Other Additional Past Surgical Histo: hernia rx, back sx x 26 Alcohol Use: None Drug Use: None Adult General Chief Complaint Chief Complaint: NAUSEA/VOMITING/DIARRHA HPI HPI 59-year-old female with underlying history of anxiety, hypertension, COPD, c hronic respiratory failure, hyperlipidemia, chronic pain presented to emergency Department complaints of abdominal pain 3 days. She describes diarrhea. Patient states she is currently on fentanyl and they have been trying to take her off this medication over the last month. She is concerned of the decreased her medications too fast. She describes lower abdominal discomfort and pressure, difficulty with urination, concerns for something wrong with her intestines. Her pain worse, nothing makes her pain better. She denies any chest pain, shortness of breath, headache or visual changes. Review of Systems Review of Systems Constitutional: Denies fever or chills [] Respiratory: Denies cough or shortness of breath [] Cardiovascular: No additional information not addressed in HPI [] GI: lower abdominal pain, nausea, vomiting, diarrhea [] : difficulty with urination Musculoskeletal: chronic back pain Integument: Denies rash or skin lesions [] Neurologic: Denies headache, focal weakness or sensory changes [] All other systems were reviewed and found to be within normal limits, except as documented in this note. Current Medications Current Medications Current Medications Medications (Trade) Dose Ordered Sig/Jesus Start Time Stop Time Status Last Admin Dose Admin Dicyclomine HCl (Bentyl) 10 mg 1X ONCE 04/14/19 19:30 04/14/19 19:42 DC 04/14/19 19:40 10 MG Fentanyl (Duragesic 12mcg/ Hr Patch) 1 patch 1X ONCE 04/14/19 20:45 04/14/19 20:46 DC 04/14/19 20:25 1 PATCH Fentanyl (Duragesic 75mcg/ Hr Patch) 1 patch 1X ONCE 04/14/19 20:45 04/14/19 20:46 DC 04/14/19 20:25 1 PATCH Info (CONTRAST GIVEN -- Rx MONITORING) 1 each PRN DAILY PRN 04/14/19 20:00 04/16/19 19:59 Iohexol (Omnipaque 300 Mg/ml) 75 ml 1X ONCE 04/14/19 19:45 04/14/19 19:50 DC 04/14/19 19:45 75 ML Sodium Chloride 1,000 ml @ 1,000 mls/hr Q1H 04/14/19 18:52 04/14/19 19:51 DC 04/14/19 19:40 1,000 MLS/HR Allergies Allergies Allergies Coded Allergies Type Severity Reaction Last Updated Verified chlorhexidine Allergy Severe SEVERE BURNING TO SKIN 01/20/17 Yes doxycycline Allergy Severe Anaphylaxis 03/24/19 Yes Sulfa (Sulfonamide Antibiotics) Allergy Intermediate 01/20/17 Yes cephalexin Allergy Intermediate 01/20/17 Yes Physical Exam Physical Exam Constitutional: Well developed, well nourished, no acute distress, non-toxic appearance. [] HENT: Normocephalic, atraumatic, bilateral external ears normal, oropharynx moist, no oral exudates, nose normal. [] Eyes: PERRLA, EOMI, conjunctiva normal, no discharge. [] Cardiovascular:Heart rate regular rhythm, no murmur [] Lungs & Thorax: Bilateral breath sounds clear to auscultation [] Abdomen: Bowel sounds normal, soft, TTP lower abdomen, no masses, no pulsatile masses. [] Skin: Warm, dry, no erythema, no rash. [] Back: No tenderness, no CVA tenderness. [] Extremities: No tenderness, no edema. [] Neurologic: Alert and oriented X 3, no focal deficits noted. [] Psychologic: Affect normal, judgement normal, mood normal. [] Current Patient Data Vital Signs Vital Signs Date Time Temp Pulse Resp B/P (MAP) Pulse Ox O2 Delivery O2 Flow Rate FiO2 04/14/19 20:25 Room Air 04/14/19 18:35 98.1 85 16 162/76 (104) 97 98.1 Lab Values Laboratory Tests Test 04/14/19 19:20 04/14/19 20:52 White Blood Count 6.2 x10^3/uL (4.0-11.0) Red Blood Count 5.10 x10^6/uL (3.50-5.40) Hemoglobin 13.8 g/dL (12.0-15.5) Hematocrit 41.7 % (36.0-47.0) Mean Corpuscular Volume 82 fL (79-100) Mean Corpuscular Hemoglobin 27 pg (25-35) Mean Corpuscular Hemoglobin Concent 33 g/dL (31-37) Red Cell Distribution Width 16.3 % (11.5-14.5) H Platelet Count 275 x10^3/uL (140-400) Neutrophils (%) (Auto) 68 % (31-73) Lymphocytes (%) (Auto) 25 % (24-48) Monocytes (%) (Auto) 4 % (0-9) Eosinophils (%) (Auto) 1 % (0-3) Basophils (%) (Auto) 1 % (0-3) Neutrophils # (Auto) 4.2 x10^3/uL (1.8-7.7) Lymphocytes # (Auto) 1.6 x10^3/uL (1.0-4.8) Monocytes # (Auto) 0.3 x10^3/uL (0.0-1.1) Eosinophils # (Auto) 0.1 x10^3/uL (0.0-0.7) Basophils # (Auto) 0.1 x10^3/uL (0.0-0.2) Sodium Level 139 mmol/L (136-145) Potassium Level 4.4 mmol/L (3.5-5.1) Chloride Level 103 mmol/L (98-107) Carbon Dioxide Level 29 mmol/L (21-32) Anion Gap 7 (6-14) Blood Urea Nitrogen 9 mg/dL (7-20) Creatinine 0.8 mg/dL (0.6-1.0) Estimated GFR (Cockcroft-Gault) 73.4 BUN/Creatinine Ratio 11 (6-20) Glucose Level 81 mg/dL (70-99) Calcium Level 9.3 mg/dL (8.5-10.1) Total Bilirubin 0.3 mg/dL (0.2-1.0) Aspartate Amino Transferase (AST) 17 U/L (15-37) Alanine Aminotransferase (ALT) 9 U/L (14-59) L Alkaline Phosphatase 113 U/L (46-116) Total Protein 6.7 g/dL (6.4-8.2) Albumin 3.3 g/dL (3.4-5.0) L Albumin/Globulin Ratio 1.0 (1.0-1.7) Lipase 62 U/L (73-393) L Urine Collection Type Void Urine Color Yellow Urine Clarity Cloudy Urine pH 5.5 Urine Specific [place] >=1.030 Urine Protein Negative mg/dL (NEG-TRACE) Urine Glucose (UA) Negative mg/dL (NEG) Urine Ketones (Stick) 40 mg/dL (NEG) Urine Blood Negative (NEG) Urine Nitrite Negative (NEG) Urine Bilirubin Negative (NEG) Urine Urobilinogen Dipstick 0.2 mg/dL (0.2 mg/dL) Urine Leukocyte Esterase Negative (NEG) Urine RBC 0 /HPF (0-2) Urine WBC 1-4 /HPF (0-4) Urine Squamous Epithelial Cells Occ /LPF Urine Bacteria Few /HPF (0-FEW) Urine Opiates Screen Neg (NEG) Urine Methadone Screen Neg (NEG) Urine Barbiturates Neg (NEG) Urine Phencyclidine Screen Neg (NEG) Urine Amphetamine/Methamphetamine Neg (NEG) Urine Benzodiazepines Screen Pos (NEG) Urine Cocaine Screen Neg (NEG) Urine Cannabinoids Screen Neg (NEG) Urine Ethyl Alcohol Neg (NEG) Laboratory Tests 04/14/19 19:20 Laboratory Tests 04/14/19 19:20 EKG EKG [] Radiology/Procedures Radiology/Procedures [facility] [address] [place], [place] [id number] IMAGING REPORT Signed PATIENT: MATEO SOUTH LACCOUNT: [id number] : 1960 LOCATION: ER AGE: 59 SEX: F EXAM STATUS: REG ER ORD. PHYSICIAN: VICKY KOVACS MD REASON: abdominal pain, nausea/vomiting OMNI 300, 75 ML IV PROCEDURE: CT ABD PELV W/ IV CONTRST ONLY Study: CT abdomen/pelvis with intravenous contrast Indication: Abdominal pain. Nausea and vomiting. Comparison: 01/12/2019 Technique: Helical CT imaging performed of the abdomen and pelvis after the intravenous administration of 75 cc Omnipaque 300 contrast. Sagittal and coronal reformats were obtained. One or more of the following individualized dose reduction techniques were utilized for this examination: 1. Automated exposure control 2. Adjustment of the mA and/or kV according to patient size 3. Use of iterative reconstruction technique. Findings: Motion degraded evaluation through the lung bases. Mild nodularity at the right lung base such as seen on image 4 series 2, the largest nodule measuring approximately 6 mm. Unremarkable visualized heart. Small hiatal hernia. Hepatic steatosis. Absent gallbladder. Partially atrophic pancreas. Unremarkable spleen and adrenal glands. Low-attenuation focus at the upper pole the left kidney was present on the prior as well as a subtle low-attenuation focus at the posterior aspect of the left kidney on image 30 series 2. No newly seen renal parenchymal abnormality. No hydroureteronephrosis. Unremarkable urinary bladder. Unremarkable uterus and adnexa. No pericolonic inflammatory changes. Portions of the colon are collapsed limiting evaluation of the mucosa. Unremarkable appendix. Nonobstructed small bowel. Collapsed stomach limiting evaluation. Scattered vascular calcifications. No aneurysmal dilatation of the aorta. No pathologically enlarged lymph nodes. No free fluid or air. Scattered injection granulomas. Osteopenia. Scattered degenerative changes. Areas of fusion across the sacroiliac joints. Unchanged vertebral body height loss at L5 and superior endplate compression at T10. Impression: 1. No acute abnormality seen throughout the abdomen or pelvis. 2. Since the 01/12/2019 comparison, development of mild nodularity at the right lower lobe the largest of which measures up to 6 mm. In mild infectious or inflammatory process is favored over a malignancy given the short time period since the prior. Recommend correlation with patient symptomatology. Follow-up could be performed such as in 6-12 months to document resolution. 3. Numerous chronic findings that are no different from the prior and are detailed in the body of the report. Electronically signed by: GRIFFIN HOLM MD (04/14/2019 8:29 PM) [facility] [place] [facility] [place] DICTATED and SIGNED BY: GRFIFIN HOLM MD DATE: 04/14/192028 [] Course & Med Decision Making Course & Med Decision Making Pertinent Labs and Imaging studies reviewed. (See chart for details) []59-year-old female with underlying history of anxiety, hypertension, COPD, chronic respiratory failure, hyperlipidemia, chronic pain presented to emergency Department complaints of abdominal pain 3 days. She describes diarrhea. Patient states she is currently on fentanyl and they have been trying to take her off this medication over the last month. She is concerned of the decreased her medications too fast. She describes lower abdominal discomfort and pressure, difficulty with urination, concerns for something wrong with her intestines. Her pain worse, nothing makes her pain better. She denies any chest pain, familia rtness of breath, headache or visual changes. Labs/imaging reviewed White blood cell count 6.2, lipase 62, creatinine 0.8 CT shows mild nodularity to right middle lobe representing inflammatory process versus infection this is favored over malignancy as this was not present on January 12, 2019. Recommendations for follow-up in 6-12 months given patient's had continuous cough will treat as infectious process with antibiotic therapy Urinalysis reveals no evidence of urinary tract infection, UDS reveals benzodiazepines Discharge home follow up with primary care physician Aide Disclaimer Aide Disclaimer This electronic medical record was generated, in whole or in part, using a voice recognition dictation system. Departure Departure Impression: Primary Impression: Abdominal pain Additional Impressions: Diarrhea Abnormal chest xray Disposition: , SELF-CARE Condition: IMPROVED Referrals: ELIZABETH HOGAN MD (PCP) Patient Instructions: Abdominal Pain (Nonspecific), Diarrhea Additional Instructions: Recommend follow up with PCP 3 - 5 days Return to the ER with worsening symptoms, intractable pain, fever, altered mental status Tylenol/Motrin as needed for pain Take antibiotics as prescribed Bentyl provided for abdominal pain Scripts Amoxicillin/Potassium Clav (AUGMENTIN 875-125 TABLET) 1 Each Tablet 1 TAB PO Q12HR for 7 Days, #14 TAB Prov: VICKY KOVACS MD 04/14/19 Dicyclomine Hcl (DICYCLOMINE HCL) 10 Mg Capsule 1 CAP PO PRN Q6HRS for 5 Days, #20 CAP 3 Refills Prov: VICKY KOVACS MD 04/14/19 Problem Qualifiers Primary Impression: Abdominal pain Abdominal location: lower abdomen, unspecified Qualified Codes: R10.30 - Lower abdominal pain, unspecified Additional Impressions: Diarrhea Diarrhea type: unspecified type Qualified Codes: R19.7 - Diarrhea, unspecified VICKY KOVACS MD Apr 14, 2019 18:52
[2019-04-14] MEDS ORDERED: DICYCLOMINE 20 MG/2 ML AMPUL. IM ONE (19:30)
[2019-04-14 19:31] LABS: BASO # 0.1 x10^3/uL (0.0-0.2); BASO % 1 % (0-3); EOS # 0.1 x10^3/uL (0.0-0.7); EOS % 1 % (0-3); HEMATOCRIT 41.7 % (36.0-47.0); HEMOGLOBIN 13.8 g/dL (12.0-15.5); LYMPH # 1.6 x10^3/uL (1.0-4.8); LYMPH % 25 % (24-48); MEAN CORPUSCULAR HEMOGLOBIN 27 pg (25-35); MEAN CORPUSCULAR HGB CONC 33 g/dL (31-37); MEAN CORPUSCULAR VOLUME 82 fL (79-100); MONO # 0.3 x10^3/uL (0.0-1.1); MONO % 4 % (0-9); NEUT # 4.2 x10^3/uL (1.8-7.7); NEUT % 68 % (31-73); PLATELET COUNT 275 x10^3/uL (140-400); RED CELL DISTRIBUTION WIDTH 16.3 % (11.5-14.5); WHITE BLOOD COUNT 6.2 x10^3/uL (4.0-11.0)
[2019-04-14 19:39] LABS: CALCIUM 9.3 mg/dL (8.5-10.1); CREATININE 0.8 mg/dL (0.6-1.0); GFR 73.4; POTASSIUM 4.4 mmol/L (3.5-5.1)
[2019-04-14 19:44] LABS: ALBUMIN 3.3 g/dL (3.4-5.0); TOTAL BILIRUBIN 0.3 mg/dL (0.2-1.0); TOTAL PROTEIN 6.7 g/dL (6.4-8.2)
[2019-04-14] MEDS ORDERED: IOHEXOL 300 MG/ML 100ML VIAL. IV ONE (19:45)
[2019-04-14] MEDS ORDERED: fentaNYL 75MCG/HR PATCH 1 PATCH PATCH.TD72 TD SCH (20:00)
[2019-04-14] MEDS ORDERED: fentaNYL 12MCG/HR PATCH 1 PATCH PATCH.TD72 TD SCH (20:00)
[2019-04-14] MEDS ORDERED: CONTRAST GIVEN. MC PRN (20:00)
[2019-04-14 20:16] VITALS: BP 193/83
--- NOTE | 2019-04-14 20:32 | RAD ---
Study: CT abdomen/pelvis with intravenous contrast Indication: Abdominal pain. Nausea and vomiting. Comparison: 01/12/2019 Technique: Helical CT imaging performed of the abdomen and pelvis after the intravenous administration of 75 cc Omnipaque 300 contrast. Sagittal and coronal reformats were obtained. One or more of the following individualized dose reduction techniques were utilized for this examination: 1. Automated exposure control 2. Adjustment of the mA and/or kV according to patient size 3. Use of iterative reconstruction technique. Findings: Motion degraded evaluation through the lung bases. Mild nodularity at the right lung base such as seen on image 4 series 2, the largest nodule measuring approximately 6 mm. Unremarkable visualized heart. Small hiatal hernia. Hepatic steatosis. Absent gallbladder. Partially atrophic pancreas. Unremarkable spleen and adrenal glands. Low-attenuation focus at the upper pole the left kidney was present on the prior as well as a subtle low-attenuation focus at the posterior aspect of the left kidney on image 30 series 2. No newly seen renal parenchymal abnormality. No hydroureteronephrosis. Unremarkable urinary bladder. Unremarkable uterus and adnexa. No pericolonic inflammatory changes. Portions of the colon are collapsed limiting evaluation of the mucosa. Unremarkable appendix. Nonobstructed small bowel. Collapsed stomach limiting evaluation. Scattered vascular calcifications. No aneurysmal dilatation of the aorta. No pathologically enlarged lymph nodes. No free fluid or air. Scattered injection granulomas. Osteopenia. Scattered degenerative changes. Areas of fusion across the sacroiliac joints. Unchanged vertebral body height loss at L5 and superior endplate compression at T10. Impression: 1. No acute abnormality seen throughout the abdomen or pelvis. 2. Since the 01/12/2019 comparison, development of mild nodularity at the right lower lobe the largest of which measures up to 6 mm. In mild infectious or inflammatory process is favored over a malignancy given the short time period since the prior. Recommend correlation with patient symptomatology. Follow-up could be performed such as in 6-12 months to document resolution. 3. Numerous chronic findings that are no different from the prior and are detailed in the body of the report. Electronically signed by: GRIFFIN HOLM MD (04/14/2019 8:29 PM) [facility] [place]
[2019-04-14] MEDS ORDERED: fentaNYL 12MCG/HR PATCH 1 PATCH PATCH.TD72 TD ONE (20:45)
[2019-04-14] MEDS ORDERED: fentaNYL 75MCG/HR PATCH 1 PATCH PATCH.TD72 TD ONE (20:45)
[2019-04-14 21:01] LABS: BILIRUBIN,URINE NEGATIVE (NEG); CLARITY,URINE CLOUDY; COLOR,URINE YELLOW; NITRITE,URINE NEGATIVE (NEG); PH,URINE 5.5; PROTEIN,URINE NEGATIVE (NEG-TRACE); UROBILINOGEN,URINE 0.2 mg/dL (0.2 mg/dL)
[2019-04-14 21:05] LABS: RBC,URINE 0 /HPF (0-2)
[2019-04-14 21:06] LABS: BACTERIA,URINE FEW /HPF (0-FEW); SQUAMOUS EPITHELIAL CELL,UR OCC /LPF
[2019-04-14 21:07] LABS: AMPHETAMINE/METHAMPHETAMINE NEG (NEG); BARBITURATES NEG (NEG); BENZODIAZEPINES POS (NEG); CANNABINOIDS NEG (NEG); COCAINE NEG (NEG); METHADONE NEG (NEG); OPIATES NEG (NEG); PHENCYCLIDINE NEG (NEG)
[2019-04-14] MEDS ORDERED: DICY10CA3 PO (21:18)
[2019-04-14] MEDS ORDERED: AMOX1TAB61 PO (21:18)
== END 2019-04-14 21:35 | disposition home or self-care (01) ==
LOC: ER 17:21
DX: R10.30 Lower abdominal pain, unspecified (principal); R19.7 Diarrhea, unspecified; R91.8 Other nonspecific abnormal finding of lung field; G89.29 Other chronic pain; M54.9 Dorsalgia, unspecified; R30.0 Dysuria; J44.9 Chronic obstructive pulmonary disease, unspecified; F41.9 Anxiety disorder, unspecified; E78.00 Pure hypercholesterolemia, unspecified; F17.200 Nicotine dependence, unspecified, uncomplicated; Z98.890 Other specified postprocedural states; Z88.1 Allergy status to other antibiotic agents; Z88.2 Allergy status to sulfonamides; Z88.8 Allergy status to other drugs, medicaments and biological substances
CPT/HCPCS: 36415; 74177; 80053; 80307; 81001; 83690; 85025; 96360; 96361; 96372; 99285; J0500; J7030; Q9967

== ENCOUNTER 2019-04-17 19:32 | Emergency (ER) | payer OTHER, MEDICARE ==
[~2019-04-17 19:32] MED LIST changes: +AMOX1TAB61 PO; +DICY10CA3 PO
[2019-04-17 20:40] LABS: BASO # 0.1 x10^3/uL (0.0-0.2); BASO % 2 % (0-3); EOS # 0.1 x10^3/uL (0.0-0.7); EOS % 2 % (0-3); HEMATOCRIT 44.5 % (36.0-47.0); HEMOGLOBIN 14.7 g/dL (12.0-15.5); LYMPH # 2.2 x10^3/uL (1.0-4.8); LYMPH % 30 % (24-48); MEAN CORPUSCULAR HEMOGLOBIN 27 pg (25-35); MEAN CORPUSCULAR HGB CONC 33 g/dL (31-37); MEAN CORPUSCULAR VOLUME 82 fL (79-100); MONO # 0.3 x10^3/uL (0.0-1.1); MONO % 4 % (0-9); NEUT # 4.8 x10^3/uL (1.8-7.7); NEUT % 63 % (31-73); PLATELET COUNT 302 x10^3/uL (140-400); RED CELL DISTRIBUTION WIDTH 16.6 % (11.5-14.5); WHITE BLOOD COUNT 7.5 x10^3/uL (4.0-11.0)
--- NOTE | 2019-04-17 21:40 | PHYS DOC ---
Past Medical History Past Medical History: Anxiety, Asthma, Bronchitis, COPD, Diabetes-Type II, High Cholesterol, Pneumonia, Additional Disease, Other Additional Past Medical Histor: smoker, chronic pain Past Surgical History: Other Additional Past Surgical Histo: hernia rx, back sx x 26 Additional Information: 1/2 pk per day Alcohol Use: None Drug Use: None Social History Narrative: at bedside, no SI/HI Adult General Chief Complaint Chief Complaint: ABDOMINAL PAIN HPI HPI Patient is a 59 year old female with history of chronic pain who presents with persistent diffuse lower abdominal pain for the past 7 days. Pain is dull, rated moderate to severe. Nothing makes it better nothing makes it worse. It has nausea vomiting, flank pain, chills, sweats. No urinary frequency urgency or dysuria. Patient was evaluated in this emergency department 3 days ago for the same complaint. Labs and CT imaging were performed at that time and were not diagnostic. Patient states pain has not improved, not worsened or changed in location or pattern other acute symptoms or complaints.[ Patient states she is currently weaning herself from fentanyl patches. Patient has 100 mcg Fentanyl patch placed 2 days ago and that she replaces them every 2 days due to loss of potency and that she is not schedule to be seen by her PCP in 4 days for refill in Fentanyl patches. ] Review of Systems Review of Systems ROS as per HPI All other systems were reviewed and found to be within normal limits, except as documented in this note. Current Medications Current Medications Current Medications Medications (Trade) Dose Ordered Sig/Jesus Start Time Stop Time Status Last Admin Dose Admin Dicyclomine HCl (Bentyl) 20 mg 1X ONCE 04/17/19 22:00 04/17/19 22:01 DC 04/17/19 22:12 20 MG Tramadol HCl (Ultram) 100 mg 1X ONCE 04/17/19 23:00 04/17/19 23:01 Allergies Allergies Allergies Coded Allergies Type Severity Reaction Last Updated Verified chlorhexidine Allergy Severe SEVERE BURNING TO SKIN 01/20/17 Yes doxycycline Allergy Severe Anaphylaxis 03/24/19 Yes Sulfa (Sulfonamide Antibiotics) Allergy Intermediate 01/20/17 Yes cephalexin Allergy Intermediate 01/20/17 Yes Physical Exam Physical Exam Constitutional: Well developed, well nourished, no acute distress, non-toxic appearance, supplemental 02 by nasal canula. [] HENT: Normocephalic, atraumatic, bilateral external ears normal, oropharynx moist, nose normal. [] Eyes: PERRLA, EOMI, conjunctiva normal, no discharge. [] Neck: Normal range of motion, no tenderness. [] Cardiovascular:Heart rate regular rhythm. [] Lungs & Thorax: Bilateral breath sounds clear to auscultation [] Abdomen: Bowel sounds normal, soft, diffuse lower abdominal pain.. [] Skin: Warm, dry. [] Back: No tenderness. [] Extremities: No tenderness, no edema. [] Neurologic: Alert and oriented X 3, normal motor function, normal sensory function, no focal deficits noted. [] Psychologic: Affect normal, judgment normal, mood normal. [] Current Patient Data Vital Signs Vital Signs Date Time Temp Pulse Resp B/P (MAP) Pulse Ox O2 Delivery O2 Flow Rate FiO2 04/17/19 20:15 98.6 74 14 168/75 (106) 97 Nasal Cannula 2.0 98.6 Lab Values Laboratory Tests Test 04/17/19 20:15 04/17/19 21:25 White Blood Count 7.5 x10^3/uL (4.0-11.0) Red Blood Count 5.40 x10^6/uL (3.50-5.40) Hemoglobin 14.7 g/dL (12.0-15.5) Hematocrit 44.5 % (36.0-47.0) Mean Corpuscular Volume 82 fL (79-100) Mean Corpuscular Hemoglobin 27 pg (25-35) Mean Corpuscular Hemoglobin Concent 33 g/dL (31-37) Red Cell Distribution Width 16.6 % (11.5-14.5) H Platelet Count 302 x10^3/uL (140-400) Neutrophils (%) (Auto) 63 % (31-73) Lymphocytes (%) (Auto) 30 % (24-48) Monocytes (%) (Auto) 4 % (0-9) Eosinophils (%) (Auto) 2 % (0-3) Basophils (%) (Auto) 2 % (0-3) Neutrophils # (Auto) 4.8 x10^3/uL (1.8-7.7) Lymphocytes # (Auto) 2.2 x10^3/uL (1.0-4.8) Monocytes # (Auto) 0.3 x10^3/uL (0.0-1.1) Eosinophils # (Auto) 0.1 x10^3/uL (0.0-0.7) Basophils # (Auto) 0.1 x10^3/uL (0.0-0.2) Sodium Level 144 mmol/L (136-145) Potassium Level 4.4 mmol/L (3.5-5.1) Chloride Level 106 mmol/L (98-107) Carbon Dioxide Level 26 mmol/L (21-32) Anion Gap 12 (6-14) Blood Urea Nitrogen 10 mg/dL (7-20) Creatinine 0.8 mg/dL (0.6-1.0) Estimated GFR (Cockcroft-Gault) 73.4 BUN/Creatinine Ratio 13 (6-20) Glucose Level 94 mg/dL (70-99) Lactic Acid Level 1.2 mmol/L (0.4-2.0) Calcium Level 9.5 mg/dL (8.5-10.1) Total Bilirubin 0.2 mg/dL (0.2-1.0) Aspartate Amino Transferase (AST) 16 U/L (15-37) Alanine Aminotransferase (ALT) 10 U/L (14-59) L Alkaline Phosphatase 124 U/L (46-116) H Troponin I Quantitative < 0.017 ng/mL (0.000-0.055) C-Reactive Protein, Quantitative 2.3 mg/L (0-3.3) Total Protein 6.5 g/dL (6.4-8.2) Albumin 3.6 g/dL (3.4-5.0) Albumin/Globulin Ratio 1.2 (1.0-1.7) Lipase 94 U/L (73-393) Laboratory Tests 04/17/19 20:15 Laboratory Tests 04/17/19 21:25 EKG EKG [] Radiology/Procedures Radiology/Procedures [CT abdomen/pelvis 04/14/19: reviewed ] Course & Med Decision Making Course & Med Decision Making Pertinent Labs and Imaging studies reviewed. (See chart for details) [Patient is in the process of detoxing fentanyl by the age of her primary care physician. She is fentanyl patches every 2 days and is currently out her patches. Tramadol given for withdrawal symptoms. No vomiting in the ED. Prescribed tramadol and Atarax for withdrawal symptoms. Dragon Disclaimer Dragon Disclaimer This electronic medical record was generated, in whole or in part, using a voice recognition dictation system. Departure Departure Impression: Primary Impression: Narcotic withdrawal Additional Impression: Abdominal pain Disposition: 01 HOME, SELF-CARE Condition: STABLE Referrals: ELIZABETH HOGAN MD (PCP) Patient Instructions: Abdominal Pain (Nonspecific), Narcotic Withdrawal-Brief Additional Instructions: Please follow-up with your PCP, chemistry specialist and pain management physician for further management narcotic withdrawal and abdominal pain Scripts Tramadol Hcl (TRAMADOL HCL) 50 Mg Tablet 50 MG PO Q6H PRN for PAIN for 3 Days, #12 TAB 0 Refills Prov: ANOOP GARY DO 04/17/19 Hydroxyzine Hcl (HYDROXYZINE HCL) 25 Mg Tablet 1 TAB PO TID, #15 TAB Prov: ANOOP GARY DO 04/17/19 Problem Qualifiers ANOOP GARY DO Apr 17, 2019 21:40
[2019-04-17] MEDS ORDERED: DICYCLOMINE 20 MG/2 ML AMPUL. IM ONE (22:00)
[2019-04-17 22:22] VITALS: BP 159/70
[2019-04-17 22:23] LABS: CALCIUM 9.5 mg/dL (8.5-10.1); CREATININE 0.8 mg/dL (0.6-1.0); GFR 73.4; POTASSIUM 4.4 mmol/L (3.5-5.1)
[2019-04-17 22:29] LABS: ALBUMIN 3.6 g/dL (3.4-5.0); ALBUMIN/GLOBULIN RATIO 1.2 (1.0-1.7); C-REACTIVE PROTEIN 2.3 mg/L (0-3.3); TOTAL BILIRUBIN 0.2 mg/dL (0.2-1.0); TOTAL PROTEIN 6.5 g/dL (6.4-8.2)
[2019-04-17] MEDS ORDERED: HYDR25TA PO (22:47)
[2019-04-17] MEDS ORDERED: TRAM50TA PO (22:48)
[2019-04-17] MEDS ORDERED: traMADol 50 MG TABLET PO ONE (23:00)
== END 2019-04-17 23:01 | disposition home or self-care (01) ==
LOC: ER 19:32
DX: F11.23 Opioid dependence with withdrawal (principal); R10.84 Generalized abdominal pain; J44.9 Chronic obstructive pulmonary disease, unspecified; E11.9 Type 2 diabetes mellitus without complications; E78.00 Pure hypercholesterolemia, unspecified; F41.9 Anxiety disorder, unspecified; G89.29 Other chronic pain; Z98.890 Other specified postprocedural states; F17.200 Nicotine dependence, unspecified, uncomplicated; Z88.1 Allergy status to other antibiotic agents; Z88.2 Allergy status to sulfonamides; Z88.8 Allergy status to other drugs, medicaments and biological substances
CPT/HCPCS: 36415; 80053; 83605; 83690; 84484; 85025; 86140; 96372; 99284; J0500

== ENCOUNTER 2021-08-25 10:16 | Outpatient (CLI) | payer MEDICARE ==
[~2021-08-25 10:16] MED LIST changes: +AMLO-186 PO; -AMLO5TAB10 PO; +ESTR-113 PO; -ESTR1TAB15 PO; +HYDR25TA PO; +IV RINGERS,LACTATED 1000ML 1,000 ML IV SCH; +TRAM50TA PO
[2021-08-25] MEDS ORDERED: MIDAZOLAM HCL/PF 2 MG/2 ML VIAL. ONE (10:42)
[2021-08-25] MEDS ORDERED: LIDOCAINE 2% PF 5 ML VIAL. ONE (10:42)
[2021-08-25] MEDS ORDERED: PROPOFOL 10 MG/ML (20ML) VIAL. IV ONE (10:42)
[2021-08-25] MEDS ORDERED: KETAMINE HCL IN NACL, ISO-OSM 50 MG/5 ML SYRINGE ONE (10:44)
[2021-08-25 10:54] LABS: GFR 56.4
[2021-08-25] MEDS ORDERED: GADOTERATE 7.5 MMOL/15ML VIAL. IVP ONE (11:00)
[2021-08-25] MEDS ORDERED: CONTRAST GIVEN. MC PRN (11:15)
[2021-08-25 12:05] VITALS: BP 137/54
--- NOTE | 2021-08-25 13:46 | RAD ---
MRI LUMBAR SPINE WITHOUT AND WITH IV CONTRAST Date: 08/25/2021 10:54 AM Indication: low back pain History: lumbar laminectomy Comparison: 11/14/2018. Technique: Multi-planar multi-weighted magnetic resonance imaging of the lumbar spine was performed w ith and without intravenous contrast using the standard lumbar spine protocol. [address] was administered intravenously during the examination. FINDINGS: The lumbar spine is normally aligned. No acute fracture. Mild chronic loss at L5. Mild multilevel deg enerative disc desiccation and disc height loss. No marrow replacing process to suggest malignancy. The conus terminates at a normal level. No abnormal signal is seen within the visualized distal spina l cord. No clumping of intrathecal nerve roots. No abnormal enhancement. No soft tissue abnormality in the visualized abdomen or pelvis. T12-L1: No disc bulge. No facet arthropathy. No significant spinal stenosis or neural foraminal narro wing. L1-L2: No disc bulge. No facet arthropathy. No significant spinal stenosis or neural foraminal narrow ing. L2-L3: Disc bulge. Mild facet arthropathy. No significant spinal stenosis or neural foraminal narrowi ng. L3-L4: Disc bulge. Mild facet arthropathy. Mild spinal stenosis. No neural foraminal narrowing. L4-L5: Disc bulge. Mild facet arthropathy. Mild spinal stenosis. Mild right neural foraminal narrowin g. L5-S1: Disc bulge with right greater than left far lateral protrusion. Mild facet arthropathy. No sig nificant spinal stenosis. Mild bilateral neural foraminal narrowing. IMPRESSION: Mild degenerative lumbar spondylosis, detailed level by level above. Electronically signed by: Pierre Robert MD (08/25/2021 1:44 PM) [facility]
== END 2021-08-25 12:10 | disposition home or self-care (01) ==
LOC: MRI 10:16
PROVIDERS: ATTEND Physical Medicine & Rehabilitation
DX: M47.817 Spondylosis without myelopathy or radiculopathy, lumbosacral region (principal); M51.27 Other intervertebral disc displacement, lumbosacral region; M48.07 Spinal stenosis, lumbosacral region; Z98.890 Other specified postprocedural states
CPT/HCPCS: 36415; 72158; 82565; A9575; J2250; J2704